=== PATIENT | female | born 1940 | race Caucasian/White ===

== ENCOUNTER → 2016-04-27 | Outpatient (CLI) | payer MEDICARE, OTHER | LOC: GMAL 17:11 | PROVIDERS: ATTEND Family Medicine | DX: T42.0X5A Adverse effect of hydantoin derivatives, initial encounter (principal); R56.9 Unspecified convulsions ==

== ENCOUNTER 2016-06-25 12:08 | Inpatient (IN) | payer MEDICARE, OTHER ==
[2016-06-25] MEDS ORDERED: IPRATROPIUM/ALBUTEROL 3 ML VIAL NEB ONE (12:24)
--- NOTE | 2016-06-25 13:17 | RAD ---
PROCEDURE: Chest,2 Views CLINICAL HISTORY: sob INDICATION: Same as above COMPARISON: 06/23/2016 and 04/23/2014 TECHNIQUE: PA and and lateral chest radiographs were obtained. FINDINGS: Note is again made of underlying changes of COPD and chronic blunting of the bilateral costophrenic angles due to underlying pleural thickening There are no discrete airspace infiltrates, pneumothoraces or pleural effusions. The pulmonary vascularity is normal The cardiomediastinal silhouette is unremarkable for patient's age and sex. IMPRESSION: There is no acute pleural-parenchymal process seen in the imaged lung damon. Underlying changes of COPD. Place of interpretation: [facility]. 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
[2016-06-25] MEDS ORDERED: cefTRIAXone SODIUM 1 GM in SODIUM CHL 0.9% 50ML MIN-BAG+ 50 ML IVPB ONE (14:05)
[2016-06-25] MEDS ORDERED: methylPREDNISolone SODIUM SUC 125 MG/2 ML VIAL IV ONE ×2 (14:05→20:11)
[2016-06-25] MEDS ORDERED: cefTRIAXone SODIUM 1 GM VIAL ONE (14:36)
[2016-06-25] MEDS ORDERED: SODIUM CHL 0.9% 50ML MIN-BAG+ 50 ML IVPB ONE (14:36)
--- NOTE | 2016-06-25 14:50 | ED.PDOC ---
History of Present Illness - General Chief Complaint: Respiratory Problem Stated Complaint: SHORTNESS OF BREATH Time Seen by Provider: 06/25/16 12:23 Source: patient Exam Limitations: no limitations - History of Present Illness Initial Comments: he patient is a 76-year-old female presented to the emergency room secondary to progressive shortness of breath last week. She does have known COPD and does still smoke. She went to the clinic earlier this week and received a shot of Rocephin and was put on oral azithromycin. She does do Xopenex nebulizer treatments and Spiriva treatments. No fevers. She has had an increase in clear sputum production. She is getting significantly short of breath with almost any activity. Oxygen saturations in clinic were in the high 70s by the time she arrived here they were in the low 80s with ambulation. With her sitting at rest oxygen saturations vary between 86 and 92%. She does have some mild nasal flaring or accessory muscle use. She does have moderate decreased air movement. There are mild scattered rhonchi. Minimal wheezes. Timing/Duration: 1 week Severity: moderate Improving Factors: rest Worsening Factors: movement Associated Symptoms: cough, malaise, shortness of breath Allergies/Adverse Reactions: Allergies Escitalopram [From Lexapro] Allergy (Verified 10/05/12 09:51) Metronidazole Allergy (Verified 10/05/12 09:51) Sulfa Antibiotics Allergy (Verified 07/18/15 17:50) Sulfonamide Deriv *RETIRED-02/15/13 [Sulfonamide Derivatives] Allergy (Verified 10/05/12 09:51) Venlafaxine [From Effexor] Allergy (Verified 10/05/12 09:51) Zonisamide [From Zonegran] Allergy (Verified 10/05/12 09:51) Home Medications: Ambulatory Orders Gabapentin 100 mg PO TID 07/15/13 Levothyroxine Sodium [Synthroid] 50 mcg PO DAILY 07/15/13 Phenytoin Sodium Extended [Dilantin] 100 mg PO DAILY 07/15/13 Nebivolol HCl [Bystolic] 2.5 mg PO DAILY 11/09/13 Paroxetine HCl [Paxil Cr] 37.5 mg PO BID 11/09/13 Oxcarbazepine [Trileptal] 150 mg PO DAILY 11/08/15 Phenytoin Sodium Cap [Dilantin Cap] 160 mg PO BEDTIME 11/08/15 Tiotropium [place] Monohydrate [Spiriva Handihaler] 1 puff IN BEDTIME 11/08/15 cloNAZepam [KlonoPIN] 0.5 mg PO QID 11/08/15 Review of Systems - Review of Systems Constitutional: States: malaise EENTM: States: nose congestion Respiratory: States: cough, short of breath, wheezing Cardiology: States: no symptoms reported Gastrointestinal/Abdominal: States: no symptoms reported Genitourinary: States: no symptoms reported Musculoskeletal: States: no symptoms reported Skin: States: no symptoms reported Neurological: States: no symptoms reported Endocrine: States: no symptoms reported All other Systems: No Change from Baseline Past Medical History (General) - Patient Medical History Hx Seizures: Yes Hx Stroke: No Hx Dementia: No Hx Asthma: No Hx of COPD: Yes - EMPHYSEMA Hx Cardiac Disorders: Yes Hx Congestive Heart Failure: No Hx Pacemaker: No Hx Hypertension: Yes Hx Thyroid Disease: Yes Hx Diabetes: No Hx Gastroesophageal Reflux: No Hx Renal Disease: No Hx Cancer: No Hx of HIV: No Hx Hepatitis C: No Hx MRSA: No Surgical History: Hysterectomy - Vaccination History Hx Influenza Vaccination: Yes Hx Pneumococcal Vaccination: Yes - Social History Hx Tobacco Use: Yes Hx Alcohol Use: No Hx Substance Use: No Hx Substance Use Treatment: No Hx Depression: Yes - Female History Patient : No Family Medical History - Family History Mother Family History: No Known Physical Exam - Physical Exam General Appearance: Alert, No apparent distress Eye Exam: bilateral normal Ears, Nose, Throat: hearing grossly normal, nasal congestion Neck: non-tender, full range of motion, supple Respiratory: chest non-tender, respiratory distress - mild, decreased breath sounds, accessory muscle use, rhonchi, wheezing Cardiovascular/Chest: normal peripheral pulses, regular rate, rhythm, no edema Peripheral Pulses: radial,right: 2+, radial,left: 2+, dorsalis pedis,right: 2+, dorsalis pedis,left: 2+ Gastrointestinal/Abdominal: non tender, soft Rectal Exam: deferred Back Exam: normal inspection, no CVA tenderness, no vertebral tenderness Extremity: normal range of motion, non-tender, normal inspection, no pedal edema , normal capillary refill Neurologic: alert, normal mood/affect, oriented x 3 Skin Exam: normal color Comments: Vital Signs - 24 hr 06/25/16 06/25/1606/25/17 12:42 12:54 13:00 Temperature 97.3 F L Pulse Rate 75 Pulse Rate [ 85 85 LEFT BRACHIAL] Respiratory 20 24 20 Rate Blood Pressure 155/91 160/74 [Left Arm] O2 Sat by Pulse 92 L 97 90 L Oximetry Progress - Progress Progress: 06/25/16 14:51 the patient is a 76-year-old female presenting with a COPD exacerbation and some significant symptomatic hypoxia. The patient will be admitted and placed on oxygen. She will need frequent breathing treatments. The DuoNeb treatment that she received here did help some. She has also agreed to low-dose steroids. The patient is given a dose of Rocephin and can continue her oral azithromycin. Anticipated to 3 day hospital stay. She may yet need home oxygen. This has yet to be determined. - Results/Orders Results/Orders: chest x-ray is consistent with COPD. Lab work is pending at this time. Departure - Departure Clinical Impression: Hypoxemia, Bronchitis, chronic obstructive, with exacerbation Disposition: Admit Patient Home Medications: Ambulatory Orders Gabapentin 100 mg PO TID 07/15/13 Levothyroxine Sodium [Synthroid] 50 mcg PO DAILY 07/15/13 Phenytoin Sodium Extended [Dilantin] 100 mg PO DAILY 07/15/13 Nebivolol HCl [Bystolic] 2.5 mg PO DAILY 11/09/13 Paroxetine HCl [Paxil Cr] 37.5 mg PO BID 11/09/13 Oxcarbazepine [Trileptal] 150 mg PO DAILY 11/08/15 Phenytoin Sodium Cap [Dilantin Cap] 160 mg PO BEDTIME 11/08/15 Tiotropium [place] Monohydrate [Spiriva Handihaler] 1 puff IN BEDTIME 11/08/15 cloNAZepam [KlonoPIN] 0.5 mg PO QID 11/08/15 Decision To Admit - Decistion To Admit Decision to Admit Reason: Medical Nature Decision to Admit Date: 06/25/16 Decision to Admit Time: 14:53
--- NOTE | 2016-06-25 14:55 | HP ---
SUPERVISING PHYSICIAN: Fritz Nicole M.D. CHIEF COMPLAINT: Shortness of breath. HISTORY OF PRESENT ILLNESS: This is a 76 year-old female who presented to the Emergency Room secondary to progressive shortness of breath that has been going on for over a week. She has chronic obstructive pulmonary disease and continues to smoke. She also has an extensive history of anxiety. She was at the [facility] earlier this weekend and received a Rocephin shot, and oral Azithromycin. She has Xopenex nebulizer treatments as well as Spiriva treatments. She has a dry cough and has been unable to cough up anything at this time. When she was in the clinic, her oxygen saturations were in the high 70s and upon admission to the Emergency Room they were in the low 80s. At rest , her saturations were between 86 and 92%, and her saturations stayed in the low 90s once she had oxygen. She was given a dose of steroids in the Emergency Room. Chest x-ray showed no acute pleural parenchymal process and underlying changes of chronic obstructive pulmonary disease. Laboratory: CBC was within normal limits. Chemistries showed carbon dioxide of 32, creatinine 0.56. I was called for admission for chronic obstructive pulmonary disease exacerbation failing outpatient therapy. PAST MEDICAL HISTORY: 1. Anxiety. 2. Seizure disorder. 3. Chronic obstructive pulmonary disease. 4. Hypertension. 5. Hypothyroidism. PAST SURGICAL HISTORY: 1. Right shoulder surgery. 2. Hysterectomy. 3. Appendectomy. 4. Gallbladder. 5. Thyroid surgery that involved a goiter. OUTPATIENT MEDICATIONS: Per the EMR and awaiting verification. ALLERGIES: METRONIDAZOLE, SULFA, ZONISAMIDE, CITALOPRAM AND VENLAFAXINE. SOCIAL HISTORY: She is a . She smokes approximately 1 pack of cigarettes per day. She denies any ETOH or illicit drug use. REVIEW OF SYSTEMS: GENERAL: She complains of fatigue but denies fever or chills. HEENT: Complains of nasal drainage and sinus symptoms but denies ear pain, sore throat or vision changes. RESPIRATORY: Complains of coughing, shortness of breath and wheezing. CARDIAC: Denies chest pain, palpitations or tachycardia. GASTROINTESTINAL: Denies constipation, diarrhea, nausea, vomiting or abdominal pain. NEUROLOGIC: Denies any recent seizures but complains of weakness. PSYCHIATRIC: She also states that she has very bad general anxiety disorder. PHYSICAL EXAMINATION: VITAL SIGNS: She is afebrile, pulse rate 75, blood pressure 166/89, respiratory rate is as high as 24 but is now in the 20s, O2 sat is in the low 90s, usually 90 to 92 but without oxygen she drops to the mid 80s. GENERAL: This is a 76 year-old thin female who is sitting up in her hospital bed. She is in mild respiratory distress. She can only speak in short phrases without taking a breath. HEENT: Normocephalic and atraumatic. Pupils are equal and reactive. Oropharynx is clear. Oral mucous membranes are moist. NECK: Supple without mass. There is no jugular venous distention. CHEST: Diminished breath sounds throughout. There are a few expiratory wheezes in the apices. She is slightly tachypneic at times. CARDIOVASCULAR: Regular rate and rhythm. ABDOMEN: Soft, nondistended, non-tender. Bowel sounds are positive. EXTREMITIES: No cyanosis, clubbing or edema. NEUROLOGIC: She is awake, alert and oriented times three. LABORATORY AND RADIOLOGY: As per the History of Present Illness. ASSESSMENT: 1. Exacerbation of chronic obstructive pulmonary disease, failed outpatient therapy. Was recently given Rocephin and Azithromycin in the outpatient setting. 2. Seizure disorder presently on Dilantin and Gabapentin. 3. Hypertension. 4. Hypothyroidism. 5. General anxiety disorder with panic attacks. PLAN: We will admit the patient to observation. I will do some blood cultures. I will also put her on some IV Levaquin. She will also be on the Xopenex breathing treatments both p.r.n. and scheduled. She does not like the shakiness that accompanies the administration of steroids. She received 60 mg in the E. R. and I will give her 60 mg right now. I have not started any routine steroids and I will see how she responds to the steroid treatment tonight, but given her respiratory status she most likely will at least need a taper. Will order incentive spirometry and pulmonary hygiene. Protonix for ulcer prophylaxis will be ordered as well as Lovenox for DVT prophylaxis. She gets scheduled Clonazepam and I have ordered that, but I will also give her an extra dose of p.r.n. Clonazepam. We had a lengthy discussion about smoking cessation and she realizes that she will probably have to do that. I am not quite sure she is ready for that, but we will continue to encourage her to stop smoking. Otherwise we will continue to monitor the patient closely and followup as needed. Dr. Nicole is the collaborating physician available for consultation. #[id number] [facility]ITALJazmyn
[2016-06-25] MEDS ORDERED: ALBUTEROL SULFATE 2.5 MG/3 ML VIAL NEB PRN (16:32)
[2016-06-25] MEDS ORDERED: IV SET AND CAP CHANGE INJ INJ SCH (17:00)
--- NOTE | 2016-06-25 18:50 | PCM.CORE ---
Physician DVT/VTE - Prophylaxis Currently: Patient already on anticoagulation therapy - Nurse DVT Assessment & Total Each Risk Factor Represents 3 Points: Age over 75 years Each Risk Factor is 1 Point: Serious Lung disease (pnemonia <1month, COPD, emphysema,etc) DVT Assessment Score: 4 - 3-4 High Risk Treatments: Early Ambulation *, Sequential Compression Device
[2016-06-25] MEDS ORDERED: ENOXAPARIN SODIUM 40 MG/0.4 ML SYG SUBCU SCH (19:00)
[2016-06-25] MEDS ORDERED: OXcarbazepine 300 MG TAB PO ONE (19:59)
[2016-06-25] MEDS ORDERED: IPRATROPIUM/ALBUTEROL 3 ML VIAL INH SCH (20:00)
[2016-06-25] MEDS ORDERED: GABAPENTIN 300 MG CAP ONE (20:00)
[2016-06-25] MEDS ORDERED: LEVALBUTEROL NEBS 1.25 MG/3 ML VIAL NEB PRN (20:10)
[2016-06-25] MEDS: SODIUM CHLORIDE 0.9% (FLUSH) 10 ML SYG IV PRN (20:23)
[2016-06-25] MEDS ORDERED: PANTOPRAZOLE SODIUM IV 40 MG VIAL IV SCH (20:30)
[2016-06-25] MEDS: TIOTROPIUM INHALER INH SCH (20:43)
[2016-06-25] MEDS: levoFLOXacin 500MG IV 500 MG in PREMIX BAG 1 BAG IVPB SCH (20:56)
[2016-06-25] MEDS ORDERED: levoFLOXacin 500MG IV 100 ML IVPB ONE (20:56)
[2016-06-25] MEDS ORDERED: SODIUM CHLORIDE 0.9% 10 ML VIAL ONE (20:57)
[2016-06-25] MEDS ORDERED: PAROXETINE HCL 37.5 MG PO SCH (21:00)
[2016-06-25] MEDS ORDERED: PHENYTOIN SODIUM 100 MG CAP PO SCH (21:00)
[2016-06-25] MEDS ORDERED: OXCARBAZEPINE 300 MG PO SCH (21:00)
[2016-06-25] MEDS: GABAPENTIN 100 MG CAP PO SCH (21:04)
[2016-06-25] MEDS: PAROXETINE HCL 37.5 MG PO SCH (21:51)
[2016-06-25] MEDS ORDERED: PHENYTOIN SODIUM PO SCH (22:00)
[2016-06-25] MEDS ORDERED: NICOTINE PATCH 14 MG TD SCH (22:30)
[2016-06-26] MEDS: LEVALBUTEROL NEBS 1.25 MG/3 ML VIAL NEB SCH ×3 (00:38→16:05)
[2016-06-26] MEDS ORDERED: SODIUM CHLORIDE 0.9% 10 ML VIAL IV PRN (08:18)
[2016-06-26] MEDS: LEVOTHYROXINE SODIUM 0.025 MG TAB PO SCH (08:51)
[2016-06-26] MEDS: PHENYTOIN SODIUM 100 MG CAP PO SCH (08:52)
[2016-06-26] MEDS: NON-FORMULARY MEDICATION 1 EA MIS PO SCH (08:52)
[2016-06-26] MEDS: NEBIVOLOL 2.5 MG TAB PO SCH (08:52)
[2016-06-26] MEDS: GABAPENTIN 100 MG CAP PO SCH ×2 (08:52→20:34)
[2016-06-26] MEDS: ENOXAPARIN SODIUM 40 MG/0.4 ML SYG SUBCU SCH (08:53)
[2016-06-26] MEDS: OXcarbazepine 300 MG TAB PO SCH ×2 (08:55→20:33)
[2016-06-26] MEDS: SODIUM CHLORIDE 0.9% (FLUSH) 10 ML SYG IV PRN ×2 (08:56→20:23)
[2016-06-26] MEDS ORDERED: PHENYTOIN SODIUM CAP (ER DISP) 100 MG CAP PO SCH (09:00)
[2016-06-26] MEDS ORDERED: predniSONE 10 MG TAB PO ONE (13:12)
--- NOTE | 2016-06-26 15:07 | PN ---
DATE: 06/26/16 SUBJECTIVE: The patient is sitting up having eaten a meal and generally is able to speak in full sentences and has less dyspnea. She is still requiring oxygen with final determination of the amount of oxygen to be made later today as Respiratory is able to provide an ambulation study today and again in the morning. Prescriptions for home oxygen have also been written to assist with the acquisition of home oxygen. OBJECTIVE: LUNGS: Have diminished breath sounds. HEART: Tones are somewhat distant yet fairly regular. ABDOMEN: Soft. Coloration is good. LABORATORY: White count 4,900, hemoglobin 13.3. Chemistry shows potassium 4.1 , CO2 of 33, BUN 17, creatinine 0.44, glucose 108. Albumin 3.1. Chest x-ray yesterday reveals no acute processes evident, yet underlying chronic obstructive pulmonary disease noted. ASSESSMENT: 1. Chronic obstructive pulmonary disease with an acute exacerbation having failed outpatient therapy and requiring institution of home oxygen. 2. Hypoxia with oxygen supplementation. 3. History of chronic seizure disorder currently on Dilantin and Gabapentin. 4. History of hypertension. 5. History of hypothyroidism. 6. History of general anxiety disorder with associate panic episodes. PLAN: Arrange for home oxygen with concentrator as well as portable for portable use. This will be arranged for in the morning. Adjust oxygen intake to maintain saturation 90 to 92% only. Will continue with general principles of health with good nutrition and adequate fluid intake. She will have close followup with Dr. Recio in the clinic after discharge. #[id number] PHILL
[2016-06-26] MEDS: PAROXETINE HCL 37.5 MG PO SCH ×2 (15:25→22:01)
[2016-06-26] MEDS ORDERED: NICOTINE PATCH 14 MG TD ONE (17:50)
[2016-06-26] MEDS ORDERED: levoFLOXacin 500MG IV 100 ML IVPB ONE (17:51)
[2016-06-26] MEDS ORDERED: PANTOPRAZOLE SODIUM IV 40 MG VIAL ONE (17:51)
[2016-06-26] MEDS: TIOTROPIUM INHALER INH SCH (19:56)
[2016-06-26] MEDS: levoFLOXacin 500MG IV 500 MG in PREMIX BAG 1 BAG IVPB SCH (20:24)
[2016-06-26] MEDS ORDERED: PANTOPRAZOLE SODIUM IV 40 MG VIAL IV SCH (21:00)
[2016-06-26] MEDS ORDERED: NICOTINE PATCH 14 MG TD SCH (21:00)
[2016-06-26] MEDS ORDERED: PHENYTOIN SODIUM 100 MG CAP PO SCH (21:00)
[2016-06-27] MEDS: LEVALBUTEROL NEBS 1.25 MG/3 ML VIAL NEB SCH ×2 (00:17→07:24)
[2016-06-27] MEDS: LEVOTHYROXINE SODIUM 0.025 MG TAB PO SCH (06:01)
[2016-06-27] MEDS ORDERED: predniSONE 20 MG TAB PO SCH (09:00)
[2016-06-27] MEDS: NEBIVOLOL 2.5 MG TAB PO SCH (09:02)
[2016-06-27] MEDS: ENOXAPARIN SODIUM 40 MG/0.4 ML SYG SUBCU SCH (09:02)
[2016-06-27] MEDS: GABAPENTIN 100 MG CAP PO SCH (09:03)
[2016-06-27] MEDS: PHENYTOIN SODIUM 100 MG CAP PO SCH (09:03)
[2016-06-27] MEDS: OXcarbazepine 300 MG TAB PO SCH (09:04)
[2016-06-27] MEDS: NON-FORMULARY MEDICATION 1 EA MIS PO SCH (09:10)
[2016-06-27 10:16] VITALS: BP 135/74; TEMP 98; O2SAT 91
--- NOTE | 2016-06-27 13:13 | DS ---
DISCHARGE DIAGNOSIS: 1. Chronic obstructive pulmonary disease with an acute exacerbation, having failed outpatient therapy and requiring continued pulmonary hygiene with bronchodilators an tapering corticosteroids as well as the acquisition of home oxygen, which she has not had before. 2. Chronic hypoxia, requiring oxygen supplementation with significant desaturation noted at rest and especially upon exertion. 3. History of chronic seizure disorder, currently on Dilantin and gabapentin, etc. 4. History of hypertension. 5. History of hypothyroidism. 6. History of general anxiety disorder with associated panic episodes. HISTORY OF PRESENT ILLNESS: This 76-year-old, white female was admitted to the hospital from the Emergency Room because of progressive worsening shortness of breath over the last week. She has had a history of chronic obstructive pulmonary disease in the past and has continued to smoke and encouraged to stop completely. She was earlier seen at [facility] and received Rocephin, azithromycin and corticosteroid as well as bronchodilators, but has failed to improve. She has had saturations in the high 70s and in the Emergency Room it was in the low 80s. When she ambulates, it is in the mid-70s with the patient noticing some mild dyspnea, but otherwise able to keep walking , which she has been doing, pushing her way through the hypoxic episodes for a long time. She was admitted to the hospital for initiation of bronchodilator therapy, pulmonary hygiene, corticosteroid and antibiotic use and treatment course as well as acquisition of oxygen for home use. LABORATORY: White count 4,900, hemoglobin 13.3. Chemistries show potassium 4.1 , CO2 elevated at 33, BUN 17, creatinine 0.44, glucose 108, calcium 8.4. Liver enzymes normal. Albumin 3.1. Blood culture, influenza A/B negative. X-ray of the chest showed chronic obstructive pulmonary disease with no acute findings evident. HOSPITAL COURSE: The patient was feeling much improved and was a able to ambulate with oxygen. She did not want to use the oxygen, but she now realizes she needs to use the oxygen in order to help take a significant stress off of her body because of the low oxygen tissue levels from her significant lung disease process. She was ready for outpatient therapy on the day of discharge. PLAN: Close followup with Dr. Recio this next Monday and thereafter. She is to walk as well as even at rest utilize oxygen in order to maintain a pulse oximetry between 90% and 92% only to avoid pulse oximetry percentages higher than 93% in an effort to prevent CO2 retention. She must stop all smoking. She is to stay active. Utilize hobbies to keep her mind stimulated. She will be discharged home after home oxygen is available to use. Return if not improving. #[id number] PHILL
== END 2016-06-27 13:45 | disposition home or self-care (01) | DRG 192 ==
LOC: ER 12:08 → INTOOBSV 14:55 → OBSVTOIN 14:55 → MS 14:55 → OBSVTOIN 06-26 12:07 → UNDODISIN 06-27 13:45
PROVIDERS: ADMIT Family Medicine; ATTEND Emergency Medicine
DX: J44.1 Chronic obstructive pulmonary disease with (acute) exacerbation (principal); R09.02 Hypoxemia; G40.909 Epilepsy, unspecified, not intractable, without status epilepticus; I10 Essential (primary) hypertension; E03.9 Hypothyroidism, unspecified; F41.1 Generalized anxiety disorder; F41.0 Panic disorder [episodic paroxysmal anxiety]; F17.210 Nicotine dependence, cigarettes, uncomplicated; Z99.81 Dependence on supplemental oxygen; Z88.2 Allergy status to sulfonamides; Z88.8 Allergy status to other drugs, medicaments and biological substances; Z79.899 Other long term (current) drug therapy

== ENCOUNTER → 2016-07-18 | Outpatient (CLI) | payer MEDICARE, OTHER | END | disposition home or self-care (01) | LOC: GMAL 14:26 | PROVIDERS: ATTEND Family Medicine | DX: E55.9 Vitamin D deficiency, unspecified (principal); R56.9 Unspecified convulsions ==

== ENCOUNTER 2016-07-23 10:28 | Emergency (ER) | payer MEDICARE, OTHER ==
[2016-07-23 10:44] VITALS: TEMP 98.4
[2016-07-23] MEDS ORDERED: IPRATROPIUM/ALBUTEROL 3 ML VIAL NEB ONE ×2 (10:50→10:53)
--- NOTE | 2016-07-23 10:54 | ED.PDOC ---
History of Present Illness - General Chief Complaint: Respiratory Problem Stated Complaint: anxiety, cough, COPD Time Seen by Provider: 07/23/16 10:43 Source: patient, RN notes reviewed, Vital Signs reviewed Exam Limitations: no limitations - History of Present Illness Initial Comments: Patient reports that she has been having a cough and SOB. She has been checking her O2 at home and it has been 87-88% and she got scared. She reports her O2 without oxygen is normally 90%. She saw Dr. Recio 2 days ago and started some Prednisone yesterday and Mucinex today. Cough is productive but is clear. + chills but no fever. No chest pain/discomfort. Timing/Duration: days - 3 Severity: moderate Activities at Onset: none Possible Cause: chronic episodes Improving Factors: nothing Worsening Factors: nothing Associated Symptoms: anxiety, cough Respiratory Risk Factors: other - HX of COPD Allergies/Adverse Reactions: Allergies Metronidazole Allergy (Verified 07/23/16 10:49) Unknown Sulfa Antibiotics Allergy (Verified 07/23/16 10:49) Unknown Sulfonamide Deriv *RETIRED-02/15/13 [Sulfonamide Derivatives] Allergy (Verified 10/05/12 09:51) Zonisamide [From Zonegran] Allergy (Verified 07/23/16 10:49) Unknown Escitalopram [From Lexapro] Adverse Reaction (Verified 07/23/16 10:49) Unknown Venlafaxine [From Effexor] Adverse Reaction (Verified 07/23/16 10:49) Unknown Home Medications: Ambulatory Orders Gabapentin 100 mg PO DAILY 07/15/13 Levothyroxine Sodium [Synthroid] 50 mcg PO DAILY 07/15/13 Nebivolol HCl [Bystolic] 2.5 mg PO DAILY 11/09/13 Oxcarbazepine [Trileptal] 300 mg PO BID 11/08/15 Tiotropium [place] Monohydrate [Spiriva Handihaler] 1 puff IN BEDTIME 11/08/15 cloNAZepam [Klonopin] 1 - 1.5 each PO QID 11/08/15 Gabapentin 300 mg PO BEDTIME 06/25/16 Paroxetine HCl [Paxil Cr] 37.5 mg PO BID 06/25/16 Phenytoin Sodium Cap [Dilantin Cap] 100 mg PO DAILY 06/26/16 Phenytoin Sodium Cap [Dilantin Cap] 160 mg PO BEDTIME 06/26/16 predniSONE [Prednisone] 10 mg PO QAM #12 tab 06/27/16 Review of Systems - Review of Systems Constitutional: States: chills. Denies: diaphoresis, fever, malaise, weakness EENTM: States: no symptoms reported Respiratory: States: cough, short of breath. Denies: stridor, wheezing Cardiology: States: no symptoms reported. Denies: chest pain, edema Gastrointestinal/Abdominal: States: no symptoms reported Genitourinary: States: no symptoms reported Musculoskeletal: States: no symptoms reported Skin: States: no symptoms reported Neurological: States: anxiety. Denies: headache Endocrine: States: no symptoms reported Past Medical History (General) - Patient Medical History Hx Seizures: Yes Hx Stroke: No Hx Dementia: No Hx Asthma: No Hx of COPD: Yes Hx Cardiac Disorders: Yes Hx Congestive Heart Failure: No Hx Pacemaker: No Hx Hypertension: No Hx Thyroid Disease: Yes Hx Diabetes: No Hx Gastroesophageal Reflux: No Hx Renal Disease: No Hx Cancer: No Hx of HIV: No Hx Hepatitis C: No Hx MRSA: No - Vaccination History Hx Influenza Vaccination: Yes - 2015 Hx Pneumococcal Vaccination: Yes - 2013 - Social History Hx Tobacco Use: Yes Years Tobacco Use: 40 Cigarettes Packs Per Day: 2 - 2 PPD X years, currently down to 3 cig/day Hx Alcohol Use: No Hx Substance Use: No Hx Substance Use Treatment: No Hx Depression: Yes Hx Physical Abuse: No Hx Emotional Abuse: No - Activities of Daily Living Patient Lives Alone: Yes - recently Grooming Ability: Independent Eating (Feeding) Ability: Independent Toileting Ability: Independent - Female History Patient is a Female of Child Bearing Age (10 -59 yrs old): No Patient : No Family Medical History - Family History Mother Family History: No Known Living Status: Physical Exam - Physical Exam General Appearance: Alert, Comfortable, No apparent distress, Well Developed, Well Groomed, Well Hydrated, Well Nourished Neck: non-tender, full range of motion, supple, normal inspection Respiratory: chest non-tender, no respiratory distress, no accessory muscle use , decreased breath sounds - throughtout Cardiovascular/Chest: regular rate, rhythm, no edema, no gallop, no JVD, no murmur Extremity: normal range of motion, non-tender, normal inspection, no pedal edema Neurologic: no motor/sensory deficits, alert, normal mood/affect, oriented x 3 Skin Exam: normal color, warm/dry Comments: Vital Signs - 24 hr 07/23/16 10:43 Temperature 98.4 F Pulse Rate [ 78 Right Radial] Respiratory 20 Rate Blood Pressure 148/81 [Left Arm] O2 Sat by Pulse 90 L Oximetry Progress - Progress Progress: 07/23/16 11:32 Patient is feeling better after neb treatment. Advised of no pneumonia on X- ray. Having a COPD exacerbation. Advised to continue steroids and breathing treatments at home. Use oxygen if needed. Any new or worsening symptoms follow up with Dr. Recio. - EKG/XRAY/CT XRAY: chest - COPD, no pneumonia Departure - Departure Clinical Impression: COPD (chronic obstructive pulmonary disease) with acute bronchitis Time of Disposition: 11:34 Disposition: Discharge to Home or Self Care Condition: Good Departure Forms: ED Discharge - Pt. Copy, Patient Portal Self Enrollment Instructions: DI for Chronic Obstructive Pulmonary Disease Diet: resume usual diet Activity: ambulate only with walker Home Medications: Ambulatory Orders Gabapentin 100 mg PO DAILY 07/15/13 Levothyroxine Sodium [Synthroid] 50 mcg PO DAILY 07/15/13 Nebivolol HCl [Bystolic] 2.5 mg PO DAILY 11/09/13 Oxcarbazepine [Trileptal] 300 mg PO BID 11/08/15 Tiotropium [place] Monohydrate [Spiriva Handihaler] 1 puff IN BEDTIME 11/08/15 cloNAZepam [Klonopin] 1 - 1.5 each PO QID 11/08/15 Gabapentin 300 mg PO BEDTIME 06/25/16 Paroxetine HCl [Paxil Cr] 37.5 mg PO BID 06/25/16 Phenytoin Sodium Cap [Dilantin Cap] 100 mg PO DAILY 06/26/16 Phenytoin Sodium Cap [Dilantin Cap] 160 mg PO BEDTIME 06/26/16 predniSONE [Prednisone] 10 mg PO QAM #12 tab 06/27/16 Additional Instructions: Con't prednisone, neb treatments and oxygen.
--- NOTE | 2016-07-23 11:20 | RAD ---
PROCEDURE: Chest,2 Views CLINICAL HISTORY: cough/SOB INDICATION: Same as above COMPARISON: 06/25/2016 TECHNIQUE: PA and and lateral chest radiographs were obtained. FINDINGS: Note is again made of underlying changes of COPD and chronic blunting of the bilateral costophrenic angles due to pleural thickening There are no discrete airspace infiltrates, pneumothoraces or pleural effusions. The pulmonary vascularity is normal The cardiomediastinal silhouette is unremarkable for patient's age and sex. IMPRESSION: There is no acute pleural-parenchymal process seen in the imaged lung damon. Underlying changes of COPD. Electronically signed by: David Silveira MD 07/23/2016 11:19 AM CDT
[2016-07-23 11:42] VITALS: BP 144/78; O2SAT 92
== END 2016-07-23 11:40 | disposition home or self-care (01) ==
LOC: ER 10:28
DX: J44.0 Chronic obstructive pulmonary disease with (acute) lower respiratory infection (principal); J20.9 Acute bronchitis, unspecified; E07.9 Disorder of thyroid, unspecified; F17.210 Nicotine dependence, cigarettes, uncomplicated; Z88.2 Allergy status to sulfonamides; Z88.8 Allergy status to other drugs, medicaments and biological substances; Z79.899 Other long term (current) drug therapy
CPT/HCPCS: 71020; 94640; J7620

== ENCOUNTER 2016-08-10 09:10 | Emergency (ER) | payer MEDICARE, OTHER ==
--- NOTE | 2016-08-10 09:26 | ED.PDOC ---
History of Present Illness - General Chief Complaint: Respiratory Problem Stated Complaint: SOB Time Seen by Provider: 08/10/16 09:25 Source: patient, RN notes reviewed, Vital Signs reviewed Exam Limitations: no limitations - History of Present Illness Initial Comments: Ms. 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 Timing/Duration: other - 3 days ago Severity: moderate Activities at Onset: none Possible Cause: chronic episodes, smoke exposure Improving Factors: nothing Worsening Factors: nothing Associated Symptoms: anxiety Respiratory Risk Factors: other - copd Allergies/Adverse Reactions: Allergies Metronidazole Allergy (Verified 08/10/16 09:39) Unknown Sulfa Antibiotics Allergy (Verified 08/10/16 09:39) Unknown Sulfonamide Deriv *RETIRED-02/15/13 [Sulfonamide Derivatives] Allergy (Verified 08/10/16 09:39) Zonisamide [From Zonegran] Allergy (Verified 08/10/16 09:39) Unknown Escitalopram [From Lexapro] Adverse Reaction (Verified 08/10/16 09:39) Unknown Venlafaxine [From Effexor] Adverse Reaction (Verified 08/10/16 09:39) Unknown Home Medications: Ambulatory Orders Gabapentin 100 mg PO DAILY 07/15/13 Levothyroxine Sodium [Synthroid] 50 mcg PO DAILY 07/15/13 Nebivolol HCl [Bystolic] 2.5 mg PO DAILY 11/09/13 Oxcarbazepine [Trileptal] 300 mg PO BID 11/08/15 Tiotropium [place] Monohydrate [Spiriva Handihaler] 1 puff IN BEDTIME 11/08/15 cloNAZepam [Klonopin] 1 - 1.5 each PO QID 11/08/15 Gabapentin 300 mg PO BEDTIME 06/25/16 Paroxetine HCl [Paxil Cr] 37.5 mg PO BID 06/25/16 Phenytoin Sodium Cap [Dilantin Cap] 100 mg PO DAILY 06/26/16 Phenytoin Sodium Cap [Dilantin Cap] 160 mg PO BEDTIME 06/26/16 predniSONE [Prednisone] 10 mg PO QAM #12 tab 06/27/16 Review of Systems - Review of Systems Constitutional: States: no symptoms reported EENTM: States: no symptoms reported Respiratory: States: see HPI Cardiology: States: no symptoms reported Gastrointestinal/Abdominal: States: no symptoms reported Genitourinary: States: no symptoms reported Skin: States: no symptoms reported Neurological: States: no symptoms reported Endocrine: States: no symptoms reported Hematologic/Lymphatic: States: no symptoms reported Past Medical History (General) - Patient Medical History Hx Seizures: Yes Hx Stroke: No Hx Dementia: No Hx Asthma: No Hx of COPD: Yes Hx Cardiac Disorders: Yes Hx Congestive Heart Failure: No Hx Pacemaker: No Hx Hypertension: No Hx Thyroid Disease: Yes Hx Diabetes: No Hx Gastroesophageal Reflux: No Hx Renal Disease: No Hx Cancer: No Hx of HIV: No Hx Hepatitis C: No Hx MRSA: No - Vaccination History Hx Influenza Vaccination: Yes - 2015 Hx Pneumococcal Vaccination: Yes - 2013 - Social History Hx Tobacco Use: Yes Years Tobacco Use: 50 Cigarettes Packs Per Day: 20 Hx Alcohol Use: No Hx Substance Use: No Hx Substance Use Treatment: No Hx Depression: Yes Hx Physical Abuse: No Hx Emotional Abuse: No - Activities of Daily Living Patient Lives Alone: No Grooming Ability: Independent Eating (Feeding) Ability: Independent Toileting Ability: Independent - Female History Patient : No Family Medical History - Family History Mother Family History: No Known Living Status: Hx Family Asthma: Yes - copd-dad,sister Physical Exam - Physical Exam General Appearance: Alert, No apparent distress, Other - speaks in full sentences Eyes, Ears, Nose, Throat Exam: PERRL/EOMI, normal ENT inspection, TMs normal Neck: non-tender, full range of motion, supple, normal inspection Respiratory: chest non-tender, no respiratory distress, no accessory muscle use , decreased breath sounds Cardiovascular/Chest: normal peripheral pulses, regular rate, rhythm, no edema, no JVD, no murmur Peripheral Pulses: radial,right: 2+, radial,left: 2+ Gastrointestinal/Abdominal: normal bowel sounds, non tender, soft, no organomegaly, no pulsatile mass Extremity: normal range of motion, non-tender, normal inspection, no pedal edema , no calf tenderness Neurologic: no motor/sensory deficits, alert, normal mood/affect, oriented x 3 Skin Exam: normal color, warm/dry Lymphatic: no adenopathy Progress - Results/Orders Results/Orders: Laboratory Results WBC 4.1 K/mm3 (4.8-10.8) L 08/10/16 09:44 RBC 4.51 M/mm3 (4.20-5.40) 08/10/16 09:44 Hgb 13.8 gm/dL (12.0-16.0) 08/10/16 09:44 Hct 41.6 % (36.0-47.0) 08/10/16 09:44 MCV 92.1 fl (81.0-99.0) 08/10/16 09:44 MCH 30.6 pg (27.0-31.0) 08/10/16 09:44 MCHC 33.2 g/dL (33.0-37.0) 08/10/16 09:44 RDW 15.6 % (11.5-14.5) H 08/10/16 09:44 Plt Count 186 K/mm3 (130-400) 08/10/16 09:44 MPV 6.8 fl (7.40-10.4) L 08/10/16 09:44 Absolute Neuts (auto) 2.40 K/uL (1.8-6.8) 08/10/16 09:44 Absolute Lymphs (auto) 1.10 K/uL (1.0-3.4) 08/10/16 09:44 Absolute Monos (auto) 0.40 K/uL (0.2-0.8) 08/10/16 09:44 Absolute Eos (auto) 0.20 K/uL (0.0-0.4) 08/10/16 09:44 Absolute Basos (auto) 0.00 K/uL (0.0-0.1) 08/10/16 09:44 Neutrophils % 57.3 % (42.0-78.0) 08/10/16 09:44 Lymphocytes % 26.6 % (20.0-50.0) 08/10/16 09:44 Monocytes % 10.8 % (2.0-9.0) H 08/10/16 09:44 Eosinophils % 4.3 % (1.0-5.0) 08/10/16 09:44 Basophils % 1.0 % (0.0-2.0) 08/10/16 09:44 Vital Signs - 8 hr 08/10/16 08/10/16 09:23 09:36 Temperature 97.2 F L Pulse Rate [ 85 MONITOR] Respiratory 22 22 Rate Blood Pressure 148/80 [Left Arm] O2 Sat by Pulse 93 L Oximetry Departure - Departure Clinical Impression: COPD exacerbation Time of Disposition: 10:05 Disposition: Discharge to Home or Self Care Condition: Fair Departure Forms: ED Discharge - Pt. Copy, Patient Portal Self Enrollment Instructions: DI for Chronic Obstructive Pulmonary Disease, Chronic Obstructive Pulmonary Disease (Alternative Therapy), Smoking Cessation for Older Adults: It's Not Too Late!, Tips to Help You Stop Smoking, How to Quit Smoking Referrals: Matt Recio III, MD [Primary Care Provider] - 1-2 Weeks Home Medications: Ambulatory Orders Gabapentin 100 mg PO DAILY 07/15/13 Levothyroxine Sodium [Synthroid] 50 mcg PO DAILY 07/15/13 Nebivolol HCl [Bystolic] 2.5 mg PO DAILY 11/09/13 Oxcarbazepine [Trileptal] 300 mg PO BID 11/08/15 Tiotropium [place] Monohydrate [Spiriva Handihaler] 1 puff IN BEDTIME 11/08/15 cloNAZepam [Klonopin] 1 - 1.5 each PO QID 11/08/15 Gabapentin 300 mg PO BEDTIME 06/25/16 Paroxetine HCl [Paxil Cr] 37.5 mg PO BID 06/25/16 Phenytoin Sodium Cap [Dilantin Cap] 100 mg PO DAILY 06/26/16 Phenytoin Sodium Cap [Dilantin Cap] 160 mg PO BEDTIME 06/26/16 predniSONE [Prednisone] 10 mg PO QAM #12 tab 06/27/16 Additional Instructions: CONTINUE WITH ALL HOME MEDS and NEWLY PRESCRIBED MEDICATIONS
[2016-08-10 10:23] VITALS: BP 141/81; TEMP 97.1; O2SAT 90
== END 2016-08-10 10:21 | disposition home or self-care (01) ==
LOC: ER 09:10
DX: J44.1 Chronic obstructive pulmonary disease with (acute) exacerbation (principal); F17.210 Nicotine dependence, cigarettes, uncomplicated; E07.9 Disorder of thyroid, unspecified; F32.9 Major depressive disorder, single episode, unspecified; R56.9 Unspecified convulsions; Z79.899 Other long term (current) drug therapy; Z88.2 Allergy status to sulfonamides; Z88.8 Allergy status to other drugs, medicaments and biological substances

== ENCOUNTER → 2016-08-12 | Outpatient (CLI) | payer MEDICARE, OTHER ==
--- NOTE | 2016-08-12 10:58 | CT ---
EXAM DESCRIPTION: Chest w/Contrast CLINICAL HISTORY: LUNG NODULE COMPARISON: Chest x-ray July 23, 2016. CT abdomen pelvis July 18, 2015. The report is not available. TECHNIQUE: Postcontrast CT images of the chest are obtained. This exam was performed according to our departmental dose-optimization program, which includes automated exposure control, adjustment of the mA and/or kV according to patient size and/or use of iterative reconstruction technique . FINDINGS: Moderate to severe coronary artery calcifications are seen. The main pulmonary artery is borderline enlarged measuring 2.9 cm compared to the adjacent thoracic aorta measuring 3.2 cm. No pathologically enlarged mediastinal, hilar, or axillary lymphadenopathy seen. No significant pleural or pericardial effusion is seen. Visualized portion of the upper abdomen shows multiple hepatic cysts. There are probable hemangiomas in the medial left lobe liver and inferior right lobe liver. There are geographic areas of enhancement in the liver. Left adrenal gland mass measures 1.4 cm compared to 1.7 cm on previous exam. The lungs are hyperinflated. There are severe centrilobular emphysematous changes seen. There is an irregular oval solid pulmonary nodules in the medial right upper lobe measuring 10 mm with surrounding areas of interstitial thickening. There is an adjacent 5 mm nodular extension of this main pulmonary nodule best seen on sagittal image 67. No significant left upper lobe pulmonary nodule is seen. Osseous structures show no aggressive bony lesions. Mild curvature of the lower thoracic spine with convexity towards the right is seen. IMPRESSION: There is an irregular 10 mm noncalcified pulmonary nodule in the anterior right upper lobe concerning for neoplastic process. Recommend tissue sampling . Severe centrilobular emphysematous changes to the lungs are seen. Interstitial scarring or thickening in the medial inferior aspect of the right upper lobe is also noted. Left adrenal gland mass is seen. This was identified on a CT scan from July 18, 2015 of the abdomen and pelvis and appear stable. Multiple hepatic lesions are seen. Several these appear to represent cysts with at least 2 lesions probably representing hemangioma. Correlate with previous CT abdomen pelvis report and follow-up imaging as clinically indicated. Electronically signed by: Cesar Robin MD 08/12/2016 10:56 AM CDT
== END | disposition home or self-care (01) ==
LOC: CT 08:28
PROVIDERS: ATTEND Family Medicine
DX: J98.4 Other disorders of lung (principal)

== ENCOUNTER 2016-08-31 07:59 | Inpatient (IN) | payer MEDICARE, OTHER ==
--- NOTE | 2016-08-31 08:16 | ED.PDOC ---
History of Present Illness - General Chief Complaint: Respiratory Problem Stated Complaint: shortness of breath, nausea Time Seen by Provider: 08/31/16 08:15 Source: patient, RN notes reviewed, Vital Signs reviewed Exam Limitations: no limitations - History of Present Illness Initial Comments: Ximena Holland 76 y/o female with hx of copd stated that her sob not any better seen [facility] 3 days ago given breathing treatment and tapering dose of prednisone.She went to [place] week nd and on coming back here felt more sob denies chest pain ,fever.Stated continue to smoke less than 3 cigarettes /day. 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 Timing/Duration: getting worse, other - 3 days ago Improving Factors: nothing Associated Symptoms: denies symptoms Allergies/Adverse Reactions: Allergies Metronidazole Allergy (Verified 08/31/16 08:19) Unknown Sulfa Antibiotics Allergy (Verified 08/31/16 08:19) Unknown Sulfonamide Deriv *RETIRED-02/15/13 [Sulfonamide Derivatives] Allergy (Verified 08/31/16 08:19) Zonisamide [From Zonegran] Allergy (Verified 08/28/16 18:33) Unknown Escitalopram [From Lexapro] Adverse Reaction (Verified 08/31/16 08:19) Unknown Venlafaxine [From Effexor] Adverse Reaction (Verified 08/31/16 08:19) Unknown Home Medications: Ambulatory Orders Gabapentin 100 mg PO DAILY 07/15/13 Oxcarbazepine [Trileptal] 300 mg PO BID 11/08/15 Gabapentin 300 mg PO BEDTIME 06/25/16 Paroxetine HCl [Paxil Cr] 37.5 mg PO BID 06/25/16 Phenytoin Sodium Cap [Dilantin Cap] 160 mg PO BEDTIME 06/26/16 Klonopin 0.5 mg PO QID 08/28/16 Levothyroxine Sodium [Synthroid] 50 mcg PO DAILY 08/28/16 Nebivolol HCl [Bystolic] 2.5 mg PO DAILY 08/31/16 Phenytoin Sodium Cap [Dilantin Cap] 100 mg PO DAILY 08/31/16 Tiotropium [place] Monohydrate [Spiriva Handihaler] 1 puff IN DAILY 08/31/16 Xopenex NEBS 45 mcg INH Q4HR 08/31/16 predniSONE [Prednisone] See Taper PO DAILY PRN 08/31/16 Review of Systems - Review of Systems Constitutional: States: no symptoms reported EENTM: States: no symptoms reported Respiratory: States: see HPI Cardiology: States: no symptoms reported Gastrointestinal/Abdominal: States: no symptoms reported Genitourinary: States: no symptoms reported Musculoskeletal: States: no symptoms reported Skin: States: no symptoms reported Neurological: States: no symptoms reported Endocrine: States: no symptoms reported Hematologic/Lymphatic: States: no symptoms reported Past Medical History (General) - Patient Medical History Hx Seizures: Yes Hx Stroke: No Hx Dementia: No Hx Asthma: No Hx of COPD: Yes Hx Cardiac Disorders: Yes Hx Congestive Heart Failure: No Hx Pacemaker: No Hx Hypertension: No Hx Thyroid Disease: Yes Hx Diabetes: No Hx Gastroesophageal Reflux: No Hx Renal Disease: No Hx Cancer: No Hx of HIV: No Hx Hepatitis C: No Hx MRSA: No Surgical History: appendectomy, cholecystectomy, other - hysterectomy,right shoulder surgery - Vaccination History Hx Tetanus, Diphtheria Vaccination: No Hx Influenza Vaccination: Yes - 2015 Hx Pneumococcal Vaccination: Yes - 2013 - Social History Hx Tobacco Use: Yes Hx Alcohol Use: No Hx Substance Use: No Hx Substance Use Treatment: No Hx Depression: Yes Hx Physical Abuse: No Hx Emotional Abuse: No - Activities of Daily Living Patient Lives Alone: No - family Grooming Ability: Standby Assistance Toileting Ability: Independent - Female History Patient : No Family Medical History - Family History Mother Family History: No Known Living Status: Hx Family Asthma: Yes - copd dad,sister Physical Exam - Physical Exam General Appearance: Alert, Comfortable, No apparent distress Eye Exam: bilateral normal Ears, Nose, Throat: hearing grossly normal, normal ENT inspection, normal pharynx Neck: non-tender, full range of motion, supple Respiratory: chest non-tender, no respiratory distress, no accessory muscle use , decreased breath sounds Cardiovascular/Chest: normal peripheral pulses, regular rate, rhythm, no edema, no gallop, no JVD, no murmur Peripheral Pulses: radial,right: 2+, radial,left: 2+ Gastrointestinal/Abdominal: normal bowel sounds, non tender, soft, no organomegaly, no pulsatile mass Back Exam: no CVA tenderness, no vertebral tenderness Extremity: normal range of motion, non-tender, normal inspection, no pedal edema , no calf tenderness Neurologic: no motor/sensory deficits, alert, normal mood/affect, oriented x 3 Skin Exam: normal color, warm/dry Progress - Results/Orders Results/Orders: Vital Signs - 8 hr 08/31/16 08/31/16 08/31/16 08:04 08:23 08:29 Temperature 97.7 F Pulse Rate 76 Pulse Rate [ 101 H pulse ox] Respiratory 22 24 16 Rate Blood Pressure 187/86 [Left Arm] O2 Sat by Pulse 93 L 95 Oximetry 08/31/16 08:41 Temperature Pulse Rate 79 Pulse Rate [ pulse ox] Respiratory 16 Rate Blood Pressure [Left Arm] O2 Sat by Pulse 95 Oximetry 08/31/16 08:22 IV Care:Saline Lock per Protoc QSHIFT 08/31/16 09:25 URINE CULTURE W/COLONY COUNT Stat Laboratory Results WBC 4.4 K/mm3 (4.8-10.8) L 08/31/16 08:30 RBC 4.67 M/mm3 (4.20-5.40) 08/31/16 08:30 Hgb 14.5 gm/dL (12.0-16.0) 08/31/16 08:30 Hct 43.1 % (36.0-47.0) 08/31/16 08:30 MCV 92.3 fl (81.0-99.0) 08/31/16 08:30 MCH 31.0 pg (27.0-31.0) 08/31/16 08:30 MCHC 33.6 g/dL (33.0-37.0) 08/31/16 08:30 RDW 15.2 % (11.5-14.5) H 08/31/16 08:30 Plt Count 166 K/mm3 (130-400) 08/31/16 08:30 MPV 7.7 fl (7.40-10.4) 08/31/16 08:30 Absolute Neuts (auto) 2.30 K/uL (1.8-6.8) 08/31/16 08:30 Absolute Lymphs (auto) 1.30 K/uL (1.0-3.4) 08/31/16 08:30 Absolute Monos (auto) 0.40 K/uL (0.2-0.8) 08/31/16 08:30 Absolute Eos (auto) 0.30 K/uL (0.0-0.4) 08/31/16 08:30 Absolute Basos (auto) 0.00 K/uL (0.0-0.1) 08/31/16 08:30 Neutrophils % 52.3 % (42.0-78.0) 08/31/16 08:30 Lymphocytes % 29.9 % (20.0-50.0) 08/31/16 08:30 Monocytes % 10.1 % (2.0-9.0) H 08/31/16 08:30 Eosinophils % 7.0 % (1.0-5.0) H 08/31/16 08:30 Basophils % 0.7 % (0.0-2.0) 08/31/16 08:30 Differential Comment Cancelled 08/31/16 08:30 RBC Morphology Cancelled 08/31/16 08:30 PT 10.2 SECONDS (9.4-12.5) 08/31/16 08:30 INR 0.900 08/31/16 08:30 PTT (SP) 29.6 SECONDS (25.1-36.5) 08/31/16 08:30 D-Dimer, Quantitative < 230 ng/mL (0-230) 08/31/16 08:30 Sodium 144 mmol/L (135-145) 08/31/16 08:30 Potassium 3.7 mmol/L (3.6-5.0) 08/31/16 08:30 Chloride 107 mmol/L (101-111) 08/31/16 08:30 Carbon Dioxide 31 mmol/L (21-31) 08/31/16 08:30 Anion Gap 9.7 (12-18) L 08/31/16 08:30 BUN 11 mg/dL (7-18) 08/31/16 08:30 Creatinine 0.55 mg/dL (0.6-1.3) L 08/31/16 08:30 BUN/Creatinine Ratio 20.0 (10-20) 08/31/16 08:30 Random Glucose 97 mg/dL (70-105) 08/31/16 08:30 Serum Osmolality 286.2 mOsm/L (275-295) 08/31/16 08:30 Calcium 8.5 mg/dL (8.4-10.2) 08/31/16 08:30 Magnesium 2.0 mg/dL (1.8-2.5) 08/31/16 08:30 Total Bilirubin 0.6 mg/dL (0.2-1.0) 08/31/16 08:30 Direct Bilirubin < 0.1 mg/dL (0-0.2) 08/31/16 08:30 Indirect Bilirubin 0.5 mg/dL (0.2-0.8) 08/31/16 08:30 AST 18 IU/L (10-42) 08/31/16 08:30 ALT 25 IU/L (10-60) 08/31/16 08:30 Alkaline Phosphatase 49 IU/L (42-121) 08/31/16 08:30 Creatine Kinase 72 IU/L (26-140) 08/31/16 08:30 CK-MB (CK-2) 3.9 ng/mL (0.0-4.4) 08/31/16 08:30 CK-MB (CK-2) % Not Reportable 08/31/16 08: Troponin I < 0.02 ng/mL (0.01-0.05) 08/31/16 08:30 B-Natriuretic Peptide 75.1 pg/ml (0-100) 08/31/16 08:30 Serum Total Protein 6.5 gm/dL (6.4-8.2) 08/31/16 08:30 Albumin 3.9 g/dl (3.2-5.5) 08/31/16 08:30 Globulin Cancelled 08/31/16 08:30 Albumin/Globulin Ratio Cancelled 08/31/16 08:30 Urine Color Yellow (Yellow) 08/31/16 09:25 Urine Appearance Cloudy (Clear) 08/31/16 09:25 Urine pH 5.5 (4.5-7.8) 08/31/16 09:25 Ur Specific [place] 1.025 (1.005-1.030) 08/31/16 09:25 Urine Protein 100 mg/dL H 08/31/16 09:25 Urine Glucose (UA) Negative mg/dL (Negative) 08/31/16 09:25 Urine Ketones Negative mg/dL (NEGATIVE) 08/31/16 09:25 Urine Blood Negative (Negative) 08/31/16 09:25 Urine Nitrite Positive H 08/31/16 09:25 Urine Bilirubin Negative (NEGATIVE) 08/31/16 09:25 Urine Urobilinogen 0.2 mg/dL (0.2-1.0) 08/31/16 09:25 Ur Leukocyte Esterase Negative (Negative) 08/31/16 09:25 Urine RBC 0-1 /hpf 08/31/16 09:25 Urine WBC 3-5 /hpf H 08/31/16 09:25 Ur Epithelial Cells 0-1 /hpf 08/31/16 09:25 Amorphous Sediment 3+ 08/31/16 09:25 Urine Bacteria 4+ H 08/31/16 09:25 - EKG/XRAY/CT EKG: Sinus, no ST T wave changes Comments: HR-79;occ pvc XRAY: chest - copd changes as per radiologist Departure - Departure Clinical Impression: COPD exacerbation Time of Disposition: 10:40 - D/W Ivelisse [id number] for admit Disposition: Admit Patient Condition: Good Departure Forms: Patient Portal Self Enrollment Referrals: Matt Recio III, MD [Primary Care Provider] - 1-2 Weeks Home Medications: Ambulatory Orders Gabapentin 100 mg PO DAILY 07/15/13 Oxcarbazepine [Trileptal] 300 mg PO BID 11/08/15 Gabapentin 300 mg PO BEDTIME 06/25/16 Paroxetine HCl [Paxil Cr] 37.5 mg PO BID 06/25/16 Phenytoin Sodium Cap [Dilantin Cap] 160 mg PO BEDTIME 06/26/16 Klonopin 0.5 mg PO QID 08/28/16 Levothyroxine Sodium [Synthroid] 50 mcg PO DAILY 08/28/16 Nebivolol HCl [Bystolic] 2.5 mg PO DAILY 08/31/16 Phenytoin Sodium Cap [Dilantin Cap] 100 mg PO DAILY 08/31/16 Tiotropium [place] Monohydrate [Spiriva Handihaler] 1 puff IN DAILY 08/31/16 Xopenex NEBS 45 mcg INH Q4HR 08/31/16 predniSONE [Prednisone] See Taper PO DAILY PRN 08/31/16
[2016-08-31] MEDS ORDERED: IPRATROPIUM/ALBUTEROL 3 ML VIAL NEB ONE (08:22)
--- NOTE | 2016-08-31 08:50 | RAD ---
EXAM DESCRIPTION: Chest,1 View CLINICAL HISTORY: cough COMPARISON: August 28, 2016 FINDINGS: The cardiomediastinal silhouette is unremarkable. There is no airspace consolidation or pleural effusion. The lungs are hyperinflated. There is no pneumothorax or acute fracture. IMPRESSION: COPD but no acute intrathoracic abnormality. Electronically signed by: John Callahan MD 08/31/2016 8:50 AM CDT
[2016-08-31] MEDS ORDERED: methylPREDNISolone SODIUM SUC 125 MG/2 ML VIAL IV ONE (08:58)
[2016-08-31] MEDS ORDERED: PANTOPRAZOLE SODIUM IV 40 MG VIAL IV ONE (08:58)
--- NOTE | 2016-08-31 10:50 | HP ---
SUPERVISING PHYSICIAN:: KATYA MORELOS MD CHIEF COMPLAINT: Shortness of breath. HISTORY OF PRESENT ILLNESS: This is a 76 year-old female patient who has been to the Emergency Room several times over the last week. She was also seen in clinic last Monday and given a tapering dose of prednisolone as well as some amoxicillin. She went in to [facility] over the weekend and was seen in the Emergency Room on Monday night for shortness of breath and she came into the hospital again today because she has not gotten any better. She was in the Emergency Room, her WBC was 4.4, otherwise her CBC was basically within normal limits. Chemistry shows sodium 144, potassium 3.7, chloride 107, carbon dioxide 31, BUN 11 and creatinine 0.55. The remainder of her chemistries were within normal limits. Her chest x-ray shows chronic obstructive pulmonary disease but no acute intrathoracic abnormality. I was called to admit the patient for an exacerbation of her chronic obstructive pulmonary disease with failed outpatient therapy. PAST MEDICAL HISTORY: 1. Anxiety. 2. Seizure disorder. 3. Chronic obstructive pulmonary disease. 4. Hypertension. 5. Hypothyroidism. PAST SURGICAL HISTORY: 1. Right shoulder surgery. 2. Hysterectomy. 3. Appendectomy. 4. Gallbladder. 5. Thyroid surgery for goiter. CURRENT MEDICATIONS: Per EMR and awaiting verification. ALLERGIES: METRONIDAZOLE, SULFA, SULFONAMIDE, ZONISAMIDE, CITALOPRAM, VENLAFAXINE. SOCIAL HISTORY: She is . She smokes approximately 1 pack of cigarettes a day although has only smoked 2 to 3 per day in the past week or so. She denies any illicit drug use, she denies any alcohol use. REVIEW OF SYSTEMS: GENERAL: Complains of some fatigue but denies fever and chills. HEENT: Denies sinus symptoms, ear pain, vision changes, sinus symptoms or sore throat. RESPIRATORY: As per the history of present illness. CARDIAC: Denies chest pain, palpitations or tachycardia. GI: She complains of occasional midepigastric to right upper quadrant abdominal pain occasionally, although she presently does not have that. Otherwise, she denies diarrhea, nausea, vomiting , constipation. NEUROLOGICAL: Denies any recent seizure activity and denies dizziness or weakness. PSYCHIATRIC: She constipations of an anxiety disorder but at this point is not having any problems if she takes her medications. PHYSICAL EXAMINATION: VITAL SIGNS: She is afebrile. Pulse rate 76, blood pressure 99/62, respiratory rate 24. 02 saturation 90% on 2 liters nasal cannula. GENERAL: This is a 76 year-old thin female who is sitting in her hospital bed. She is in mild respiratory distress. HEENT: Normocephalic and atraumatic. Pupils are equal and reactive. Oropharynx is clear. NECK: Supple without mass. RESPIRATORY: Diminished breath sounds throughout. She does have some expiratory wheezes that are also noted in all lung damon and she becomes slightly tachypneic at time. CARDIAC: Regular rate and rhythm. ABDOMEN: Soft, nondistended, nontender. Bowel sounds are positive. There is no rebound tenderness, nor is there any tenderness in the right upper quadrant. EXTREMITIES: No cyanosis, clubbing or edema. NEUROLOGIC: Awake, alert and oriented times three. LABORATORY: Laboratory and radiology as per history of present illness. ASSESSMENT: 1. Acute exacerbation of chronic obstructive pulmonary disease that has failed outpatient therapy. She was recently given a steroid taper and amoxicillin in the clinic as well as multiple trips to the Emergency Room. 2. Seizure disorder, presently on Dilantin and gabapentin. 3. Right upper quadrant abdominal pain although she does not have any at this specific time. 4. Hypertension. 5. Hypothyroidism. 6. General anxiety disorder with panic attacks. PLAN: We will admit the patient to the hospital. I will order aggressive pulmonary hygiene. We will do her breathing treatments as well as giving her some IV steroids and start her on Rocephin and azithromycin. She will receive Protonix for ulcer prophylaxis as well as Lovenox for DVT prophylaxis. I have ordered routine labs for in the morning. We will follow her closely. Dr. Morelos is the collaborating physician and available for consultation. #[id number] [facility] + [id number]
[2016-08-31] MEDS ORDERED: LEVALBUTEROL NEBS 1.25 MG/3 ML VIAL NEB PRN (15:05)
[2016-08-31] MEDS: LEVALBUTEROL NEBS 1.25 MG/3 ML VIAL NEB SCH ×2 (16:39→20:20)
[2016-08-31] MEDS ORDERED: OXCARBAZEPINE 300 MG PO SCH (21:15)
[2016-08-31] MEDS ORDERED: PANTOPRAZOLE SODIUM IV 40 MG VIAL IV SCH (21:30)
[2016-08-31] MEDS ORDERED: SODIUM CHL 0.9% 50ML MIN-BAG+ 50 ML IVPB ONE (21:36)
[2016-08-31] MEDS ORDERED: OXcarbazepine 300 MG TAB PO ONE (21:36)
[2016-08-31] MEDS ORDERED: SODIUM CHLORIDE 0.9% 250ML 250 ML ONE (21:36)
[2016-08-31] MEDS ORDERED: cefTRIAXone SODIUM 1 GM VIAL ONE (21:37)
[2016-08-31] MEDS ORDERED: GABAPENTIN 300 MG CAP ONE (21:37)
[2016-08-31] MEDS ORDERED: AZITHROMYCIN IV 500 MG VIAL IVPB ONE (21:37)
[2016-08-31] MEDS: GABAPENTIN 100 MG CAP PO SCH (21:41)
[2016-08-31] MEDS: PAROXETINE HCL 37.5 MG PO SCH (21:44)
[2016-08-31] MEDS: ENOXAPARIN SODIUM 40 MG/0.4 ML SYG SUBCU SCH (21:44)
[2016-08-31] MEDS: cefTRIAXone SODIUM 1 GM in SODIUM CHL 0.9% 50ML MIN-BAG+ 50 ML IVPB SCH (21:46)
[2016-08-31] MEDS: methylPREDNISolone SODIUM SUC 125 MG/2 ML VIAL IV SCH (21:48)
[2016-08-31] MEDS: SODIUM CHLORIDE 0.9% (FLUSH) 10 ML SYG IV PRN (21:51)
[2016-08-31] MEDS: IV SET AND CAP CHANGE INJ INJ SCH (22:10)
[2016-08-31] MEDS: AZITHROMYCIN IV 500 MG in SODIUM CHLORIDE 0.9% 250ML 250 ML IVPB SCH (22:29)
[2016-09-01] MEDS: methylPREDNISolone SODIUM SUC 125 MG/2 ML VIAL IV SCH ×2 (05:40→13:18)
[2016-09-01] MEDS: SODIUM CHLORIDE 0.9% (FLUSH) 10 ML SYG IV PRN (05:40)
[2016-09-01] MEDS ORDERED: LEVOTHYROXINE SODIUM 0.025 MG TAB ONE (06:44)
[2016-09-01] MEDS ORDERED: LEVOTHYROXINE SODIUM 50 MCG PO SCH (07:00)
[2016-09-01] MEDS ORDERED: OXcarbazepine 300 MG TAB PO ONE (07:58)
[2016-09-01] MEDS: LEVALBUTEROL NEBS 1.25 MG/3 ML VIAL NEB SCH ×4 (08:13→19:40)
[2016-09-01] MEDS ORDERED: predniSONE 10 MG TAB PO SCH (09:00)
--- NOTE | 2016-09-01 09:05 | RAD ---
EXAM DESCRIPTION: Chest,2 Views CLINICAL HISTORY: 76 years, Female, copd COMPARISON: Yesterday FINDINGS: Hyperinflation slight streaky density at the lung bases) left is similar to prior probably chronic. No definite consolidation. Cardiac silhouette normal. Some stable pleural thickening at the bases. Degenerative changes thoracic spine. IMPRESSION: Hyperinflation with stable chronic lung change. No definite consolidation. Normal heart size Electronically signed by: Chaka Goodwin MD 09/01/2016 9:05 AM CDT
--- NOTE | 2016-09-01 09:07 | RAD ---
EXAM DESCRIPTION: Abdomen Flat Upright CLINICAL HISTORY: 76 years, Female, abd pain COMPARISON: None. FINDINGS: No free air in the right hemidiaphragm. Nonspecific bowel gas present probably central and lower abdomen without distention. Right lumbar curvature with degenerative change. Slight increased sclerosis right L5 vertebral bodies presumably degenerative but can be evaluate further if indicated IMPRESSION: Nonspecific bowel gas pattern without findings of obstruction or free air. Study technically slightly underpenetrated. Electronically signed by: Chaka Goodwin MD 09/01/2016 9:07 AM CDT
[2016-09-01] MEDS: PAROXETINE HCL 37.5 MG PO SCH ×2 (09:24→21:27)
[2016-09-01] MEDS: PHENYTOIN SODIUM 100 MG CAP PO SCH ×2 (09:25→21:26)
[2016-09-01] MEDS: OXcarbazepine 300 MG TAB PO SCH ×2 (09:25→21:28)
--- NOTE | 2016-09-01 11:15 | PN ---
SUPERVISING PHYSICIAN: Lul Brito MD DATE: 09/01/16 SUBJECTIVE: The patient is sitting up in her hospital bed. She has no complaints of chest pain or abdominal pain. We discussed her abdominal x-ray, but she has had no issues overnight. Her shortness of breath continues to be mostly exertional. She does say she feels better than she had yesterday, although she has awakened in the middle of the night due to shortness of breath and she has required an extra breathing treatment. She also has gotten anxious several times, but she believes that is mostly because her clonazepam has not been given the way she takes it at home. OBJECTIVE: VITAL SIGNS: Afebrile. Pulse 76. Blood pressure 154/83. Respiratory rate 18. O2 saturation 88% on 2 liters nasal cannula, but it come up to 92% after a breathing treatment and incentive spirometry. LUNGS: Diminished at the bases. She does have a few expiratory wheezes throughout, somewhat improved since yesterday. CARDIAC: Regular rate and rhythm. ABDOMEN: Soft, nontender, nondistended. Bowel sounds are positive. EXTREMITIES: No cyanosis, clubbing or edema. NEUROLOGIC: Awake, alert and oriented times three. LABORATORY: WBC improved to 5.3. Otherwise, CBC is basically within normal limits. Chemistries show carbon dioxide 32, creatinine 0.48. Chest x-ray shows hyper inflation with chronic stable lung change with no definite consolidation and normal heart size per radiologic interpretation. Abdominal x- ray shows nonspecific bowel gas pattern without findings of obstruction or free air per radiologic interpretation. All other labs and films have been reviewed via the EMR. ASSESSMENT: 1. Acute exacerbation of chronic obstructive pulmonary disease that has failed outpatient therapy. She was recently given a steroid taper and amoxicillin in the clinic as well as multiple trips to the Emergency Room. Presently on Rocephin, azithromycin and an IV steroid taper. 2. Seizure disorder, presently on Dilantin and gabapentin. 3. Right upper quadrant abdominal pain although she does not have any at this specific time. 4. Hypertension. 5. Hypothyroidism. 6. General anxiety disorder with panic attacks. PLAN: We will continue present supportive care. I am very slowly tapering down her Solu-Medrol as she has improved, but still gets quite short of breath with any exertion. I will order an ambulatory study tomorrow. We will continue on her present antibiotics. I have changed her clonazepam to scheduled dosing at the hours that she normally takes it. We will continue to monitor closely and followup as needed. Dr. Brito is the collaborating physician and available for consultation. #[id number] [facility]
[2016-09-01] MEDS: PANTOPRAZOLE SODIUM TAB 40 MG PO SCH (12:09)
[2016-09-01] MEDS: BIFIDOBACTERIUM INFANTIS 4 MG CAP PO SCH (15:12)
[2016-09-01] MEDS ORDERED: ALUMINUM & MAGNESIUM HYDROXIDE 30 ML UD PO PRN (18:31)
[2016-09-01] MEDS ORDERED: NYSTATIN SUSPENSION 5 ML UD MT PRN (18:32)
[2016-09-01] MEDS ORDERED: diphenhydrAMINE HCL 12.5 MG/5 ML UD PO PRN (18:32)
[2016-09-01] MEDS ORDERED: SODIUM CHLORIDE 0.9% 250ML 250 ML ONE (20:47)
[2016-09-01] MEDS ORDERED: cefTRIAXone SODIUM 1 GM VIAL ONE (20:48)
[2016-09-01] MEDS ORDERED: LEVOTHYROXINE SODIUM 0.075 MG TAB ONE (20:48)
[2016-09-01] MEDS ORDERED: SODIUM CHL 0.9% 50ML MIN-BAG+ 50 ML IVPB ONE (20:48)
[2016-09-01] MEDS ORDERED: AZITHROMYCIN IV 500 MG VIAL IVPB ONE (20:49)
[2016-09-01] MEDS: NEBIVOLOL 2.5 MG TAB PO SCH (21:25)
[2016-09-01] MEDS: GABAPENTIN 100 MG CAP PO SCH (21:26)
[2016-09-01] MEDS: PHENYTOIN 30 MG PO SCH (21:26)
[2016-09-01] MEDS: ENOXAPARIN SODIUM 40 MG/0.4 ML SYG SUBCU SCH (21:28)
[2016-09-01] MEDS: cefTRIAXone SODIUM 1 GM in SODIUM CHL 0.9% 50ML MIN-BAG+ 50 ML IVPB SCH (21:29)
[2016-09-01] MEDS: AZITHROMYCIN IV 500 MG in SODIUM CHLORIDE 0.9% 250ML 250 ML IVPB SCH (22:16)
[2016-09-01] MEDS: methylPREDNISolone SODIUM SUC 40 MG/ML VIAL IV SCH (22:19)
[2016-09-02] MEDS ORDERED: LEVOTHYROXINE SODIUM 0.025 MG TAB ONE (04:08)
[2016-09-02] MEDS: methylPREDNISolone SODIUM SUC 40 MG/ML VIAL IV SCH ×3 (06:28→22:09)
[2016-09-02] MEDS: PANTOPRAZOLE SODIUM TAB 40 MG PO SCH (06:28)
[2016-09-02] MEDS: LEVOTHYROXINE SODIUM 0.025 MG TAB PO SCH (06:28)
[2016-09-02] MEDS: LEVALBUTEROL NEBS 1.25 MG/3 ML VIAL NEB SCH ×4 (08:09→20:37)
[2016-09-02] MEDS: PAROXETINE HCL 37.5 MG PO SCH ×2 (09:04→21:03)
[2016-09-02] MEDS: BIFIDOBACTERIUM INFANTIS 4 MG CAP PO SCH (09:04)
[2016-09-02] MEDS: OXcarbazepine 300 MG TAB PO SCH ×2 (09:05→21:03)
[2016-09-02] MEDS: PHENYTOIN SODIUM 100 MG CAP PO SCH ×2 (09:05→21:02)
[2016-09-02] MEDS ORDERED: MAGNESIUM HYDROXIDE PO PRN ×3 (09:25)
[2016-09-02] MEDS ORDERED: [UNRECOGNIZED DRUG - OTHER] PO PRN ×3 (09:25)
[2016-09-02] MEDS ORDERED: NYSTATIN PO PRN ×3 (09:25)
[2016-09-02] MEDS ORDERED: ALUMINUM PO PRN ×3 (09:25)
--- NOTE | 2016-09-02 16:48 | PN ---
DATE: 09/02/16 SUPERVISING PHYSICIAN: Acosta Brito M.D. SUBJECTIVE: The patient is sitting up in her hospital bed. She has no complaints of chest pain. She does complain that she continues to have shortness of breath when she moves around, but it has improved. She also continues to have complaints of wheezing, although she does say that is better since she has been in the hospital. OBJECTIVE: VITAL SIGNS: Temperature 98, pulse 80, blood pressure 139/74, respiratory rate 18, O2 sat is 93% on 2 liters nasal cannula. RESPIRATORY: Expiratory wheezing noted throughout. It is much more prominent on the left upper lobe. She does have a few scattered rhonchi. CARDIAC: Regular rate and rhythm. ABDOMEN: Soft, nondistended, non-tender. Bowel sounds are positive. NEUROLOGIC: She is awake, alert and oriented times three. LABORATORY: There are no labs and films to report today. I am awaiting an ambulation study as she becomes quite tachypneic with exertion, although her oxygen saturations are about 92 to 93% on oxygen, but that is in a resting position so we will await her ambulation study. ASSESSMENT: 1. Acute exacerbation of chronic obstructive pulmonary disease with failed outpatient therapy. She was given a steroid taper and Amoxicillin in the clinic. She has had multiple trips to the Emergency Room. Presently as an inpatient is on Rocephin and Azithromycin and an IV steroid taper. 2. Seizure disorder presently on Dilantin and Gabapentin. 3. Hypertension. 4. Hypothyroidism. 5. Generalized anxiety disorder with panic attacks. PLAN: We will continue present supportive care. I again tapered down her IV steroids. I am leaving her on IV steroids because she has a hard time taking oral steroid therapy. I have actually seen her in clinic where she has a difficult time with the oral steroids as they make her very anxious and she already has an underlying anxiety disorder. For some reason, she tends to do better on the IV steroids. She is down to 20 mg of Solu-Medrol and her last dose will be tomorrow at I believe 2:00 PM. She is clinically improved but continues to have quite a bit of wheezing. I encouraged her to ambulate in the hallways if at all possible and to continue good pulmonary hygiene. We will continue to monitor closely and follow as needed. Hopefully she can be discharged tomorrow. Dr. Brito is the collaborating physician available for consultation. #[id number] [facility]
[2016-09-02] MEDS ORDERED: SODIUM CHLORIDE 0.9% 250ML 250 ML ONE (20:36)
[2016-09-02] MEDS ORDERED: SODIUM CHL 0.9% 50ML MIN-BAG+ 50 ML IVPB ONE (20:36)
[2016-09-02] MEDS ORDERED: cefTRIAXone SODIUM 1 GM VIAL ONE (20:36)
[2016-09-02] MEDS ORDERED: methylPREDNISolone SODIUM SUC 40 MG/ML VIAL ONE (20:37)
[2016-09-02] MEDS ORDERED: AZITHROMYCIN IV 500 MG VIAL IVPB ONE (20:38)
[2016-09-02] MEDS: NEBIVOLOL 2.5 MG TAB PO SCH (21:02)
[2016-09-02] MEDS: GABAPENTIN 100 MG CAP PO SCH (21:02)
[2016-09-02] MEDS: PHENYTOIN 30 MG PO SCH (21:03)
[2016-09-02] MEDS: SODIUM CHLORIDE 0.9% (FLUSH) 10 ML SYG IV PRN ×2 (21:04→22:12)
[2016-09-02] MEDS: ENOXAPARIN SODIUM 40 MG/0.4 ML SYG SUBCU SCH (21:05)
[2016-09-02] MEDS: cefTRIAXone SODIUM 1 GM in SODIUM CHL 0.9% 50ML MIN-BAG+ 50 ML IVPB SCH (21:05)
[2016-09-02] MEDS: AZITHROMYCIN IV 500 MG in SODIUM CHLORIDE 0.9% 250ML 250 ML IVPB SCH (22:10)
[2016-09-03] MEDS: methylPREDNISolone SODIUM SUC 40 MG/ML VIAL IV SCH ×2 (06:07→14:12)
[2016-09-03] MEDS: SODIUM CHLORIDE 0.9% (FLUSH) 10 ML SYG IV PRN ×2 (06:07→21:59)
[2016-09-03] MEDS: LEVOTHYROXINE SODIUM 0.025 MG TAB PO SCH (06:08)
[2016-09-03] MEDS: PANTOPRAZOLE SODIUM TAB 40 MG PO SCH (06:08)
--- NOTE | 2016-09-03 07:36 | RAD ---
Clinical History : copd , MAIN Exam : PA and lateral views of the chest 09/03/2016 5:00 AM CDT Comparisons : PA and lateral views of the chest September 01, 2016 Findings : Severe emphysematous changes are noted throughout the lungs bilaterally. There is flattening of the diaphragms and increased retrosternal clear space.. The heart is normal in size. The mediastinal contours are normal in appearance. The thoracic spine is age appropriate. The shoulders are unremarkable. Limited evaluation of the upper abdomen demonstrates no gross abnormalities. Impression: 1. No acute cardiopulmonary disease 2. Stable severe emphysema. Electronically signed by: Eve Diane MD 09/03/2016 7:35 AM CDT
[2016-09-03] MEDS: OXcarbazepine 300 MG TAB PO SCH ×2 (08:32→22:07)
[2016-09-03] MEDS: BIFIDOBACTERIUM INFANTIS 4 MG CAP PO SCH (08:32)
[2016-09-03] MEDS: PAROXETINE HCL 37.5 MG PO SCH ×2 (08:33→22:08)
[2016-09-03] MEDS: PHENYTOIN SODIUM 100 MG CAP PO SCH ×2 (08:36→22:07)
[2016-09-03] MEDS: LEVALBUTEROL NEBS 1.25 MG/3 ML VIAL NEB SCH ×4 (08:59→20:20)
--- NOTE | 2016-09-03 14:20 | PN ---
DATE: 09/03/16 SUBJECTIVE: The patient is sitting up in the bed and in many ways appears a little better than she did as of 2 days ago. Still with some wheezing. Respiratory therapists feel that she would benefit by some positive pressure augmentation with her medication nebulizers to assist with improved aeration of the lungs which is initiated and will be observed. Ambulation today did show desaturation to 82% on room air from 93%. She is completing her last dose of Solu-Medrol later this afternoon. No seizure activity. OBJECTIVE: Afebrile, pulse 82, blood pressure 152/73, pulse oximetry 93% on room air. Weight stable with fairly good intake and output noted. No lab today. LUNGS: Have diminished breath sounds with some rhonchi, especially in the left upper lobe and laterally. HEART: Tones are regular. ABDOMEN: Soft. Chest x-ray today revealed no acute findings with emphysema noted. ASSESSMENT: 1. Chronic obstructive pulmonary disease with an acute exacerbation requiring corticosteroids with eventual prednisone taper at home. Continue Rocephin and Azithromycin, and reevaluate. 2. Seizure disorder presently on Dilantin and Gabapentin. 3. History of hypertension. 4. Hypothyroidism. 5. Generalized anxiety disorder with panic attacks on Benzodiazepines. PLAN: Will continue current treatment course and add pressure to the medication nebulizers. Increase activity level. Recheck ambulation in the morning on room air as well as low flow oxygen for comparison. Anticipate reevaluation in the morning and if stable be able to continue with outpatient therapy with Dr. Hemal mo. #[id number] [facility]
[2016-09-03] MEDS: IV SET AND CAP CHANGE INJ INJ SCH (16:58)
[2016-09-03] MEDS ORDERED: SODIUM CHL 0.9% 50ML MIN-BAG+ 50 ML IVPB ONE (19:43)
[2016-09-03] MEDS ORDERED: SODIUM CHLORIDE 0.9% 250ML 250 ML ONE (19:43)
[2016-09-03] MEDS ORDERED: cefTRIAXone SODIUM 1 GM VIAL ONE (19:44)
[2016-09-03] MEDS ORDERED: AZITHROMYCIN IV 500 MG VIAL IVPB ONE (19:45)
[2016-09-03] MEDS: ENOXAPARIN SODIUM 40 MG/0.4 ML SYG SUBCU SCH (22:00)
[2016-09-03] MEDS: cefTRIAXone SODIUM 1 GM in SODIUM CHL 0.9% 50ML MIN-BAG+ 50 ML IVPB SCH (22:00)
[2016-09-03] MEDS: GABAPENTIN 100 MG CAP PO SCH (22:07)
[2016-09-03] MEDS: NEBIVOLOL 2.5 MG TAB PO SCH (22:07)
[2016-09-03] MEDS: PHENYTOIN 30 MG PO SCH (22:08)
[2016-09-03] MEDS: AZITHROMYCIN IV 500 MG in SODIUM CHLORIDE 0.9% 250ML 250 ML IVPB SCH (22:30)
[2016-09-04] MEDS: LEVOTHYROXINE SODIUM 0.025 MG TAB PO SCH (06:21)
[2016-09-04] MEDS: PANTOPRAZOLE SODIUM TAB 40 MG PO SCH (06:21)
[2016-09-04] MEDS ORDERED: predniSONE 10 MG TAB ONE (07:10)
[2016-09-04] MEDS: LEVALBUTEROL NEBS 1.25 MG/3 ML VIAL NEB SCH (08:43)
[2016-09-04] MEDS: BIFIDOBACTERIUM INFANTIS 4 MG CAP PO SCH (09:00)
[2016-09-04] MEDS ORDERED: predniSONE 10 MG TAB PO SCH (09:00)
[2016-09-04] MEDS: OXcarbazepine 300 MG TAB PO SCH (09:00)
[2016-09-04] MEDS: PAROXETINE HCL 37.5 MG PO SCH (09:00)
[2016-09-04] MEDS: PHENYTOIN SODIUM 100 MG CAP PO SCH (09:00)
[2016-09-04 10:45] VITALS: BP 134/76; TEMP 98.6; O2SAT 96
--- NOTE | 2016-09-04 14:50 | DS ---
DISCHARGE DIAGNOSIS: 1. Chronic obstructive pulmonary disease with an acute exacerbation requiring parenteral corticosteroid administration, pulmonary hygiene, bronchodilator therapy and continued education. Also started on Rocephin and Azithromycin for an underlying bronchitis showing some clinical improvement. 2. Seizure disorder presently on Dilantin, Gabapentin and Trileptal. 3. Acute bronchitis superimposed on chronic obstructive pulmonary disease showing clinical improvement. 4. History of hypertension. 5. Hypothyroidism on supplementation. 6. Generalized anxiety disorder with panic attacks on Benzodiazepines as well as clinical depression, especially after the loss of her recently. HISTORY OF PRESENT ILLNESS: This 76 year-old white female was admitted to the hospital from the Emergency Room because of worsening shortness of breath. She had failed several outpatient visits as well as Emergency Room visits with prednisone and antibiotic utilization. She presents with worsening shortness of breath with wheezing and marked anxiety. She was admitted to the hospital for specific and more vigorous treatment for the exacerbation of the chronic obstructive pulmonary disease that had failed outpatient therapy. She is followed closely by Dr. Recio in the outpatient clinic. She has had symptoms like this in the past. She is on oxygen usually at nighttime and tries to avoid it during the day, but has become somewhat hypoxic and will require it even during the day as much as possible in an effort to prevent clinical hypoxic episodes. LABORATORY: White count was 5,600, hemoglobin 12.6, normocytic normochromic. D -dimer was under 230. Chemistries showed potassium 3.9, CO2 was elevated at 34 , BUN was 14, creatinine 0.47, calcium 8.4. Troponin zero. Beta natriuretic peptide 75, albumin 3.5. Urinalysis generally clean. Urine culture was cancelled. X-RAYS: X-rays showed chronic obstructive pulmonary disease with no acute findings noted. HOSPITAL COURSE: The patient required ongoing pulmonary rehabilitation and was specifically treated as well as educated by out Respiratory Therapist. She eventually was able to ambulate room air with desaturation from 89% at rest down to 82% on the day of discharge. When ambulated the same distance with 1 liter of oxygen, she failed to go below 89% and she felt less dyspneic at the end of her exertion. PLAN: The patient was ready for ongoing outpatient management and followup on the day of discharge. She will have followup with Dr. Recio at an appointment that she can make with him by tomorrow as of the middle of this week. She is to continue her home medications to which are added Azithromycin 250 mg a day for 5 days and prednisone 10 mg a day for 7 days and then 5 mg a day for another couple of weeks, and to eventually be tapered off under Dr. Recio' supervision. She is to use oxygen to maintain a pulse oximetry between 89 and 91% especially while exerting herself. Dr. Recio' office may assist in acquiring a physician president weight portable oxygen system. Followup with Dr. Parker in [facility]. Return if not improving. #[id number] [facility]
== END 2016-09-04 11:30 | disposition home or self-care (01) | DRG 192 ==
LOC: ER 07:59 → OBSVTOIN 10:50 → MS 10:50
PROVIDERS: ADMIT Nurse Practitioner Acute Care; ATTEND Emergency Medicine
DX: J44.0 Chronic obstructive pulmonary disease with (acute) lower respiratory infection (principal); J20.9 Acute bronchitis, unspecified; J44.1 Chronic obstructive pulmonary disease with (acute) exacerbation; R09.02 Hypoxemia; G40.909 Epilepsy, unspecified, not intractable, without status epilepticus; I10 Essential (primary) hypertension; E03.9 Hypothyroidism, unspecified; F41.0 Panic disorder [episodic paroxysmal anxiety]; F32.9 Major depressive disorder, single episode, unspecified; F41.1 Generalized anxiety disorder; F17.210 Nicotine dependence, cigarettes, uncomplicated; Z99.81 Dependence on supplemental oxygen; Z88.3 Allergy status to other anti-infective agents; Z88.2 Allergy status to sulfonamides; Z88.8 Allergy status to other drugs, medicaments and biological substances; Z79.52 Long term (current) use of systemic steroids; Z79.899 Other long term (current) drug therapy

== ENCOUNTER 2016-09-20 15:38 | Inpatient (IN) | payer MEDICARE, OTHER ==
[2016-09-20] MEDS ORDERED: IPRATROPIUM/ALBUTEROL 3 ML VIAL NEB ONE (15:50)
[2016-09-20] MEDS ORDERED: methylPREDNISolone SODIUM SUC 125 MG/2 ML VIAL IV ONE (15:50)
--- NOTE | 2016-09-20 16:53 | RAD ---
EXAM DESCRIPTION: Chest,2 Views CLINICAL HISTORY: 76 years Female sob COMPARISON: 09/01/2016 FINDINGS: Cardiac size is within normal limits. Pulmonary hyperinflation consistent with emphysematous change. Increased markings in the right lung base which appears stable as compared to the previous study. Blunted costophrenic angles likely related to scarring. This appears stable. IMPRESSION: Stable appearance of the chest as compared to the prior Electronically signed by: Katty Abdalla 09/20/2016 4:53 PM CDT
--- NOTE | 2016-09-20 17:05 | ED.PDOC ---
History of Present Illness - General Chief Complaint: Respiratory Problem Stated Complaint: shortness of breath Time Seen by Provider: 09/20/16 15:43 Source: patient Exam Limitations: no limitations - History of Present Illness Initial Comments: The patient is a 76-year-old female presenting to the emergency room secondary to respiratory distress. The patient is well known to staff here due to her frequent COPD exacerbations. The patient also apparently still smokes. The patient just came off of a steroid taper about a week ago. She does have a history of seizure disorder. She was seen here yesterday as well for shortness of breath and a headache. Her headache has resolved. She was written for a cephalosporin antibiotic which she did not get filled and start. The patient apparently became worse overnight as far as the respiratory standpoint was concerned. By the time of her arrival here she was 66% on room air correlated by 2 different pulse oximetries. The patient did improve with a nonrebreather which was later able to be titrated down. She has had a productive sputum. No definite definite fevers. No syncope. She reports that this last exacerbation started about 3 days ago. the patient is in obvious respiratory distress upon arrival. She is significantly tachypneic and is using accessory muscles. She has a very prolonged expiratory phase. The patient does look pale. She is only getting about 1 or 2 words with each breath. She has tripod positioning. Severity: severe Improving Factors: nothing Worsening Factors: movement Associated Symptoms: cough, malaise, shortness of breath, weakness Allergies/Adverse Reactions: Allergies Metronidazole Allergy (Verified 09/20/16 16:00) Unknown Sulfa Antibiotics Allergy (Verified 09/20/16 16:00) Unknown Sulfonamide Deriv *RETIRED-02/15/13 [Sulfonamide Derivatives] Allergy (Verified 09/20/16 16:00) Zonisamide [From Zonegran] Allergy (Verified 09/20/16 16:00) Unknown Escitalopram [From Lexapro] Adverse Reaction (Verified 09/20/16 16:00) Unknown Venlafaxine [From Effexor] Adverse Reaction (Verified 09/20/16 16:00) Unknown Home Medications: Ambulatory Orders Gabapentin 300 mg PO BEDTIME 07/15/13 Oxcarbazepine [Trileptal] 300 mg PO BID 11/08/15 Paroxetine HCl [Paxil Cr] 37.5 mg PO BID 06/25/16 Klonopin 0.5 - 0.75 mg PO QID 08/28/16 Levothyroxine Sodium [Synthroid] 50 mcg PO DAILY@0700 08/31/16 Nebivolol HCl [Bystolic] 5 mg PO BEDTIME 08/31/16 Phenytoin Sodium Cap [Dilantin Cap] 60 mg PO BEDTIME 08/31/16 Phenytoin Sodium Cap [Dilantin Cap] 100 mg PO BID 08/31/16 Tiotropium Mitchell Monohydrate [Spiriva Respimat] 1.25 mcg INH RTDAILY@02/07 Azithromycin Tab [Zithromax] 250 mg PO QD #5 tab 09/04/16 predniSONE 10 mg PO DAILY #20 09/04/16 Cefuroxime Axetil [Ceftin] 500 mg PO BID #20 tab 09/19/16 Ipratropium Brom 0.03% Nasal [Atrovent Nasal [place] 0.03%] 30 ml KOKO BID #1 bttl 09/19/16 Review of Systems - Review of Systems Constitutional: States: malaise EENTM: States: no symptoms reported Respiratory: States: cough, short of breath, wheezing Cardiology: States: no symptoms reported Gastrointestinal/Abdominal: States: no symptoms reported Genitourinary: States: no symptoms reported Musculoskeletal: States: no symptoms reported Skin: States: no symptoms reported Neurological: States: see HPI Endocrine: States: no symptoms reported All other Systems: No Change from Baseline Past Medical History (General) - Patient Medical History Hx Seizures: Yes Hx Stroke: No Hx Dementia: No Hx Asthma: No Hx of COPD: Yes Hx Cardiac Disorders: Yes Hx Congestive Heart Failure: No Hx Pacemaker: No Hx Hypertension: Yes Hx Thyroid Disease: Yes Hx Diabetes: No Hx Gastroesophageal Reflux: No Hx Renal Disease: No Hx Cancer: No Hx of HIV: No Hx Hepatitis C: No Hx MRSA: No - Vaccination History Hx Tetanus, Diphtheria Vaccination: No Hx Influenza Vaccination: Yes - 2015 Hx Pneumococcal Vaccination: Yes - 2013 - Social History Hx Tobacco Use: Yes Hx Alcohol Use: No Hx Substance Use: No Hx Substance Use Treatment: No Hx Depression: Yes Hx Physical Abuse: No Hx Emotional Abuse: No - Activities of Daily Living Hospice Agency (if applicable):: None - Female History Patient is a Female of Child Bearing Age (10 -59 yrs old): No Patient : No Family Medical History - Family History Mother Family History: No Known Living Status: Hx Family Asthma: Yes - copd dad,sister Hx Family Congestive Heart Failure: Yes Hx Family Hypertension: Yes Hx Family Stroke: No Hx Cardiac Disease: No Hx Family Diabetes: No Hx Family Cancer: No Physical Exam - Physical Exam General Appearance: Alert, Obvious distress, Ill Appearing Eye Exam: bilateral normal Ears, Nose, Throat: other - nasal flaring is present. Oropharynx is clear. Hearing is grossly normal. Neck: non-tender, other - she does have significant JVD Respiratory: chest non-tender, respiratory distress, decreased breath sounds, accessory muscle use, rales, rhonchi, wheezing Cardiovascular/Chest: normal peripheral pulses, no edema, tachycardia Peripheral Pulses: radial,right: 2+, radial,left: 2+, dorsalis pedis,right: 2+, dorsalis pedis,left: 2+, posterior tibialis,right: 2+, posterior tibialis,left: 2+ Gastrointestinal/Abdominal: non tender, soft Rectal Exam: deferred Back Exam: normal inspection, no CVA tenderness, no vertebral tenderness Extremity: normal range of motion, non-tender, normal inspection, no pedal edema , normal capillary refill Neurologic: optical fabricator II-XII nml as tested - she is anxious, alert, oriented x 3 Skin Exam: normal color Comments: Vital Signs - 24 hr 09/20/16 09/20/16 09/20/16 15:38 15:40 15:55 Temperature 98.3 F Pulse Rate Pulse Rate [ 103 H 91 H pulse ox] Respiratory 32 H 32 H 24 Rate Blood Pressure 201/113 163/109 [Right Arm] O2 Sat by Pulse 64 L 98 Oximetry 09/20/16 09/20/16 16:52 17:00 Temperature Pulse Rate 105 H Pulse Rate [ 93 H pulse ox] Respiratory 22 20 Rate Blood Pressure 126/76 [Right Arm] O2 Sat by Pulse 99 93 L Oximetry Progress - Progress Progress: 09/20/16 17:09 the patient is a 76-year-old female brought in in severe respiratory distress with severe hypoxia. The patient has responded well to oxygen therapy and nebulizer treatments. Her significant hypertension is also responded to relaxation of her lungs. The patient will be receiving steroids and antibiotics. She will continue oxygen. She will need frequent nebulizer treatments. She is of course to stop smoking. Admit for further care. 09/20/16 17:09 critical care 20 minutes - Results/Orders Results/Orders: Laboratory Last Values WBC 4.4 K/mm3 (4.8-10.8) L 09/20/16 16:05 RBC 4.31 M/mm3 (4.20-5.40) 09/20/16 16:05 Hgb 13.6 gm/dL (12.0-16.0) 09/20/16 16:05 Hct 40.3 % (36.0-47.0) 09/20/16 16:05 MCV 93.4 fl (81.0-99.0) 09/20/16 16:05 MCH 31.6 pg (27.0-31.0) H 09/20/16 16:05 MCHC 33.8 g/dL (33.0-37.0) 09/20/16 16:05 RDW 14.7 % (11.5-14.5) H 09/20/16 16:05 Plt Count 156 K/mm3 (130-400) 09/20/16 16:05 MPV 7.2 fl (7.40-10.4) L 09/20/16 16:05 Absolute Neuts (auto) 2.50 K/uL (1.8-6.8) 09/20/16 16:05 Absolute Lymphs (auto) 1.10 K/uL (1.0-3.4) 09/20/16 16:05 Absolute Monos (auto) 0.50 K/uL (0.2-0.8) 09/20/16 16:05 Absolute Eos (auto) 0.30 K/uL (0.0-0.4) 09/20/16 16:05 Absolute Basos (auto) 0.00 K/uL (0.0-0.1) 09/20/16 16:05 Neutrophils % 57.0 % (42.0-78.0) 09/20/16 16:05 Lymphocytes % 24.6 % (20.0-50.0) 09/20/16 16:05 Monocytes % 10.5 % (2.0-9.0) H 09/20/16 16:05 Eosinophils % 7.2 % (1.0-5.0) H 09/20/16 16:05 Basophils % 0.7 % (0.0-2.0) 09/20/16 16:05 Sodium 142 mmol/L (135-145) 09/20/16 16:05 Potassium 3.8 mmol/L (3.6-5.0) 09/20/16 16:05 Chloride 103 mmol/L (101-111) 09/20/16 16:05 Carbon Dioxide 33 mmol/L (21-31) H 09/20/16 16:05 Anion Gap 9.8 (12-18) L 09/20/16 16:05 BUN 13 mg/dL (7-18) 09/20/16 16:05 Creatinine 0.78 mg/dL (0.6-1.3) 09/20/16 16:05 BUN/Creatinine Ratio 16.7 (10-20) 09/20/16 16:05 Random Glucose 98 mg/dL (70-105) 09/20/16 16:05 Serum Osmolality 283.2 mOsm/L (275-295) 09/20/16 16:05 Calcium 8.7 mg/dL (8.4-10.2) 09/20/16 16:05 Total Bilirubin < 0.2 mg/dL (0.2-1.0) L 09/20/16 16:05 AST 16 IU/L (10-42) 09/20/16 16:05 ALT 18 IU/L (10-60) 09/20/16 16:05 Alkaline Phosphatase 47 IU/L (42-121) 09/20/16 16:05 Creatine Kinase 59 IU/L (26-140) 09/20/16 16:05 CK-MB (CK-2) 3.6 ng/mL (0.0-4.4) 09/20/16 16:05 CK-MB (CK-2) % Not Reportable 09/20/16 16:05 Troponin I < 0.02 ng/mL (0.01-0.05) 09/20/16 16:05 B-Natriuretic Peptide 53.6 pg/ml (0-100) 09/20/16 16:05 Serum Total Protein 6.3 gm/dL (6.4-8.2) L 09/20/16 16:05 Albumin 3.7 g/dl (3.2-5.5) 09/20/16 16:05 Globulin 2.6 gm/dL (2.3-3.5) 09/20/16 16:05 Albumin/Globulin Ratio 1.4 (1.1-1.9) 09/20/16 16:05 hest x-ray is consistent with COPD. Departure - Departure Clinical Impression: COPD mixed type, Respiratory distress Disposition: Admit Patient Referrals: Matt Recio III, MD [Primary Care Provider] - 1-2 Weeks Home Medications: Ambulatory Orders Gabapentin 300 mg PO BEDTIME 07/15/13 Oxcarbazepine [Trileptal] 300 mg PO BID 11/08/15 Paroxetine HCl [Paxil Cr] 37.5 mg PO BID 06/25/16 Klonopin 0.5 - 0.75 mg PO QID 08/28/16 Levothyroxine Sodium [Synthroid] 50 mcg PO DAILY@0700 08/31/16 Nebivolol HCl [Bystolic] 5 mg PO BEDTIME 08/31/16 Phenytoin Sodium Cap [Dilantin Cap] 60 mg PO BEDTIME 08/31/16 Phenytoin Sodium Cap [Dilantin Cap] 100 mg PO BID 08/31/16 Tiotropium Mitchell Monohydrate [Spiriva Respimat] 1.25 mcg INH RTDAILY@02/07 Azithromycin Tab [Zithromax] 250 mg PO QD #5 tab 09/04/16 predniSONE 10 mg PO DAILY #20 09/04/16 Cefuroxime Axetil [Ceftin] 500 mg PO BID #20 tab 09/19/16 Ipratropium Brom 0.03% Nasal [Atrovent Nasal [place] 0.03%] 30 ml KOKO BID #1 bttl 09/19/16 Decision To Admit - Decistion To Admit Decision to Admit Reason: Medical Nature Decision to Admit Date: 09/20/16 Decision to Admit Time: 17:10
[2016-09-20] MEDS ORDERED: cefTRIAXone SODIUM 1 GM in SODIUM CHL 0.9% 50ML MIN-BAG+ 50 ML IVPB ONE (17:11)
[2016-09-20] MEDS ORDERED: cefTRIAXone SODIUM 1 GM VIAL ONE (17:40)
[2016-09-20] MEDS ORDERED: SODIUM CHL 0.9% 50ML MIN-BAG+ 50 ML IVPB ONE (17:41)
--- NOTE | 2016-09-20 17:58 | HP ---
SUPERVISING PHYSICIAN: Acosta Brito M.D. CHIEF COMPLAINT: Shortness of breath. HISTORY OF PRESENT ILLNESS: This is a 76 year-old female patient who has had an approximately 1 week history of shortness of breath. Over the last several days she has had to increase her nebulizer treatments. She was actually in the Emergency Room yesterday for a headache and was found to have sinusitis, but this morning about 4:00 AM she woke up and she was extremely short of breath with wheezing, and she also had coughing. She has a fairly extensive history of chronic obstructive pulmonary disease and was actually in the hospital on 02/07 for an exacerbation of her COPD. She had just gotten off of her oral prednisone about a week ago. This shortness of breath and increased need for nebulizer treatments started shortly after the completion of her oral prednisone. Her O2 sats initially in the Emergency Room were 64% and she received a breathing treatment. Her O2 sats came up to 93 then they went down to 79%. She was given some Solu-Medrol and another breathing treatment, and it is now up to between 88 to 92% on 2 liters nasal cannula. I was called for admission to the hospital. PAST MEDICAL HISTORY: 1. Anxiety. 2. Seizure disorder. 3. Chronic obstructive pulmonary disease. 4. Hypertension. 5. Hypothyroidism. PAST SURGICAL HISTORY: 1. Right shoulder surgery. 2. Hysterectomy. 3. Appendectomy. 4. Gallbladder. 5. Thyroid surgery for a goiter. CURRENT MEDICATIONS: Per the EMR and awaiting verification. ALLERGIES: METRONIDAZOLE, SULFA SULFONAMIDE, ZONISAMIDE, CITALOPRAM AND VENLAFAXINE. SOCIAL HISTORY: She is . She smokes approximately 5 cigarettes per day , but has been a heavy smoker, until recently, for many years. She denies any ETOH or illicit drug use. REVIEW OF SYSTEMS: GENERAL: Denies fatigue, fever or chills. HEENT: Complains of sinus symptoms but denies ear pain, vision changes or sore throat. RESPIRATORY: As per History of Present Illness. CARDIAC: Denies chest pain, palpitations or tachycardia. GASTROINTESTINAL: Denies abdominal pain, nausea, vomiting, diarrhea or constipation. NEUROLOGIC: Denies any recent seizure activity as well as dizziness or weakness. PSYCHIATRIC: She complains of increased anxiety but feels mostly due to her recent use of steroids. PHYSICAL EXAMINATION: VITAL SIGNS: She is afebrile, heart rate 93 to 105, blood pressure 126/76, respiratory rate 24 but it was as high as 32 in the Emergency Room. O2 sats have ranged between 64% and 93% since admission to the Emergency Room as well as to the hospital. GENERAL: This is a 76 year-old thin female who is sitting up in her hospital bed. She is in moderate respiratory distress. HEENT: Normocephalic and atraumatic. Pupils are equal and reactive. Oropharynx is clear. NECK: Supple without mass. CHEST: She has diminished breath sounds at the bases. She does have expiratory wheezes throughout. She is tachypneic with her respiratory rate between 22 to 26 breaths per minute. ABDOMEN: Soft, nondistended, non-tender. Bowel sounds are positive. EXTREMITIES: No cyanosis, clubbing or edema. NEUROLOGIC: She is awake, alert and oriented times three. LABORATORY: WBCs are 4.4, MCH 31.6. Sodium 142, potassium 3.8, chloride 103, carbon dioxide 33, anion gap 9.8, BUN 13, creatinine 0.78. Chest x-ray per radiology interpretation shows stable appearance of the chest as compared to prior. All other labs and films have been reviewed via the EMR. ASSESSMENT: 1. Acute exacerbation of chronic obstructive pulmonary disease. 2. Seizure disorder presently on Dilantin and Gabapentin. 3. Hypertension. 4. Hypothyroidism. 5. Generalized anxiety disorder with panic attacks. PLAN: We will place the patient in Observation. I will give her aggressive pulmonary hygiene as well as every 4 hours Xopenex treatments. Will restart her home medications. I will start her on Doxycycline as well as Protonix for ulcer prophylaxis and Lovenox for DVT prophylaxis. I have also given her a nicotine patch. I have placed her on Mucinex. AM labs have been ordered. We will continue to follow the patient closely and followup as needed. Dr. Brito is the collaborating physician available for consultation. #[id number] [facility]
[2016-09-20] MEDS ORDERED: LEVALBUTEROL NEBS 1.25 MG/3 ML VIAL INH PRN (18:53)
[2016-09-20] MEDS ORDERED: PANTOPRAZOLE SODIUM IV 40 MG VIAL IV SCH (19:00)
[2016-09-20] MEDS ORDERED: ENOXAPARIN SODIUM 40 MG/0.4 ML SYG SUBCU SCH (19:00)
[2016-09-20] MEDS: IV SET AND CAP CHANGE INJ INJ SCH (19:19)
[2016-09-20] MEDS: SODIUM CHLORIDE 0.9% (FLUSH) 10 ML SYG IV PRN (19:37)
[2016-09-20] MEDS ORDERED: GABAPENTIN 300 MG CAP ONE (20:26)
[2016-09-20] MEDS ORDERED: OXcarbazepine 300 MG TAB PO ONE (20:26)
[2016-09-20] MEDS ORDERED: NEBIVOLOL 2.5 MG TAB ONE (20:26)
[2016-09-20] MEDS ORDERED: PHENYTOIN SODIUM PO SCH (21:00)
[2016-09-20] MEDS ORDERED: NON-FORMULARY MEDICATION 1 EA MIS (Nebivolol Hcl [Bystolic] 5 MG) PO SCH (21:00)
[2016-09-20] MEDS ORDERED: OXCARBAZEPINE 300 MG PO SCH (21:00)
[2016-09-20] MEDS: GABAPENTIN 100 MG CAP PO SCH (21:10)
[2016-09-20] MEDS: guaiFENesin ER TAB 600 MG TAB PO SCH (21:10)
[2016-09-20] MEDS: LEVALBUTEROL NEBS 1.25 MG/3 ML VIAL INH SCH ×2 (21:20→23:44)
[2016-09-20] MEDS ORDERED: NICOTINE PATCH 14 MG TD SCH (22:30)
[2016-09-20] MEDS: methylPREDNISolone SODIUM SUC 40 MG/ML VIAL IV SCH (22:30)
[2016-09-20] MEDS: PAROXETINE HCL 37.5 MG PO SCH (22:31)
[2016-09-20] MEDS ORDERED: CYCLOBENZAPRINE HCL 10 MG TAB PO ONE (23:48)
[2016-09-20] MEDS: DOXYCYCLINE HYCLATE CAP 100 MG CAP PO SCH (23:52)
[2016-09-21] MEDS: LEVALBUTEROL NEBS 1.25 MG/3 ML VIAL INH SCH ×5 (04:48→20:35)
[2016-09-21] MEDS ORDERED: LEVOTHYROXINE SODIUM 0.025 MG TAB ONE (05:27)
[2016-09-21] MEDS: methylPREDNISolone SODIUM SUC 40 MG/ML VIAL IV SCH ×3 (05:32→21:11)
[2016-09-21] MEDS: SODIUM CHLORIDE 0.9% (FLUSH) 10 ML SYG IV PRN ×2 (05:32→21:11)
[2016-09-21] MEDS ORDERED: LEVOTHYROXINE SODIUM 50 MCG PO SCH (07:00)
[2016-09-21] MEDS ORDERED: OXcarbazepine 300 MG TAB PO ONE (07:22)
[2016-09-21] MEDS ORDERED: PANTOPRAZOLE SODIUM IV 40 MG VIAL ONE (07:22)
[2016-09-21] MEDS: GABAPENTIN 100 MG CAP PO SCH ×2 (09:09→21:05)
[2016-09-21] MEDS: OXcarbazepine 300 MG TAB PO SCH ×2 (09:09→21:05)
[2016-09-21] MEDS: DOXYCYCLINE HYCLATE CAP 100 MG CAP PO SCH ×2 (09:09→21:05)
[2016-09-21] MEDS: guaiFENesin ER TAB 600 MG TAB PO SCH ×2 (09:09→21:05)
[2016-09-21] MEDS: PAROXETINE HCL 37.5 MG PO SCH ×2 (09:10→21:04)
[2016-09-21] MEDS: PHENYTOIN SODIUM 100 MG CAP PO SCH ×2 (09:12→21:04)
[2016-09-21] MEDS: BIFIDOBACTERIUM INFANTIS 4 MG CAP PO SCH (09:13)
[2016-09-21] MEDS: PANTOPRAZOLE SODIUM TAB 40 MG PO SCH (11:54)
--- NOTE | 2016-09-21 17:18 | PN ---
DATE: 09/21/16 SUPERVISING PHYSICIAN: Acosta Brito M.D. SUBJECTIVE: The patient is sitting up in her hospital bed. She continues complaint of coughing and shortness of breath, especially with any exertion, but says she feels somewhat better than yesterday. She is also very "jittery" and continues to be very tired and weak. Denies any chest pain, abdominal pain , nausea or vomiting. OBJECTIVE: VITAL SIGNS: She is afebrile, pulse rate 99, blood pressure 107/68, respiratory rate 20, O2 sat 91% on 2 liters nasal cannula. RESPIRATORY: Essentially clear to auscultation bilaterally, but diminished throughout. CARDIAC: Regular rate and rhythm. ABDOMEN: Soft, nondistended, non-tender. Bowel sounds are positive. EXTREMITIES: No cyanosis, clubbing or edema. NEUROLOGIC: She is awake, alert and oriented times three. LABORATORY: WBCs are 5.4, hemoglobin 13.1, hematocrit 39, platelets 131. Creatinine 0.51, glucose 129, alkaline phosphatase 41. Serum total protein 6.2. Preliminary sputum culture needs further incubation. Preliminary blood cultures show no growth after 24 hours. All other labs and films have been reviewed via the EMR. ASSESSMENT: 1. Acute exacerbation of chronic obstructive pulmonary disease. 2. Seizure disorder presently on Dilantin and Gabapentin. 3. Hypertension. 4. Hypothyroidism. 5. Generalized anxiety disorder with panic attacks. PLAN: We will continue present supportive care. I have changed her from an Observation to a full admission. I have slowly decreased her IV steroids. I have also added a combination long-acting beta agonist with inhaled steroid which is Advair. I will also recheck her lab in the morning. I have encouraged good pulmonary hygiene and have ordered bronchial hygiene. She has an appointment with Dr. Ferguson the first part of October so we may need to get that appointment moved up. She also is going to need some pulmonary rehab. I have encouraged her to stop smoking and she is agreeable to that. We have added a nicotine patch. Otherwise will continue to monitor closely and followup as needed. Dr. Brito is the collaborating physician and available for consultation. #[id number] [facility]
[2016-09-21] MEDS: FLUTICASONE/SALMETEROL 250/50 14 PUFF/17 GM INH INH SCH (20:35)
[2016-09-21] MEDS: TIOTROPIUM INHALER INH SCH (20:35)
[2016-09-21] MEDS: ENOXAPARIN SODIUM 40 MG/0.4 ML SYG SUBCU SCH (21:04)
[2016-09-21] MEDS: PHENYTOIN SODIUM PO SCH (21:04)
[2016-09-21] MEDS: NICOTINE PATCH 14 MG TD SCH (21:04)
[2016-09-21] MEDS: NEBIVOLOL 2.5 MG TAB PO SCH (21:05)
[2016-09-21] MEDS: CYCLOBENZAPRINE HCL 10 MG TAB PO SCH (22:15)
[2016-09-22] MEDS: LEVALBUTEROL NEBS 1.25 MG/3 ML VIAL INH SCH ×6 (00:40→19:40)
[2016-09-22] MEDS: PANTOPRAZOLE SODIUM TAB 40 MG PO SCH (06:08)
[2016-09-22] MEDS: LEVOTHYROXINE SODIUM 0.025 MG TAB PO SCH (06:08)
[2016-09-22] MEDS: PHENYTOIN SODIUM 100 MG CAP PO SCH ×2 (09:03→20:45)
[2016-09-22] MEDS: BIFIDOBACTERIUM INFANTIS 4 MG CAP PO SCH (09:03)
[2016-09-22] MEDS: FLUTICASONE/SALMETEROL 250/50 14 PUFF/17 GM INH INH SCH ×2 (09:03→19:40)
[2016-09-22] MEDS: guaiFENesin ER TAB 600 MG TAB PO SCH ×2 (09:04→20:46)
[2016-09-22] MEDS: GABAPENTIN 100 MG CAP PO SCH ×2 (09:04→20:44)
[2016-09-22] MEDS: DOXYCYCLINE HYCLATE CAP 100 MG CAP PO SCH ×2 (09:04→20:48)
[2016-09-22] MEDS: OXcarbazepine 300 MG TAB PO SCH ×2 (09:04→20:45)
[2016-09-22] MEDS: methylPREDNISolone SODIUM SUC 40 MG/ML VIAL IV SCH ×2 (09:16→20:48)
--- NOTE | 2016-09-22 09:26 | PCM.CORE ---
Physician DVT/VTE - Prophylaxis Currently: Patient already on anticoagulation therapy - Nurse DVT Assessment & Total Each Risk Factor Represents 3 Points: Age over 75 years DVT Assessment Score: 3 - 3-4 High Risk Treatments: Early Ambulation *, Sequential Compression Device
[2016-09-22] MEDS: PAROXETINE HCL 37.5 MG PO SCH ×2 (10:39→20:46)
[2016-09-22] MEDS ORDERED: MAGNESIUM HYDROXIDE 30 ML UD PO ONE (11:53)
[2016-09-22] MEDS: TIOTROPIUM INHALER INH SCH (19:40)
[2016-09-22] MEDS: CYCLOBENZAPRINE HCL 10 MG TAB PO SCH (20:43)
[2016-09-22] MEDS: NEBIVOLOL 2.5 MG TAB PO SCH (20:45)
[2016-09-22] MEDS: ENOXAPARIN SODIUM 40 MG/0.4 ML SYG SUBCU SCH (20:46)
[2016-09-22] MEDS: PHENYTOIN SODIUM PO SCH (20:47)
[2016-09-22] MEDS: NICOTINE PATCH 14 MG TD SCH (20:48)
--- NOTE | 2016-09-22 21:57 | PN ---
DATE: 09/22/16 SUPERVISING PHYSICIAN: Fritz Nicole M.D. SUBJECTIVE: The patient is sitting up eating her meal in her hospital room. States she feels much better today but continues to have shortness of breath. She really wants to stop smoking, but she is concerned that her anxiety is going to keep her from doing that. She denies any chest pain, abdominal pain, nausea or vomiting. She did complain of some constipation. OBJECTIVE: VITAL SIGNS: She is afebrile, heart rate 87, blood pressure 114/69, respiratory rate 20, O2 sat 93% on 2 liters nasal cannula. RESPIRATORY: Diminished breath sounds throughout. CARDIAC: Regular rate and rhythm. ABDOMEN : Soft, nondistended, non-tender. Bowel sounds are positive. EXTREMITIES: No cyanosis, clubbing or edema. NEUROLOGIC: She is awake, alert and oriented times three. LABORATORY: Metabolic panel is basically within normal limits. WBCs are 4.5, hemoglobin 12.9, hematocrit 38.7. Preliminary sputum culture shows gram- negative rods. Preliminary blood cultures show no growth. All other labs and films have been reviewed via the EMR. ASSESSMENT: 1. Acute exacerbation of chronic obstructive pulmonary disease. 2. Seizure disorder presently on Dilantin and Gabapentin. 3. Tobacco abuse. 4. Hypertension. 5. Hypothyroidism. 6. Generalized anxiety disorder with panic attacks. PLAN: We will continue present supportive care. Her ambulatory study is not up and I will try to get Respiratory Therapy to do that tomorrow. I have given her some Milk of Magnesia for her constipation. I will hold off on her labs and chest x-ray for tomorrow as those are fairly stable. She is still quite short of breath with any exertion, so I have encouraged good pulmonary hygiene. I will slowly taper off her Solu-Medrol and when we switch her to p.o., I am going to try her on some oral Methylprednisolone instead of some Prednisone. She seems to tolerate her IV Solu-Medrol without any issues, but she gets very shaky and jittery when she switches to the oral Prednisone. She will need to stay on a low dose of Methylprednisolone with her routine medications until she sees Dr. Ferguson, her it consultant, in October. She will also need some pulmonary rehab. I have also encouraged her to stop smoking. Otherwise we will continue to monitor the patient closely and followup as needed. Dr. Nicole is the collaborating physician and available for consultation. #[id number] [facility]
[2016-09-23] MEDS: LEVALBUTEROL NEBS 1.25 MG/3 ML VIAL INH SCH ×6 (00:05→20:31)
[2016-09-23] MEDS: LEVOTHYROXINE SODIUM 0.025 MG TAB PO SCH (06:18)
[2016-09-23] MEDS: PANTOPRAZOLE SODIUM TAB 40 MG PO SCH (06:18)
[2016-09-23] MEDS: FLUTICASONE/SALMETEROL 250/50 14 PUFF/17 GM INH INH SCH ×2 (08:21→20:31)
[2016-09-23] MEDS: OXcarbazepine 300 MG TAB PO SCH ×2 (08:59→20:41)
[2016-09-23] MEDS: PHENYTOIN SODIUM 100 MG CAP PO SCH ×2 (08:59→20:39)
[2016-09-23] MEDS: GABAPENTIN 100 MG CAP PO SCH ×2 (08:59→20:40)
[2016-09-23] MEDS: BIFIDOBACTERIUM INFANTIS 4 MG CAP PO SCH (08:59)
[2016-09-23] MEDS: guaiFENesin ER TAB 600 MG TAB PO SCH ×2 (08:59→20:40)
[2016-09-23] MEDS: PAROXETINE HCL 37.5 MG PO SCH ×2 (09:00→20:40)
[2016-09-23] MEDS: methylPREDNISolone SODIUM SUC 40 MG/ML VIAL IV SCH (09:02)
[2016-09-23] MEDS: DOXYCYCLINE HYCLATE CAP 100 MG CAP PO SCH ×2 (09:56→20:42)
--- NOTE | 2016-09-23 18:47 | PN ---
DATE: 09/23/16 SUPERVISING PHYSICIAN: Fritz Nicole M.D. SUBJECTIVE: The patient is walking in her room. She is slightly tachypneic but has no complaints of shortness of breath, chest pain, nausea or vomiting. Her respiratory rate is around 26. OBJECTIVE: VITAL SIGNS: She is afebrile, heart rate 80, blood pressure 129/77, respiratory rate 95, O2 sat 95%. RESPIRATORY: Diminished breath sounds throughout. No wheezing noted at this time. CARDIAC: Regular rate and rhythm. ABDOMEN: Soft, nondistended, non-tender. Bowel sounds are positive. EXTREMITIES: No cyanosis, clubbing or edema. NEUROLOGIC: She is awake, alert and oriented times three. LABORATORY: Sputum culture is positive for Serratia marcescens. It is pansensitive with the exception of Augmentin and Cefazolin. There are no other labs and films to report. ASSESSMENT: 1. Acute exacerbation of chronic obstructive pulmonary disease. 2. Positive sputum culture of Serratia marcescens. 3. Seizure disorder presently on Dilantin and Gabapentin. 4. Tobacco abuse. 5. Hypertension. 6. Hypothyroidism. 7. Generalized anxiety disorder with panic attacks. PLAN: We will continue present supportive care. Her ambulatory study on oxygen dropped down to 87%. She gets quite tachypneic at times as well as shows increased work of breathing with some accessory muscle use. I am very slowly tapering down her steroids. Tomorrow morning I will start her on oral steroid therapy. For some reason, she tolerates Solu-Medrol IV in the hospital and when we change her to prednisone she gets very jittery. I am going to try her on oral Methylprednisolone. She will get 24 mg tomorrow with an additional 4 mg daily. She will need to go home on the 4 mg daily. She may have to stay on chronic steroid therapy until she sees Dr. Ferguson in October. I will also continue her Advair. Will need to discontinue her Flovent on discharge. She is on doxycycline which has appropriate sensitivities on her sputum C and S. I have encouraged her to quit smoking as well as continue good pulmonary hygiene. We will continue to monitor the patient closely as follow as needed. Dr. Nicole is the collaborating physician available for consultation. #[id number] [facility]
[2016-09-23] MEDS: TIOTROPIUM INHALER INH SCH (20:31)
[2016-09-23] MEDS: NEBIVOLOL 2.5 MG TAB PO SCH (20:38)
[2016-09-23] MEDS: NICOTINE PATCH 14 MG TD SCH (20:39)
[2016-09-23] MEDS: CYCLOBENZAPRINE HCL 10 MG TAB PO SCH (20:39)
[2016-09-23] MEDS: ENOXAPARIN SODIUM 40 MG/0.4 ML SYG SUBCU SCH (20:39)
[2016-09-23] MEDS: PHENYTOIN SODIUM PO SCH (20:41)
[2016-09-23] MEDS: IV SET AND CAP CHANGE INJ INJ SCH (20:49)
[2016-09-24] MEDS: LEVALBUTEROL NEBS 1.25 MG/3 ML VIAL INH SCH ×8 (00:21→23:49)
--- NOTE | 2016-09-24 06:23 | RAD ---
Clinical History : copd , MAIN Exam : PA and lateral views of the chest 09/24/2016 5:00 AM CDT Comparisons : PA and lateral views of the chest September 20, 2016 CT chest without contrast August 12, 2016 Findings : Stable emphysematous changes are noted throughout the lungs bilaterally. There is flattening of the diaphragms and increased retrosternal clear space. The lungs are clear without focal consolidation or pleural effusion. There is stable bronchovascular crowding throughout the lung bases with blunting of costophrenic angle. The heart is normal in size. The mediastinal contours are normal in appearance. The thoracic spine is age appropriate. The shoulders are unremarkable. Limited evaluation of the upper abdomen demonstrates no gross abnormalities. Impression: 1. No acute cardiopulmonary disease (stable appearing chest). 2. Stable severe emphysema with bronchovascular crowding of the lung bases. Electronically signed by: Eve Diane MD 09/24/2016 6:22 AM CDT
[2016-09-24] MEDS: LEVOTHYROXINE SODIUM 0.025 MG TAB PO SCH (06:34)
[2016-09-24] MEDS: PANTOPRAZOLE SODIUM TAB 40 MG PO SCH (06:35)
[2016-09-24] MEDS: FLUTICASONE/SALMETEROL 250/50 14 PUFF/17 GM INH INH SCH ×2 (08:11→19:54)
[2016-09-24] MEDS: PHENYTOIN SODIUM 100 MG CAP PO SCH ×2 (08:29→20:45)
[2016-09-24] MEDS: BIFIDOBACTERIUM INFANTIS 4 MG CAP PO SCH (08:30)
[2016-09-24] MEDS: guaiFENesin ER TAB 600 MG TAB PO SCH ×2 (08:30→20:45)
[2016-09-24] MEDS: GABAPENTIN 100 MG CAP PO SCH ×2 (08:30→20:45)
[2016-09-24] MEDS: OXcarbazepine 300 MG TAB PO SCH ×2 (08:30→20:46)
[2016-09-24] MEDS: PAROXETINE HCL 37.5 MG PO SCH ×2 (08:31→20:44)
[2016-09-24] MEDS: methylPREDNISolone TAB 4 MG TAB PO SCH (08:57)
[2016-09-24] MEDS: DOXYCYCLINE HYCLATE CAP 100 MG CAP PO SCH ×2 (09:00→20:45)
[2016-09-24] MEDS ORDERED: methylPREDNISolone TAB 4 MG TAB PO ONE (09:00)
[2016-09-24] MEDS: methylPREDNISolone SODIUM SUC 40 MG/ML VIAL IV SCH (09:00)
--- NOTE | 2016-09-24 18:52 | PN ---
DATE: 09/24/16 SUPERVISING PHYSICIAN: Fritz Nicole M.D. SUBJECTIVE: The patient is showing some improvement. She continues to show desaturations during ambulatory studies, but remains afebrile. OBJECTIVE: VITAL SIGNS: T max 99, pulse 97, blood pressure 113/68, respirations 16 to 22, satting 94% on nasal cannula at rest on 2 liters. I's and O's show a negative balance of 950 with 700 in, 1650 out. She has had 1 bowel movement. Weight is 46.7 kg. CHEST: Lung sounds are diminished towards the bases but equal bilaterally with no notable rhonchi, wheezing or rales. HEART: Regular rate and rhythm. ABDOMEN: Soft, non-tender. Positive bowel sounds. EXTREMITIES: No clubbing, cyanosis or edema. NEUROLOGIC: She is alert and oriented times three. LABORATORY: White count shows to be 3.9, hemoglobin 13.0, hematocrit 38.9, platelet count 163,000. Differential shows to be without a left shift. Chemistries show normal electrolytes with a slightly elevated carbon dioxide at 35 with BUN 26, creatinine 0.54 with glucose of 80 and calcium of 8.2. MICROBIOLOGY: Final culture results of sputum shows Serratia marcescens with sensitivity pattern showing sensitive to all but Augmentin and Cefazolin. The patient remains on doxycycline as the sensitivity pattern shows sensitive to tetracyclines. RADIOLOGY: Two view chest x-ray per radiology interpretation shows no acute cardiopulmonary disease, stable-appearing chest with stable severe emphysema with bronchovascular crowding in the lung bases. ASSESSMENT: 1. Acute exacerbation of chronic obstructive pulmonary disease. 2. Positive sputum culture for Serratia marcescens with no obvious evidence of pneumonia on current radiographic studies. 3. Seizure disorder presently on Dilantin and Gabapentin. 4. Tobacco abuse. 5. Hypertension. 6. Hypothyroidism. 7. General anxiety disorder with panic attacks on Klonopin. PLAN: Will continue to monitor the patient closely. Anticipate hopefully discharging tomorrow. She will remain on doxycycline. She has been started on p.o. Methylprednisolone at 4 mg after receiving a 24 mg dose initially. Ambulatory studies show that she did have some dizziness and did desaturate down to mid 80s once again. Will continue with bronchial hygiene and smoking cessation encouraged. Will anticipate discharge tomorrow. Until then, continue to monitor the patient closely and treat appropriately. #[id number] [facility]
[2016-09-24] MEDS: TIOTROPIUM INHALER INH SCH (19:54)
[2016-09-24] MEDS: CYCLOBENZAPRINE HCL 10 MG TAB PO SCH (20:45)
[2016-09-24] MEDS: NEBIVOLOL 2.5 MG TAB PO SCH (20:45)
[2016-09-24] MEDS: ENOXAPARIN SODIUM 40 MG/0.4 ML SYG SUBCU SCH (20:48)
[2016-09-24] MEDS: PHENYTOIN SODIUM PO SCH (20:49)
[2016-09-24] MEDS: NICOTINE PATCH 14 MG TD SCH (20:55)
[2016-09-24] MEDS: SODIUM CHLORIDE 0.9% (FLUSH) 10 ML SYG IV PRN (20:56)
[2016-09-25] MEDS: LEVALBUTEROL NEBS 1.25 MG/3 ML VIAL INH SCH ×2 (04:40→08:21)
[2016-09-25] MEDS: LEVOTHYROXINE SODIUM 0.025 MG TAB PO SCH (06:35)
[2016-09-25] MEDS: PANTOPRAZOLE SODIUM TAB 40 MG PO SCH (06:35)
[2016-09-25] MEDS: SODIUM CHLORIDE 0.9% (FLUSH) 10 ML SYG IV PRN (07:00)
[2016-09-25] MEDS: FLUTICASONE/SALMETEROL 250/50 14 PUFF/17 GM INH INH SCH (08:21)
[2016-09-25] MEDS: guaiFENesin ER TAB 600 MG TAB PO SCH (09:00)
[2016-09-25] MEDS: DOXYCYCLINE HYCLATE CAP 100 MG CAP PO SCH (09:03)
[2016-09-25] MEDS: PHENYTOIN SODIUM 100 MG CAP PO SCH (09:04)
[2016-09-25] MEDS: methylPREDNISolone TAB 4 MG TAB PO SCH (09:04)
[2016-09-25] MEDS: BIFIDOBACTERIUM INFANTIS 4 MG CAP PO SCH (09:04)
[2016-09-25] MEDS: GABAPENTIN 100 MG CAP PO SCH (09:04)
[2016-09-25] MEDS: OXcarbazepine 300 MG TAB PO SCH (09:05)
[2016-09-25] MEDS: PAROXETINE HCL 37.5 MG PO SCH (09:07)
[2016-09-25 17:31] VITALS: BP 130/77; TEMP 97.1; O2SAT 96
--- NOTE | 2016-10-01 20:30 | DS ---
SUPERVISING PHYSICIAN: Fritz Nicole M.D. DISCHARGE DIAGNOSIS: 1. Acute exacerbation of chronic obstructive pulmonary disease secondary to likely community-acquired pneumonia with positive cultures for Serratia marcescens. 2. Positive sputum culture for Serratia marcescens although no evidence of pneumonia on current radiographic studies. 3. Seizure disorder on Dilantin and Gabapentin. 4. Tobacco abuse. 5. Hypertension. 6. Hypothyroidism. 7. General anxiety disorder with panic attacks on Klonopin. HISTORY OF PRESENT ILLNESS: Ms. Holland is a 76 year-old female patient who has had an approximately 1 week history of shortness of breath. Over the last several days prior to admission she had been increasing her nebulizer treatments. She was actually in the Emergency Room the day before admission for a headache and was found to have sinusitis, but in the morning about 4:00 AM of admission, she woke up and she was extremely short of breath with wheezing, and she was also coughing. She has a fairly extensive history of chronic obstructive pulmonary disease and was actually in the hospital on 02/07 for an exacerbation of her COPD. She had just gotten off of her oral prednisone about a week previous to admission. The shortness of breath had increased her need for nebulizer treatments that started shortly after the completion of her oral prednisone. Her O2 saturations initially in the Emergency Room were 64% and she received a breathing treatment. Her O2 sats then came up to 93, then went down to 79%. She was given some Solu-Medrol and again another breathing treatment, and at admission her O2 sat showed between 88 to 92% with 2 liters nasal cannula at rest. She was then admitted to the Medical/Surgical floor for continuation of treatment and further evaluation. LABORATORY: Initial white count on admission was 4.4, at discharge was 4.1. Hemoglobin and hematocrit were stable and at discharge were 12.5 and 37.6. Platelet count was 156,000 on admission and at discharge 166,000. Her differential never showed a left shift and was within normal limits at discharge. Chemistries showed normal electrolytes, just with a slightly elevated CO2 at admission with 33, at discharge electrolytes were normal. Carbon dioxide was 31, BUN 26, creatinine 0.42, calcium 7.9. Liver functions showed to be within normal limits. She had 1 set of cardiac enzymes that were within normal limits. MICROBIOLOGY: She had a sputum culture that showed final results to show Serratia marcescens sensitive to all but Augmentin and Cefazolin. She had 2 sets of blood cultures that remained negative after 5 days. RADIOLOGY: Chest x-ray on admission through the Emergency Department showed stable appearance of the chest compared to previous exams on 09/01/16. She had an additional chest x-ray on 09/24/16, the day before discharge, and per radiology interpretation showed no acute cardiopulmonary disease, stable- appearing chest with stable severe emphysema with bronchovascular crowding of the lung bases. HOSPITAL COURSE: Ms. Holland was admitted as noted above for exacerbation of chronic obstructive pulmonary disease and concerns for pneumonia. She did grow a sputum culture as noted with Serratia and was initiated on antibiotic therapy on admission that included Rocephin. She was started on Solu-Medrol and slowly tapered to p.o. medicines at discharge. She was also put on aggressive pulmonary hygiene and showed good clinical improvement prior to discharge. She was also initiated on doxycycline and clinically improved well enough to be discharged to continue with outpatient treatment plan. PLAN: Ms. Holland was discharged on 09/25/16 with instructions to have close clinical followup with Dr. Recio in 7 days. She is to resume her home medications as previous and instructed to start new medications as directed. She was encouraged to return to the hospital should she have any concerning symptoms or any worsening of her condition. At discharge, new prescriptions included: 1. Align 4 mg tablet, #9. 2. Doxycycline 100 mg twice daily, #10. 3. Advair 250/50 Diskus 1 twice daily inhaled, 1 inhaler. 4. Guaifenesin 1200 mg twice daily. 5. Prednisone 4 mg tablet daily, #5. Diet at discharge is regular diet as tolerated. Activity is increase as tolerated. Condition at discharge was stable and improved. #[id number] [facility]
== END 2016-09-25 10:59 | disposition home or self-care (01) | DRG 190 ==
LOC: ER 15:38 → MS 17:57 → INTOOBSV 17:57 → OBSVTOIN 09-21 11:39
PROVIDERS: ADMIT Nurse Practitioner Acute Care; ATTEND Nurse Practitioner Family
DX: J44.1 Chronic obstructive pulmonary disease with (acute) exacerbation (principal); J15.6 Pneumonia due to other Gram-negative bacteria; B95.2 Enterococcus as the cause of diseases classified elsewhere; G40.909 Epilepsy, unspecified, not intractable, without status epilepticus; I10 Essential (primary) hypertension; E03.9 Hypothyroidism, unspecified; F41.0 Panic disorder [episodic paroxysmal anxiety]; F41.1 Generalized anxiety disorder; F17.210 Nicotine dependence, cigarettes, uncomplicated; Z88.3 Allergy status to other anti-infective agents; Z88.2 Allergy status to sulfonamides; Z88.8 Allergy status to other drugs, medicaments and biological substances; Z16.11 Resistance to penicillins; Z16.19 Resistance to other specified beta lactam antibiotics; Z79.52 Long term (current) use of systemic steroids; Z79.899 Other long term (current) drug therapy

== ENCOUNTER 2016-10-11 18:29 | Emergency (ER) | payer MEDICARE, OTHER ==
--- NOTE | 2016-10-11 19:32 | RAD ---
PROCEDURE: XR CHEST 1 VIEW HISTORY: dyspnea COMPARISON: 09/24/2016 TECHNIQUE: Single projection of the chest was done. FINDINGS: There are underlying changes of COPD . There are no discrete airspace infiltrates, pneumothoraces or pleural effusions. The pulmonary vascularity is normal. The cardiomediastinal silhouette is unremarkable for patient's age and sex. IMPRESSION: There is no acute pleural-parenchymal process seen in the imaged lung damon. Changes of COPD Electronically signed by: David Silveira MD 10/11/2016 7:32 PM CDT Workstation: [id number]
--- NOTE | 2016-10-11 20:44 | ED.PDOC ---
History of Present Illness - General Chief Complaint: General Stated Complaint: weakness, headache, nausea Time Seen by Provider: 10/11/16 19:11 Source: patient Exam Limitations: no limitations - History of Present Illness Initial Comments: Patient presents with JANE, nausea, and dyspnea for one day. She says it feels like it does when her Dilantin levels are off and also a little like a COPD exacerbation. No vomiting. No chest pain. No seizures today or recently. She says that she has not struck her head. No other complaints. Uses oxygen at home usually at night and certain times during the day. Timing/Duration: other - 12 hours Severity: mild Improving Factors: nothing Worsening Factors: nothing Associated Symptoms: shortness of breath Allergies/Adverse Reactions: Allergies Metronidazole Allergy (Verified 10/11/16 18:41) Unknown Sulfa Antibiotics Allergy (Verified 10/11/16 18:41) Unknown Sulfonamide Deriv *RETIRED-02/15/13 [Sulfonamide Derivatives] Allergy (Verified 10/11/16 18:41) Zonisamide [From Zonegran] Allergy (Verified 10/11/16 18:41) Unknown Escitalopram [From Lexapro] Adverse Reaction (Verified 10/11/16 18:41) Unknown Venlafaxine [From Effexor] Adverse Reaction (Verified 10/11/16 18:41) Unknown Home Medications: Ambulatory Orders Gabapentin 300 mg PO BEDTIME 07/15/13 Oxcarbazepine [Trileptal] 300 mg PO BID 11/08/15 Paroxetine HCl [Paxil Cr] 37.5 mg PO BID 06/25/16 Klonopin 0.5 - 0.75 mg PO QID 08/28/16 Levothyroxine Sodium [Synthroid] 50 mcg PO DAILY@0700 08/31/16 Nebivolol HCl [Bystolic] 5 mg PO BEDTIME 08/31/16 Phenytoin Sodium Cap [Dilantin Cap] 100 mg PO DAILY 08/31/16 Phenytoin Sodium Cap [Dilantin Cap] 160 mg PO BEDTIME 08/31/16 Gabapentin [Neurontin] 100 mg PO DAILY 09/20/16 Levalbuterol Tartrate [Xopenex Hfa] 45 mcg IN DAILY 09/20/16 Bifidobacterium Infantis [Align] 4 mg PO DAILY 09/25/16 Doxycycline Hyclate [Vibramycin] 100 mg PO BID #10 09/25/16 Fluticasone/Salmeterol 250/50 [Advair 250/50 Diskus] 1 puff INH RTBID #1 puff guaiFENesin ER TAB [Mucinex Tab] 1,200 mg PO BID 09/25/16 methylPREDNISolone TAB [Medrol Tab] 4 mg PO DAILY #5 09/25/16 Doxycycline (Monohydrate) [Doxycycline Monohydrate] 100 mg PO DAILY #7 cap 10/11 predniSONE 10 mg PO Q24HR #4 tab 10/11/16 Review of Systems - Review of Systems Constitutional: States: no symptoms reported EENTM: States: no symptoms reported Respiratory: States: see HPI Cardiology: States: no symptoms reported Gastrointestinal/Abdominal: States: see HPI Genitourinary: States: no symptoms reported Musculoskeletal: States: no symptoms reported Skin: States: no symptoms reported Neurological: States: no symptoms reported Endocrine: States: no symptoms reported Hematologic/Lymphatic: States: no symptoms reported Past Medical History (General) - Patient Medical History Hx Seizures: Yes Hx Stroke: No Hx Dementia: No Hx Asthma: No Hx of COPD: Yes Hx Cardiac Disorders: Yes Hx Congestive Heart Failure: No Hx Pacemaker: No Hx Hypertension: Yes Hx Thyroid Disease: Yes Hx Diabetes: No Hx Gastroesophageal Reflux: No Hx Renal Disease: No Hx Cancer: No Hx of HIV: No Hx Hepatitis C: No Hx MRSA: No - Vaccination History Hx Tetanus, Diphtheria Vaccination: No Hx Influenza Vaccination: Yes - 2015 Hx Pneumococcal Vaccination: Yes - 2013 - Social History Hx Tobacco Use: Yes Hx Alcohol Use: No Hx Substance Use: No Hx Substance Use Treatment: No Hx Depression: Yes Hx Physical Abuse: No Hx Emotional Abuse: No - Activities of Daily Living Hospice Agency (if applicable):: None - Female History Patient is a Female of Child Bearing Age (10 -59 yrs old): No Patient : No Family Medical History - Family History Mother Family History: No Known Living Status: Hx Family Asthma: Yes - copd dad,sister Hx Family Congestive Heart Failure: Yes Hx Family Hypertension: Yes Hx Family Stroke: No Hx Cardiac Disease: No Hx Family Diabetes: No Hx Family Cancer: No Physical Exam - Physical Exam General Appearance: Alert Eye Exam: bilateral normal Ears, Nose, Throat: normal ENT inspection Neck: non-tender, full range of motion, supple Respiratory: chest non-tender, lungs clear Cardiovascular/Chest: normal peripheral pulses, regular rate, rhythm Gastrointestinal/Abdominal: normal bowel sounds, non tender, soft Extremity: normal inspection 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 Patient reported that her symptoms had cleared up. She did repeat that this feels a little like a COPD exacerbation. I was going to give her prednisone 20 mg po qd but she said that was too much. She said that 10 mg was the most that she could take. She has an appointment with her regular doctor in the morning. Laboratory Tests 10/11/16 10/11/16 10/11/16 19:25 19:25 19:25 WBC 4.3 L RBC 4.06 L Hgb 12.8 Hct 37.9 MCV 93.4 MCH 31.5 H MCHC 33.7 RDW 14.7 H Plt Count 163 MPV 7.2 L Absolute Neuts (auto) 2.60 Absolute Lymphs (auto) 1.20 Absolute Monos (auto) 0.40 Absolute Eos (auto) 0.10 Absolute Basos (auto) 0.00 Neutrophils % 59.8 Lymphocytes % 27.1 Monocytes % 9.3 H Eosinophils % 3.1 Basophils % 0.7 PT 10.5 INR 0.930 PTT (SP) Sodium 143 Potassium 4.2 Chloride 108 Carbon Dioxide 29 Anion Gap 10.2 L BUN 14 Creatinine 0.47 L BUN/Creatinine Ratio 29.8 H Random Glucose 123 H Serum Osmolality 286.8 Calcium 8.4 Total Bilirubin 0.4 AST 16 ALT 23 Alkaline Phosphatase 46 Creatine Kinase 61 CK-MB (CK-2) 2.9 CK-MB (CK-2) % Not Reportable Troponin I < 0.02 B-Natriuretic Peptide 46.4 Serum Total Protein 6.1 L Albumin 3.6 Globulin 2.5 Albumin/Globulin Ratio 1.4 Phenytoin 10/11/16 10/11/16 19:25 19:25 WBC RBC Hgb Hct MCV MCH MCHC RDW Plt Count MPV Absolute Neuts (auto) Absolute Lymphs (auto) Absolute Monos (auto) Absolute Eos (auto) Absolute Basos (auto) Neutrophils % Lymphocytes % Monocytes % Eosinophils % Basophils % PT INR PTT (SP) 30.5 Sodium Potassium Chloride Carbon Dioxide Anion Gap BUN Creatinine BUN/Creatinine Ratio Random Glucose Serum Osmolality Calcium Total Bilirubin AST ALT Alkaline Phosphatase Creatine Kinase CK-MB (CK-2) CK-MB (CK-2) % Troponin I B-Natriuretic Peptide Serum Total Protein Albumin Globulin Albumin/Globulin Ratio Phenytoin 8.3 L Departure - Departure Clinical Impression: COPD (chronic obstructive pulmonary disease) Disposition: Discharge to Home or Self Care Condition: Good Departure Forms: ED Discharge - Pt. Copy, Patient Portal Self Enrollment Diet: resume usual diet Activity: increase activity as tolerated Referrals: Matt Recio III, MD [Primary Care Provider] - 1-2 Weeks Prescriptions: predniSONE 10 mg PO Q24HR #4 tab Doxycycline (Monohydrate) [Doxycycline Monohydrate] 100 mg PO DAILY #7 cap Home Medications: Ambulatory Orders Gabapentin 300 mg PO BEDTIME 07/15/13 Oxcarbazepine [Trileptal] 300 mg PO BID 11/08/15 Paroxetine HCl [Paxil Cr] 37.5 mg PO BID 06/25/16 Klonopin 0.5 - 0.75 mg PO QID 08/28/16 Levothyroxine Sodium [Synthroid] 50 mcg PO DAILY@0700 08/31/16 Nebivolol HCl [Bystolic] 5 mg PO BEDTIME 08/31/16 Phenytoin Sodium Cap [Dilantin Cap] 100 mg PO DAILY 08/31/16 Phenytoin Sodium Cap [Dilantin Cap] 160 mg PO BEDTIME 08/31/16 Gabapentin [Neurontin] 100 mg PO DAILY 09/20/16 Levalbuterol Tartrate [Xopenex Hfa] 45 mcg IN DAILY 09/20/16 Bifidobacterium Infantis [Align] 4 mg PO DAILY 09/25/16 Doxycycline Hyclate [Vibramycin] 100 mg PO BID #10 09/25/16 Fluticasone/Salmeterol 250/50 [Advair 250/50 Diskus] 1 puff INH RTBID #1 puff guaiFENesin ER TAB [Mucinex Tab] 1,200 mg PO BID 09/25/16 methylPREDNISolone TAB [Medrol Tab] 4 mg PO DAILY #5 09/25/16 Doxycycline (Monohydrate) [Doxycycline Monohydrate] 100 mg PO DAILY #7 cap 10/11 predniSONE 10 mg PO Q24HR #4 tab 10/11/16 Additional Instructions: Follow up with your regular doctor as scheduled in the morning.
[2016-10-11 20:50] VITALS: BP 164/90; TEMP 98.6; O2SAT 95
[2016-10-11] MEDS ORDERED: predniSONE 10 MG TAB PO ONE (20:59)
[2016-10-11] MEDS ORDERED: DOXYCYCLINE HYCLATE CAP 100 MG CAP PO ONE (20:59)
== END 2016-10-11 21:12 | disposition home or self-care (01) ==
LOC: ER 18:29
DX: J44.9 Chronic obstructive pulmonary disease, unspecified (principal); R51 Headache; I11.9 Hypertensive heart disease without heart failure; I51.9 Heart disease, unspecified; F32.9 Major depressive disorder, single episode, unspecified; E07.9 Disorder of thyroid, unspecified; R56.9 Unspecified convulsions; Z87.891 Personal history of nicotine dependence; Z79.899 Other long term (current) drug therapy
CPT/HCPCS: 36415; 71010; 80053; 80185; 82550; 82553; 83880; 84484; 85025; 85610; 85730; 99283; J7512

== ENCOUNTER 2016-10-15 09:34 | Emergency (ER) | payer MEDICARE, OTHER ==
--- NOTE | 2016-10-15 09:42 | ED.PDOC ---
History of Present Illness - General Chief Complaint: General Stated Complaint: elevated blood pressure,nausea,headache Time Seen by Provider: 10/15/16 09:38 Source: patient Exam Limitations: no limitations - History of Present Illness Initial Comments: Ximena Holland 76 y/o female stated that her blood pressure was elevated the last 4 days and had seen his md 3 days ago and increase her Bystolic to 5 mg. but she takes her blood pressure 3 x a day and is elevated mostly in am. stated has occasional nausea and pressure on her head.No blurry vision Timing/Duration: other - 4 days ago Severity: moderate Improving Factors: nothing Associated Symptoms: headaches, nausea/vomiting Allergies/Adverse Reactions: Allergies Metronidazole Allergy (Verified 10/11/16 18:41) Unknown Sulfa Antibiotics Allergy (Verified 10/11/16 18:41) Unknown Sulfonamide Deriv *RETIRED-02/15/13 [Sulfonamide Derivatives] Allergy (Verified 10/11/16 18:41) Zonisamide [From Zonegran] Allergy (Verified 10/11/16 18:41) Unknown Escitalopram [From Lexapro] Adverse Reaction (Verified 10/11/16 18:41) Unknown Venlafaxine [From Effexor] Adverse Reaction (Verified 10/11/16 18:41) Unknown Home Medications: Ambulatory Orders Gabapentin 300 mg PO BEDTIME 07/15/13 Oxcarbazepine [Trileptal] 300 mg PO BID 11/08/15 Paroxetine HCl [Paxil Cr] 37.5 mg PO BID 06/25/16 Klonopin 0.5 - 0.75 mg PO QID 08/28/16 Levothyroxine Sodium [Synthroid] 50 mcg PO DAILY@0700 08/31/16 Nebivolol HCl [Bystolic] 5 mg PO BEDTIME 08/31/16 Phenytoin Sodium Cap [Dilantin Cap] 100 mg PO DAILY 08/31/16 Phenytoin Sodium Cap [Dilantin Cap] 160 mg PO BEDTIME 08/31/16 Gabapentin [Neurontin] 100 mg PO DAILY 09/20/16 Levalbuterol Tartrate [Xopenex Hfa] 45 mcg IN DAILY 09/20/16 Bifidobacterium Infantis [Align] 4 mg PO DAILY 09/25/16 Doxycycline Hyclate [Vibramycin] 100 mg PO BID #10 09/25/16 Fluticasone/Salmeterol 250/50 [Advair 250/50 Diskus] 1 puff INH RTBID #1 puff guaiFENesin ER TAB [Mucinex Tab] 1,200 mg PO BID 09/25/16 methylPREDNISolone TAB [Medrol Tab] 4 mg PO DAILY #5 09/25/16 Doxycycline (Monohydrate) [Doxycycline Monohydrate] 100 mg PO DAILY #7 cap 10/11 predniSONE 10 mg PO Q24HR #4 tab 10/11/16 Review of Systems - Review of Systems Constitutional: States: no symptoms reported EENTM: States: no symptoms reported Respiratory: States: no symptoms reported Cardiology: States: no symptoms reported Gastrointestinal/Abdominal: States: see HPI Musculoskeletal: States: no symptoms reported Skin: States: no symptoms reported Neurological: States: see HPI Endocrine: States: no symptoms reported Past Medical History (General) - Patient Medical History Hx Seizures: Yes Hx Stroke: No Hx Dementia: No Hx Asthma: No Hx of COPD: Yes Hx Cardiac Disorders: Yes Hx Congestive Heart Failure: No Hx Pacemaker: No Hx Hypertension: Yes Hx Thyroid Disease: Yes Hx Diabetes: No Hx Gastroesophageal Reflux: No Hx Renal Disease: No Hx Cancer: No Hx of HIV: No Hx Hepatitis C: No Hx MRSA: No Surgical History: appendectomy - right shoulder,hysterectomy, cholecystectomy, other - Vaccination History Hx Tetanus, Diphtheria Vaccination: No Hx Influenza Vaccination: Yes - 2015 Hx Pneumococcal Vaccination: Yes - 2013 - Social History Hx Tobacco Use: Yes Hx Alcohol Use: No Hx Substance Use: No Hx Substance Use Treatment: No Hx Depression: Yes Hx Physical Abuse: No Hx Emotional Abuse: No - Activities of Daily Living Patient Lives Alone: Yes Grooming Ability: Independent Eating (Feeding) Ability: Standby Assistance - Female History Patient : No Family Medical History - Family History Mother Family History: No Known Living Status: Hx Family Asthma: Yes - copd dad,sister Hx Family Congestive Heart Failure: Yes Hx Family Hypertension: Yes Hx Family Stroke: No Hx Cardiac Disease: No Hx Family Diabetes: No Hx Family Cancer: No Physical Exam - Physical Exam General Appearance: Alert, Comfortable, No apparent distress Eye Exam: bilateral normal Ears, Nose, Throat: hearing grossly normal, normal ENT inspection, normal pharynx Neck: non-tender, full range of motion, supple, normal inspection Respiratory: chest non-tender, lungs clear, normal breath sounds, no respiratory distress Cardiovascular/Chest: normal peripheral pulses, regular rate, rhythm, no edema, no gallop, no murmur Gastrointestinal/Abdominal: normal bowel sounds, non tender, soft, no organomegaly, no pulsatile mass Back Exam: normal inspection, no CVA tenderness, no vertebral tenderness Extremity: normal range of motion, non-tender, normal inspection Neurologic: no motor/sensory deficits, alert, normal mood/affect, oriented x 3 Skin Exam: normal color, warm/dry, cyanosis Lymphatic: no adenopathy Progress - Progress Progress: 10/15/16 09:59 Vital Signs - 8 hr 10/15/16 09:40 Temperature 98.2 F Pulse Rate [ 81 LEFT BRACHIAL] Respiratory 20 Rate Blood Pressure 196/91 [LEFT BRACHIAL] O2 Sat by Pulse 93 L Oximetry 10/15/16 12:01 10/15/16 10:00 EKG STAT 10/15/16 10:05 SVN/Updraft Therapy .ONCE 10/15/16 11:02 EKG Assessment ONCE 10/15/16 11:15 EKG STAT 10/15/16 11:59 TROPONIN-I Stat 10/16/16 09:00 [facility] Daily Laboratory Results - last 24 hr 10/15/16 10/15/16 10/15/16 10:02 10:02 10:02 WBC 4.2 L RBC 4.50 Hgb 14.1 Hct 42.2 MCV 93.9 MCH 31.3 H MCHC 33.3 RDW 14.4 Plt Count 201 MPV 6.9 L Absolute Neuts (auto) 2.30 Absolute Lymphs (auto) 1.10 Absolute Monos (auto) 0.40 Absolute Eos (auto) 0.30 Absolute Basos (auto) 0.00 Neutrophils % 55.6 Lymphocytes % 26.7 Monocytes % 10.4 H Eosinophils % 6.7 H Basophils % 0.6 Sodium 141 Potassium 4.2 Chloride 105 Carbon Dioxide 28 Anion Gap 12.2 BUN 20 H Creatinine 0.62 BUN/Creatinine Ratio 32.3 H Random Glucose 101 Serum Osmolality 284.0 Calcium 8.8 Creatine Kinase CK-MB (CK-2) CK-MB (CK-2) % Troponin I Urine Color Urine Appearance Urine pH Ur Specific Brady Urine Protein Urine Glucose (UA) Urine Ketones Urine Blood Urine Nitrite Urine Bilirubin Urine Urobilinogen Ur Leukocyte Esterase Urine RBC Urine WBC Ur Epithelial Cells Urine Bacteria Phenytoin 11.3 10/15/16 10/15/16 10:30 10:46 WBC RBC Hgb Hct MCV MCH MCHC RDW Plt Count MPV Absolute Neuts (auto) Absolute Lymphs (auto) Absolute Monos (auto) Absolute Eos (auto) Absolute Basos (auto) Neutrophils % Lymphocytes % Monocytes % Eosinophils % Basophils % Sodium Potassium Chloride Carbon Dioxide Anion Gap BUN Creatinine BUN/Creatinine Ratio Random Glucose Serum Osmolality Calcium Creatine Kinase 48 CK-MB (CK-2) 3.4 CK-MB (CK-2) % Not Reportable Troponin I < 0.02 Urine Color Yellow Urine Appearance Clear Urine pH 6.0 Ur Specific Brady 1.010 Urine Protein Negative Urine Glucose (UA) Negative Urine Ketones Negative Urine Blood Negative Urine Nitrite Negative Urine Bilirubin Negative Urine Urobilinogen 0.2 Ur Leukocyte Esterase Negative Urine RBC 0 Urine WBC 0-1 Ur Epithelial Cells 0-1 Urine Bacteria 0 Phenytoin Vital Signs - 8 hr 10/15/16 10/15/16 10/15/16 09:36 09:45 10:10 Temperature 98.2 F Pulse Rate 74 Pulse Rate [ 81 74 LEFT BRACHIAL] Respiratory 20 20 Rate Blood Pressure 196/91 170/66 [LEFT BRACHIAL] O2 Sat by Pulse 93 L 92 L Oximetry 10/15/16 10/15/16 10/15/16 10:25 10:35 11:30 Temperature Pulse Rate 74 74 74 Pulse Rate [ 77 73 LEFT BRACHIAL] Respiratory 16 16 16 Rate Blood Pressure 138/76 110/61 [LEFT BRACHIAL] O2 Sat by Pulse 94 L 92 L 90 L Oximetry - EKG/XRAY/CT EKG: Sinus, ST depression - st depression-anterior leads Comments: Heart rate-72 - Additional EKG/XRAY/Consults EKG #2: Sinus, ST depression Comments: heart rate -70 Departure - Departure Clinical Impression: Ischemic heart disease, acute, COPD mixed type HBP (high blood pressure) Qualifiers: Hypertension type: unspecified secondary hypertension Qualified Code(s): I15.9 - Secondary hypertension, unspecified Nicotine dependence Qualifiers: Nicotine product type: cigarettes Substance use status: uncomplicated Qualified Code(s): F17.210 - Nicotine dependence, cigarettes, uncomplicated Time of Disposition: 12:07 - D/W -admitting md [facility] Disposition: Transfer to Hospital Condition: Fair Referrals: Matt Recio III, MD [Primary Care Provider] - 1-2 Weeks Home Medications: Ambulatory Orders Gabapentin 300 mg PO BEDTIME 07/15/13 Oxcarbazepine [Trileptal] 300 mg PO BID 11/08/15 Paroxetine HCl [Paxil Cr] 37.5 mg PO BID 06/25/16 Klonopin 0.5 - 0.75 mg PO QID 08/28/16 Levothyroxine Sodium [Synthroid] 50 mcg PO DAILY@0700 08/31/16 Nebivolol HCl [Bystolic] 5 mg PO BEDTIME 08/31/16 Phenytoin Sodium Cap [Dilantin Cap] 100 mg PO DAILY 08/31/16 Phenytoin Sodium Cap [Dilantin Cap] 160 mg PO BEDTIME 08/31/16 Gabapentin [Neurontin] 100 mg PO DAILY 09/20/16 Levalbuterol Tartrate [Xopenex Hfa] 45 mcg IN DAILY 09/20/16 Bifidobacterium Infantis [Align] 4 mg PO DAILY 09/25/16 Doxycycline Hyclate [Vibramycin] 100 mg PO BID #10 09/25/16 Fluticasone/Salmeterol 250/50 [Advair 250/50 Diskus] 1 puff INH RTBID #1 puff guaiFENesin ER TAB [Mucinex Tab] 1,200 mg PO BID 09/25/16 methylPREDNISolone TAB [Medrol Tab] 4 mg PO DAILY #5 09/25/16 Doxycycline (Monohydrate) [Doxycycline Monohydrate] 100 mg PO DAILY #7 cap 10/11 predniSONE 10 mg PO Q24HR #4 tab 10/11/16
[2016-10-15] MEDS ORDERED: cloNIDine HCL 0.1 MG TAB PO ONE (09:45)
[2016-10-15] MEDS ORDERED: amLODIPine BESYLATE 5 MG TAB PO ONE (09:50)
[2016-10-15] MEDS ORDERED: IPRATROPIUM/ALBUTEROL 3 ML VIAL NEB ONE (10:05)
[2016-10-15] MEDS ORDERED: ASPIRIN TABLET 325 MG TAB PO ONE (10:50)
[2016-10-15 14:35] VITALS: BP 108/59; TEMP 99; O2SAT 90
== END 2016-10-15 14:40 | disposition short-term general hospital (02) ==
LOC: ER 09:34
DX: I15.9 Secondary hypertension, unspecified (principal); I24.9 Acute ischemic heart disease, unspecified; J44.1 Chronic obstructive pulmonary disease with (acute) exacerbation; E07.9 Disorder of thyroid, unspecified; F32.9 Major depressive disorder, single episode, unspecified; R56.9 Unspecified convulsions; F17.210 Nicotine dependence, cigarettes, uncomplicated; Z79.899 Other long term (current) drug therapy; Z88.8 Allergy status to other drugs, medicaments and biological substances; Z88.2 Allergy status to sulfonamides
CPT/HCPCS: 36415; 80048; 80185; 81001; 82550; 82553; 84484; 85025; 93005; 94640; J7620

== ENCOUNTER → 2016-12-27 | Outpatient (CLI) | payer MEDICARE, OTHER | LOC: GMA 16:31 | PROVIDERS: ATTEND Nurse Practitioner Family | DX: R31.0 Gross hematuria (principal); R53.82 Chronic fatigue, unspecified ==

== ENCOUNTER → 2017-03-22 | Outpatient (CLI) | payer MEDICARE, OTHER | END | disposition home or self-care (01) | LOC: GMAL 14:36 | PROVIDERS: ATTEND Family Medicine | DX: M79.7 Fibromyalgia (principal) ==

== ENCOUNTER → 2017-06-12 | Outpatient (CLI) | payer MEDICARE, OTHER | LOC: BFHH 16:31 | PROVIDERS: ATTEND Family Medicine | DX: R35.0 Frequency of micturition (principal) ==

== ENCOUNTER → 2017-07-17 | Outpatient (CLI) | payer MEDICARE, OTHER | LOC: BFHH 15:36 | PROVIDERS: ATTEND Family Medicine | DX: I10 Essential (primary) hypertension (principal); J44.9 Chronic obstructive pulmonary disease, unspecified ==

== ENCOUNTER → 2017-09-01 | Outpatient (CLI) | payer MEDICARE, OTHER | LOC: BFHH 11:06 | PROVIDERS: ATTEND Family Medicine | DX: J44.9 Chronic obstructive pulmonary disease, unspecified (principal); M79.7 Fibromyalgia; G25.81 Restless legs syndrome; C34.91 Malignant neoplasm of unspecified part of right bronchus or lung ==

== ENCOUNTER 2017-11-27 10:37 | Emergency (ER) | payer MEDICARE, OTHER ==
[2017-11-27] MEDS ORDERED: IPRATROPIUM/ALBUTEROL 3 ML VIAL NEB ONE ×2 (10:48→11:05)
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
[2017-11-27] MEDS ORDERED: methylPREDNISolone SODIUM SUC 125 MG/2 ML VIAL IV ONE (11:05)
--- NOTE | 2017-11-27 11:32 | RAD ---
EXAM DESCRIPTION: Chest,1 View CLINICAL HISTORY: 77 years Female, COPD COMPARISON: Previous study October 11, 2016 TECHNIQUE: AP portable chest. FINDINGS: Heart size is prominent with centrally prominent pulmonary vascularity. No consolidating infiltrate. Upper lobes appear emphysematous and hyperlucent. Crowded vascular markings in the perihilar and lower lobe regions. Findings appear similar to previous study. No pulmonary mass or worrisome nodule. No pneumothorax or pleural effusion. Bones are unremarkable. IMPRESSION: Prominent heart without congestive failure. Electronically signed by: Gilbert Goff MD 11/27/2017 11:31 AM CDT
[2017-11-27] MEDS ORDERED: SODIUM CHLORIDE 0.9% 1000ML 1,000 ML IVS ONE (11:51)
[2017-11-27 13:43] VITALS: BP 145/82; TEMP 98; O2SAT 95
== END 2017-11-27 13:15 | disposition home or self-care (01) ==
LOC: ER 10:37
DX: J44.0 Chronic obstructive pulmonary disease with (acute) lower respiratory infection (principal); J20.9 Acute bronchitis, unspecified; F41.0 Panic disorder [episodic paroxysmal anxiety]; I10 Essential (primary) hypertension; E07.9 Disorder of thyroid, unspecified; F32.9 Major depressive disorder, single episode, unspecified; Z87.891 Personal history of nicotine dependence; Z79.899 Other long term (current) drug therapy; Z85.118 Personal history of other malignant neoplasm of bronchus and lung; Z88.2 Allergy status to sulfonamides; Z88.8 Allergy status to other drugs, medicaments and biological substances
CPT/HCPCS: 36415; 36600; 71045; 80053; 82803; 82805; 85025; 94640; J2930; J7620

== ENCOUNTER → 2018-01-18 | Outpatient (CLI) | payer MEDICARE, OTHER | LOC: GMAL 17:28 | PROVIDERS: ATTEND Family Medicine | DX: R25.8 Other abnormal involuntary movements (principal) ==

== ENCOUNTER → 2018-01-25 | Outpatient (CLI) | payer MEDICARE, OTHER ==
[~2018-01-25] MED LIST: LEVALBUTEROL NEBS 1.25 MG/3 ML VIAL NEB ONE
== END ==
LOC: RESP 13:50
PROVIDERS: ATTEND Family Medicine
DX: J44.1 Chronic obstructive pulmonary disease with (acute) exacerbation (principal)

== ENCOUNTER 2018-02-20 12:35 | Emergency (ER) | payer MEDICARE, OTHER ==
[2018-02-20 12:52] VITALS: O2SAT 98
[2018-02-20] MEDS ORDERED: ACETAMINOPHEN W/COD #3 TAB 1 EA TAB PO ONE (12:58)
--- NOTE | 2018-02-20 13:46 | RAD ---
EXAM DESCRIPTION: Right foot, 3 radiographs CLINICAL HISTORY: Direct trauma. Crush injury with pain and swelling FINDINGS/ IMPRESSION: Mildly comminuted oblique fracture across the mid proximal phalanx of the great toe. No intra-articular extension metacarpal phalangeal or interphalangeal. Greatest degree of displacement/cortical offset approximately 4 mm No other fracture. Mild hallux valgus Multifocal interphalangeal joint space narrowing on a degenerative basis Electronically signed by: Acosta Mathur MD 02/20/2018 1:45 PM CDT
--- NOTE | 2018-02-20 14:28 | ED.PDOC ---
History of Present Illness - General Chief Complaint: Lower Extremity Injury Time Seen by Provider: 02/20/18 12:48 Source: patient, family Exam Limitations: no limitations - History of Present Illness Initial Comments: Patient presents with right great toe pain after someone dropped a metal angelo on it just [employer]. Pain is over the proximal phalange, throbbing in nature, non- radiating, worse with movement, better with rest, no previous injuries to the area. No other injuries nor complaints. Patient was able to walk in it as long as she put weight on her heel. Timing/Duration: 1/2 hour Severity: moderate Improving Factors: rest Worsening Factors: movement Associated Symptoms: denies symptoms Allergies/Adverse Reactions: Allergies Sulfa Antibiotics Allergy (Verified 12/01/17 12:52) Unknown Sulfonamide Deriv *RETIRED-02/15/13 [Sulfonamide Derivatives] Allergy (Verified 12/01/17 12:52) Zonisamide [From Zonegran] Allergy (Verified 12/01/17 12:52) Unknown Metronidazole Adverse Reaction (Intermediate, Verified 12/02/17 10:24) SOMNOLENCE Calcitonin [From Miacalcin] Adverse Reaction (Verified 12/02/17 10:26) CI Pigment Blue 63 [From Cymbalta] Adverse Reaction (Verified 12/02/17 10:23) Duloxetine [From Cymbalta] Adverse Reaction (Verified 12/02/17 10:23) Escitalopram [From Lexapro] Adverse Reaction (Verified 12/01/17 12:52) Unknown Fluconazole [From Diflucan] Adverse Reaction (Verified 12/02/17 10:24) Levofloxacin [From Levaquin] Adverse Reaction (Verified 12/02/17 10:25) Nicotine [From Nicoderm] Adverse Reaction (Verified 12/02/17 10:26) Ropinirole Adverse Reaction (Verified 12/02/17 10:26) Venlafaxine [From Effexor] Adverse Reaction (Verified 12/02/17 10:22) SYNCOPE Home Medications: Ambulatory Orders Gabapentin 300 mg PO BEDTIME 07/15/13 Oxcarbazepine [Trileptal] 150 mg PO BID 11/08/15 Paroxetine HCl [Paxil Cr] 37.5 mg PO BID 06/25/16 Levothyroxine Sodium [Synthroid] 50 mcg PO DAILY@0700 08/31/16 Nebivolol HCl [Bystolic] 5 mg PO DAILY 08/31/16 Phenytoin Sodium Cap Extended [Dilantin Cap] 100 mg PO BID 08/31/16 Levalbuterol Tartrate [Xopenex Hfa] 45 mcg IN DAILY 09/20/16 Bifidobacterium Infantis [Align] 4 mg PO DAILY 09/25/16 Prednisone 5 mg PO DAILY 12/01/17 Umeclidinium-Vilanterol [Anoro Ellipta 62.5-25 Mcg/INH] 1 aer IN RTDAILY cloNAZepam [Klonopin] 0.5 mg PO QID 12/01/17 Baclofen 10 mg PO PRN 12/02/17 Budesonide (Inhalation) [Budesonide] 0.5 mg IN BID 12/02/17 Phenytoin Sodium Extended [Dilantin] 60 mg PO BEDTIME 12/02/17 Azithromycin Tab [Zithromax Tab] 250 mg PO Q24H #3 tab 12/05/17 Prednisone See Taper PO DAILY #30 azeb 12/05/17 Acetaminophen W/ Codeine [Tylenol W/ CODEINE #3] 1 ea PO Q6HR PRN #20 02/20/18 Review of Systems - Review of Systems Constitutional: States: no symptoms reported EENTM: States: no symptoms reported Respiratory: States: no symptoms reported Cardiology: States: no symptoms reported Gastrointestinal/Abdominal: States: no symptoms reported Genitourinary: States: no symptoms reported Musculoskeletal: States: see HPI Skin: States: no symptoms reported Neurological: States: no symptoms reported Endocrine: States: no symptoms reported Hematologic/Lymphatic: States: no symptoms reported Past Medical History (General) - Patient Medical History Hx Seizures: Yes Hx Stroke: No Hx Dementia: No Hx Asthma: No Hx of COPD: Yes Hx Cardiac Disorders: Yes Hx Congestive Heart Failure: No Hx Pacemaker: No Hx Hypertension: Yes Hx Thyroid Disease: Yes Hx Diabetes: No Hx Gastroesophageal Reflux: No Hx Renal Disease: No Hx Cancer: No Hx of HIV: No Hx Hepatitis C: No Hx MRSA: No - Vaccination History Hx Tetanus, Diphtheria Vaccination: No Hx Influenza Vaccination: Yes Hx Pneumococcal Vaccination: Yes Immunizations Up to Date: Yes - Social History Hx Tobacco Use: No Hx Chewing Tobacco Use: No Hx Alcohol Use: No Hx Substance Use: No Hx Substance Use Treatment: No Hx Depression: No Feels Threatened In Home Enviroment: No Feels Threatened In a Relationship: No Hx Physical Abuse: No Hx Emotional Abuse: No Hx Suspected Abuse: No - Female History Patient is a Female of Child Bearing Age (10 -59 yrs old): No Patient : No Family Medical History - Family History Mother Family History: No Known Living Status: Hx Family Asthma: Yes - copd dad,sister Hx Family Congestive Heart Failure: Yes Hx Family Hypertension: Yes Hx Family Stroke: No Hx Cardiac Disease: No Hx Family Diabetes: No Hx Family Cancer: No Physical Exam - Physical Exam General Appearance: Alert Respiratory: decreased breath sounds Cardiovascular/Chest: normal peripheral pulses, regular rate, rhythm, no edema Gastrointestinal/Abdominal: normal bowel sounds, non tender, soft Extremity: other - TTP over PIP joint of right first toe. Patient can flex and extend it slightly but it is painful. Capillar refill is less than 2 seconds. There is 5/5 strength to inversion/eversion/dorsiflexion/plantar flexion of the right foot. Neurologic: no motor/sensory deficits, alert, normal mood/affect, oriented x 3 Skin Exam: normal color Progress - Progress Progress: 02/20/18 14:33 Patient fitted with a post-surgical shoe because it provided good stability but wasn't as heavy as the walking boots. 1st and 2nd right toes were alvaro taped together. Pain medications provided. RX for a walker given. Patient instructed to follow up with Dr. Link in three days. Care instructions given. E.R. warnings given. Questions were elicited and answered. The patient voiced understanding and agreement with the plan. - EKG/XRAY/CT CT Ordered: No CT Interpretation Call Back: No Departure - Departure Clinical Impression: Fracture of right great toe Disposition: Discharge to Home or Self Care Condition: Good Departure Forms: ED Discharge - Pt. Copy, Patient Portal Self Enrollment Diet: resume usual diet Activity: ambulate only with walker Referrals: Matt Recio III, MD [Primary Care Provider] - 1-2 Weeks Prescriptions: Acetaminophen W/ Codeine [Tylenol W/ CODEINE #3] 1 ea PO Q6HR PRN #20 PRN Reason: Pain -- Moderate To Severe Home Medications: Ambulatory Orders Gabapentin 300 mg PO BEDTIME 07/15/13 Oxcarbazepine [Trileptal] 150 mg PO BID 11/08/15 Paroxetine HCl [Paxil Cr] 37.5 mg PO BID 06/25/16 Levothyroxine Sodium [Synthroid] 50 mcg PO DAILY@0700 08/31/16 Nebivolol HCl [Bystolic] 5 mg PO DAILY 08/31/16 Phenytoin Sodium Cap Extended [Dilantin Cap] 100 mg PO BID 08/31/16 Levalbuterol Tartrate [Xopenex Hfa] 45 mcg IN DAILY 09/20/16 Bifidobacterium Infantis [Align] 4 mg PO DAILY 09/25/16 Prednisone 5 mg PO DAILY 12/01/17 Umeclidinium-Vilanterol [Anoro Ellipta 62.5-25 Mcg/INH] 1 aer IN RTDAILY cloNAZepam [Klonopin] 0.5 mg PO QID 12/01/17 Baclofen 10 mg PO PRN 12/02/17 Budesonide (Inhalation) [Budesonide] 0.5 mg IN BID 12/02/17 Phenytoin Sodium Extended [Dilantin] 60 mg PO BEDTIME 12/02/17 Azithromycin Tab [Zithromax Tab] 250 mg PO Q24H #3 tab 12/05/17 Prednisone See Taper PO DAILY #30 azeb 12/05/17 Acetaminophen W/ Codeine [Tylenol W/ CODEINE #3] 1 ea PO Q6HR PRN #20 02/20/18 Additional Instructions: Ambulate only with help or with a walker. See Dr. Link this Monday for further instructions. You may use use or Tylenol for pain relief. Use the walking she that you were provided with her anytime that you try to walk.
[2018-02-20 15:19] VITALS: BP 141/73; TEMP 98.6
[2018-02-20] MEDS ORDERED: TETANUS,DIPHTHERIA,PERTUSSIS 1 EA SYG IM ONE (15:20)
== END 2018-02-20 15:00 | disposition home or self-care (01) ==
LOC: ER 12:35
DX: S92.411A Displaced fracture of proximal phalanx of right great toe, initial encounter for closed fracture (principal); J44.9 Chronic obstructive pulmonary disease, unspecified; I10 Essential (primary) hypertension; E07.9 Disorder of thyroid, unspecified; Z79.899 Other long term (current) drug therapy; W22.8XXA Striking against or struck by other objects, initial encounter; Y92.9 Unspecified place or not applicable; Z23 Encounter for immunization

== ENCOUNTER → 2018-02-26 | Outpatient (CLI) | payer MEDICARE, OTHER ==
--- NOTE | 2018-02-26 10:14 | RAD ---
EXAM DESCRIPTION: Toes,Right CLINICAL HISTORY: 77 years Female, PAIN IN RIGHT GREAT TOE COMPARISON: None. FINDINGS: Three views of the right-sided toes were obtained. There is an obliquely oriented fracture involving the proximal phalanx of the great toe with slight medial displacement of the distal fracture fragment. No intra-articular extension. No additional fracture or malalignment is seen. IMPRESSION: Slightly displaced fracture involving the proximal phalanx of the great toe without intra-articular extension. Electronically signed by: John Callahan MD 02/26/2018 10:12 AM [facility]
--- NOTE | 2018-02-26 10:16 | RAD ---
EXAM DESCRIPTION: Foot,Right 3 Views CLINICAL HISTORY: 77 years Female, PAIN IN RIGHT FOOT COMPARISON: None. FINDINGS: Three views of the right foot show an obliquely oriented slightly displaced fracture involving the proximal phalanx of the great toe without intra-articular extension. No additional right foot fracture or malalignment is seen. There is a tiny plantar calcaneal enthesophyte. No radiopaque foreign body or soft tissue gas. IMPRESSION: Slightly displaced fracture involving the proximal phalanx of the great toe. No additional acute right foot abnormality. Mild plantar calcaneal spurring. Electronically signed by: John Callahan MD 02/26/2018 10:15 AM [facility]
== END ==
LOC: RAD 08:37
PROVIDERS: ATTEND Orthopaedic Surgery
DX: M77.31 Calcaneal spur, right foot (principal); S92.401A Displaced unspecified fracture of right great toe, initial encounter for closed fracture; M79.671 Pain in right foot

== ENCOUNTER → 2018-03-19 | Outpatient (CLI) | payer MEDICARE, OTHER ==
--- NOTE | 2018-03-19 09:58 | RAD ---
EXAM DESCRIPTION: Foot,Right 3 Views (accession [id number]), Toes,Right (accession [id number]) CLINICAL HISTORY: 77 years, Female, CLOSED FX OF GREAT TOE COMPARISON: None TECHNIQUE: Three views of the right foot with three views of the right great toe FINDINGS: Right foot is intact except for an oblique fracture of the proximal phalanx of the right great toe. Mild degenerative changes are present. Overall alignment of the proximal phalanx of the great toe is essentially anatomic with mild comminution present and very slight medial displacement of the distal fragments. Distal articular surface appears intact. The distal phalanx of the great toe appears intact. IMPRESSION: Mildly comminuted fracture of the proximal phalanx of the right great toe in near-anatomic alignment with mild medial displacement of the distal fragments. Right foot is otherwise intact. Electronically signed by: Acosta Rodriguez MD 03/19/2018 9:[address] [facility]
--- NOTE | 2018-03-19 09:58 | RAD ---
EXAM DESCRIPTION: Foot,Right 3 Views (accession [id number]), Toes,Right (accession [id number]) CLINICAL HISTORY: 77 years, Female, CLOSED FX OF GREAT TOE COMPARISON: None TECHNIQUE: Three views of the right foot with three views of the right great toe FINDINGS: Right foot is intact except for an oblique fracture of the proximal phalanx of the right great toe. Mild degenerative changes are present. Overall alignment of the proximal phalanx of the great toe is essentially anatomic with mild comminution present and very slight medial displacement of the distal fragments. Distal articular surface appears intact. The distal phalanx of the great toe appears intact. IMPRESSION: Mildly comminuted fracture of the proximal phalanx of the right great toe in near-anatomic alignment with mild medial displacement of the distal fragments. Right foot is otherwise intact. Electronically signed by: Acosta Rodriguez MD 03/19/2018 9:57 AM [facility]
== END ==
LOC: RAD 08:17
PROVIDERS: ATTEND Orthopaedic Surgery
DX: S92.401D Displaced unspecified fracture of right great toe, subsequent encounter for fracture with routine healing (principal)

== ENCOUNTER 2018-05-14 11:46 | Emergency (ER) | payer MEDICARE, OTHER ==
[2018-05-14] MEDS ORDERED: IPRATROPIUM/ALBUTEROL 3 ML VIAL NEB ONE (12:29)
--- NOTE | 2018-05-14 12:46 | ED.PDOC ---
History of Present Illness - General Chief Complaint: Respiratory Problem Stated Complaint: SOB, WHEEZING Time Seen by Provider: 05/14/18 12:18 Source: patient, family Exam Limitations: no limitations - History of Present Illness Initial Comments: Patient presents with increasing dyspnea for 4 days. She also has had a cough productive of white sputum. She has a history of COPD, uses 2L oxygen by [place] continuously except at night when she changes to BIPAP. She is on 5 mg of prednisone daily, chronically. She was on a steroid taper that began 22 days ago and ended about a week ago. She was on doxycycline as well. These were for COPD exacerbation. She denies chest pain or fever. No other complaints. Timing/Duration: other - 4 days Severity: moderate Improving Factors: rest Worsening Factors: movement Associated Symptoms: other - as in HPI Allergies/Adverse Reactions: Allergies Sulfa Antibiotics Allergy (Verified 05/14/18 11:55) Unknown Sulfonamide Deriv *RETIRED-02/15/13 [Sulfonamide Derivatives] Allergy (Verified 05/14/18 11:55) Zonisamide [From Zonegran] Allergy (Verified 05/14/18 11:55) Unknown Metronidazole Adverse Reaction (Intermediate, Verified 05/14/18 11:55) SOMNOLENCE Calcitonin [From Miacalcin] Adverse Reaction (Verified 05/14/18 11:55) CI Pigment Blue 63 [From Cymbalta] Adverse Reaction (Verified 05/14/18 11:55) Duloxetine [From Cymbalta] Adverse Reaction (Verified 05/14/18 11:55) Escitalopram [From Lexapro] Adverse Reaction (Verified 05/14/18 11:55) Unknown Fluconazole [From Diflucan] Adverse Reaction (Verified 05/14/18 11:55) Levofloxacin [From Levaquin] Adverse Reaction (Verified 05/14/18 11:55) Nicotine [From Nicoderm] Adverse Reaction (Verified 05/14/18 11:55) Ropinirole Adverse Reaction (Verified 05/14/18 11:55) Venlafaxine [From Effexor] Adverse Reaction (Verified 05/14/18 11:55) SYNCOPE Home Medications: Ambulatory Orders Gabapentin 300 mg PO BEDTIME 07/15/13 Oxcarbazepine [Trileptal] 150 mg PO BID 11/08/15 Paroxetine HCl [Paxil Cr] 37.5 mg PO BID 06/25/16 Levothyroxine Sodium [Synthroid] 50 mcg PO DAILY@0700 08/31/16 Nebivolol HCl [Bystolic] 5 mg PO DAILY 08/31/16 Phenytoin Sodium Cap Extended [Dilantin Cap] 100 mg PO BID 08/31/16 Levalbuterol Tartrate [Xopenex Hfa] 45 mcg IN DAILY 09/20/16 Bifidobacterium Infantis [Align] 4 mg PO DAILY 09/25/16 Prednisone 5 mg PO DAILY 12/01/17 Umeclidinium-Vilanterol [Anoro Ellipta 62.5-25 Mcg/INH] 1 aer IN RTDAILY 12/01/17 cloNAZepam [Klonopin] 0.5 mg PO QID 12/01/17 Baclofen 10 mg PO PRN PRN 12/02/17 Budesonide (Inhalation) [Budesonide] 0.5 mg IN BID 12/02/17 Phenytoin Sodium Extended [Dilantin] 60 mg PO BEDTIME 12/02/17 Prednisone [Deltasone] 20 mg PO DAILY #4 tab 05/14/18 Review of Systems - Review of Systems Constitutional: States: no symptoms reported EENTM: States: no symptoms reported Respiratory: States: see HPI Cardiology: States: no symptoms reported Gastrointestinal/Abdominal: States: no symptoms reported Genitourinary: States: no symptoms reported Musculoskeletal: States: no symptoms reported Skin: States: no symptoms reported Neurological: States: no symptoms reported Endocrine: States: no symptoms reported Hematologic/Lymphatic: States: no symptoms reported Past Medical History (General) - Patient Medical History Hx Seizures: Yes Hx Stroke: No Hx Dementia: No Hx Asthma: No Hx of COPD: Yes Hx Cardiac Disorders: Yes Hx Congestive Heart Failure: No Hx Pacemaker: No Hx Hypertension: Yes Hx Thyroid Disease: Yes Hx Diabetes: No Hx Gastroesophageal Reflux: No Hx Renal Disease: No Hx Cancer: No Hx of HIV: No Hx Hepatitis C: No Hx MRSA: No Surgical History: cholecystectomy, Hysterectomy - Vaccination History Hx Tetanus, Diphtheria Vaccination: No Hx Influenza Vaccination: Yes Hx Pneumococcal Vaccination: Yes Immunizations Up to Date: Yes - Social History Hx Tobacco Use: No Hx Chewing Tobacco Use: No Hx Alcohol Use: No Hx Substance Use: No Hx Substance Use Treatment: No Hx Depression: No Hx Physical Abuse: No Hx Emotional Abuse: No Hx Suspected Abuse: No - Female History Patient is a Female of Child Bearing Age (10 -59 yrs old): No Patient : No Family Medical History - Family History Mother Family History: No Known Living Status: Hx Family Asthma: Yes - copd dad,sister Hx Family Congestive Heart Failure: Yes Hx Family Hypertension: Yes Hx Family Stroke: No Hx Cardiac Disease: No Hx Family Diabetes: No Hx Family Cancer: No Physical Exam - Physical Exam General Appearance: Alert Eye Exam: bilateral normal Ears, Nose, Throat: normal ENT inspection Neck: non-tender, full range of motion, supple Respiratory: wheezing - mild expiratory wheezing in all lung damon Cardiovascular/Chest: regular rate, rhythm, no edema Gastrointestinal/Abdominal: normal bowel sounds, non tender, soft Progress - Progress Progress: 05/14/18 13:41 Laboratory Tests 05/14/18 05/14/18 05/14/18 12:30 12:32 12:32 WBC 4.4 L RBC 4.26 Hgb 13.3 Hct 39.4 MCV 92.6 MCH 31.2 H MCHC 33.7 RDW 14.7 H Plt Count 233 MPV 6.6 L Absolute Neuts (auto) 3.50 Absolute Lymphs (auto) 0.50 L Absolute Monos (auto) 0.30 Absolute Eos (auto) 0.10 Absolute Basos (auto) 0.00 Neutrophils % 80.1 H Lymphocytes % 10.4 L Monocytes % 7.7 Eosinophils % 1.2 Basophils % 0.6 Sodium 140 Potassium 4.5 Chloride 102 Carbon Dioxide 31 Anion Gap 11.5 L BUN 17 Creatinine 0.59 L BUN/Creatinine Ratio 28.8 H Random Glucose 94 Serum Osmolality 280.7 Calcium 9.0 Total Bilirubin 0.3 AST 23 ALT 37 Alkaline Phosphatase 56 Creatine Kinase 113 CK-MB (CK-2) 3.8 CK-MB (CK-2) % Not Reportable Troponin I < 0.02 B-Natriuretic Peptide Serum Total Protein 7.3 Albumin 4.0 Globulin 3.3 Albumin/Globulin Ratio 1.2 Group A Strep Rapid Negative 05/14/18 12:32 WBC RBC Hgb Hct MCV MCH MCHC RDW Plt Count MPV Absolute Neuts (auto) Absolute Lymphs (auto) Absolute Monos (auto) Absolute Eos (auto) Absolute Basos (auto) Neutrophils % Lymphocytes % Monocytes % Eosinophils % Basophils % Sodium Potassium Chloride Carbon Dioxide Anion Gap BUN Creatinine BUN/Creatinine Ratio Random Glucose Serum Osmolality Calcium Total Bilirubin AST ALT Alkaline Phosphatase Creatine Kinase CK-MB (CK-2) CK-MB (CK-2) % Troponin I B-Natriuretic Peptide 20.4 Serum Total Protein Albumin Globulin Albumin/Globulin Ratio Group A Strep Rapid Chest x-ray showed hyperinflation but no acute findings. Patient was given a duonebs and prednisone 20 mg po in the E.R. and felt better. Because of her recent use of antibiotics and no increase in sputum nor sign of infection, antibiotics were withheld and prednisone 20 mg po x o4 more days prescribed. E.R. warnings given. Care instructions given. Questions were elicited and answered. The patient voiced understanding and agreement with the plan. Departure - Departure Clinical Impression: COPD (chronic obstructive pulmonary disease) Disposition: Discharge to Home or Self Care Condition: Good Departure Forms: ED Discharge - Pt. Copy, Patient Portal Self Enrollment Diet: resume usual diet Activity: increase activity as tolerated Referrals: Matt Recio III, MD [Primary Care Provider] - 1-2 Weeks Prescriptions: Prednisone [Deltasone] 20 mg PO DAILY #4 tab Home Medications: Ambulatory Orders Gabapentin 300 mg PO BEDTIME 07/15/13 Oxcarbazepine [Trileptal] 150 mg PO BID 11/08/15 Paroxetine HCl [Paxil Cr] 37.5 mg PO BID 06/25/16 Levothyroxine Sodium [Synthroid] 50 mcg PO DAILY@0700 08/31/16 Nebivolol HCl [Bystolic] 5 mg PO DAILY 08/31/16 Phenytoin Sodium Cap Extended [Dilantin Cap] 100 mg PO BID 08/31/16 Levalbuterol Tartrate [Xopenex Hfa] 45 mcg IN DAILY 09/20/16 Bifidobacterium Infantis [Align] 4 mg PO DAILY 09/25/16 Prednisone 5 mg PO DAILY 12/01/17 Umeclidinium-Vilanterol [Anoro Ellipta 62.5-25 Mcg/INH] 1 aer IN RTDAILY 12/01/17 cloNAZepam [Klonopin] 0.5 mg PO QID 12/01/17 Baclofen 10 mg PO PRN PRN 12/02/17 Budesonide (Inhalation) [Budesonide] 0.5 mg IN BID 12/02/17 Phenytoin Sodium Extended [Dilantin] 60 mg PO BEDTIME 12/02/17 Prednisone [Deltasone] 20 mg PO DAILY #4 tab 05/14/18 Additional Instructions: Take the prednisone as prescribed. If you develop worsening shortness of breath or you start to cough up moderate to large amounts of green sputum, return to the E.R. or your regular doctor for possible antibiotics. You had no signs of infection today.
[2018-05-14] MEDS ORDERED: methylPREDNISolone SODIUM SUC 125 MG/2 ML VIAL IM ONE (12:54)
[2018-05-14 13:06] VITALS: TEMP 97.6; O2SAT 100
--- NOTE | 2018-05-14 13:19 | RAD ---
EXAM DESCRIPTION: Chest,1 View CLINICAL HISTORY: shortness of breath FINDINGS/ IMPRESSION: Comparison 12/02/2017 Normal cardiomediastinal silhouette. Hyperinflated lungs related to COPD/emphysema primarily affecting the lung apices No pulmonary edema, alveolar consolidation or effusion. No pneumothorax Electronically signed by: Acosta Mathur MD 05/14/2018 1:18 PM [employer]
[2018-05-14] MEDS ORDERED: predniSONE 20 MG TAB PO ONE (13:20)
[2018-05-14 14:39] VITALS: BP 155/81
== END 2018-05-14 14:39 | disposition home or self-care (01) ==
LOC: ER 11:46
DX: J44.9 Chronic obstructive pulmonary disease, unspecified (principal); I51.9 Heart disease, unspecified; I10 Essential (primary) hypertension; E07.9 Disorder of thyroid, unspecified; Z99.81 Dependence on supplemental oxygen; Z79.899 Other long term (current) drug therapy; Z88.8 Allergy status to other drugs, medicaments and biological substances; Z88.1 Allergy status to other antibiotic agents; Z88.2 Allergy status to sulfonamides
CPT/HCPCS: 36415; 71045; 80053; 82550; 82553; 83880; 84484; 85025; 87070; 87502; 87880; 93005; 94640; J7512; J7620

== ENCOUNTER 2018-05-17 12:19 | Inpatient (IN) | payer MEDICARE, OTHER ==
--- NOTE | 2018-05-17 13:11 | ED.PDOC ---
History of Present Illness - General Chief Complaint: Respiratory Problem Time Seen by Provider: 05/17/18 12:58 Source: patient, family Exam Limitations: no limitations - History of Present Illness Initial Comments: Patient presents with continuing dyspnea. She was here four days ago for the same and given a five day RX for prednisone She thinks her breathing bot better 3 days ago but then went back to what it was 4 days ago. Has COPD with continuous oxygen by [place] at 2 L. She has not had to make any changes in her oxygen. Occasional cough productive of white sputum. Denies chest pain. He daughter says that the patient has a history of hypercarbia with ICU admits for that. No other complaints. Timing/Duration: other - 4 days since treatment started Improving Factors: rest Worsening Factors: movement Associated Symptoms: headaches, other - Patient has a constant occipital headache that is aching in nature. No exacerbating nor alleviating factors. Has tried tylenol for it but that hasn't worked. Allergies/Adverse Reactions: Allergies Sulfa Antibiotics Allergy (Verified 05/14/18 11:55) Unknown Sulfonamide Deriv *RETIRED-02/15/13 [Sulfonamide Derivatives] Allergy (Verified 05/14/18 11:55) Zonisamide [From Zonegran] Allergy (Verified 05/14/18 11:55) Unknown Metronidazole Adverse Reaction (Intermediate, Verified 05/14/18 11:55) SOMNOLENCE Calcitonin [From Miacalcin] Adverse Reaction (Verified 05/14/18 11:55) CI Pigment Blue 63 [From Cymbalta] Adverse Reaction (Verified 05/14/18 11:55) Duloxetine [From Cymbalta] Adverse Reaction (Verified 05/14/18 11:55) Escitalopram [From Lexapro] Adverse Reaction (Verified 05/14/18 11:55) Unknown Fluconazole [From Diflucan] Adverse Reaction (Verified 05/14/18 11:55) Levofloxacin [From Levaquin] Adverse Reaction (Verified 05/14/18 11:55) Nicotine [From Nicoderm] Adverse Reaction (Verified 05/14/18 11:55) Ropinirole Adverse Reaction (Verified 05/14/18 11:55) Venlafaxine [From Effexor] Adverse Reaction (Verified 05/14/18 11:55) SYNCOPE Home Medications: Ambulatory Orders Gabapentin 300 mg PO BEDTIME 07/15/13 Oxcarbazepine [Trileptal] 150 mg PO BID 11/08/15 Paroxetine HCl [Paxil Cr] 37.5 mg PO BID 06/25/16 Levothyroxine Sodium [Synthroid] 50 mcg PO DAILY@0700 08/31/16 Nebivolol HCl [Bystolic] 5 mg PO DAILY 08/31/16 Phenytoin Sodium Cap Extended [Dilantin Cap] 100 mg PO BID 08/31/16 Levalbuterol Tartrate [Xopenex Hfa] 45 mcg IN DAILY 09/20/16 Bifidobacterium Infantis [Align] 4 mg PO DAILY 09/25/16 Prednisone 5 mg PO DAILY 12/01/17 Umeclidinium-Vilanterol [Anoro Ellipta 62.5-25 Mcg/INH] 1 aer IN RTDAILY 12/01/17 cloNAZepam [Klonopin] 0.5 mg PO QID 12/01/17 Baclofen 10 mg PO PRN PRN 12/02/17 Budesonide (Inhalation) [Budesonide] 0.5 mg IN BID 12/02/17 Phenytoin Sodium Extended [Dilantin] 60 mg PO BEDTIME 12/02/17 Prednisone [Deltasone] 20 mg PO DAILY #4 tab 05/14/18 Review of Systems - Review of Systems Constitutional: States: no symptoms reported EENTM: States: no symptoms reported Respiratory: States: see HPI Cardiology: States: no symptoms reported Gastrointestinal/Abdominal: States: no symptoms reported Genitourinary: States: no symptoms reported Musculoskeletal: States: no symptoms reported Skin: States: no symptoms reported Neurological: States: see HPI Endocrine: States: no symptoms reported Hematologic/Lymphatic: States: no symptoms reported Past Medical History (General) - Patient Medical History Hx Seizures: Yes Hx Stroke: No Hx Dementia: No Hx Asthma: No Hx of COPD: Yes Hx Cardiac Disorders: Yes Hx Congestive Heart Failure: No Hx Pacemaker: No Hx Hypertension: Yes Hx Thyroid Disease: Yes Hx Diabetes: No Hx Gastroesophageal Reflux: No Hx Renal Disease: No Hx Cancer: No Hx of HIV: No Hx Hepatitis C: No Hx MRSA: No - Vaccination History Hx Tetanus, Diphtheria Vaccination: No Hx Influenza Vaccination: Yes Hx Pneumococcal Vaccination: Yes - Social History Hx Tobacco Use: No Hx Chewing Tobacco Use: No Hx Alcohol Use: No Hx Substance Use: No Hx Substance Use Treatment: No Hx Depression: No Hx Physical Abuse: No Hx Emotional Abuse: No Hx Suspected Abuse: No - Female History Patient : No Family Medical History - Family History Mother Family History: No Known Living Status: Hx Family Asthma: Yes - copd dad,sister Hx Family Congestive Heart Failure: Yes Hx Family Hypertension: Yes Hx Family Stroke: No Hx Cardiac Disease: No Hx Family Diabetes: No Hx Family Cancer: No Physical Exam - Physical Exam General Appearance: Alert Eye Exam: bilateral normal Ears, Nose, Throat: normal ENT inspection Neck: non-tender, full range of motion, supple Respiratory: other - expiratory wheezing in all lung damon Cardiovascular/Chest: normal peripheral pulses, regular rate, rhythm, no edema Gastrointestinal/Abdominal: normal bowel sounds, non tender, soft Back Exam: normal inspection, no CVA tenderness Extremity: normal range of motion, non-tender, normal inspection 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, no motor/sensory deficits, alert, normal mood/affect, oriented x 3 Skin Exam: normal color Lymphatic: no adenopathy Progress - Progress Progress: 05/17/18 15:31 Laboratory Tests 05/17/18 05/17/18 05/17/18 13:07 13:20 13:20 WBC 5.0 RBC 4.20 Hgb 13.1 Hct 39.0 MCV 92.9 MCH 31.2 H MCHC 33.6 RDW 14.6 H Plt Count 245 MPV 6.5 L Absolute Neuts (auto) 4.30 Absolute Lymphs (auto) 0.40 L Absolute Monos (auto) 0.30 Absolute Eos (auto) 0.00 Absolute Basos (auto) 0.00 Neutrophils % 85.5 H Lymphocytes % 8.5 L Monocytes % 5.1 Eosinophils % 0.5 L Basophils % 0.4 PT INR PTT (SP) D-Dimer, Quantitative pCO2 50 H pO2 81 L HCO3 26.7 ABG pH 7.350 ABG O2 Saturation 97.7 ABG Base Excess 1.1 ABG Deoxyhemoglobin 2.2 Oxyhemoglobin % 95.7 Carboxyhemoglobin % 0.7 Methemoglobin % Sat 1.4 Calc Total Hemoglobin 12.2 Sodium 137 Potassium 4.6 Chloride 103 Carbon Dioxide 29 Anion Gap 9.6 L BUN 15 Creatinine 0.73 BUN/Creatinine Ratio 20.5 H Random Glucose 107 H Serum Osmolality 275.1 Calcium 8.5 Total Bilirubin 0.3 AST 22 ALT 35 Alkaline Phosphatase 50 Creatine Kinase CK-MB (CK-2) CK-MB (CK-2) % Troponin I B-Natriuretic Peptide Serum Total Protein 6.7 Albumin 3.8 Globulin 2.9 Albumin/Globulin Ratio 1.3 05/17/18 05/17/18 05/17/18 13:20 13:20 13:20 WBC RBC Hgb Hct MCV MCH MCHC RDW Plt Count MPV Absolute Neuts (auto) Absolute Lymphs (auto) Absolute Monos (auto) Absolute Eos (auto) Absolute Basos (auto) Neutrophils % Lymphocytes % Monocytes % Eosinophils % Basophils % PT 9.8 INR 0.98 PTT (SP) 23.2 D-Dimer, Quantitative 0.44 pCO2 pO2 HCO3 ABG pH ABG O2 Saturation ABG Base Excess ABG Deoxyhemoglobin Oxyhemoglobin % Carboxyhemoglobin % Methemoglobin % Sat Calc Total Hemoglobin Sodium Potassium Chloride Carbon Dioxide Anion Gap BUN Creatinine BUN/Creatinine Ratio Random Glucose Serum Osmolality Calcium Total Bilirubin AST ALT Alkaline Phosphatase Creatine Kinase 107 CK-MB (CK-2) 3.6 CK-MB (CK-2) % Not Reportable Troponin I < 0.02 B-Natriuretic Peptide 27.4 Serum Total Protein Albumin Globulin Albumin/Globulin Ratio EKG read by me showed normal sinus rhythm with no ST changes nor T wave inversions. No LBBB. Troponin negative. CXR showed no acute disease. wbc wnl. D-dimer wnl. After speaking with the patient and daughter, it was decided to admit the patient for COPD exacerbation. Departure - Departure Clinical Impression: COPD exacerbation Disposition: Admit Patient Condition: Good Departure Forms: ED Discharge - Pt. Copy, Patient Portal Self Enrollment Diet: other - as per hospitalist Activity: other - as per hospitalist Referrals: Matt Recio III, MD [Primary Care Provider] - 1-2 Weeks Home Medications: Ambulatory Orders Gabapentin 300 mg PO BEDTIME 07/15/13 Oxcarbazepine [Trileptal] 150 mg PO BID 11/08/15 Paroxetine HCl [Paxil Cr] 37.5 mg PO BID 06/25/16 Levothyroxine Sodium [Synthroid] 50 mcg PO DAILY@0700 08/31/16 Nebivolol HCl [Bystolic] 5 mg PO DAILY 08/31/16 Phenytoin Sodium Cap Extended [Dilantin Cap] 100 mg PO BID 08/31/16 Levalbuterol Tartrate [Xopenex Hfa] 45 mcg IN DAILY 09/20/16 Bifidobacterium Infantis [Align] 4 mg PO DAILY 09/25/16 Prednisone 5 mg PO DAILY 12/01/17 Umeclidinium-Vilanterol [Anoro Ellipta 62.5-25 Mcg/INH] 1 aer IN RTDAILY 12/01/17 cloNAZepam [Klonopin] 0.5 mg PO QID 12/01/17 Baclofen 10 mg PO PRN PRN 12/02/17 Budesonide (Inhalation) [Budesonide] 0.5 mg IN BID 12/02/17 Phenytoin Sodium Extended [Dilantin] 60 mg PO BEDTIME 12/02/17 Prednisone [Deltasone] 20 mg PO DAILY #4 tab 05/14/18
--- NOTE | 2018-05-17 13:42 | RAD ---
EXAM DESCRIPTION: Chest,1 View CLINICAL HISTORY: dyspnea COMPARISON: May 14, 2018 IMPRESSION: Single AP portable upright view of the chest shows cardiac silhouette and pulmonary vasculature to be within normal limits. Lungs are normally aerated without acute appearing infiltrate or consolidation. Mild emphysematous changes to the chest are noted. No obvious pleural effusion or pneumothorax is seen. Electronically signed by: Cesar Robin MD 05/17/2018 1:40 PM [employer]
[2018-05-17] MEDS ORDERED: IPRATROPIUM/ALBUTEROL 3 ML VIAL NEB ONE (15:35)
--- NOTE | 2018-05-17 16:47 | HP ---
SUPERVISING PHYSICIAN: Elvira Olivares MD CHIEF COMPLAINT: Shortness of breath. HISTORY OF PRESENT ILLNESS: This is a 78-year-old female patient who presented to the Emergency Room for shortness of breath. She has a longstanding history of chronic obstructive pulmonary disease with multiple hospital admissions for exacerbation. She said it has been going on for well over a week, but over the last week, she has become much worse. She had coughing as well as her shortness of breath and wheezing. She had multiple breathing treatments at home increased over her normal breathing treatments that she takes on a daily basis. She has a dry, hacking cough with occasional productive white sputum. She called her home health nurse and she recommended she go to the Emergency Room. She had actually been to the Emergency Room for shortness of breath, wheezing and coughing on Monday. At that time, she received DuoNeb treatments as well as some Solu- Medrol and a prednisone prescription. Her shortness of breath worsened since her ER visit and she came today. Her oxygen saturations on 2 liters nasal cannula in the Emergency Room were 88%. She was given several DuoNeb breathing treatments. She was also given a small amount of fluids. Her vital signs showed she was afebrile with temperature 97.4, heart rate 74, blood pressure 118/97, respiratory rate 20. Her laboratory studies showed a WBC of 5 with hemoglobin 13.1, hematocrit 39. She had a left shift on her differential. D- dimer was negative at 0.44 with PT and PTT within normal limits. Blood gas showed hypoxia with pO2 81 and hypercapnia with pCO2 of 50. Her chemistries showed normal electrolytes with a slightly elevated glucose at 107. Cardiac enzymes were within normal limits. Liver enzymes were within normal limits. Urinalysis was basically negative except for 3 to 5 urine WBCs and her phenytoin level was 8.3. Urine culture was ordered. Chest x-ray showed single portable AP portable upright view of the chest with cardiac silhouette and pulmonary vascular within normal limits. Lungs are normally aerated without acute appearing infiltrate or consolidation. Mild emphysematous changes to the chest are noted. No obvious pleural effusion or pneumothorax. I was called for hospital admission. PAST MEDICAL HISTORY: 1. Chronic obstructive pulmonary disease with multiple hospitalizations for acute exacerbations. 2. Seizure disorder with her last seizure approximately 5 years ago. 3. Generalized anxiety disorder. 4. Hypertension. 5. Hypothyroidism. 6. Pulmonary nodule that was treated with radiation treatment x5 in September of 2016. PAST SURGICAL HISTORY: 1. Right shoulder surgery. 2. Hysterectomy. 3. Appendectomy. 4. Cholecystectomy. 5. Thyroid surgery. OUTPATIENT MEDICATIONS: Per the EMR and awaiting verification. ALLERGIES: FLAGYL, SULFA, LEXAPRO, EFFEXOR. FAMILY HISTORY: Noncontributory. SOCIAL HISTORY: The patient is . She was a heavy smoker for well over 20 years and quit 4 years ago. She denies any alcohol or illicit drug use. REVIEW OF SYSTEMS: GENERAL: Positive for chills and fever. Negative for weight changes. HEENT: Negative for sinus symptoms, ear pain, vision changes or sore throat. RESPIRATORY: As noted in history of present illness. CARDIAC: Negative for chest pain, palpitations or tachycardia. GASTROINTESTINAL: Negative for nausea, vomiting, diarrhea, constipation. GENITOURINARY: Negative for hematuria, dysuria or polyuria although she said she has been treated for hematuria in the past by Dr. Recio, her primary care physician. NEUROLOGIC: Positive for seizure disorder although she has not had a seizure in close to 5 years and is on medication. Negative for headache, dizziness. PSYCHIATRIC: She does have chronic anxiety. PHYSICAL EXAMINATION: VITAL SIGNS: Temperature 9.67. Heart rate 73. Blood pressure 143/65. Respiratory rate 20. O2 saturation 96% on 3 liters nasal cannula. GENERAL: This is a 78-year-old female patient lying in her hospital bed. She is in mild respiratory distress. HEENT: Normocephalic, atraumatic. Pupils are equal and reactive. Oropharynx is clear. NECK: Supple without mass. RESPIRATORY: Diminished breath sounds throughout with some very faint wheezing in the upper airways. She is slightly tachypneic and speaks in short phrases. CHEST: There is equal rise and fall of the chest with inspiration and expiration. CARDIOVASCULAR: Regular rate and rhythm. GASTROINTESTINAL: Abdomen is soft, nondistended, nontender. Bowel sounds are positive. EXTREMITIES: No cyanosis, clubbing or edema. NEUROLOGIC: Awake, alert and oriented times three. Cranial nerves II-XII are grossly intact. LABORATORY: Labs and films are as per history of present illness. IMPRESSION: 1. Chronic obstructive pulmonary disease with acute exacerbation and concerns for developing community acquired pneumonia. She has also failed outpatient treatment as she was in the Emergency Room 3 nights ago. 2. Seizure disorder. Her last seizure was about 5 years ago. She does have a subtherapeutic phenytoin level. 3. Hypothyroidism. 4. Generalized anxiety disorder. 5. Hypertension, stable on medication. PLAN: We will admit the patient to the hospital. She will have aggressive pulmonary hygiene as well as we will start her on Rocephin and azithromycin. We will also do a steroid taper. We will restart her home medications. She will have breathing treatments, both scheduled and p.r.n. We will monitor her urine culture. I have ordered a sputum culture. We will have routine labs and chest x-ray in the morning. Hopefully she can be discharged in 2 to 3 days with close followup with her primary care physician, Dr. Recio. We will continue to monitor the patient closely and follow as needed. #[id number] [facility]
[2018-05-17] MEDS ORDERED: ONDANSETRON INJ 4 MG/2 ML VIAL IV PRN (18:12)
[2018-05-17] MEDS ORDERED: ALBUTEROL SULFATE 2.5 MG/3 ML VIAL NEB PRN (18:12)
[2018-05-17] MEDS ORDERED: ACETAMINOPHEN 325 MG TAB PO PRN (18:12)
[2018-05-17] MEDS ORDERED: methylPREDNISolone SODIUM SUC 125 MG/2 ML VIAL IV ONE (18:27)
[2018-05-17] MEDS: IV SET AND CAP CHANGE INJ INJ SCH (19:07)
[2018-05-17] MEDS ORDERED: AZITHROMYCIN IV 500 MG VIAL IVPB ONE (19:26)
[2018-05-17] MEDS ORDERED: cefTRIAXone SODIUM 1 GM VIAL ONE (19:26)
[2018-05-17] MEDS ORDERED: SODIUM CHLORIDE 0.9% 250ML 250 ML ONE (19:26)
[2018-05-17] MEDS ORDERED: SODIUM CHL 0.9% 50ML MIN-BAG+ 50 ML IVPB ONE (19:26)
[2018-05-17] MEDS: cefTRIAXone SODIUM 1 GM in SODIUM CHL 0.9% 50ML MIN-BAG+ 50 ML IVPB SCH (19:30)
[2018-05-17] MEDS: IPRATROPIUM/ALBUTEROL 3 ML VIAL INH SCH (20:12)
[2018-05-17] MEDS: AZITHROMYCIN IV 500 MG in SODIUM CHLORIDE 0.9% 250ML 250 ML IVPB SCH (20:43)
[2018-05-17] MEDS: ENOXAPARIN SODIUM 40 MG/0.4 ML SYG SUBCU SCH (20:43)
[2018-05-17] MEDS: SODIUM CHLORIDE 0.9% (FLUSH) 10 ML SYG IV SCH (20:43)
[2018-05-17] MEDS ORDERED: GABAPENTIN 100 MG CAP PO SCH (21:49)
[2018-05-17] MEDS ORDERED: BACLOFEN 10 MG TAB PO PRN (21:49)
[2018-05-17] MEDS ORDERED: NON-FORMULARY MEDICATION 1 EA MIS (Oxcarbazepine [Trileptal] 150 MG) PO SCH (22:00)
[2018-05-17] MEDS ORDERED: GABAPENTIN 300 MG CAP ONE (22:26)
[2018-05-17] MEDS: PAROXETINE HCL 37.5 MG PO SCH (22:30)
[2018-05-18] MEDS: TEMAZEPAM 15 MG CAP PO PRN ×2 (00:41→23:58)
[2018-05-18] MEDS ORDERED: LEVOTHYROXINE SODIUM 0.025 MG TAB ONE (06:03)
[2018-05-18] MEDS: PANTOPRAZOLE SODIUM IV 40 MG VIAL IV SCH (06:15)
[2018-05-18] MEDS ORDERED: LEVOTHYROXINE SODIUM 50 MCG PO SCH (07:00)
[2018-05-18] MEDS: UMECLIDINIUM VILANTEROL IN SCH (08:00)
[2018-05-18] MEDS: IPRATROPIUM/ALBUTEROL 3 ML VIAL INH SCH ×4 (08:10→21:03)
[2018-05-18] MEDS: BUDESONIDE NEBS 0.5 MG/2 ML VIAL NEB SCH ×2 (08:10→21:03)
--- NOTE | 2018-05-18 08:50 | RAD ---
EXAM DESCRIPTION: Chest,2 Views CLINICAL HISTORY: copd COMPARISON: May 17, 2018 TECHNIQUE: PA/lateral FINDINGS: Two views of the chest demonstrates slight flattening of the diaphragms and well-expanded lung suggesting an element of air trapping and/or COPD. 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 No segmental or lobar consolidation or significant pleural effusion is seen. The patient is rotated slightly towards the right. Heart size is normal with tortuous aorta. No increased vascularity is seen. IMPRESSION: Mildly hyperexpanded lungs and a suggestion of mild basilar fibrosis with no acute or dense infiltrate. Electronically signed by: Acosta Rodriguez MD 05/18/2018 8:49 AM [employer]
[2018-05-18] MEDS ORDERED: OXcarbazepine 300 MG TAB PO SCH (09:00)
[2018-05-18] MEDS ORDERED: methylPREDNISolone SODIUM SUC 125 MG/2 ML VIAL IV ONE (09:02)
[2018-05-18] MEDS: BIFIDOBACTERIUM INFANTIS 4 MG CAP PO SCH (09:39)
[2018-05-18] MEDS: OXCARBAZEPINE 150 MG PO SCH ×2 (09:41→20:43)
[2018-05-18] MEDS: PHENYTOIN SODIUM 100 MG PO SCH ×2 (09:41→20:43)
[2018-05-18] MEDS: NEBIVOLOL HCL 5 MG PO SCH (09:42)
[2018-05-18] MEDS: PAROXETINE HCL 37.5 MG PO SCH ×2 (09:43→20:43)
[2018-05-18] MEDS: predniSONE 5 MG TAB PO SCH ×2 (09:51→20:43)
[2018-05-18] MEDS: SODIUM CHLORIDE 0.9% (FLUSH) 10 ML SYG IV SCH ×2 (09:52→20:42)
[2018-05-18] MEDS ORDERED: methylPREDNISolone SODIUM SUC 125 MG/2 ML VIAL IV SCH (14:00)
[2018-05-18] MEDS: methylPREDNISolone SODIUM SUC 40 MG/ML VIAL IV SCH ×2 (14:58→21:46)
--- NOTE | 2018-05-18 16:26 | PN ---
DATE: 05/18/18 SUPERVISING PHYSICIAN: Federico Olivares M.D. SUBJECTIVE: The patient is lying in her hospital bed. She is watching television. She said she still remains quite short of breath with any exertion, but does feel some better than yesterday. She denies any nausea, vomiting or chest pain. She would like to go to pulmonary rehab but she did not think that was available as she had home health. She also said she was willing to change home health if someone else had cardiopulmonary rehab. OBJECTIVE: VITAL SIGNS: Temperature 97.9, heart rate 89, blood pressure 104/65, respiratory rate 18, O2 sat 96% on 2 liters nasal cannula. RESPIRATORY: Diminished breath sounds throughout. The patient is slightly tachypneic and she does have to speak in short phrases due to her shortness of breath. CARDIAC: Regular rate and rhythm. GASTROINTESTINAL: Abdomen is soft, nondistended, non- tender. bowel sounds are positive. NEUROLOGIC: She is awake, alert and oriented times three. LABORATORY: WBCs are 4.8 with hemoglobin 12.7, hematocrit 38.2. She does have a left shift on differential. Electrolytes are basically within normal limits with the exception of her calcium is slightly low at 8.1. Urine culture is pending. Chest x-ray shows mildly hyperexpanded lungs and suggestion of mild basilar fibrosis with no acute dense infiltrate. All other labs and films have been reviewed via the EMR. ASSESSMENT: 1. Chronic obstructive pulmonary disease with acute exacerbation and concerns for developing community acquired pneumonia. She has also failed outpatient treatment as she was in the Emergency Room 3 nights prior to her admission. Her blood gases also showed that she was hypercarbic and hypoxic. 2. Seizure disorder. Her last seizure was about 5 years ago. 3. Hypothyroidism. 4. Generalized anxiety disorder. 5. Hypertension, stable on medication. PLAN: We will continue present care, including aggressive pulmonary hygiene and continuing on her Rocephin and azithromycin. We will also need to do a very slow steroid taper as she still is not moving much air in her lung damon. She expressed desire to go to cardiopulmonary rehab, but she also has home health. I am not sure if one of our local home health companies have cardiopulmonary rehab, but she would be willing to change to that home health. She also said that she would be willing to give up home health for some time if she could get into our rehab here at the hospital. I have ordered some routine lab for in the morning. I have tapered her steroid very slowly. Will continue to monitor her clinical progress and hope for discharge in the next 1 to 2 days. We will continue to monitor closely and follow as needed. [facility][id number] [facility]
[2018-05-18] MEDS ORDERED: cefTRIAXone SODIUM 1 GM VIAL ONE (19:47)
[2018-05-18] MEDS ORDERED: SODIUM CHLORIDE 0.9% 250ML 250 ML ONE (19:47)
[2018-05-18] MEDS ORDERED: SODIUM CHL 0.9% 50ML MIN-BAG+ 50 ML IVPB ONE (19:47)
[2018-05-18] MEDS ORDERED: AZITHROMYCIN IV 500 MG VIAL IVPB ONE (19:48)
[2018-05-18] MEDS: cefTRIAXone SODIUM 1 GM in SODIUM CHL 0.9% 50ML MIN-BAG+ 50 ML IVPB SCH (19:57)
[2018-05-18] MEDS: AZITHROMYCIN IV 500 MG in SODIUM CHLORIDE 0.9% 250ML 250 ML IVPB SCH (20:42)
[2018-05-18] MEDS: GABAPENTIN 300 MG CAP PO SCH (20:43)
[2018-05-18] MEDS: PHENYTOIN SODIUM 30 MG PO SCH (20:43)
[2018-05-18] MEDS: ENOXAPARIN SODIUM 40 MG/0.4 ML SYG SUBCU SCH (20:44)
[2018-05-19] MEDS: methylPREDNISolone SODIUM SUC 40 MG/ML VIAL IV SCH ×3 (06:00→21:56)
[2018-05-19] MEDS: LEVOTHYROXINE 50 MCG PO SCH (06:06)
[2018-05-19] MEDS: PANTOPRAZOLE SODIUM IV 40 MG VIAL IV SCH (06:06)
[2018-05-19] MEDS: predniSONE 5 MG TAB PO SCH ×2 (08:46→20:38)
[2018-05-19] MEDS: BIFIDOBACTERIUM INFANTIS 4 MG CAP PO SCH (08:46)
[2018-05-19] MEDS: OXCARBAZEPINE 150 MG PO SCH ×2 (08:47→20:38)
[2018-05-19] MEDS: NEBIVOLOL HCL 5 MG PO SCH (08:47)
[2018-05-19] MEDS: PAROXETINE HCL 37.5 MG PO SCH ×2 (08:47→20:38)
[2018-05-19] MEDS: PHENYTOIN SODIUM 100 MG PO SCH ×2 (08:48→20:38)
[2018-05-19] MEDS: SODIUM CHLORIDE 0.9% (FLUSH) 10 ML SYG IV SCH ×2 (08:49→20:38)
[2018-05-19] MEDS: UMECLIDINIUM VILANTEROL IN SCH (09:08)
[2018-05-19] MEDS: IPRATROPIUM/ALBUTEROL 3 ML VIAL INH SCH ×4 (09:13→20:34)
[2018-05-19] MEDS: BUDESONIDE NEBS 0.5 MG/2 ML VIAL NEB SCH ×2 (09:14→20:34)
[2018-05-19] MEDS: SODIUM CHLORIDE 0.9% (FLUSH) 10 ML SYG IV PRN (13:55)
[2018-05-19] MEDS ORDERED: SODIUM CHL 0.9% 50ML MIN-BAG+ 50 ML IVPB ONE (19:16)
[2018-05-19] MEDS ORDERED: SODIUM CHLORIDE 0.9% 250ML 250 ML ONE (19:16)
[2018-05-19] MEDS ORDERED: cefTRIAXone SODIUM 1 GM VIAL ONE (19:16)
[2018-05-19] MEDS ORDERED: AZITHROMYCIN IV 500 MG VIAL IVPB ONE (19:17)
[2018-05-19] MEDS: cefTRIAXone SODIUM 1 GM in SODIUM CHL 0.9% 50ML MIN-BAG+ 50 ML IVPB SCH (19:50)
[2018-05-19] MEDS: GABAPENTIN 300 MG CAP PO SCH (20:37)
[2018-05-19] MEDS: ENOXAPARIN SODIUM 40 MG/0.4 ML SYG SUBCU SCH (20:38)
[2018-05-19] MEDS: AZITHROMYCIN IV 500 MG in SODIUM CHLORIDE 0.9% 250ML 250 ML IVPB SCH (20:38)
[2018-05-19] MEDS: PHENYTOIN SODIUM 30 MG PO SCH (20:38)
--- NOTE | 2018-05-19 21:59 | PN ---
DATE: 05/19/18 SUPERVISING PHYSICIAN: Federico Olivares M.D. SUBJECTIVE: The patient is sitting up on the side of her bed. She said she feels better today, although continues to have shortness of breath. As long as she is lying in bed she does not have any dyspnea, but when she gets up to go to the bathroom or to wash her hands she gets quite weak and short of breath. We discussed that it would be a very slow methodical taper of her steroids and we would continue with her antibiotics. OBJECTIVE: VITAL SIGNS: Temperature 98.8, heart rate 87, blood pressure 107/66, respiratory rate 20, O2 sat 94% on 2 liters nasal cannula. RESPIRATORY: Diminished breath sounds throughout with a few expiratory wheezes in the left lower lung area. CARDIAC: Regular rate and rhythm. GASTROINTESTINAL: Abdomen was soft, nondistended, non-tender. NEUROLOGIC: She is awake, alert and oriented times three. LABORATORY: WBC of 6,000 with a left shift on differential. Hemoglobin and hematocrit are normal at 12.4 and 37.0. Electrolytes are within normal limits. Urine culture is pending. All other labs and films have been reviewed via the EMR. ASSESSMENT: 1. Chronic obstructive pulmonary disease with acute exacerbation and concerns for developing community acquired pneumonia. She has also failed outpatient treatment as she was in the Emergency Room 3 nights prior to her admission. Her blood gases also showed that she was hypercarbic and hypoxic. 2. Seizure disorder. Her last seizure was about 5 years ago. 3. Hypothyroidism. 4. Generalized anxiety disorder. 5. Hypertension, stable on medication. PLAN: We will continue present care, including aggressive pulmonary hygiene. Again, I have very slowly tapered down her steroid and hopefully she can go to p.o. steroids tomorrow. Again, we need to see if she can get into cardiopulmonary rehab on discharge as I believe that it might be quite helpful. Will hold on her labs tomorrow. Will continue to monitor closely and follow as needed. [facility][id number] [facility]
[2018-05-20] MEDS: methylPREDNISolone SODIUM SUC 40 MG/ML VIAL IV SCH ×2 (06:09→12:22)
[2018-05-20] MEDS: LEVOTHYROXINE 50 MCG PO SCH (06:28)
[2018-05-20] MEDS: PANTOPRAZOLE SODIUM IV 40 MG VIAL IV SCH (06:28)
[2018-05-20] MEDS: UMECLIDINIUM VILANTEROL IN SCH (07:40)
[2018-05-20] MEDS: BUDESONIDE NEBS 0.5 MG/2 ML VIAL NEB SCH ×2 (07:40→20:40)
[2018-05-20] MEDS: IPRATROPIUM/ALBUTEROL 3 ML VIAL INH SCH ×3 (07:40→16:10)
[2018-05-20] MEDS: NEBIVOLOL HCL 5 MG PO SCH (08:42)
[2018-05-20] MEDS: OXCARBAZEPINE 150 MG PO SCH ×2 (08:42→21:25)
[2018-05-20] MEDS: BIFIDOBACTERIUM INFANTIS 4 MG CAP PO SCH (08:43)
[2018-05-20] MEDS: predniSONE 5 MG TAB PO SCH ×2 (08:43→21:28)
[2018-05-20] MEDS: PAROXETINE HCL 37.5 MG PO SCH ×2 (08:43→21:26)
[2018-05-20] MEDS: PHENYTOIN SODIUM 100 MG PO SCH ×2 (08:44→21:26)
[2018-05-20] MEDS: SODIUM CHLORIDE 0.9% (FLUSH) 10 ML SYG IV SCH ×2 (08:44→21:28)
[2018-05-20] MEDS: SODIUM CHLORIDE 0.9% (FLUSH) 10 ML SYG IV PRN (12:23)
[2018-05-20] MEDS ORDERED: LEVALBUTEROL NEBS 1.25 MG/3 ML VIAL NEB ONE (16:15)
[2018-05-20] MEDS ORDERED: LEVALBUTEROL NEBS 1.25 MG/3 ML VIAL NEB PRN (16:21)
[2018-05-20] MEDS: LEVALBUTEROL NEBS 1.25 MG/3 ML VIAL NEB SCH ×3 (16:40→20:40)
[2018-05-20] MEDS ORDERED: NYSTATIN SUSPENSION 5 ML UD ONE (16:43)
[2018-05-20] MEDS: NYSTATIN SUSPENSION 5 ML UD MT SCH ×2 (16:49→21:25)
--- NOTE | 2018-05-20 16:55 | PN ---
DATE: 05/20/18 SUPERVISING PHYSICIAN: Federico Olivares M.D. SUBJECTIVE: The patient is sitting up on the side of her bed. She says her shortness of breath is improved but she continues to have at least mild shortness of breath with any exertion. She also has had a couple of panic attacks overnight and is not quite sure why she is doing that other than she is afraid to go home because of her shortness of breath. She denies chest pain, nausea, vomiting, diarrhea or constipation. OBJECTIVE: VITAL SIGNS: Temperature 98, heart rate 107, blood pressure 171/76, respiratory rate 20, O2 sat 95% on 2 liters nasal cannula. RESPIRATORY: A few scattered expiratory wheezes in the apices, diminished at the bases. She is slightly tachypneic at times. CARDIAC: Regular rate and rhythm. GASTROINTESTINAL: Abdomen is soft, nondistended, non-tender. Bowel sounds are positive. NEUROLOGIC: She is awake, alert and oriented times three. LABORATORY: Urine culture is pending. Otherwise there are no labs or films to report at this time. ASSESSMENT: 1. Chronic obstructive pulmonary disease with acute exacerbation and concerns for developing community acquired pneumonia. She has also failed outpatient treatment as she was in the Emergency Room 3 nights prior to her admission. Her blood gases also showed that she was hypercarbic and hypoxic. 2. Seizure disorder. Her last seizure was about 5 years ago. 3. Hypothyroidism. 4. Generalized anxiety disorder. 5. Hypertension, stable on medication. PLAN: We will continue present supportive care. Again, I am decreasing her IV steroids very slowly and carefully. I have ordered p.o. prednisone to be given tomorrow morning and will discontinue her IV steroids tonight. She will need Physical Therapy to assess for safety in going home. She goes to see a migratory game bird biologist in the [facility], but she has voiced concerns about seeing a migratory game bird biologist here in town if possible. I have told her that I would talk to Dr. Recio to see if she can get in to see Dr. Ferguson. She will need to go home on her antibiotics as well as a steroid taper. Her labs are fairly stable and will hold on checking those tomorrow. Will continue to monitor closely and follow as needed. [facility][id number] [facility]
[2018-05-20] MEDS: IV SET AND CAP CHANGE INJ INJ SCH (17:00)
[2018-05-20] MEDS ORDERED: SODIUM CHL 0.9% 50ML MIN-BAG+ 50 ML IVPB ONE (19:29)
[2018-05-20] MEDS ORDERED: SODIUM CHLORIDE 0.9% 250ML 250 ML ONE (19:29)
[2018-05-20] MEDS ORDERED: cefTRIAXone SODIUM 1 GM VIAL ONE (19:30)
[2018-05-20] MEDS ORDERED: AZITHROMYCIN IV 500 MG VIAL IVPB ONE (19:31)
[2018-05-20] MEDS: cefTRIAXone SODIUM 1 GM in SODIUM CHL 0.9% 50ML MIN-BAG+ 50 ML IVPB SCH (20:02)
[2018-05-20] MEDS: ENOXAPARIN SODIUM 40 MG/0.4 ML SYG SUBCU SCH (21:24)
[2018-05-20] MEDS: GABAPENTIN 300 MG CAP PO SCH (21:25)
[2018-05-20] MEDS: PHENYTOIN SODIUM 30 MG PO SCH (21:27)
[2018-05-20] MEDS: AZITHROMYCIN IV 500 MG in SODIUM CHLORIDE 0.9% 250ML 250 ML IVPB SCH (21:31)
[2018-05-21] MEDS: methylPREDNISolone SODIUM SUC 40 MG/ML VIAL IV SCH (00:23)
[2018-05-21] MEDS: PANTOPRAZOLE SODIUM IV 40 MG VIAL IV SCH (06:08)
[2018-05-21] MEDS: LEVOTHYROXINE 50 MCG PO SCH (06:09)
[2018-05-21] MEDS: BUDESONIDE NEBS 0.5 MG/2 ML VIAL NEB SCH ×2 (09:20→21:12)
[2018-05-21] MEDS: UMECLIDINIUM VILANTEROL IN SCH (09:20)
[2018-05-21] MEDS: LEVALBUTEROL NEBS 1.25 MG/3 ML VIAL NEB SCH ×4 (09:20→21:12)
[2018-05-21] MEDS: PAROXETINE HCL 37.5 MG PO SCH ×2 (09:35→21:09)
[2018-05-21] MEDS: OXCARBAZEPINE 150 MG PO SCH ×2 (09:35→21:09)
[2018-05-21] MEDS: NEBIVOLOL HCL 5 MG PO SCH (09:35)
[2018-05-21] MEDS: PHENYTOIN SODIUM 100 MG PO SCH ×2 (09:36→21:09)
[2018-05-21] MEDS: NYSTATIN SUSPENSION 5 ML UD MT SCH ×4 (09:36→21:05)
[2018-05-21] MEDS: BIFIDOBACTERIUM INFANTIS 4 MG CAP PO SCH (09:36)
[2018-05-21] MEDS: SODIUM CHLORIDE 0.9% (FLUSH) 10 ML SYG IV SCH ×2 (09:36→21:11)
[2018-05-21] MEDS: predniSONE 20 MG TAB PO SCH (09:36)
[2018-05-21] MEDS: predniSONE 5 MG TAB PO SCH ×2 (09:44→21:06)
--- NOTE | 2018-05-21 14:13 | PN ---
SUPERVISING PHYSICIAN: Fritz Nicole MD DATE: 05/21/18 SUBJECTIVE: The patient states she feels better than she did when she came in although not back to her baseline. She continues to have shortness of breath with exertion. OBJECTIVE: VITAL SIGNS: Blood pressure 146/76. Heart rate 72. Respiratory rate 18. Temperature 98.0. Oxygen saturation 98%. GENERAL: Ms. Holland is a 78-year-old female who is in a little bit of mild respiratory distress even at rest on the side of the bed. NEUROLOGIC: Alert and oriented. LUNGS: Very diminished, but no active wheezing and no rhonchi at this time. CARDIOVASCULAR: Regular rate and rhythm. Normal S1, S2. ABDOMEN: Soft. Positive bowel sounds. GENITOURINARY: Deferred. EXTREMITIES: Lower extremities with no edema. ASSESSMENT: 1. Chronic obstructive pulmonary disease exacerbation. 2. Seizure disorder. 3. Hypothyroidism. 4. Generalized anxiety disorder. 5. Hypertension. PLAN: At this time, she has been placed on p.o. prednisone. I will continue to monitor her tonight after she has gotten the p.o. steroids as opposed to the IV steroids to ensure that she can tolerate this. We will continue all other medications at this time. #[id number] [facility]
[2018-05-21] MEDS ORDERED: IBUPROFEN 400 MG TAB PO PRN (16:33)
[2018-05-21] MEDS ORDERED: SODIUM CHLORIDE 0.9% 250ML 250 ML ONE (19:23)
[2018-05-21] MEDS ORDERED: SODIUM CHL 0.9% 50ML MIN-BAG+ 50 ML IVPB ONE (19:24)
[2018-05-21] MEDS ORDERED: AZITHROMYCIN IV 500 MG VIAL IVPB ONE (19:25)
[2018-05-21] MEDS ORDERED: cefTRIAXone SODIUM 1 GM VIAL ONE (19:25)
[2018-05-21] MEDS: cefTRIAXone SODIUM 1 GM in SODIUM CHL 0.9% 50ML MIN-BAG+ 50 ML IVPB SCH (19:42)
[2018-05-21] MEDS: AZITHROMYCIN IV 500 MG in SODIUM CHLORIDE 0.9% 250ML 250 ML IVPB SCH (21:05)
[2018-05-21] MEDS: ENOXAPARIN SODIUM 40 MG/0.4 ML SYG SUBCU SCH (21:06)
[2018-05-21] MEDS: GABAPENTIN 300 MG CAP PO SCH (21:06)
[2018-05-21] MEDS: PHENYTOIN SODIUM 30 MG PO SCH (21:10)
[2018-05-22] MEDS: PANTOPRAZOLE SODIUM IV 40 MG VIAL IV SCH (06:14)
[2018-05-22] MEDS: LEVOTHYROXINE 50 MCG PO SCH (06:14)
[2018-05-22] MEDS: BIFIDOBACTERIUM INFANTIS 4 MG CAP PO SCH (08:29)
[2018-05-22] MEDS: predniSONE 20 MG TAB PO SCH (08:30)
[2018-05-22] MEDS: predniSONE 5 MG TAB PO SCH ×2 (08:30→21:24)
[2018-05-22] MEDS: PAROXETINE HCL 37.5 MG PO SCH ×2 (08:31→21:23)
[2018-05-22] MEDS: PHENYTOIN SODIUM 100 MG PO SCH ×2 (08:31→21:25)
[2018-05-22] MEDS: NYSTATIN SUSPENSION 5 ML UD MT SCH ×4 (08:31→21:26)
[2018-05-22] MEDS: OXCARBAZEPINE 150 MG PO SCH ×2 (08:32→21:24)
[2018-05-22] MEDS: NEBIVOLOL HCL 5 MG PO SCH (08:32)
[2018-05-22] MEDS: SODIUM CHLORIDE 0.9% (FLUSH) 10 ML SYG IV SCH ×2 (08:34→21:26)
[2018-05-22] MEDS: BUDESONIDE NEBS 0.5 MG/2 ML VIAL NEB SCH ×2 (08:50→20:12)
[2018-05-22] MEDS: UMECLIDINIUM VILANTEROL IN SCH (08:50)
[2018-05-22] MEDS: LEVALBUTEROL NEBS 1.25 MG/3 ML VIAL NEB SCH ×4 (08:50→20:12)
--- NOTE | 2018-05-22 17:15 | PN ---
DATE: 05/22/18 SUPERVISING PHYSICIAN: Fritz Nicole M.D. SUBJECTIVE: The patient states she feels a little bit better. She has been able to walk around but she still is quite shaky and having panic attacks. She says that the Clonazepam is working pretty well for this. OBJECTIVE: Blood pressure 123/75, heart rate 80, respiratory rate 18, Temperature 98.0, oxygen saturation 97%. GENERAL: Ms. Holland is a 78 year-old female who is in no distress. NEUROLOGIC: The patient is alert and oriented. LUNGS: Diminished but otherwise clear to auscultation bilaterally. CARDIOVASCULAR: The patient has a regular rate and rhythm. Normal S1 and S2. ABDOMEN: Soft. Positive bowel sounds. No tenderness to palpation. GENITOURINARY: Exam is deferred. EXTREMITIES: Lower extremities with no edema. ASSESSMENT: 1. Chronic obstructive pulmonary disease exacerbation. 2. Seizure disorder. 3. Hypothyroidism. 4. Generalized anxiety disorder. 5. Hypertension. PLAN: She seems to have tolerated the reduction in steroids to 40 mg p.o. However, she is still kind of shaky and a little bit on the anxious side. I'm not really sure if this is due to the steroids or just her natural state. The Clonazepam seems to be helping quite a bit. I did discuss with her discharge planning and she asked to stay tonight and that she would go home tomorrow with the p.o. steroids. I told her this was reasonable and we could plan on discharging her tomorrow on a titrating dose of p.o. steroids. #[id number] MTDD
[2018-05-22] MEDS: CEFUROXIME AXETIL TAB 250 MG TAB PO SCH (17:36)
[2018-05-22] MEDS: GABAPENTIN 300 MG CAP PO SCH (21:22)
[2018-05-22] MEDS: ENOXAPARIN SODIUM 40 MG/0.4 ML SYG SUBCU SCH (21:25)
[2018-05-22] MEDS: PHENYTOIN SODIUM 30 MG PO SCH (21:25)
[2018-05-23] MEDS: CEFUROXIME AXETIL TAB 250 MG TAB PO SCH (02:16)
[2018-05-23] MEDS: LEVOTHYROXINE 50 MCG PO SCH (06:02)
[2018-05-23] MEDS: UMECLIDINIUM VILANTEROL IN SCH (08:41)
[2018-05-23] MEDS: BUDESONIDE NEBS 0.5 MG/2 ML VIAL NEB SCH (08:41)
[2018-05-23] MEDS: LEVALBUTEROL NEBS 1.25 MG/3 ML VIAL NEB SCH (08:41)
[2018-05-23] MEDS: PAROXETINE HCL 37.5 MG PO SCH (09:21)
[2018-05-23] MEDS: NEBIVOLOL HCL 5 MG PO SCH (09:21)
[2018-05-23] MEDS: OXCARBAZEPINE 150 MG PO SCH (09:21)
[2018-05-23] MEDS: predniSONE 20 MG TAB PO SCH (09:22)
[2018-05-23] MEDS: BIFIDOBACTERIUM INFANTIS 4 MG CAP PO SCH (09:22)
[2018-05-23] MEDS: NYSTATIN SUSPENSION 5 ML UD MT SCH (09:23)
[2018-05-23] MEDS: PHENYTOIN SODIUM 100 MG PO SCH (09:23)
[2018-05-23] MEDS: predniSONE 5 MG TAB PO SCH (09:23)
[2018-05-23] MEDS: SODIUM CHLORIDE 0.9% (FLUSH) 10 ML SYG IV SCH (09:23)
[2018-05-23 10:40] VITALS: BP 137/81; TEMP 98.4; O2SAT 97
--- NOTE | 2018-05-23 18:59 | DS ---
SUPERVISING PHYSICIAN: Fritz Nicole M.D. DISCHARGE DIAGNOSIS: 1. Chronic obstructive pulmonary disease exacerbation. 2. Seizure disorder. 3. Hypothyroidism. 4. Generalized anxiety disorder. 5. Hypertension. HISTORY OF PRESENT ILLNESS: This is a 78-year-old female patient who presented to the Emergency Room for shortness of breath. She has a longstanding history of chronic obstructive pulmonary disease with multiple hospital admissions for exacerbation. She said it had been going on for well over a week, but over the last week she has become much worse. She had coughing as well as shortness of breath and wheezing. She had multiple breathing treatments at home that were increased over her normal breathing treatments that she takes on a daily basis. She had a dry, hacking cough with occasional productive white sputum. She called her home health nurse and she recommended she go to the Emergency Room. She had actually been to the Emergency Room for shortness of breath, wheezing and coughing on the previous Monday. She received a DuoNeb treatment as well as some Solu-Medrol and a prednisone prescription. Her shortness of breath had worsened since that ER visit and when she presented on this admission. Her oxygen saturations on 2 liters were 88%. She is on chronic home O2. She was again given some DuoNeb treatments and her vital signs showed she was afebrile with temperature 97.4, heart rate 74, blood pressure 118/97, respiratory rate 20. Her laboratory studies showed a WBC of 5 with hemoglobin 13.1, hematocrit 39. She had a left shift on her differential. D-dimer was 0.44 with PT and PTT within normal limits. Blood gas showed hypoxia with pO2 of 81 and hypercapnia with pCO2 of 50. Her chemistries showed normal electrolytes with a slightly elevated glucose at 107. Cardiac enzymes were within normal limits. Liver enzymes were within normal limits. Urinalysis was basically negative except for 3 to 5 urine WBCs and her phenytoin level was 8.3. Urine culture was ordered. Chest x-ray single portable upright view of the chest with cardiac silhouette and pulmonary vascular within normal limits. Lungs are normally aerated without acute appearing infiltrate or consolidation. Mild emphysematous changes to the chest were noted. No obvious pleural effusion or pneumothorax. I was called for hospital admission. HOSPITAL COURSE: She was admitted to the hospital for exacerbation of COPD with concerns for developing community acquired pneumonia and failing her outpatient treatment. Aggressive pulmonary hygiene was ordered as well as Rocephin and azithromycin. She was placed on IV steroids and her home medications were resumed. Because of her extensive history of COPD with multiple exacerbations she was put on a very slow IV steroid taper. She was continued with aggressive pulmonary hygiene as well as Rocephin and azithromycin. She did express an interest in pulmonary rehab. Initially we thought she would have to be discharged from her home health services, but because none of her home health services have pulmonary rehab, she will be able to participate in the rehab at the hospital. I have ordered that and scheduling is supposed to call her to be started on 05/29/18. Over the next few days her steroids have gradually tapered until she was placed on oral prednisone. She completed her azithromycin. Today, she will be discharged home in stable condition. LABORATORY: White count remained stable. It started at 5,000 and was then 6,000. Hemoglobin and hematocrit are stable at 12.4 and 37. Electrolytes again are basically within normal limits, except glucose remains slightly on the high side at 109. She is on a steroid taper. RADIOLOGY: Final chest x-ray for this admission shoed mildly hyperexpanded lungs suggested of mild basilar fibrosis with no acute or dense infiltrate. DISCHARGE PLAN: The patient will be discharged home in stable condition. She will continue with her [facility] as well as pulmonary rehab at [facility]. It was okayed to do at the Pulmonary Rehab and keep home health because none of her home health services offer pulmonary rehab. She is also to be discharged on her previous home medications and I have added Ceftin and Nystatin suspension as well as a prednisone taper. She has a followup with her primary care physician, Dr. Matt Recio, on 05/29/18 at 2:15 PM. She is to resume her previous diet, increase her activity as tolerated. We have also consulted Physical Therapy from [facility]. She is to return to the hospital or call Dr. Recio' office for any problems or complications. DISCHARGE MEDICATIONS: 1. Gabapentin. 2. Trileptal. 3. Paxil. 4. Phenytoin. 5. Levothyroxine. 6. Bystolic. 7. Xopenex. 8. Align. 9. Prednisone 5 mg daily. 10. Klonopin. 11. Anoro ellipta 12. Baclofen. 13. Budesonide inhalation. 14. Prednisone 2.5 mg at h.s. 15. Ceftin. 16. Nystatin suspension. 17. Prednisone taper. #[id number] [facility]
== END 2018-05-23 12:50 | disposition home health service (06) | DRG 192 ==
LOC: ER 12:19 → MS 16:46 → OBSVTOIN 16:46
PROVIDERS: ADMIT Nurse Practitioner Acute Care; ATTEND Nurse Practitioner Acute Care
DX: J44.1 Chronic obstructive pulmonary disease with (acute) exacerbation (principal); G40.909 Epilepsy, unspecified, not intractable, without status epilepticus; F41.1 Generalized anxiety disorder; I10 Essential (primary) hypertension; E03.9 Hypothyroidism, unspecified; Z88.2 Allergy status to sulfonamides; Z88.1 Allergy status to other antibiotic agents; Z88.8 Allergy status to other drugs, medicaments and biological substances; Z87.891 Personal history of nicotine dependence; Z99.81 Dependence on supplemental oxygen

== ENCOUNTER 2018-05-28 19:04 | Emergency (ER) | payer MEDICARE, OTHER ==
[2018-05-28 19:37] VITALS: TEMP 97.6
--- NOTE | 2018-05-28 20:37 | ED.PDOC ---
History of Present Illness - General Chief Complaint: General Stated Complaint: feeling sleepy and dizzy all day Time Seen by Provider: 05/28/18 19:09 Source: patient Exam Limitations: no limitations - History of Present Illness Initial Comments: the patient is 78-year-old female presenting to the emergency room secondary to a feeling of fatigue and drowsiness. The patient has long-standing COPD and was recently in the hospital for it. She is coming down off of a high- dose steroid taper as well. She was hospitalized for a period of 5 days up until 3 days ago. The patient lives by herself and did not get up and do very much today. She is not really feeling bad. She is breathing very well for her. No nausea or vomiting. No fever. She is due to start pulmonary rehabilitation tomorrow. Flu is rampant in the community. Timing/Duration: 24 hours Severity: mild Improving Factors: nothing Worsening Factors: nothing Associated Symptoms: malaise Allergies/Adverse Reactions: Allergies Sulfa Antibiotics Allergy (Verified 05/17/18 17:21) Unknown Sulfonamide Deriv *RETIRED-02/15/13 [Sulfonamide Derivatives] Allergy (Verified 05/17/18 17:21) Zonisamide [From Zonegran] Allergy (Verified 05/17/18 17:21) Unknown Metronidazole Adverse Reaction (Intermediate, Verified 05/17/18 17:21) SOMNOLENCE Calcitonin [From Miacalcin] Adverse Reaction (Verified 05/17/18 17:21) CI Pigment Blue 63 [From Cymbalta] Adverse Reaction (Verified 05/17/18 17:21) Duloxetine [From Cymbalta] Adverse Reaction (Verified 05/17/18 17:21) Escitalopram [From Lexapro] Adverse Reaction (Verified 05/17/18 17:21) Unknown Fluconazole [From Diflucan] Adverse Reaction (Verified 05/17/18 17:21) Levofloxacin [From Levaquin] Adverse Reaction (Verified 05/17/18 17:21) Nicotine [From Nicoderm] Adverse Reaction (Verified 05/17/18 17:21) Ropinirole Adverse Reaction (Verified 05/17/18 17:21) Venlafaxine [From Effexor] Adverse Reaction (Verified 05/17/18 17:21) SYNCOPE Home Medications: Ambulatory Orders Gabapentin 300 mg PO BEDTIME 07/15/13 Oxcarbazepine [Trileptal] 150 mg PO BID 11/08/15 Paroxetine HCl [Paxil Cr] 37.5 mg PO BID 06/25/16 Levothyroxine Sodium [Synthroid] 50 mcg PO DAILY@0700 08/31/16 Nebivolol HCl [Bystolic] 5 mg PO DAILY 08/31/16 Phenytoin Sodium Cap Extended [Dilantin Cap] 100 mg PO DAILY 08/31/16 Levalbuterol Tartrate [Xopenex Hfa] 45 mcg IN QID 09/20/16 Bifidobacterium Infantis [Align] 4 mg PO DAILY 09/25/16 Prednisone 5 mg PO DAILY 12/01/17 Umeclidinium-Vilanterol [Anoro Ellipta 62.5-25 Mcg/INH] 1 aer IN RTDAILY 12/01/17 cloNAZepam [Klonopin] 0.5 mg PO QID 12/01/17 Baclofen 10 mg PO BID PRN 12/02/17 Budesonide (Inhalation) [Budesonide] 0.5 mg IN BID 12/02/17 Phenytoin Sodium Extended [Dilantin] 160 mg PO BEDTIME 12/02/17 Prednisone 2.5 mg PO BEDTIME 05/17/18 Cefuroxime Axetil [Ceftin] 500 mg PO Q12H #10 tablet 05/23/18 Nystatin Suspension 5 ml MT QID #20 ud 05/23/18 Prednisone See Taper PO DAILY #30 tab 05/23/18 Review of Systems - Review of Systems Constitutional: States: malaise EENTM: States: no symptoms reported Respiratory: States: no symptoms reported Cardiology: States: no symptoms reported Gastrointestinal/Abdominal: States: no symptoms reported Genitourinary: States: no symptoms reported Musculoskeletal: States: no symptoms reported Skin: States: no symptoms reported Neurological: States: no symptoms reported Endocrine: States: no symptoms reported All other Systems: No Change from Baseline Past Medical History (General) - Patient Medical History Hx Seizures: Yes Hx Stroke: No Hx Dementia: No Hx Asthma: No Hx of COPD: Yes Hx Cardiac Disorders: No Hx Congestive Heart Failure: No Hx Pacemaker: No Hx Hypertension: Yes Hx Thyroid Disease: Yes Hx Diabetes: No Hx Gastroesophageal Reflux: No Hx Renal Disease: No Hx Cancer: No Hx of HIV: No Hx Hepatitis C: No Hx MRSA: No Surgical History: cholecystectomy, Hysterectomy - Vaccination History Hx Tetanus, Diphtheria Vaccination: No Hx Influenza Vaccination: Yes Hx Pneumococcal Vaccination: Yes - Social History Hx Tobacco Use: Yes - quit 2 years ago Hx Chewing Tobacco Use: No Hx Alcohol Use: No Hx Substance Use: No Hx Substance Use Treatment: No Hx Depression: No Hx Physical Abuse: No Hx Emotional Abuse: No Hx Suspected Abuse: No - Female History Patient : No Family Medical History - Family History Mother Family History: No Known Living Status: Hx Family Asthma: Yes - copd dad,sister Hx Family Congestive Heart Failure: Yes Hx Family Hypertension: Yes Hx Family Stroke: No Hx Cardiac Disease: No Hx Family Diabetes: No Hx Family Cancer: No Physical Exam - Physical Exam General Appearance: Alert, Comfortable, No apparent distress Eye Exam: bilateral normal Ears, Nose, Throat: hearing grossly normal, normal ENT inspection, normal pharynx Neck: full range of motion Respiratory: lungs clear, normal breath sounds, no respiratory distress, no accessory muscle use Cardiovascular/Chest: normal peripheral pulses, regular rate, rhythm, no edema Peripheral Pulses: radial,right: 2+, radial,left: 2+ Gastrointestinal/Abdominal: non tender, soft Rectal Exam: deferred Back Exam: no CVA tenderness, no vertebral tenderness Extremity: normal range of motion, non-tender, normal inspection, no pedal edema, normal capillary refill Neurologic: traffic inspector II-XII nml as tested, alert, normal mood/affect, oriented x 3 Skin Exam: normal color Comments: Vital Signs - 24 hr 05/28/18 19:10 Temperature 97.6 F Pulse Rate [ 85 monitor] Respiratory 16 Rate Blood Pressure 157/77 [Left Arm] O2 Sat by Pulse 98 Oximetry Progress - Progress Progress: 05/28/18 20:36 the patient's a 78-year-old female presenting to the emergency room secondary to a feeling of fatigue and malaise. This is likely multifactorial. The patient is likely significantly deconditioned from her hospital stay and in fact still recovering from her acute illness, and on top of that she is coming down off of a steroid taper. Additionally she does take several sedating-type medications that may be stacking up on her a little bit. I would recommend poss ibly minimizing the baclofen and clonazepam over the next couple of days. I do recommend that she go to her pulmonary rehabilitation tomorrow, this should only help. She tested negative for flu here tonight. Keep routine follow-up with primary care doctor otherwise. Departure - Departure Clinical Impression: Fatigue due to treatment, Physical deconditioning Disposition: Discharge to Home or Self Care Condition: Fair Departure Forms: ED Discharge - Pt. Copy, Patient Portal Self Enrollment Instructions: Fatigue (DC), Generalized Weakness Diet: regular diet Activity: increase activity as tolerated Referrals: Matt Recio III, MD [Primary Care Provider] - 1-2 Weeks Home Medications: Ambulatory Orders Gabapentin 300 mg PO BEDTIME 07/15/13 Oxcarbazepine [Trileptal] 150 mg PO BID 11/08/15 Paroxetine HCl [Paxil Cr] 37.5 mg PO BID 06/25/16 Levothyroxine Sodium [Synthroid] 50 mcg PO DAILY@0700 08/31/16 Nebivolol HCl [Bystolic] 5 mg PO DAILY 08/31/16 Phenytoin Sodium Cap Extended [Dilantin Cap] 100 mg PO DAILY 08/31/16 Levalbuterol Tartrate [Xopenex Hfa] 45 mcg IN QID 09/20/16 Bifidobacterium Infantis [Align] 4 mg PO DAILY 09/25/16 Prednisone 5 mg PO DAILY 12/01/17 Umeclidinium-Vilanterol [Anoro Ellipta 62.5-25 Mcg/INH] 1 aer IN RTDAILY 12/01/17 cloNAZepam [Klonopin] 0.5 mg PO QID 12/01/17 Baclofen 10 mg PO BID PRN 12/02/17 Budesonide (Inhalation) [Budesonide] 0.5 mg IN BID 12/02/17 Phenytoin Sodium Extended [Dilantin] 160 mg PO BEDTIME 12/02/17 Prednisone 2.5 mg PO BEDTIME 05/17/18 Cefuroxime Axetil [Ceftin] 500 mg PO Q12H #10 tablet 05/23/18 Nystatin Suspension 5 ml MT QID #20 ud 05/23/18 Prednisone See Taper PO DAILY #30 tab 05/23/18 Additional Instructions: the patient's a 78-year-old female presenting to the emergency room secondary to a feeling of fatigue and malaise. This is likely multifactorial. The patient is likely significantly deconditioned from her hospital stay and in fact still recovering from her acute illness, and on top of that she is coming down off of a steroid taper. Additionally she does take several sedating-type medications that may be stacking up on her a little bit. I would recommend possibly minimizing the baclofen and clonazepam over the next couple of days. I do recommend that she go to her pulmonary rehabilitation tomorrow, this should only help. She tested negative for flu here tonight. Keep routine follow-up with primary care doctor otherwise.
[2018-05-28 20:54] VITALS: BP 175/83; O2SAT 99
== END 2018-05-28 20:56 | disposition home or self-care (01) ==
LOC: ER 19:04
DX: R53.83 Other fatigue (principal); J44.9 Chronic obstructive pulmonary disease, unspecified; I10 Essential (primary) hypertension; E07.9 Disorder of thyroid, unspecified; Z79.899 Other long term (current) drug therapy; Z88.8 Allergy status to other drugs, medicaments and biological substances; Z88.2 Allergy status to sulfonamides; Z87.891 Personal history of nicotine dependence

== ENCOUNTER 2018-06-21 09:13 | Emergency (ER) | payer MEDICARE, OTHER ==
[2018-06-21 09:27] VITALS: TEMP 96.4
--- NOTE | 2018-06-21 10:05 | RAD ---
EXAM DESCRIPTION: Abdomen Series CLINICAL HISTORY: lower abd pain COMPARISON: None. TECHNIQUE: Upright PA chest with supine and upright views of the abdomen FINDINGS: The lungs are clear of consolidation. Hyperinflation and hyperlucency of the lungs is present. Bowel gas pattern is unremarkable. No mass or calculus observed. Clips are present from prior cholecystectomy. IMPRESSION: 1. COPD 2. Normal two-view abdomen Electronically signed by: Ceasar Teran MD 06/21/2018 10:02 AM [employer]
[2018-06-21] MEDS ORDERED: MAGNESIUM HYDROXIDE 30 ML UD PO ONE (11:53)
--- NOTE | 2018-06-21 11:56 | ED.PDOC ---
History of Present Illness - General Chief Complaint: Problem Stated Complaint: pressure,burning lower abdomen Time Seen by Provider: 06/21/18 09:31 Source: patient Exam Limitations: no limitations - History of Present Illness Initial Comments: the patient is a 78-year-old female presenting to the emergency room secondary to some suprapubic discomfort for the last 24 hours with some mild cramping. She states that sometimes she feels like her bladder doesn't empty all the way. No fevers. She has had frequent urinary tract infections. She has also had a history of C. difficile colitis in the past. She has a very long-term history of some mild diarrhea but is not having any unusual diarrhea at this time. No vomiting though she did have one episode of nausea this morning. No syncope. No back pain. No fever. Timing/Duration: 24 hours Severity: mild Improving Factors: nothing Worsening Factors: nothing Associated Symptoms: denies symptoms Allergies/Adverse Reactions: Allergies Sulfa Antibiotics Allergy (Verified 05/17/18 17:21) Unknown Sulfonamide Deriv *RETIRED-02/15/13 [Sulfonamide Derivatives] Allergy (Verified 05/17/18 17:21) Zonisamide [From Zonegran] Allergy (Verified 05/17/18 17:21) Unknown Metronidazole Adverse Reaction (Intermediate, Verified 05/17/18 17:21) SOMNOLENCE Calcitonin [From Miacalcin] Adverse Reaction (Verified 05/17/18 17:21) CI Pigment Blue 63 [From Cymbalta] Adverse Reaction (Verified 05/17/18 17:21) Duloxetine [From Cymbalta] Adverse Reaction (Verified 05/17/18 17:21) Escitalopram [From Lexapro] Adverse Reaction (Verified 05/17/18 17:21) Unknown Fluconazole [From Diflucan] Adverse Reaction (Verified 05/17/18 17:21) Levofloxacin [From Levaquin] Adverse Reaction (Verified 05/17/18 17:21) Nicotine [From Nicoderm] Adverse Reaction (Verified 05/17/18 17:21) Ropinirole Adverse Reaction (Verified 05/17/18 17:21) Venlafaxine [From Effexor] Adverse Reaction (Verified 05/17/18 17:21) SYNCOPE Home Medications: Ambulatory Orders Gabapentin 300 mg PO BEDTIME 07/15/13 Oxcarbazepine [Trileptal] 150 mg PO BID 11/08/15 Paroxetine HCl [Paxil Cr] 37.5 mg PO BID 06/25/16 Levothyroxine Sodium [Synthroid] 50 mcg PO DAILY@0700 08/31/16 Nebivolol HCl [Bystolic] 5 mg PO DAILY 08/31/16 Phenytoin Sodium Cap Extended [Dilantin Cap] 100 mg PO DAILY 08/31/16 Levalbuterol Tartrate [Xopenex Hfa] 45 mcg IN QID 09/20/16 Bifidobacterium Infantis [Align] 4 mg PO DAILY 09/25/16 Prednisone 5 mg PO DAILY 12/01/17 Umeclidinium-Vilanterol [Anoro Ellipta 62.5-25 Mcg/INH] 1 aer IN RTDAILY 12/01/17 cloNAZepam [Klonopin] 0.5 mg PO QID 12/01/17 Baclofen 10 mg PO BID PRN 12/02/17 Budesonide (Inhalation) [Budesonide] 0.5 mg IN BID 12/02/17 Phenytoin Sodium Extended [Dilantin] 160 mg PO BEDTIME 12/02/17 Prednisone 2.5 mg PO BEDTIME 05/17/18 Review of Systems - Review of Systems Constitutional: States: no symptoms reported EENTM: States: no symptoms reported Respiratory: States: no symptoms reported Cardiology: States: no symptoms reported Gastrointestinal/Abdominal: States: see HPI Genitourinary: States: no symptoms reported Musculoskeletal: States: no symptoms reported Skin: States: no symptoms reported Neurological: States: no symptoms reported Endocrine: States: no symptoms reported All other Systems: No Change from Baseline Past Medical History (General) - Patient Medical History Hx Seizures: Yes Hx Stroke: No Hx Dementia: No Hx Asthma: No Hx of COPD: Yes Hx Cardiac Disorders: No Hx Congestive Heart Failure: No Hx Pacemaker: No Hx Hypertension: Yes Hx Thyroid Disease: Yes Hx Diabetes: No Hx Gastroesophageal Reflux: No Hx Renal Disease: No Hx Cancer: No Hx of HIV: No Hx Hepatitis C: No Hx MRSA: No Surgical History: cholecystectomy, Hysterectomy - Vaccination History Hx Tetanus, Diphtheria Vaccination: No Hx Influenza Vaccination: Yes Hx Pneumococcal Vaccination: Yes - Social History Hx Tobacco Use: Yes Hx Chewing Tobacco Use: No Hx Alcohol Use: No Hx Substance Use: No Hx Substance Use Treatment: No Hx Depression: No Hx Physical Abuse: No Hx Emotional Abuse: No Hx Suspected Abuse: No - Female History Patient : No Family Medical History - Family History Mother Family History: No Known Living Status: Hx Family Asthma: Yes - copd dad,sister Hx Family Congestive Heart Failure: Yes Hx Family Hypertension: Yes Hx Family Stroke: No Hx Cardiac Disease: No Hx Family Diabetes: No Hx Family Cancer: No Physical Exam - Physical Exam General Appearance: Alert, Comfortable, No apparent distress Eye Exam: bilateral normal Ears, Nose, Throat: hearing grossly normal, normal ENT inspection, normal pharynx Neck: full range of motion, supple Respiratory: lungs clear, normal breath sounds, no respiratory distress, no accessory muscle use Cardiovascular/Chest: normal peripheral pulses, regular rate, rhythm, no edema Peripheral Pulses: radial,right: 2+, radial,left: 2+ Gastrointestinal/Abdominal: soft, other - mild suprapubic discomfort palpation. No rebound or peritoneal signs. No palpable mass. Scar is noted on the abdomen from previous surgery. 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 Laboratory work is reassuring at this time. X-ray only shows some moderate constipation higher up in the colon. The patient is given a dose of milk of magnesia for this. The patient needs to increase her fluid intake. Bladder ultrasound performed here for postvoid residual shows only approximately 40 cc of postvoid residual. Source of the cramping may be the constipation. If the patient continues to have symptoms and has any worsening of her diarrhea after the magnesium is out of her system, then she may need to discuss doing stool samples with her primary care doctor to make sure she is not getting a slow recurrence of her C. difficile colitis. empiric antibiotics are contraindicated at this time given her history of C. difficile colitis. In the meantime she can continue her align probiotics and I would suggest alternating that with VSL3 probiotics. Increase fiber intake in the form of Metamucil or FiberCon. Follow-up with primary care doctor next week. ER warnings were given for any significant acute worsening. - Results/Orders Results/Orders: acute abdominal series appears benign. Laboratory Results - last 24 hr 06/21/18 06/21/18 06/21/18 10:40 11:14 11:14 WBC 5.3 RBC 4.15 L Hgb 12.8 Hct 38.2 MCV 92.0 MCH 30.9 MCHC 33.6 RDW 14.3 Plt Count 184 MPV 6.9 L Absolute Neuts (auto) 4.30 Absolute Lymphs (auto) 0.50 L Absolute Monos (auto) 0.40 Absolute Eos (auto) 0.00 Absolute Basos (auto) 0.00 Neutrophils % 80.6 H Lymphocytes % 10.1 L Monocytes % 8.1 Eosinophils % 0.8 L Basophils % 0.4 Sodium 137 Potassium 4.1 Chloride 103 Carbon Dioxide 26 Anion Gap 12.1 BUN 12 Creatinine 0.55 L BUN/Creatinine Ratio 21.8 H Random Glucose 99 Serum Osmolality 273.6 L Calcium 8.3 L Magnesium Total Bilirubin 0.4 AST 16 ALT 18 Alkaline Phosphatase 42 Creatine Kinase 79 CK-MB (CK-2) 2.9 CK-MB (CK-2) % Not Reportable Troponin I < 0.02 Serum Total Protein 6.2 L Albumin 3.7 Globulin 2.5 Albumin/Globulin Ratio 1.5 Amylase 21 L Lipase Urine Color Yellow Urine Appearance Clear Urine pH 5.5 Ur Specific Purle[place] 1.010 Urine Protein Negative Urine Glucose (UA) Negative Urine Ketones Negative Urine Blood Negative Urine Nitrite Negative Urine Bilirubin Negative Urine Urobilinogen 0.2 Ur Leukocyte Esterase Negative Urine RBC 0 Urine WBC 0 Ur Epithelial Cells 3-5 Urine Bacteria 0 Phenytoin 06/21/18 11:14 WBC RBC Hgb Hct MCV MCH MCHC RDW Plt Count MPV Absolute Neuts (auto) Absolute Lymphs (auto) Absolute Monos (auto) Absolute Eos (auto) Absolute Basos (auto) Neutrophils % Lymphocytes % Monocytes % Eosinophils % Basophils % Sodium Potassium Chloride Carbon Dioxide Anion Gap BUN Creatinine BUN/Creatinine Ratio Random Glucose Serum Osmolality Calcium Magnesium 2.0 Total Bilirubin AST ALT Alkaline Phosphatase Creatine Kinase CK-MB (CK-2) CK-MB (CK-2) % Troponin I Serum Total Protein Albumin Globulin Albumin/Globulin Ratio Amylase Lipase 31 Urine Color Urine Appearance Urine pH Ur Specific Purlear Urine Protein Urine Glucose (UA) Urine Ketones Urine Blood Urine Nitrite Urine Bilirubin Urine Urobilinogen Ur Leukocyte Esterase Urine RBC Urine WBC Ur Epithelial Cells Urine Bacteria Phenytoin 9.6 L Departure - Departure Clinical Impression: Lower abdominal pain Constipation Qualifiers: Constipation type: unspecified constipation type Qualified Code(s): K59.00 - Constipation, unspecified Disposition: Discharge to Home or Self Care Condition: Fair Departure Forms: ED Discharge - Pt. Copy, Patient Portal Self Enrollment Instructions: Constipation, Adult (DC) Diet: regular diet - high-fiber Activity: increase activity as tolerated Referrals: Matt Recio III, MD [Primary Care Provider] - 1-2 Weeks Home Medications: Ambulatory Orders Gabapentin 300 mg PO BEDTIME 07/15/13 Oxcarbazepine [Trileptal] 150 mg PO BID 11/08/15 Paroxetine HCl [Paxil Cr] 37.5 mg PO BID 06/25/16 Levothyroxine Sodium [Synthroid] 50 mcg PO DAILY@0700 08/31/16 Nebivolol HCl [Bystolic] 5 mg PO DAILY 08/31/16 Phenytoin Sodium Cap Extended [Dilantin Cap] 100 mg PO DAILY 08/31/16 Levalbuterol Tartrate [Xopenex Hfa] 45 mcg IN QID 09/20/16 Bifidobacterium Infantis [Align] 4 mg PO DAILY 09/25/16 Prednisone 5 mg PO DAILY 12/01/17 Umeclidinium-Vilanterol [Anoro Ellipta 62.5-25 Mcg/INH] 1 aer IN RTDAILY 12/01/17 cloNAZepam [Klonopin] 0.5 mg PO QID 12/01/17 Baclofen 10 mg PO BID PRN 12/02/17 Budesonide (Inhalation) [Budesonide] 0.5 mg IN BID 12/02/17 Phenytoin Sodium Extended [Dilantin] 160 mg PO BEDTIME 12/02/17 Prednisone 2.5 mg PO BEDTIME 05/17/18 Additional Instructions: the patient is a 78-year-old female presenting to emergency room mariposa orozco to lower abdominal cramping. Laboratory work is reassuring at this time. X-ray only shows some moderate constipation higher up in the colon. The patient is given a dose of milk of magnesia for this. The patient needs to increase her fluid intake. Bladder ultrasound performed here for postvoid residual shows only approximately 40 cc of postvoid residual. Source of the cramping may be the constipation. If the patient continues to have symptoms and has any worsening of her diarrhea after the magnesium is out of her system, then she may need to discuss doing stool samples with her primary care doctor to make sure she is not getting a slow recurrence of her C. difficile colitis. empiric antibiotics are contraindicated at this time given her history of C. difficile colitis. In the meantime she can continue her align probiotics and I would suggest alternating that with VSL3 probiotics. Increase fiber intake in the form of Metamucil or FiberCon. Follow-up with primary care doctor next week. ER warnings were given for any significant acute worsening.
[2018-06-21 12:21] VITALS: BP 148/89; O2SAT 99
== END 2018-06-21 12:21 | disposition home or self-care (01) ==
LOC: ER 09:13
DX: K59.00 Constipation, unspecified (principal); R10.30 Lower abdominal pain, unspecified; R11.0 Nausea; J44.9 Chronic obstructive pulmonary disease, unspecified; I10 Essential (primary) hypertension; E07.9 Disorder of thyroid, unspecified; R56.9 Unspecified convulsions; Z90.49 Acquired absence of other specified parts of digestive tract; Z87.891 Personal history of nicotine dependence; Z88.8 Allergy status to other drugs, medicaments and biological substances; Z88.2 Allergy status to sulfonamides; Z79.899 Other long term (current) drug therapy

== ENCOUNTER 2018-11-26 10:35 | Emergency (ER) | payer MEDICARE, OTHER ==
[2018-11-26] MEDS ORDERED: SODIUM CHLORIDE 0.9% 1000ML 1,000 ML IVS ONE ×2 (11:20→12:56)
--- NOTE | 2018-11-26 11:24 | ED.PDOC ---
History of Present Illness - General Chief Complaint: GI Problem Time Seen by Provider: 11/26/18 11:05 Source: patient Exam Limitations: no limitations - History of Present Illness Initial Comments: Patient presents with 3 months of intermittent increasing diarrhea. She has IBS, COPD on chronic 2L oxygen by [place], hypothyroidism. She says on a good day she will have only 5 loose bowel movements. On a bad day she has up to 10. Today she was feeling an overall sense of illness. She has had 10 loose bowel movements in the past day with a whitish appearance. Denies every having had blood in her bowel movements. Denies abdominal pain. No N/V. Has been eating well. She started Bentyl about 5 weeks ago. No other complaints. Timing/Duration: changing over time, intermittent, other - 3 months Severity: moderate Improving Factors: nothing Worsening Factors: nothing Associated Symptoms: denies symptoms Allergies/Adverse Reactions: Allergies Sulfa Antibiotics Allergy (Verified 05/17/18 17:21) Unknown Sulfonamide Deriv *RETIRED-02/15/13 [Sulfonamide Derivatives] Allergy (Verified 05/17/18 17:21) Zonisamide [From Zonegran] Allergy (Verified 05/17/18 17:21) Unknown Metronidazole Adverse Reaction (Intermediate, Verified 05/17/18 17:21) SOMNOLENCE Calcitonin [From Miacalcin] Adverse Reaction (Verified 05/17/18 17:21) CI Pigment Blue 63 [From Cymbalta] Adverse Reaction (Verified 05/17/18 17:21) Duloxetine [From Cymbalta] Adverse Reaction (Verified 05/17/18 17:21) Escitalopram [From Lexapro] Adverse Reaction (Verified 05/17/18 17:21) Unknown Fluconazole [From Diflucan] Adverse Reaction (Verified 05/17/18 17:21) Levofloxacin [From Levaquin] Adverse Reaction (Verified 05/17/18 17:21) Nicotine [From Nicoderm] Adverse Reaction (Verified 05/17/18 17:21) Ropinirole Adverse Reaction (Verified 05/17/18 17:21) Venlafaxine [From Effexor] Adverse Reaction (Verified 05/17/18 17:21) SYNCOPE Home Medications: Ambulatory Orders Gabapentin 300 mg PO BEDTIME 07/15/13 Oxcarbazepine [Trileptal] 150 mg PO BID 11/08/15 Paroxetine HCl [Paxil Cr] 37.5 mg PO BID 06/25/16 Levothyroxine Sodium [Synthroid] 50 mcg PO DAILY@0700 08/31/16 Nebivolol HCl [Bystolic] 5 mg PO DAILY 08/31/16 Phenytoin Sodium Cap Extended [Dilantin Cap] 100 mg PO DAILY 08/31/16 Levalbuterol Tartrate [Xopenex Hfa] 45 mcg IN QID 09/20/16 Prednisone 5 mg PO DAILY 12/01/17 Umeclidinium-Vilanterol [Anoro Ellipta 62.5-25 Mcg/INH] 1 aer IN RTDAILY 12/01/17 cloNAZepam [Klonopin] 0.5 mg PO QID 12/01/17 Budesonide (Inhalation) [Budesonide] 0.5 mg IN BID 12/02/17 Phenytoin Sodium Extended [Dilantin] 60 mg PO BEDTIME 12/02/17 Prednisone 2.5 mg PO BEDTIME 05/17/18 Dicyclomine HCl [Bentyl] 10 mg PO BID 11/26/18 Review of Systems - Review of Systems Constitutional: States: no symptoms reported EENTM: States: no symptoms reported Respiratory: States: no symptoms reported Cardiology: States: no symptoms reported Gastrointestinal/Abdominal: States: see HPI Genitourinary: States: no symptoms reported Musculoskeletal: States: no symptoms reported Skin: States: no symptoms reported Neurological: States: no symptoms reported Endocrine: States: no symptoms reported Hematologic/Lymphatic: States: no symptoms reported Past Medical History (General) - Patient Medical History Hx Seizures: Yes Hx Stroke: No Hx Dementia: No Hx Asthma: No Hx of COPD: Yes Hx Cardiac Disorders: No Hx Congestive Heart Failure: No Hx Pacemaker: No Hx Hypertension: Yes Hx Thyroid Disease: Yes Hx Diabetes: No Hx Gastroesophageal Reflux: No Hx Renal Disease: No Hx Cancer: No Hx of HIV: No Hx Hepatitis C: No Hx MRSA: No - Vaccination History Hx Tetanus, Diphtheria Vaccination: No Hx Influenza Vaccination: Yes Hx Pneumococcal Vaccination: Yes - Social History Hx Tobacco Use: Yes Hx Chewing Tobacco Use: No Hx Alcohol Use: No Hx Substance Use: No Hx Substance Use Treatment: No Hx Depression: No Hx Physical Abuse: No Hx Emotional Abuse: No Hx Suspected Abuse: No - Female History Patient : No Family Medical History - Family History Mother Family History: No Known Living Status: Hx Family Asthma: Yes - copd dad,sister Hx Family Congestive Heart Failure: Yes Hx Family Hypertension: Yes Hx Family Stroke: No Hx Cardiac Disease: No Hx Family Diabetes: No Hx Family Cancer: No Physical Exam - Physical Exam General Appearance: Alert Eye Exam: bilateral normal Ears, Nose, Throat: normal ENT inspection Neck: non-tender, full range of motion, supple Respiratory: lungs clear, normal breath sounds Cardiovascular/Chest: normal peripheral pulses, regular rate, rhythm Gastrointestinal/Abdominal: normal bowel sounds, non tender, soft Back Exam: normal inspection, no CVA tenderness Extremity: normal range of motion, non-tender, normal inspection Neurologic: no motor/sensory deficits, alert, normal mood/affect, oriented x 3 Skin Exam: normal color Lymphatic: no adenopathy Progress - Progress Progress: 11/26/18 14:52 Laboratory Tests 11/26/18 11/26/18 11/26/18 11:27 11:27 11:27 WBC 5.5 RBC 4.13 L Hgb 13.3 Hct 39.0 MCV 94.5 MCH 32.3 H MCHC 34.2 RDW 14.7 H Plt Count 201 MPV 6.6 L Absolute Neuts (auto) 4.40 Absolute Lymphs (auto) 0.50 L Absolute Monos (auto) 0.40 Absolute Eos (auto) 0.10 Absolute Basos (auto) 0.00 Neutrophils % 81.2 H Lymphocytes % 9.4 L Monocytes % 7.9 Eosinophils % 1.0 Basophils % 0.5 Sodium 143 Potassium 4.2 Chloride 108 Carbon Dioxide 26 Anion Gap 13.2 BUN 21 H Creatinine 0.84 BUN/Creatinine Ratio 25.0 H Random Glucose 97 Serum Osmolality 287.9 Calcium 8.8 Magnesium 2.0 Total Bilirubin 0.4 AST 15 ALT 20 Alkaline Phosphatase 60 Serum Total Protein 6.7 Albumin 3.9 Globulin 2.8 Albumin/Globulin Ratio 1.4 TSH 0.95 Thyroxine (T4) 5.96 L Urine Color Urine Appearance Urine pH Ur Specific Emerson Urine Protein Urine Glucose (UA) Urine Ketones Urine Blood Urine Nitrite Urine Bilirubin Urine Urobilinogen Ur Leukocyte Esterase Urine RBC Urine WBC Ur Epithelial Cells Amorphous Sediment Urine Bacteria 11/26/18 12:40 WBC RBC Hgb Hct MCV MCH MCHC RDW Plt Count MPV Absolute Neuts (auto) Absolute Lymphs (auto) Absolute Monos (auto) Absolute Eos (auto) Absolute Basos (auto) Neutrophils % Lymphocytes % Monocytes % Eosinophils % Basophils % Sodium Potassium Chloride Carbon Dioxide Anion Gap BUN Creatinine BUN/Creatinine Ratio Random Glucose Serum Osmolality Calcium Magnesium Total Bilirubin AST ALT Alkaline Phosphatase Serum Total Protein Albumin Globulin Albumin/Globulin Ratio TSH Thyroxine (T4) Urine Color Yellow Urine Appearance Clear Urine pH 5.5 Ur Specific Emerson 1.015 Urine Protein Negative Urine Glucose (UA) Negative Urine Ketones Negative Urine Blood Trace-lysed H Urine Nitrite Negative Urine Bilirubin Negative Urine Urobilinogen 0.2 Ur Leukocyte Esterase Negative Urine RBC 0-1 Urine WBC 0 Ur Epithelial Cells 0-1 Amorphous Sediment 1+ Urine Bacteria Rare Labs unremarkable. Patient was given 1.5 liters NS IV to rehydrate her. She urinated once after the first liter. She said she felt much better. She agreed to call Dr. Recio this week and get an appointment to have her IBS addressed. Care instructions given. E.R. warnings given. Questions were elicited and answered. Patient voiced understanding and agreement with the plan. Departure - Departure Clinical Impression: Diarrhea Disposition: Discharge to Home or Self Care Condition: Good Departure Forms: ED Discharge - Pt. Copy, Patient Portal Self Enrollment Instructions: Oral Rehydration Therapy Diet: other - as per your regular doctor Activity: increase activity as tolerated Referrals: Matt Recio III, MD [Primary Care Provider] - 1-2 Weeks Home Medications: Ambulatory Orders Gabapentin 300 mg PO BEDTIME 07/15/13 Oxcarbazepine [Trileptal] 150 mg PO BID 11/08/15 Paroxetine HCl [Paxil Cr] 37.5 mg PO BID 06/25/16 Levothyroxine Sodium [Synthroid] 50 mcg PO DAILY@0700 08/31/16 Nebivolol HCl [Bystolic] 5 mg PO DAILY 08/31/16 Phenytoin Sodium Cap Extended [Dilantin Cap] 100 mg PO DAILY 08/31/16 Levalbuterol Tartrate [Xopenex Hfa] 45 mcg IN QID 09/20/16 Prednisone 5 mg PO DAILY 12/01/17 Umeclidinium-Vilanterol [Anoro Ellipta 62.5-25 Mcg/INH] 1 aer IN RTDAILY 12/01/17 cloNAZepam [Klonopin] 0.5 mg PO QID 12/01/17 Budesonide (Inhalation) [Budesonide] 0.5 mg IN BID 12/02/17 Phenytoin Sodium Extended [Dilantin] 60 mg PO BEDTIME 12/02/17 Prednisone 2.5 mg PO BEDTIME 05/17/18 Dicyclomine HCl [Bentyl] 10 mg PO BID 11/26/18 Additional Instructions: Call Dr. Recio' office today and see about getting an appointment for management of your IBS.
[2018-11-26 11:56] VITALS: TEMP 97.5
[2018-11-26 15:03] VITALS: O2SAT 97
[2018-11-26 15:05] VITALS: BP 158/97
== END 2018-11-26 15:06 | disposition home or self-care (01) ==
LOC: ER 10:35
DX: R19.7 Diarrhea, unspecified (principal); E03.9 Hypothyroidism, unspecified; I10 Essential (primary) hypertension; J44.9 Chronic obstructive pulmonary disease, unspecified; R56.9 Unspecified convulsions; Z87.891 Personal history of nicotine dependence; Z79.899 Other long term (current) drug therapy; Z88.8 Allergy status to other drugs, medicaments and biological substances; Z88.1 Allergy status to other antibiotic agents; Z88.2 Allergy status to sulfonamides
CPT/HCPCS: 36415; 80053; 81001; 83735; 84436; 84443; 85025; J7030

== ENCOUNTER 2019-01-31 20:08 | Emergency (ER) | payer MEDICARE, OTHER ==
--- NOTE | 2019-01-31 20:22 | ED.PDOC ---
History of Present Illness - General Time Seen by Provider: 01/31/19 20:17 - History of Present Illness Initial Comments: 78 year old female that presents with right flank pain since this morning, patient was at [facility] yesterday and patient was seen by primary md. patient has no gallbladder, no appendix patient denies disuria, hematuria, and no previous hx of kidney stones patient has an hx of copd, former smoker and patient is oxygen dependant patient stated that the pain starts on her flank and migrates toward the epigastric area. 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 Allergies/Adverse Reactions: Allergies Sulfa Antibiotics Allergy (Verified 05/17/18 17:21) Unknown Sulfonamide Deriv *RETIRED-02/15/13 [Sulfonamide Derivatives] Allergy (Verified 05/17/18 17:21) Zonisamide [From Zonegran] Allergy (Verified 05/17/18 17:21) Unknown Metronidazole Adverse Reaction (Intermediate, Verified 05/17/18 17:21) SOMNOLENCE Calcitonin [From Miacalcin] Adverse Reaction (Verified 05/17/18 17:21) CI Pigment Blue 63 [From Cymbalta] Adverse Reaction (Verified 05/17/18 17:21) Duloxetine [From Cymbalta] Adverse Reaction (Verified 05/17/18 17:21) Escitalopram [From Lexapro] Adverse Reaction (Verified 05/17/18 17:21) Unknown Fluconazole [From Diflucan] Adverse Reaction (Verified 05/17/18 17:21) Levofloxacin [From Levaquin] Adverse Reaction (Verified 05/17/18 17:21) Nicotine [From Nicoderm] Adverse Reaction (Verified 05/17/18 17:21) Ropinirole Adverse Reaction (Verified 05/17/18 17:21) Venlafaxine [From Effexor] Adverse Reaction (Verified 05/17/18 17:21) SYNCOPE Home Medications: Ambulatory Orders Gabapentin 300 mg PO BEDTIME 07/15/13 Oxcarbazepine [Trileptal] 150 mg PO BID 11/08/15 Paroxetine HCl [Paxil Cr] 37.5 mg PO BID 06/25/16 Levothyroxine Sodium [Synthroid] 50 mcg PO DAILY@0700 08/31/16 Nebivolol HCl [Bystolic] 5 mg PO DAILY 08/31/16 Phenytoin Sodium Cap Extended [Dilantin Cap] 100 mg PO DAILY 08/31/16 Levalbuterol Tartrate [Xopenex Hfa] 45 mcg IN QID 09/20/16 Prednisone 5 mg PO DAILY 12/01/17 Umeclidinium-Vilanterol [Anoro Ellipta 62.5-25 Mcg/INH] 1 aer IN RTDAILY 12/01/17 cloNAZepam [Klonopin] 0.5 mg PO QID 12/01/17 Budesonide (Inhalation) [Budesonide] 0.5 mg IN BID 12/02/17 Phenytoin Sodium Extended [Dilantin] 60 mg PO BEDTIME 12/02/17 Prednisone 2.5 mg PO BEDTIME 05/17/18 Dicyclomine HCl [Bentyl] 10 mg PO BID 11/26/18 Review of Systems - Review of Systems Constitutional: Denies: chills, diaphoresis, fever, malaise, weakness EENTM: Denies: eye pain, blurred vision, tearing, double vision, ear pain, ear discharge, nose pain, nose congestion, throat pain, throat swelling, mouth pain, mouth swelling Respiratory: Denies: cough, orthopnea, short of breath, stridor, wheezing Cardiology: Denies: chest pain, edema, palpitations, syncope Gastrointestinal/Abdominal: States: abdominal pain, other - right flank pain . Denies: constipation, diarrhea, nausea, vomiting Genitourinary: Denies: see HPI, discharge, dysuria, frequency, hematuria, pain Musculoskeletal: Denies: back pain, gout, joint pain, joint swelling, muscle pain, muscle stiffness, neck pain Skin: Denies: change in color, change in hair/nails, dryness, lesions, lumps, rash, other Neurological: Denies: anxiety, depressed, emotional problems, headache, numbness, paresthesia, pre-existing deficit, tremors, weakness Endocrine: Denies: excessive sweating, increased hunger, increased thirst, increased urine Hematologic/Lymphatic: Denies: anemia, blood clots, easy bleeding, easy bruising, swollen glands Past Medical History (General) - Patient Medical History Hx Seizures: Yes Hx Stroke: No Hx Dementia: No Hx Asthma: No Hx of COPD: Yes Hx Cardiac Disorders: No Hx Congestive Heart Failure: No Hx Pacemaker: No Hx Hypertension: Yes Hx Thyroid Disease: Yes Hx Diabetes: No Hx Gastroesophageal Reflux: No Hx Renal Disease: No Hx Cancer: No Hx of HIV: No Hx Hepatitis C: No Hx MRSA: No - Vaccination History Hx Tetanus, Diphtheria Vaccination: No Hx Influenza Vaccination: Yes Hx Pneumococcal Vaccination: Yes - Social History Hx Tobacco Use: Yes Hx Chewing Tobacco Use: No Hx Alcohol Use: No Hx Substance Use: No Hx Substance Use Treatment: No Hx Depression: No Hx Physical Abuse: No Hx Emotional Abuse: No Hx Suspected Abuse: No - Female History Patient : No Family Medical History - Family History Mother Family History: No Known Living Status: Hx Family Asthma: Yes - copd dad,sister Hx Family Congestive Heart Failure: Yes Hx Family Hypertension: Yes Hx Family Stroke: No Hx Cardiac Disease: No Hx Family Diabetes: No Hx Family Cancer: No Physical Exam - Physical Exam General Appearance: Alert, Well Developed, Well Groomed, Well Hydrated, Well Nourished Eye Exam: bilateral normal Ears, Nose, Throat: hearing grossly normal Neck: non-tender Respiratory: chest non-tender, lungs clear, other - tachypenic but able to speak in long sentences Cardiovascular/Chest: normal peripheral pulses, regular rate, rhythm, no edema Gastrointestinal/Abdominal: normal bowel sounds, non tender, soft, no organomegaly, no pulsatile mass, other - right flank pain Back Exam: normal inspection, CVA tenderness (R) Extremity: non-tender, normal inspection, normal capillary refill, pelvis stable Neurologic: alert, normal mood/affect, oriented x 3 Progress - Progress Progress: 01/31/19 20:24 this is a 78 year presenting with right flank pain since 9am. patient doesnt appear in any distress, and does not appear toxic. i will get abdomino pelvic ct without contrast to rule out kidney stone, will get labs and urine this patient doesnt have an acute abdomen on physical exam 01/31/19 21:57 ct showed possible duodenitis which could explain epigastric pain, pancreas did not show any inflammation and no kidney stones were seen on ct. patient's daughter is here and she mentioned that patient does have an hx of ibs, and she does have a gastronterelogist patient will be discharge home with f/u with gi and primary md 01/31/19 22:13 patient has plenty of medications and she also has bentyl at home so daughter ask me not to give her any pain medications. Departure - Departure Clinical Impression: Duodenitis Abdominal pain Qualifiers: Abdominal location: epigastric Qualified Code(s): R10.13 - Epigastric pain Disposition: Discharge to Home or Self Care Condition: Fair Instructions: DI for Abdominal Pain-Adult, Duodenal Ulcer (DC), Peptic Ulcers, Peptic Ulcers (DC) Referrals: Matt Recio III, MD [Primary Care Provider] - 1-2 Weeks Home Medications: Ambulatory Orders Gabapentin 300 mg PO BEDTIME 07/15/13 Oxcarbazepine [Trileptal] 150 mg PO BID 11/08/15 Paroxetine HCl [Paxil Cr] 37.5 mg PO BID 06/25/16 Levothyroxine Sodium [Synthroid] 50 mcg PO DAILY@0700 08/31/16 Nebivolol HCl [Bystolic] 5 mg PO DAILY 08/31/16 Phenytoin Sodium Cap Extended [Dilantin Cap] 100 mg PO DAILY 08/31/16 Levalbuterol Tartrate [Xopenex Hfa] 45 mcg IN QID 09/20/16 Prednisone 5 mg PO DAILY 12/01/17 Umeclidinium-Vilanterol [Anoro Ellipta 62.5-25 Mcg/INH] 1 aer IN RTDAILY 12/01/17 cloNAZepam [Klonopin] 0.5 mg PO QID 12/01/17 Budesonide (Inhalation) [Budesonide] 0.5 mg IN BID 12/02/17 Phenytoin Sodium Extended [Dilantin] 60 mg PO BEDTIME 12/02/17 Prednisone 2.5 mg PO BEDTIME 05/17/18 Dicyclomine HCl [Bentyl] 10 mg PO BID 11/26/18 Additional Instructions: follow up with gastroenterology return to the er if fever, chills, abdominal pain, bloody stool, unable to hold any fluids down, altered mental status or any other concerns
[2019-01-31 20:26] VITALS: TEMP 98.5
--- NOTE | 2019-01-31 21:12 | CT ---
EXAM DESCRIPTION: Abdomen t/Pelvis w/o Contrast CLINICAL HISTORY: 78 years Female right flank pain TECHNIQUE: CT of the abdomen and pelvis without intravenous contrast. All CT scans at this facility use dose modulation, iterative reconstruction, and/or weight based dosing when appropriate to reduce radiation dose to as low as reasonably achievable. COMPARISON: April 11, 2012. FINDINGS: Lower chest: Lung bases are clear. Abdomen: Liver: Hypodensity in the right hepatic lobe measuring approximately 2.5 x 2.5 x 2.1 cm likely corresponding to previously seen hemangioma. Additional multiple hepatic cysts are again noted. Gallbladder: Status post cholecystectomy. Pancreas: Within normal limits Spleen: Within normal limits Right kidney: No hydronephrosis. No focal lesion. Left kidney: No hydronephrosis. No focal lesion. Adrenal glands: Left adrenal adenoma measuring approximately 1.6 x 1.4 cm. Vascular structures: Atherosclerotic calcification of the aorta and its major branches. Pelvis: Bowel: New bowel wall thickening of the second portion of the duodenum. Appendix: Within normal limits Peritoneum: No free fluid or free air. Lymph Nodes: No adenopathy. Reproductive: Status post hysterectomy. Urinary bladder: Unremarkable. Osseous structures: Multilevel degenerative changes, worse at L5-S1. Soft tissues: Unremarkable. IMPRESSION: 1. No renal, ureteral or urinary bladder stone. 2. New bowel wall thickening of the second portion of the duodenum suspicious for duodenitis in the appropriate clinical setting. Electronically signed by: Martin Childers MD 01/31/2019 9:11 PM CDT
[2019-01-31 22:05] VITALS: BP 133/83; O2SAT 97
== END 2019-01-31 22:18 | disposition home or self-care (01) ==
LOC: ER 20:08
DX: K29.80 Duodenitis without bleeding (principal); R56.9 Unspecified convulsions; J44.9 Chronic obstructive pulmonary disease, unspecified; I10 Essential (primary) hypertension; E07.9 Disorder of thyroid, unspecified; Z87.891 Personal history of nicotine dependence; Z79.899 Other long term (current) drug therapy; Z88.8 Allergy status to other drugs, medicaments and biological substances; Z88.1 Allergy status to other antibiotic agents; Z88.2 Allergy status to sulfonamides; Z99.81 Dependence on supplemental oxygen

== ENCOUNTER 2019-02-02 09:43 | Emergency (ER) | payer MEDICARE, OTHER ==
[2019-02-02 09:57] VITALS: TEMP 97.7; O2SAT 99
[2019-02-02] MEDS ORDERED: SODIUM CHLORIDE 0.9% (FLUSH) 10 ML SYG IV PRN (10:09)
[2019-02-02] MEDS ORDERED: SODIUM CHLORIDE 0.9% 1000ML 1,000 ML IVS ONE (10:10)
--- NOTE | 2019-02-02 10:15 | ED.PDOC ---
History of Present Illness - General Chief Complaint: GI Problem Time Seen by Provider: 02/02/19 10:09 Information Source: patient, RN notes reviewed, Vital Signs reviewed, family - daughter, old records Exam Limitations: no limitations - History of Present Illness Initial Comments: patient is a 78-year-old white female who presents with recurrent abdominal pain and ongoing diarrhea. Diarrhea for years after the removal of her gallbladder. She states it's been worse recently with this abdominal pain. Patient was here on night and was evaluated with laboratory work and a CT scan of her a bdomen. Lab work was unremarkable with no elevated white count and no LFT and did show the patient had duodenitis and patient was referred to a GI doctor for further care and follow-up. The patient has not been to see the GI doctor yet.patient denies any fever or chills. Eyes any blood in her diarrhea. Revision. She did become diaphoretic this morning. He has no chest pain. Patient is chronically short of breath due to her COPD. Currently is no different and is unchanged from her previous dyspnea. Patient denies any weakness, paresthesias or muscle cramping. Abdominal Pain Onset Location: RUQ Pain Radiation: no radiation Quality: moderate, sharpness, stabbing, waxing/waning Timing/Duration: 1-3 hours Improving Factors: eating - patient ate pimento cheese last night and the pain started getting worse soon thereafter Worsening Factors: nothing Associated Symptoms: diaphoresis, diarrhea, nausea/vomiting - nausea and no vomiting, shortness of breath - unchanged from her previous shortness of breath. Review of Systems - Review of Systems Constitutional: States: see HPI, diaphoresis EENTM: States: no symptoms reported Respiratory: States: see HPI, short of breath Cardiology: States: no symptoms reported Gastrointestinal/Abdominal: States: see HPI, abdominal pain, diarrhea, nausea Genitourinary: States: no symptoms reported Musculoskeletal: States: no symptoms reported Neurological: States: no symptoms reported All other Systems: Reviewed and Negative Past Medical History (General) - Patient Medical History Hx Seizures: Yes Hx Stroke: No Hx Dementia: No Hx Asthma: No Hx of COPD: Yes Hx Cardiac Disorders: No Hx Congestive Heart Failure: No Hx Pacemaker: No Hx Hypertension: Yes Hx Thyroid Disease: Yes - Thyroidectomy Hx Diabetes: No Hx Gastroesophageal Reflux: - IBS Hx Renal Disease: No Hx Cancer: Yes - Hx lung CA Hx of HIV: No Hx Hepatitis C: No Hx MRSA: No Surgical History: appendectomy, cholecystectomy, Hysterectomy, other - Vaccination History Hx Tetanus, Diphtheria Vaccination: No Hx Influenza Vaccination: Yes - 2019 Hx Pneumococcal Vaccination: Yes - Social History Hx Tobacco Use: Yes - Quit 2016 Hx Chewing Tobacco Use: No Hx Alcohol Use: No Hx Substance Use: No Hx Substance Use Treatment: No Hx Depression: No Hx Physical Abuse: No Hx Emotional Abuse: No Hx Suspected Abuse: No - Female History Patient : No Family Medical History - Family History Mother Family History: No Known Living Status: Hx Family Asthma: Yes - copd dad,sister Hx Family Congestive Heart Failure: Yes Hx Family Hypertension: Yes Hx Family Stroke: No Hx Cardiac Disease: No Hx Family Diabetes: No Hx Family Cancer: No Physical Exam - Physical Exam General Appearance: Alert, Anxious, Well Developed, Well Groomed, Well Hydrated, Well Nourished Eyes, Ears, Nose, Throat Exam: PERRL/EOMI, normal ENT inspection, TMs normal, pharynx normal, other - patient is partially blind. She has macular degeneration and therefore only as central. Neck: non-tender, full range of motion, supple, normal inspection Respiratory: chest non-tender, lungs clear, no respiratory distress, no accessory muscle use, rhonchi - throughout, expiration - extended expiratory phase consistent with COPD. Cardiovascular/Chest: normal peripheral pulses, regular rate, rhythm, no edema, no gallop, no JVD, no murmur, JVD Peripheral Pulses: No deficit Gastrointestinal/Abdominal: normal bowel sounds, soft, other - tender to palpation along the epigastrium and right upper quadrant. This is the same location as previous. 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 She is improved after the IV fluids. Review of the labs show her white count has improved. There is no left shift. Previous records and CT which shows the patient has a duodenitis. Patient has multiple antibiotic allergies. She is allergic to Flagyl which limits treatment to only Augmentin. As patient already has severe diarrhea, and in discussion with the patient's daughter and the patient, we have decided for conservative treatment of clear liquid diet 24 hours followed by a BRAT T diet and follow up with PCP for emergent referral for GI on Monday. Patient is already on a PPI. I believe this episode of abdominal pain was precipitated by her eating pimento cheese sandwich for breakfast this morning. Strong warnings to return for worsening pain, fever, bloody diarrhea, nausea and vomiting. They voice understanding and agreement with the plan of care. Additionally, we will not be prescribing any pain medication. Patient is not a candidate for Ultram as she has a seizure disorder. Limited vision, is on home O2 and easily gets tangled in her oxygen cord and she is already on Klonopin which would put her at exceedingly high risk for fall and a fractured hip. At her and she voices agreement with the plan of care. Bobby Frias M.D. - Results/Orders Results/Orders: 02/02/19 10:09 Sodium Chloride 0.9% (Flush) [Saline Flush Syringe] 10 ml IV PRN PRN Laboratory Results - last 24 hr 02/02/19 02/02/19 10:25 10:25 WBC 4.7 L RBC 4.21 Hgb 13.2 Hct 39.2 MCV 93.0 MCH 31.4 H MCHC 33.7 RDW 14.5 Plt Count 234 MPV 7.2 L Absolute Neuts (auto) 3.20 Absolute Lymphs (auto) 0.80 L Absolute Monos (auto) 0.50 Absolute Eos (auto) 0.10 Absolute Basos (auto) 0.10 Neutrophils % 67.8 Lymphocytes % 18.0 L Monocytes % 11.4 H Eosinophils % 1.7 Basophils % 1.1 Sodium 139 Potassium 4.3 Chloride 105 Carbon Dioxide 24 Anion Gap 14.3 BUN 14 Creatinine 0.77 BUN/Creatinine Ratio 18.2 Random Glucose 85 Serum Osmolality 277.3 Calcium 8.4 Total Bilirubin < 0.2 L D Direct Bilirubin < 0.1 Indirect Bilirubin 0.1 L AST 16 ALT 17 Alkaline Phosphatase 48 D Serum Total Protein 6.3 L Albumin 3.4 Lipase 31 Departure - Departure Clinical Impression: Duodenitis without bleeding Abdominal pain Qualifiers: Abdominal location: right upper quadrant Qualified Code(s): R10.11 - Right upper quadrant pain Disposition: Discharge to Home or Self Care Departure Forms: ED Discharge - Pt. Copy, Patient Portal Self Enrollment Instructions: DI for Abdominal Pain-Adult, Inflammatory Bowel Disease (DC) Diet: full liquid diet Referrals: Matt Recio III, MD [Primary Care Provider] - 1-2 Days Home Medications: Ambulatory Orders Gabapentin 300 mg PO BEDTIME 07/15/13 Oxcarbazepine [Trileptal] 150 mg PO BID 11/08/15 Paroxetine HCl [Paxil Cr] 37.5 mg PO BID 06/25/16 Levothyroxine Sodium [Synthroid] 50 mcg PO DAILY@0700 08/31/16 Nebivolol HCl [Bystolic] 5 mg PO DAILY 08/31/16 Phenytoin Sodium Cap Extended [Dilantin Cap] 100 mg PO DAILY 08/31/16 Levalbuterol Tartrate [Xopenex Hfa] 45 mcg IN QID 09/20/16 Prednisone 5 mg PO DAILY 12/01/17 Umeclidinium-Vilanterol [Anoro Ellipta 62.5-25 Mcg/INH] 1 aer IN RTDAILY 12/01/17 cloNAZepam [Klonopin] 0.5 mg PO QID 12/01/17 Budesonide (Inhalation) [Budesonide] 0.5 mg IN BID 12/02/17 Phenytoin Sodium Extended [Dilantin] 60 mg PO BEDTIME 12/02/17 Prednisone 2.5 mg PO BEDTIME 05/17/18 Dicyclomine HCl [Bentyl] 10 mg PO BID 11/26/18
[2019-02-02 11:24] VITALS: BP 146/63
== END 2019-02-02 11:32 | disposition home or self-care (01) ==
LOC: ER 09:43
DX: K29.80 Duodenitis without bleeding (principal); R19.7 Diarrhea, unspecified; G40.909 Epilepsy, unspecified, not intractable, without status epilepticus; J44.9 Chronic obstructive pulmonary disease, unspecified; I10 Essential (primary) hypertension; E89.0 Postprocedural hypothyroidism; K58.9 Irritable bowel syndrome, unspecified; Z99.81 Dependence on supplemental oxygen; Z85.118 Personal history of other malignant neoplasm of bronchus and lung; Z90.49 Acquired absence of other specified parts of digestive tract; Z87.891 Personal history of nicotine dependence
CPT/HCPCS: 36415; 80048; 80076; 83690; 85025; J7030

== ENCOUNTER 2019-04-06 18:37 | Inpatient (IN) | payer MEDICARE, OTHER ==
[2019-04-06] MEDS ORDERED: ALPRAZolam 0.25 MG TAB PO ONE (19:03)
--- NOTE | 2019-04-06 19:11 | ED.PDOC ---
History of Present Illness - General Chief Complaint: Respiratory Problem Stated Complaint: SOB, difficulty breathing Time Seen by Provider: 04/06/19 18:39 Source: patient Exam Limitations: no limitations - History of Present Illness Initial Comments: the patient is a 78-year-old female presenting to the emergency room secondary to a sensation of shortness of breath. The patient was seen earlier in the day. She does have significant COPD and is in a COPD exacerbation. She is actually moving air a little bit better than she was this morning but she is extremely anxious. She has been doing the nebulizer treatments as prescribed and her last one was approximately 20 minutes prior to arrival. She did additionally get a large dose of steroids this morning. She does have very significant baseline anxiety and the medications seem to be making that worse of course. No fever. She is oxygenating as well as she was this morning when she left. She is actually having a panic attack and hyperventilating however. No new symptoms otherwise. No syncope. No chest pain. Timing/Duration: unsure Severity: severe Improving Factors: nothing Worsening Factors: movement Associated Symptoms: shortness of breath Allergies/Adverse Reactions: Allergies Sulfa Antibiotics Allergy (Verified 05/17/18 17:21) Unknown Sulfonamide Deriv *RETIRED-02/15/13 [Sulfonamide Derivatives] Allergy (Verified 05/17/18 17:21) Zonisamide [From Zonegran] Allergy (Verified 05/17/18 17:21) Unknown Metronidazole Adverse Reaction (Intermediate, Verified 05/17/18 17:21) SOMNOLENCE Calcitonin [From Miacalcin] Adverse Reaction (Verified 05/17/18 17:21) CI Pigment Blue 63 [From Cymbalta] Adverse Reaction (Verified 05/17/18 17:21) Duloxetine [From Cymbalta] Adverse Reaction (Verified 05/17/18 17:21) Escitalopram [From Lexapro] Adverse Reaction (Verified 05/17/18 17:21) Unknown Fluconazole [From Diflucan] Adverse Reaction (Verified 05/17/18 17:21) Levofloxacin [From Levaquin] Adverse Reaction (Verified 05/17/18 17:21) Nicotine [From Nicoderm] Adverse Reaction (Verified 05/17/18 17:21) Ropinirole Adverse Reaction (Verified 05/17/18 17:21) Venlafaxine [From Effexor] Adverse Reaction (Verified 05/17/18 17:21) SYNCOPE Home Medications: Ambulatory Orders Gabapentin 300 mg PO BEDTIME 07/15/13 Oxcarbazepine [Trileptal] 150 mg PO BID 11/08/15 Paroxetine HCl [Paxil Cr] 37.5 mg PO BID 06/25/16 Levothyroxine Sodium [Synthroid] 50 mcg PO DAILY@0700 08/31/16 Nebivolol HCl [Bystolic] 5 mg PO DAILY 08/31/16 Phenytoin Sodium Cap Extended [Dilantin Cap] 100 mg PO DAILY 08/31/16 Levalbuterol Tartrate [Xopenex Hfa] 45 mcg IN QID 09/20/16 Umeclidinium-Vilanterol [Anoro Ellipta 62.5-25 Mcg/INH] 1 aer IN RTDAILY 12/01/17 cloNAZepam [Klonopin] 0.5 mg PO QID 12/01/17 Budesonide (Inhalation) [Budesonide] 0.5 mg IN BID 12/02/17 Phenytoin Sodium Extended [Dilantin] 60 mg PO BEDTIME 12/02/17 Dicyclomine HCl [Bentyl] 10 mg PO BID 11/26/18 predniSONE 40 mg PO DAILY 04/06/19 predniSONE [Prednisone] 40 mg PO DAILY #10 tab 04/06/19 Review of Systems - Review of Systems Constitutional: States: no symptoms reported EENTM: States: no symptoms reported Respiratory: States: cough, short of breath, wheezing Cardiology: States: no symptoms reported Gastrointestinal/Abdominal: States: no symptoms reported Genitourinary: States: no symptoms reported Musculoskeletal: States: no symptoms reported Skin: States: no symptoms reported Neurological: States: anxiety, tremors Endocrine: States: no symptoms reported All other Systems: No Change from Baseline Past Medical History (General) - Patient Medical History Hx Seizures: Yes Hx Stroke: No Hx Dementia: No Hx Asthma: No Hx of COPD: Yes Hx Cardiac Disorders: No Hx Congestive Heart Failure: No Hx Pacemaker: No Hx Hypertension: Yes Hx Thyroid Disease: Yes - Thyroidectomy Hx Diabetes: No Hx Gastroesophageal Reflux: - IBS Hx Renal Disease: No Hx Cancer: Yes - Hx lung CA Hx of HIV: No Hx Hepatitis C: No Hx MRSA: No - Vaccination History Hx Tetanus, Diphtheria Vaccination: No Hx Influenza Vaccination: Yes Hx Pneumococcal Vaccination: Yes - Social History Hx Tobacco Use: Yes Hx Chewing Tobacco Use: No Hx Alcohol Use: No Hx Substance Use: No Hx Substance Use Treatment: No Hx Depression: No Hx Physical Abuse: No Hx Emotional Abuse: No Hx Suspected Abuse: No - Female History Patient is a Female of Child Bearing Age (10 -59 yrs old): No Patient : No Family Medical History - Family History Mother Family History: No Known Living Status: Hx Family Asthma: Yes - copd dad,sister Hx Family Congestive Heart Failure: Yes Hx Family Hypertension: Yes Hx Family Stroke: No Hx Cardiac Disease: No Hx Family Diabetes: No Hx Family Cancer: No Physical Exam - Physical Exam General Appearance: Alert, Restless - very anxious Eye Exam: bilateral normal Ears, Nose, Throat: hearing grossly normal, normal pharynx Neck: full range of motion, supple Respiratory: decreased breath sounds, accessory muscle use - moderate, wheezing - mild, other - the patient is currently hyperventilating with her panic attack. Cardiovascular/Chest: normal peripheral pulses, no edema, other - the patient actually has normal sinus rhythm with frequent PACs. This was seen already this morning. The PACs do not provide a strong of a pulse as regular beats. 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 The patient is receiving a dose of Xanax. She just took a breathing treatment at home so we are going to give a little while before she has another period the patient is going to be admitted as her COPD is significant and her having panic attacks at home will likely only make that worse. The patient has already had steroids for today. I do not see any overt focal infection. We will plan on continuing her home medications largely has prior. Continue telemetry monitoring to make sure there is no other arrhythmia that may be transiently making the issue worse. Admit for continued care for COPD exacerbation and panic attacks. Departure - Departure Clinical Impression: Panic attacks, COPD exacerbation Disposition: Discharge to Home or Self Care Departure Forms: ED Discharge - Pt. Copy, Patient Portal Self Enrollment Referrals: Matt Recio III, MD [Primary Care Provider] - 1-2 Weeks Home Medications: Ambulatory Orders Gabapentin 300 mg PO BEDTIME 07/15/13 Oxcarbazepine [Trileptal] 150 mg PO BID 11/08/15 Paroxetine HCl [Paxil Cr] 37.5 mg PO BID 06/25/16 Levothyroxine Sodium [Synthroid] 50 mcg PO DAILY@0700 08/31/16 Nebivolol HCl [Bystolic] 5 mg PO DAILY 08/31/16 Phenytoin Sodium Cap Extended [Dilantin Cap] 100 mg PO DAILY 08/31/16 Levalbuterol Tartrate [Xopenex Hfa] 45 mcg IN QID 09/20/16 Umeclidinium-Vilanterol [Anoro Ellipta 62.5-25 Mcg/INH] 1 aer IN RTDAILY 12/01/17 cloNAZepam [Klonopin] 0.5 mg PO QID 12/01/17 Budesonide (Inhalation) [Budesonide] 0.5 mg IN BID 12/02/17 Phenytoin Sodium Extended [Dilantin] 60 mg PO BEDTIME 12/02/17 Dicyclomine HCl [Bentyl] 10 mg PO BID 11/26/18 predniSONE 40 mg PO DAILY 04/06/19 predniSONE [Prednisone] 40 mg PO DAILY #10 tab 04/06/19 Decision To Admit - Decistion To Admit Decision to Admit Reason: Medical Nature Decision to Admit Date: 04/06/19 Decision to Admit Time: 19:14
--- NOTE | 2019-04-06 19:55 | HP ---
SUPERVISING PHYSICIAN: Acosta Brito M.D. CHIEF COMPLAINT: Shortness of breath. HISTORY OF PRESENT ILLNESS: This is a 78 year-old female patient who had actually been seen in the Emergency Room earlier in the day. She has a significant history of chronic obstructive pulmonary disease and is actually oxygen dependent. She was treated earlier with some nebulizer treatments and received a steroid dose in the Emergency Room on her first visit. She returned home and came back later due to shortness of breath. She also has a significant history of panic attacks and anxiety disorder. She was actually having a panic attack and hyperventilating. She was given multiple breathing treatments. Her vital signs on he second admission showed a temperature of 98.2 with heart rate 92, blood pressure 127/80, respiratory rate 24, O2 saturation 87% on 2 liters nasal cannula. After putting her on oxygen, she came up to 96. Her respiratory rate remained in the mid 20s. She was given breathing treatments as well as some anti-anxiety medications. I was called for hospital admission. PAST MEDICAL HISTORY: 1. Chronic obstructive pulmonary disease with multiple hospitalizations for acute exacerbations. 2. Seizure disorder. Her last seizure was approximately 6 years ago. 3. Generalized anxiety disorder. 4. Hypertension. 5. Hypothyroidism. 6. Pulmonary nodule that was treated with radiation in September of 2016. PAST SURGICAL HISTORY: 1. Right shoulder surgery. 2. Hysterectomy. 3. Appendectomy. 4. Cholecystectomy. 5. Thyroid surgery. OUTPATIENT MEDICATIONS: Per the EMR and awaiting verification. ALLERGIES: FLAGYL, SULFA, LEXAPRO, EFFEXOR. FAMILY HISTORY: Noncontributory. SOCIAL HISTORY: She is . She was previously a heavy smoker for well over 20 years and quit 5 years ago. There is no ETOH or illicit drug use. REVIEW OF SYSTEMS: Positive for chills. Negative for fever or weight changes. HEENT: Negative for sinus symptoms, ear pain, vision changes or sore throat. RESPIRATORY: As per History of Present Illness. CARDIAC: Negative for chest pain, palpitations or tachycardia. GASTROINTESTINAL: Positive for diarrhea but it is chronic in nature. Negative for nausea, vomiting or constipation. GENITOURINARY: Negative for hematuria, dysuria or polyuria. NEUROLOGIC: Positive for seizure disorder although she has not had a seizure in 6 years and is on medications. Negative for headaches or dizziness. PSYCHIATRIC: Positive for panic attacks and anxiety. Negative for depression. PHYSICAL EXAMINATION: VITAL SIGNS: Temperature 97.9, heart rate 88, blood pressure 113/66, respiratory rate 22 to 24, O2 saturation 98% on 2 liters nasal cannula. GENERAL: This is a 78 year-old female patient who is sitting up in her hospital bed. She is in mild respiratory distress. HEENT: Normocephalic and atraumatic. Pupils are equal and reactive. Oropharynx is clear. NECK: Supple without mass. RESPIRATORY: Inspiratory and expiratory wheezing throughout all lung damon. She is tachypneic. She can only speak in short phrases. CHEST: There is equal rise and fall of the chest with inspiration and expiration. CARDIOVASCULAR: Regular rate and rhythm. At times she is slightly tachycardic. GASTROINTESTINAL: Abdomen is soft, nondistended, non-tender. Bowel sounds are positive. EXTREMITIES: No clubbing, cyanosis or edema. NEUROLOGIC: She is awake, alert and oriented times three. Cranial nerves II- XII are grossly intact as tested. PSYCHIATRIC: She is very anxious and fidgety but cooperative. LABORATORY: Labs were done on her earlier visit to the emergency room. WBCs are 6.2 with hemoglobin 12.8, hematocrit 38.1. She did have a left shift on her differential of 83.8. Electrolytes are basically within normal limits. BUN was slightly high at 19, creatinine kinase was 147, BNP was 525. Influenza A and B per PCR were both negative. Chest x-ray shows emphysema without acute intrathoracic abnormality. All other labs and films have been reviewed via the EMR. ASSESSMENT: 1. Acute exacerbation of chronic obstructive pulmonary disease with a significant history of chronic obstructive pulmonary disease and multiple hospitalizations in the past. 2. Panic attack. 3. Seizure disorder. She is on antiseizure medication. Her last seizure was about 6 years ago. 4. Hypothyroidism on supplementation. 5. Generalized anxiety disorder. 6. Hypertension on medication. PLAN: The patient has been placed in observation. She will have aggressive pulmonary hygiene. We will restart her home medications. I will hold off on putting her on any antibiotics at this time or giving her any additional steroids. She is on chronic steroids at home, and reevaluate her in the morning. Repeat her labs in the morning. Hopefully she can be discharged in the next 1 to 2 days with close followup with Dr. Recio. Will continue to monitor closely and follow as needed. #[id number] [facility]
[2019-04-06] MEDS ORDERED: IPRATROPIUM/ALBUTEROL 3 ML VIAL NEB PRN (20:55)
[2019-04-06] MEDS ORDERED: SODIUM CHLORIDE 0.9% (FLUSH) 10 ML SYG IV PRN (20:55)
[2019-04-06] MEDS ORDERED: IV SET AND CAP CHANGE INJ INJ SCH (21:00)
[2019-04-06] MEDS ORDERED: NON-FORMULARY MEDICATION 1 EA MIS (Oxcarbazepine [Trileptal] 150 MG) PO SCH (21:00)
[2019-04-06] MEDS ORDERED: OXcarbazepine 300 MG TAB PO ONE (21:25)
[2019-04-06] MEDS ORDERED: LEVOTHYROXINE SODIUM 0.025 MG TAB ONE (21:25)
[2019-04-06] MEDS: LEVALBUTEROL TARTRATE 45 MCG IN SCH (21:30)
[2019-04-06] MEDS: DICYCLOMINE HCL 20 MG TAB PO SCH (21:30)
[2019-04-06] MEDS: SODIUM CHLORIDE 0.9% (FLUSH) 10 ML SYG IV SCH (21:31)
[2019-04-06] MEDS: GABAPENTIN 100 MG CAP PO SCH (21:31)
[2019-04-06] MEDS: PAROXETINE HCL 37.5 MG PO SCH ×2 (21:34→21:39)
[2019-04-06] MEDS: PHENYTOIN SODIUM PO SCH ×2 (21:34→21:39)
[2019-04-07] MEDS ORDERED: LEVOTHYROXINE SODIUM 50 MCG PO SCH (07:00)
[2019-04-07] MEDS ORDERED: OXcarbazepine 300 MG TAB PO ONE (07:37)
[2019-04-07] MEDS ORDERED: IPRATROPIUM/ALBUTEROL 3 ML VIAL NEB SCH (08:00)
[2019-04-07] MEDS ORDERED: NON-FORMULARY MEDICATION 1 EA MIS (Umeclidinium-Vilanterol [Anoro Ellipta 62.5-25 Mcg/Inh] IN SCH (08:00)
[2019-04-07] MEDS: BUDESONIDE NEBS 0.5 MG/2 ML INH NEB SCH ×2 (09:00→20:28)
[2019-04-07] MEDS: LEVALBUTEROL TARTRATE 45 MCG IN SCH (09:00)
[2019-04-07] MEDS ORDERED: PHENYTOIN SODIUM CAP EXTENDED 100 MG CAP PO SCH (09:00)
[2019-04-07] MEDS: NEBIVOLOL 2.5 MG TAB PO SCH (09:35)
[2019-04-07] MEDS: PAROXETINE HCL 37.5 MG PO SCH ×2 (09:35→20:06)
[2019-04-07] MEDS: predniSONE 20 MG TAB PO SCH (09:36)
[2019-04-07] MEDS: OXcarbazepine 300 MG TAB PO SCH ×2 (09:36→20:03)
[2019-04-07] MEDS: DICYCLOMINE HCL 20 MG TAB PO SCH ×2 (09:36→20:05)
[2019-04-07] MEDS: SODIUM CHLORIDE 0.9% (FLUSH) 10 ML SYG IV SCH ×2 (09:37→20:06)
[2019-04-07] MEDS ORDERED: POTASSIUM CHLORIDE 20 MEQ TAB PO ONE (10:13)
[2019-04-07] MEDS ORDERED: LEVALBUTEROL NEBS 1.25 MG/3 ML VIAL NEB PRN (10:33)
[2019-04-07] MEDS: LEVALBUTEROL NEBS 1.25 MG/3 ML VIAL NEB SCH ×3 (12:16→20:28)
[2019-04-07] MEDS: LOPERAMIDE CAP 2 MG CAP PO PRN (12:53)
[2019-04-07] MEDS ORDERED: methylPREDNISolone SODIUM SUC 125 MG/2 ML VIAL IV ONE (13:41)
[2019-04-07] MEDS ORDERED: methylPREDNISolone SODIUM SUC 40 MG/ML VIAL ONE (13:51)
[2019-04-07] MEDS: NON-FORMULARY MEDICATION 1 EA MIS (Umeclidinium-Vilanterol [Anoro Ellipta 62.5-25 Mcg/Inh] INH SCH (15:50)
[2019-04-07] MEDS ORDERED: LEVOTHYROXINE SODIUM 0.025 MG TAB ONE (19:13)
[2019-04-07] MEDS: GABAPENTIN 100 MG CAP PO SCH (20:04)
[2019-04-07] MEDS: PHENYTOIN SODIUM CAP EXTENDED 100 MG CAP PO SCH (20:05)
[2019-04-07] MEDS: PHENYTOIN SODIUM 30 MG PO SCH (20:06)
[2019-04-08] MEDS: LEVOTHYROXINE SODIUM 0.025 MG TAB PO SCH (05:32)
[2019-04-08] MEDS: NON-FORMULARY MEDICATION 1 EA MIS (Umeclidinium-Vilanterol [Anoro Ellipta 62.5-25 Mcg/Inh] INH SCH (08:04)
[2019-04-08] MEDS: BUDESONIDE NEBS 0.5 MG/2 ML INH NEB SCH ×2 (08:04→20:32)
[2019-04-08] MEDS: LEVALBUTEROL NEBS 1.25 MG/3 ML VIAL NEB SCH ×4 (08:05→20:32)
--- NOTE | 2019-04-08 09:20 | PN ---
SUPERVISING PHYSICIAN: Acosta Brito MD DATE: 04/07/19 SUBJECTIVE: The patient is sitting up in her bed. She is still quite short of breath. Although her panic attacks have improved, she continues complaints of shortness of breath, but denies chest pain, nausea or vomiting. OBJECTIVE: VITAL SIGNS: Temperature 98.7. Heart rate 90. Blood pressure 129/79. Respiratory rate 18 to 24. O2 saturation 96% on 2 liters nasal cannula. RESPIRATORY: Wheezing throughout all lung damon. She is tachypneic and has to speak in short phrases. CARDIAC: Regular rate and rhythm. GASTROINTESTINAL: Abdomen is soft, nondistended, nontender. Bowel sounds are positive. NEUROLOGIC: Awake, alert and oriented times three. LABORATORY: CBC is unremarkable. Potassium slightly low at 3.4. All other labs and films have been reviewed via the EMR. ASSESSMENT: 1. Acute exacerbation of chronic obstructive pulmonary disease with a significant history of chronic obstructive pulmonary disease and multiple hospitalizations in the past. 2. Panic attack. 3. Seizure disorder. She is on antiseizure medication. Her last seizure was about 6 years ago. 4. Hypothyroidism on supplementation. 5. Generalized anxiety disorder. 6. Hypertension on medication. PLAN: She will continue in observation. Albuterol exacerbates her anxiety, so I have changed her from DuoNeb to Xopenex. I have given her some potassium replacement and I have also given her one dose of IV steroids. She is on p.o. steroids chronically. Hopefully, that will decrease her work of breathing and help with the wheezing. She may need to be put on a steroid taper, but I will try to hold off at this time. Hopefully she will improve overnight and can be discharged tomorrow. She has not been started on any antibiotics at this time. If she does not improve clinically, it may be beneficial to add some antibiotics. We will continue to monitor the patient closely and follow as needed. [id number]
[2019-04-08] MEDS: PAROXETINE HCL 37.5 MG PO SCH ×2 (09:32→20:13)
[2019-04-08] MEDS: NEBIVOLOL 2.5 MG TAB PO SCH (09:32)
[2019-04-08] MEDS: OXcarbazepine 300 MG TAB PO SCH ×2 (09:32→20:11)
[2019-04-08] MEDS: PHENYTOIN SODIUM CAP EXTENDED 100 MG CAP PO SCH ×2 (09:33→20:11)
[2019-04-08] MEDS: SODIUM CHLORIDE 0.9% (FLUSH) 10 ML SYG IV SCH ×2 (09:33→20:14)
[2019-04-08] MEDS: DICYCLOMINE HCL 20 MG TAB PO SCH ×2 (09:33→20:12)
[2019-04-08] MEDS: predniSONE 20 MG TAB PO SCH (09:33)
[2019-04-08] MEDS: LOPERAMIDE CAP 2 MG CAP PO PRN (13:38)
[2019-04-08] MEDS ORDERED: GABAPENTIN 300 MG CAP ONE (19:00)
--- NOTE | 2019-04-08 19:56 | PN ---
DATE: 04/08/19 SUPERVISING PHYSICIAN: Federico Olivares M.D. SUBJECTIVE: The patient is resting comfortably. She notes that she has had a little bit of shortness of breath but not any more panic attacks overnight. She denies any significant chest pains, nausea or vomiting. OBJECTIVE: VITAL SIGNS: Temperature 98.4, pulse 71, blood pressure 69201, respirations 18, satting 97% on 2 liters nasal cannula. GENERAL: The patient is resting comfortably. Appears to be in no acute distress. She is alert. CHEST: Lung sounds are diminished towards the bases. No obvious rhonchi. There is just a very faint wheezing heard in the bilateral upper apices. She does sound obviously short of breath on conversation. HEART: Regular rate and rhythm. ABDOMEN: Soft, non-tender. Positive bowel sounds. EXTREMITIES: Without any edema. NEUROLOGIC: She is alert and oriented times three. LABORATORY: No additional laboratory studies available. RADIOLOGY: No additional radiographic studies. ASSESSMENT: 1. Acute exacerbation of chronic obstructive pulmonary disease showing slight improvement with aggressive treatment. 2. Panic attack likely contributing to some exacerbation of #1. 3. Seizure disorder. She is on antiseizure medication. Her last seizure was about 6 years ago. 4. Hypothyroidism on supplementation. 5. Generalized anxiety disorder. 6. Hypertension on medication. PLAN: Continue treatment at this point with continued aggressive pulmonary hygiene. She does continue on steroids but has been started on p.o. dose today. I would anticipate if she continues to clinically improve as well as she is that she would discharge in the morning. Until then will continue to monitor and treat as needed. #[id number] [facility]
[2019-04-08] MEDS: PHENYTOIN SODIUM 30 MG PO SCH (20:13)
[2019-04-08] MEDS ORDERED: GABAPENTIN 300 MG CAP PO SCH (21:00)
[2019-04-09] MEDS: LEVOTHYROXINE SODIUM 0.025 MG TAB PO SCH (05:59)
[2019-04-09] MEDS: LEVALBUTEROL NEBS 1.25 MG/3 ML VIAL NEB SCH ×2 (08:56→12:48)
[2019-04-09] MEDS: BUDESONIDE NEBS 0.5 MG/2 ML INH NEB SCH (08:56)
[2019-04-09] MEDS: NON-FORMULARY MEDICATION 1 EA MIS (Umeclidinium-Vilanterol [Anoro Ellipta 62.5-25 Mcg/Inh] INH SCH (09:28)
[2019-04-09] MEDS: OXcarbazepine 300 MG TAB PO SCH (09:39)
[2019-04-09] MEDS: PAROXETINE HCL 37.5 MG PO SCH (09:39)
[2019-04-09] MEDS: NEBIVOLOL 2.5 MG TAB PO SCH (09:40)
[2019-04-09] MEDS: DICYCLOMINE HCL 20 MG TAB PO SCH (09:40)
[2019-04-09] MEDS: PHENYTOIN SODIUM CAP EXTENDED 100 MG CAP PO SCH (09:40)
[2019-04-09] MEDS: predniSONE 20 MG TAB PO SCH (09:40)
[2019-04-09] MEDS: SODIUM CHLORIDE 0.9% (FLUSH) 10 ML SYG IV SCH (09:41)
[2019-04-09 17:01] VITALS: BP 118/68; TEMP 97.6; O2SAT 95
--- NOTE | 2019-04-22 09:16 | DS ---
SUPERVISING PHYSICIAN: Elvira Olivares MD ADMISSION DIAGNOSIS: 1. Acute exacerbation of chronic obstructive pulmonary disease with a significant history of chronic obstructive pulmonary disease and multiple hospitalizations in the past. 2. Panic attack. 3. Seizure disorder. She is on antiseizure medication. Her last seizure was about 6 years ago. 4. Hypothyroidism on supplementation. 5. Generalized anxiety disorder. 6. Hypertension on medication. DISCHARGE DIAGNOSIS: 1. Acute exacerbation of chronic obstructive pulmonary disease showing improvement with aggressive treatment. 2. Panic attack likely contributing to some exacerbation of #1. 3. Seizure disorder. She is on antiseizure medication. Her last seizure was about 6 years ago with no seizure activity during hospitalization. 4. Hypothyroidism on supplementation. 5. Generalized anxiety disorder. 6. Hypertension on medication. REASON FOR HOSPITALIZATION: This is a 78 year-old female patient who had actually been seen in the Emergency Room earlier in the day. She has a significant history of chronic obstructive pulmonary disease and is actually oxygen dependent. She was treated earlier with some nebulizer treatments and received a steroid dose in the Emergency Room on her first visit. She returned home and came back later due to shortness of breath. She also has a significant history of panic attacks and anxiety disorder. She was actually having a panic attack and hyperventilating. She was given multiple breathing treatments. Her vital signs on he second admission showed a temperature of 98.2 with heart rate 92, blood pressure 127/80, respiratory rate 24, O2 saturation 87% on 2 liters nasal cannula. After putting her on oxygen, she came up to 96. Her respiratory rate remained in the mid 20s. She was given breathing treatments as well as some anti-anxiety medications. The patient was admitted in stable condition. LABORATORY: White count on admission 4,900, hemoglobin 11.6, hematocrit 34.6, platelet count 186,000. Differential did not show a left shift. Chemistries showed just a mildly low potassium of 3.4. All other indices were normal except for just a mildly low calcium of 8.3. HOSPITAL COURSE: Ms. Holland was admitted for COPD exacerbation. She was put on aggressive pulmonary hygiene, steroids, but not treated with any antibiotics. She did clinically well. On date of discharge, she had improved well enough to continue with outpatient management. PLAN: Ms. Holland was discharged on 04/09/19 with instructions to followup with Dr. Recio in 7 days or sooner. She was to take medications as instructed and given instructions to return to the hospital as needed. Diet at discharge was to resume usual diet. Activity to increase as tolerated. DISCHARGE MEDICATIONS: 1. Medrol Dosepak. All other medications prior to hospitalization were continued as is. CONDITION ON DISCHARGE: Stable and improved. DISPOSITION: The patient is discharged home. #[id number] [facility]
== END 2019-04-09 16:35 | disposition home or self-care (01) | DRG 192 ==
LOC: ER 18:37 → MS 19:54 → OBSVTOIN 04-07 20:55
PROVIDERS: ADMIT Nurse Practitioner Acute Care; ATTEND Nurse Practitioner Family
DX: J44.1 Chronic obstructive pulmonary disease with (acute) exacerbation (principal); F41.1 Generalized anxiety disorder; G40.909 Epilepsy, unspecified, not intractable, without status epilepticus; E03.9 Hypothyroidism, unspecified; I10 Essential (primary) hypertension; Z99.81 Dependence on supplemental oxygen; Z88.2 Allergy status to sulfonamides; Z88.8 Allergy status to other drugs, medicaments and biological substances; Z79.52 Long term (current) use of systemic steroids; Z79.899 Other long term (current) drug therapy; Z87.891 Personal history of nicotine dependence

== ENCOUNTER 2019-04-22 18:29 | Emergency (ER) | payer MEDICARE, OTHER ==
[2019-04-22 18:48] VITALS: TEMP 97.3
[2019-04-22] MEDS ORDERED: ALPRAZolam 0.25 MG TAB PO ONE (18:49)
[2019-04-22] MEDS ORDERED: predniSONE 20 MG TAB PO ONE (18:49)
[2019-04-22] MEDS ORDERED: IPRATROPIUM/ALBUTEROL 3 ML VIAL NEB ONE (18:50)
[2019-04-22] MEDS ORDERED: ALPRAZolam 0.5 MG TAB ONE (18:53)
--- NOTE | 2019-04-22 18:53 | ED.PDOC ---
History of Present Illness - General Time Seen by Provider: 04/22/19 18:47 Additional Information: Patient complains of shortness of breath, history of COPD with multiple admits. Also has panic disorder. Recently admitted for COPD exacerbation, discharged 13 days ago. Two days of worsening shortness of breath with exertional dyspnea. Mild associated midline chest pain. No nausea or vomiting. No fever or cough. - History of Present Illness Allergies/Adverse Reactions: Allergies Sulfa Antibiotics Allergy (Verified 05/17/18 17:21) Unknown Sulfonamide Deriv *RETIRED-02/15/13 [Sulfonamide Derivatives] Allergy (Verified 05/17/18 17:21) Zonisamide [From Zonegran] Allergy (Verified 05/17/18 17:21) Unknown Metronidazole Adverse Reaction (Intermediate, Verified 05/17/18 17:21) SOMNOLENCE Calcitonin [From Miacalcin] Adverse Reaction (Verified 05/17/18 17:21) CI Pigment Blue 63 [From Cymbalta] Adverse Reaction (Verified 05/17/18 17:21) Duloxetine [From Cymbalta] Adverse Reaction (Verified 05/17/18 17:21) Escitalopram [From Lexapro] Adverse Reaction (Verified 05/17/18 17:21) Unknown Fluconazole [From Diflucan] Adverse Reaction (Verified 05/17/18 17:21) Levofloxacin [From Levaquin] Adverse Reaction (Verified 05/17/18 17:21) Nicotine [From Nicoderm] Adverse Reaction (Verified 05/17/18 17:21) Ropinirole Adverse Reaction (Verified 05/17/18 17:21) Venlafaxine [From Effexor] Adverse Reaction (Verified 05/17/18 17:21) SYNCOPE Home Medications: Ambulatory Orders RX: Gabapentin 300 mg PO BEDTIME 07/15/13 RX: Paroxetine HCl [Paxil Cr] 37.5 mg PO BID 06/25/16 RX: Levothyroxine Sodium [Synthroid] 50 mcg PO DAILY@0700 08/31/16 RX: Nebivolol HCl [Bystolic] 5 mg PO DAILY 08/31/16 RX: Phenytoin Sodium Cap Extended [Dilantin Cap] 100 mg PO QAM 08/31/16 RX: Levalbuterol Tartrate [Xopenex Hfa] 45 mcg IN QID 05/30/17 RX: cloNAZepam [Klonopin] 0.5 mg PO QID 12/01/17 RX: Budesonide (Inhalation) [Budesonide] 0.5 mg IN BID 12/02/17 RX: Phenytoin Sodium Extended [Dilantin] 300 mg PO BEDTIME 12/02/17 Famotidine 20 mg PO DAILY 04/22/19 Prednisone 2.5 mg PO DAILY 04/22/19 RX: Glycopyrrolate 1 tablet PO DAILY 04/22/19 RX: Levalbuterol Inhaler [Xopenex Hfa 45 Mcg] 1 unit INH Q4HR 04/22/19 RX: Umeclidinium-Vilanterol [Anoro Ellipta 62.5-25 Mcg/INH] 1 unit INH DAILY 04/22/19 Umeclidinium-Vilanterol [Anoro Ellipta 62.5-25 Mcg/INH] 1 aer NEB DAILY 04/22/19 predniSONE [PredniSONE] 5 mg PO DAILY 04/22/19 Review of Systems - Review of Systems Constitutional: Denies: chills, fever EENTM: Denies: nose congestion Respiratory: States: cough, short of breath, wheezing Cardiology: Denies: chest pain, edema, palpitations Gastrointestinal/Abdominal: States: no symptoms reported Genitourinary: States: no symptoms reported Musculoskeletal: States: no symptoms reported Skin: States: no symptoms reported Neurological: States: no symptoms reported Endocrine: States: no symptoms reported Hematologic/Lymphatic: States: no symptoms reported All other Systems: Reviewed and Negative Past Medical History (General) - Patient Medical History Hx Seizures: Yes Hx Stroke: No Hx Dementia: No Hx Asthma: No Hx of COPD: Yes Hx Cardiac Disorders: No Hx Congestive Heart Failure: No Hx Pacemaker: No Hx Hypertension: Yes Hx Thyroid Disease: Yes - Thyroidectomy Hx Diabetes: No Hx Gastroesophageal Reflux: - IBS Hx Renal Disease: No Hx Cancer: Yes - Hx lung CA Hx of HIV: No Hx Hepatitis C: No Hx MRSA: No - Vaccination History Hx Tetanus, Diphtheria Vaccination: No Hx Influenza Vaccination: Yes Hx Pneumococcal Vaccination: Yes - Social History Hx Tobacco Use: Yes Hx Chewing Tobacco Use: No Hx Alcohol Use: No Hx Substance Use: No Hx Substance Use Treatment: No Hx Depression: No Hx Physical Abuse: No Hx Emotional Abuse: No Hx Suspected Abuse: No - Female History Patient : No Family Medical History - Family History Mother Family History: No Known Living Status: Hx Family Asthma: Yes - copd dad,sister Hx Family Congestive Heart Failure: Yes Hx Family Hypertension: Yes Hx Family Stroke: No Hx Cardiac Disease: No Hx Family Diabetes: No Hx Family Cancer: No Physical Exam - Physical Exam General Appearance: Comfortable, No apparent distress Eyes, Ears, Nose, Throat Exam: normal ENT inspection Neck: full range of motion, supple Respiratory: no accessory muscle use, decreased breath sounds, wheezing Cardiovascular/Chest: normal peripheral pulses, regular rate, rhythm, no edema Gastrointestinal/Abdominal: non tender, soft Neurologic: no motor/sensory deficits, alert, normal mood/affect, oriented x 3 Progress - Progress Progress: 04/22/19 20:25 Patient reassessed, she is feeling better and would like to go home. Reviewed labs and imaging, daughter at bedside. may be mild COPD vs anxiety or both. No further increased work of breathing, will continue home nebs and she will follow up with her PCP. Home care instructions and return indications reviewed. - EKG/XRAY/CT Comments: 1836 NSR at 78, occasional PAC, no STEMI Departure - Departure Clinical Impression: COPD (chronic obstructive pulmonary disease) Qualifiers: COPD type: COPD with acute exacerbation Qualified Code(s): J44.1 - Chronic obstructive pulmonary disease with (acute) exacerbation Time of Disposition: 20:27 Disposition: Discharge to Home or Self Care Condition: Fair Departure Forms: ED Discharge - Pt. Copy, Patient Portal Self Enrollment Instructions: COPD Including Emphysema (DC) Diet: resume usual diet Activity: increase activity as tolerated Referrals: Matt Recio III, MD [Primary Care Provider] - 1-2 Weeks Home Medications: Ambulatory Orders RX: Gabapentin 300 mg PO BEDTIME 07/15/13 RX: Paroxetine HCl [Paxil Cr] 37.5 mg PO BID 06/25/16 RX: Levothyroxine Sodium [Synthroid] 50 mcg PO DAILY@0700 08/31/16 RX: Nebivolol HCl [Bystolic] 5 mg PO DAILY 08/31/16 RX: Phenytoin Sodium Cap Extended [Dilantin Cap] 100 mg PO QAM 08/31/16 RX: Levalbuterol Tartrate [Xopenex Hfa] 45 mcg IN QID 09/20/16 RX: cloNAZepam [Klonopin] 0.5 mg PO QID 12/01/17 RX: Budesonide (Inhalation) [Budesonide] 0.5 mg IN BID 12/02/17 RX: Phenytoin Sodium Extended [Dilantin] 300 mg PO BEDTIME 12/02/17 Famotidine 20 mg PO DAILY 04/22/19 Prednisone 2.5 mg PO DAILY 04/22/19 RX: Glycopyrrolate 1 tablet PO DAILY 04/22/19 RX: Levalbuterol Inhaler [Xopenex Hfa 45 Mcg] 1 unit INH Q4HR 04/22/19 RX: Umeclidinium-Vilanterol [Anoro Ellipta 62.5-25 Mcg/INH] 1 unit INH DAILY 04/22/19 Umeclidinium-Vilanterol [Anoro Ellipta 62.5-25 Mcg/INH] 1 aer NEB DAILY 04/22/19 predniSONE [PredniSONE] 5 mg PO DAILY 04/22/19
[2019-04-22 19:35] VITALS: O2SAT 96
--- NOTE | 2019-04-22 19:59 | RAD ---
EXAM DESCRIPTION: Chest,1 View CLINICAL HISTORY: 78 years Female shortness of breath COMPARISON: April 06, 2019. TECHNIQUE: AP view of the chest was obtained. FINDINGS: Cardiac size is within normal limits. Central vessels are not increased. Parenchymal stranding infrahilar regions bilaterally unchanged. No effusions bilaterally. No pneumothorax. IMPRESSION: Chronic changes infrahilar regions bilaterally. No evidence for new infiltrate or congestive heart failure. Electronically signed by: Alea Cristina MD 04/22/2019 7:57 PM [facility]
[2019-04-22 20:08] VITALS: BP 117/54
== END 2019-04-22 20:42 | disposition home or self-care (01) ==
LOC: ER 18:29
DX: J44.1 Chronic obstructive pulmonary disease with (acute) exacerbation (principal); I49.1 Atrial premature depolarization; R56.9 Unspecified convulsions; I10 Essential (primary) hypertension; E89.0 Postprocedural hypothyroidism; Z87.891 Personal history of nicotine dependence; Z85.118 Personal history of other malignant neoplasm of bronchus and lung; Z79.899 Other long term (current) drug therapy; Z88.8 Allergy status to other drugs, medicaments and biological substances; Z88.2 Allergy status to sulfonamides; Z88.1 Allergy status to other antibiotic agents
CPT/HCPCS: 71045; 80048; 83880; 84484; 85025; 93005; 94640; J7512; J7620

== ENCOUNTER → 2019-04-29 | Outpatient (CLI) | payer MEDICARE, OTHER | LOC: GMAL 10:55 | PROVIDERS: ATTEND Family Medicine | DX: D51.3 Other dietary vitamin B12 deficiency anemia (principal); E03.9 Hypothyroidism, unspecified; E55.9 Vitamin D deficiency, unspecified; I10 Essential (primary) hypertension; E78.49 Other hyperlipidemia ==

== ENCOUNTER 2019-05-05 17:35 | Emergency (ER) | payer MEDICARE, OTHER ==
[2019-05-05] MEDS ORDERED: predniSONE 20 MG TAB PO ONE (17:53)
[2019-05-05] MEDS ORDERED: IBUPROFEN 200 MG TAB PO ONE (17:53)
[2019-05-05] MEDS ORDERED: LEVALBUTEROL NEBS 1.25 MG/3 ML VIAL NEB ONE (17:54)
[2019-05-05] MEDS ORDERED: HYDROcodone 5MG/APAP 325MG 1 EA TAB PO ONE (17:54)
--- NOTE | 2019-05-05 18:32 | RAD ---
EXAM DESCRIPTION: XR Chest, 2 Views CLINICAL HISTORY: 79 years Female sob, body aches, headache TECHNIQUE: Two views of the chest. COMPARISON: No prior exams provided for comparison. FINDINGS: Moderate chronic obstructive pulmonary disease with mild bibasilar scarring. No focal consolidation, effusion, or pneumothorax. The cardiomediastinal silhouette and central pulmonary vasculature are normal. No acute osseous abnormalities. IMPRESSION: No acute cardiopulmonary abnormalities. Chronic obstructive pulmonary disease. Electronically signed by: Daily Chong MD 05/05/2019 6:30 PM [facility]
[2019-05-05] MEDS ORDERED: AMOXICILLIN & POT CLAVULANATE 875 MG TAB PO ONE (18:43)
--- NOTE | 2019-05-05 18:52 | ED.PDOC ---
History of Present Illness - General Chief Complaint: Headache Stated Complaint: JANE,shortness of breath Time Seen by Provider: 05/05/19 17:48 Source: patient Exam Limitations: no limitations - History of Present Illness Initial Comments: he patient is a 79-year-old female presenting to the emergency room secondary to a low-grade fever with associated cardiac aches, mild increased shortness of breath and a mildly productive cough. No real sore throat. Minimal runny nose. No chest pain. No abdominal pain. No syncope or near syncope. She is holding her oxygen levels well on her normal 2 L. She is moving air well. Timing/Duration: 24 hours Severity: moderate Improving Factors: nothing Worsening Factors: nothing Associated Symptoms: cough, fever/chills Allergies/Adverse Reactions: Allergies Sulfa Antibiotics Allergy (Verified 05/17/18 17:21) Unknown Sulfonamide Deriv *RETIRED-02/15/13 [Sulfonamide Derivatives] Allergy (Verified 05/17/18 17:21) Zonisamide [From Zonegran] Allergy (Verified 05/17/18 17:21) Unknown Metronidazole Adverse Reaction (Intermediate, Verified 05/17/18 17:21) SOMNOLENCE Calcitonin [From Miacalcin] Adverse Reaction (Verified 05/17/18 17:21) CI Pigment Blue 63 [From Cymbalta] Adverse Reaction (Verified 05/17/18 17:21) Duloxetine [From Cymbalta] Adverse Reaction (Verified 05/17/18 17:21) Escitalopram [From Lexapro] Adverse Reaction (Verified 05/17/18 17:21) Unknown Fluconazole [From Diflucan] Adverse Reaction (Verified 05/17/18 17:21) Levofloxacin [From Levaquin] Adverse Reaction (Verified 05/17/18 17:21) Nicotine [From Nicoderm] Adverse Reaction (Verified 05/17/18 17:21) Ropinirole Adverse Reaction (Verified 05/17/18 17:21) Venlafaxine [From Effexor] Adverse Reaction (Verified 05/17/18 17:21) SYNCOPE Home Medications: Ambulatory Orders Gabapentin 300 mg PO BEDTIME 07/15/13 Paroxetine HCl [Paxil Cr] 37.5 mg PO BID 06/25/16 Levothyroxine Sodium [Synthroid] 50 mcg PO DAILY@0700 08/31/16 Nebivolol HCl [Bystolic] 5 mg PO DAILY 08/31/16 Phenytoin Sodium Cap Extended [Dilantin Cap] 100 mg PO QAM 08/31/16 Levalbuterol Tartrate [Xopenex Hfa] 45 mcg IN QID 09/20/16 cloNAZepam [Klonopin] 0.5 mg PO QID 12/01/17 Budesonide (Inhalation) [Budesonide] 0.5 mg IN BID 12/02/17 Phenytoin Sodium Extended [Dilantin] 300 mg PO BEDTIME 12/02/17 Famotidine 20 mg PO DAILY 04/22/19 Glycopyrrolate 1 tablet PO DAILY 04/22/19 Levalbuterol Inhaler [Xopenex Hfa 45 Mcg] 1 unit INH Q4HR 04/22/19 Prednisone 2.5 mg PO DAILY 04/22/19 Umeclidinium-Vilanterol [Anoro Ellipta 62.5-25 Mcg/INH] 1 aer NEB DAILY 04/22/19 Umeclidinium-Vilanterol [Anoro Ellipta 62.5-25 Mcg/INH] 1 unit INH DAILY 04/22/19 predniSONE [PredniSONE] 5 mg PO DAILY 04/22/19 Amoxicillin & Pot Clavulanate [Augmentin Tab] 875 mg PO BID #10 tab 05/05/19 Review of Systems - Review of Systems Constitutional: States: fever, malaise EENTM: States: nose congestion Respiratory: States: cough, short of breath Cardiology: States: no symptoms reported Gastrointestinal/Abdominal: States: no symptoms reported Genitourinary: States: no symptoms reported Musculoskeletal: States: no symptoms reported Skin: States: no symptoms reported Neurological: States: no symptoms reported Endocrine: States: no symptoms reported All other Systems: No Change from Baseline Past Medical History (General) - Patient Medical History Hx Seizures: Yes Hx Stroke: No Hx Dementia: No Hx Asthma: No Hx of COPD: Yes Hx Cardiac Disorders: No Hx Congestive Heart Failure: No Hx Pacemaker: No Hx Hypertension: Yes Hx Thyroid Disease: Yes - Thyroidectomy Hx Diabetes: No Hx Gastroesophageal Reflux: - IBS Hx Renal Disease: No Hx Cancer: Yes - Hx lung CA Hx of HIV: No Hx Hepatitis C: No Hx MRSA: No Surgical History: cholecystectomy, Hysterectomy - Vaccination History Hx Tetanus, Diphtheria Vaccination: No Hx Influenza Vaccination: Yes Hx Pneumococcal Vaccination: Yes - Social History Hx Tobacco Use: Yes Hx Chewing Tobacco Use: No Hx Alcohol Use: No Hx Substance Use: No Hx Substance Use Treatment: No Hx Depression: No Hx Physical Abuse: No Hx Emotional Abuse: No Hx Suspected Abuse: No - Female History Patient : No Family Medical History - Family History Mother Family History: No Known Living Status: Hx Family Asthma: Yes - copd dad,sister Hx Family Congestive Heart Failure: Yes Hx Family Hypertension: Yes Hx Family Stroke: No Hx Cardiac Disease: No Hx Family Diabetes: No Hx Family Cancer: No Physical Exam - Physical Exam General Appearance: Alert, Comfortable, No apparent distress Eye Exam: bilateral normal Ears, Nose, Throat: hearing grossly normal, normal ENT inspection, nasal congestion - mild Neck: full range of motion, supple Respiratory: no respiratory distress, no accessory muscle use, rhonchi - mild scattered Cardiovascular/Chest: normal peripheral pulses, no edema, other - regular rate Peripheral Pulses: radial,right: 2+, radial,left: 2+ Gastrointestinal/Abdominal: non tender, soft Rectal Exam: deferred Back Exam: no CVA tenderness, no vertebral tenderness Extremity: non-tender, normal inspection, no pedal edema, normal capillary refill Neurologic: rope cleaner II-XII nml as tested, alert, normal mood/affect, oriented x 3 Skin Exam: normal color Comments: Vital Signs - 24 hr 05/05/19 05/05/19 05/05/19 17:48 17:59 18:08 Temperature 100 F H Pulse Rate 89 Pulse Rate [ 89 Left Brachial] Respiratory 20 20 20 Rate Blood Pressure 142/72 [Left Arm] O2 Sat by Pulse 88 L 98 Oximetry 05/05/19 18:40 Temperature Pulse Rate Pulse Rate [ 88 Left Brachial] Respiratory 20 Rate Blood Pressure 108/82 [Left Arm] O2 Sat by Pulse 95 Oximetry Progress - Progress Progress: 05/05/19 18:52 the patient is an 79-year-old female with a history of long-standing COPD and oxygen dependence presenting to the emergency room secondary to low- grade fever, body aches and mild increased shortness of breath and mildly productive cough. She has tested negative for flu here today. Chest x-ray shows no consolidating infiltrate at this point. Given her history however the patient is going to be placed on Augmentin twice daily for the next 5 days in case this is the start of a pulmonary bacterial infection. The patient is to [facility] follow-up with her primary care doctor this coming week. She is also to double her prednisone each morning for the next 2 or 3 days, given her chronic steroid usage. She did receive a dose of prednisone here tonight along with a breathing treatment. She needs to keep herself well hydrated. ER warnings were given for any significant worsening. Continue her current oxygen use. Additionally she should continue her probiotic given her history of C. difficile. noe santana [id number] - Results/Orders Results/Orders: two-view chest x-ray shows chronic lung disease but no overt new infiltrate. Rapid flu is negative. Departure - Departure Clinical Impression: COPD with exacerbation Disposition: Discharge to Home or Self Care Condition: Fair Departure Forms: ED Discharge - Pt. Copy, Patient Portal Self Enrollment Instructions: Exacerbation of COPD (DC) Diet: regular diet Activity: increase activity as tolerated Referrals: Matt Recio III, MD [Primary Care Provider] - 1-2 Weeks Prescriptions: Amoxicillin & Pot Clavulanate [Augmentin Tab] 875 mg PO BID #10 tab Home Medications: Ambulatory Orders Gabapentin 300 mg PO BEDTIME 07/15/13 Paroxetine HCl [Paxil Cr] 37.5 mg PO BID 06/25/16 Levothyroxine Sodium [Synthroid] 50 mcg PO DAILY@0700 08/31/16 Nebivolol HCl [Bystolic] 5 mg PO DAILY 08/31/16 Phenytoin Sodium Cap Extended [Dilantin Cap] 100 mg PO QAM 08/31/16 Levalbuterol Tartrate [Xopenex Hfa] 45 mcg IN QID 09/20/16 cloNAZepam [Klonopin] 0.5 mg PO QID 12/01/17 Budesonide (Inhalation) [Budesonide] 0.5 mg IN BID 12/02/17 Phenytoin Sodium Extended [Dilantin] 300 mg PO BEDTIME 12/02/17 Famotidine 20 mg PO DAILY 04/22/19 Glycopyrrolate 1 tablet PO DAILY 04/22/19 Levalbuterol Inhaler [Xopenex Hfa 45 Mcg] 1 unit INH Q4HR 04/22/19 Prednisone 2.5 mg PO DAILY 04/22/19 Umeclidinium-Vilanterol [Anoro Ellipta 62.5-25 Mcg/INH] 1 aer NEB DAILY 04/22/19 Umeclidinium-Vilanterol [Anoro Ellipta 62.5-25 Mcg/INH] 1 unit INH DAILY 04/22/19 predniSONE [PredniSONE] 5 mg PO DAILY 04/22/19 Amoxicillin & Pot Clavulanate [Augmentin Tab] 875 mg PO BID #10 tab 05/05/19 Additional Instructions: the patient is an 79-year-old female with a history of long-standing COPD and oxygen dependence presenting to the emergency room secondary to low- grade fever, body aches and mild increased shortness of breath and mildly productive cough. She has tested negative for flu here today. Chest x-ray shows no consolidating infiltrate at this point. Given her history however the patient is going to be placed on Augmentin twice daily for the next 5 days in case this is the start of a pulmonary bacterial infection, however it is still more likely viral. The patient is to keep follow-up with her primary care doctor this coming week. She is also to double her prednisone each morning for the next 2 or 3 days, given her chronic steroid usage. She did receive a dose of prednisone here tonight along with a breathing treatment. She needs to keep herself well hydrated. ER warnings were given for any significant worsening. Continue her current oxygen use. Additionally she should continue her probiotic given her history of C. difficile.
[2019-05-05 19:07] VITALS: BP 123/52; TEMP 99; O2SAT 97
== END 2019-05-05 19:07 | disposition home or self-care (01) ==
LOC: ER 17:35
DX: J44.1 Chronic obstructive pulmonary disease with (acute) exacerbation (principal); R50.9 Fever, unspecified; R56.9 Unspecified convulsions; I10 Essential (primary) hypertension; E89.0 Postprocedural hypothyroidism; Z99.81 Dependence on supplemental oxygen; Z85.118 Personal history of other malignant neoplasm of bronchus and lung; Z79.899 Other long term (current) drug therapy; Z87.891 Personal history of nicotine dependence; Z88.2 Allergy status to sulfonamides; Z88.8 Allergy status to other drugs, medicaments and biological substances; Z88.1 Allergy status to other antibiotic agents
CPT/HCPCS: 71046; 87502; 94640; J7512; J7614

== ENCOUNTER 2019-05-06 14:20 | Inpatient (IN) | payer MEDICARE, OTHER ==
--- NOTE | 2019-05-06 14:57 | HP ---
SUPERVISING PHYSICIAN: Antonio Guzman MD CHIEF COMPLAINT: Worsening shortness of breath. HISTORY OF PRESENT ILLNESS: Ms. Holland is an 79-year-old female patient with a longstanding history of chronic obstructive pulmonary disease. She had recently been in the hospital for an exacerbation on 04/07/19 and discharged on 04/09/19. She has seen Dr. Recio two times since discharge. She had been doing fairly well until in the last week she started having a fairly productive cough with green sputum and increasing shortness of breath associated with anxiety. She was seen in the Emergency Room last night and diagnosed with chronic obstructive pulmonary disease exacerbation and started on some prednisone and antibiotics and discharged home. This morning, she was seen by Dr. Recio who did a BioFire exam on her for multiple upper respiratory viruses as well as mycoplasma, which were all negative including the flu. She was having significant difficulty with respirations, had very minimal air movement and Dr. Recio requested the patient be directly admitted for ongoing treatment and evaluation for COPD exacerbation. The patient was directly admitted from Dr. Recio' clinic in stable condition. PAST MEDICAL HISTORY: 1. Chronic obstructive pulmonary disease with multiple hospitalizations for acute exacerbations within the last year, the last admission being 04/07/19. 2. Seizure disorder with last reported seizure 6 years previously. 3. Generalized anxiety disorder. 4. Hypertension. 5. Hypothyroidism. 6. Pulmonary nodule that was treated with radiation in September of 2016. PAST SURGICAL HISTORY: 1. Right shoulder surgery. 2. Hysterectomy. 3. Appendectomy. 4. Cholecystectomy. 5. Thyroid surgery. HOME MEDICATIONS: 1. Prednisone 5 mg daily. 2. Clonazepam 0.5 mg q.i.d. 3. Anoro Ellipta 1 inhaled daily. 4. Prednisone 2.5 mg at bedtime. 5. Dilantin 100 mg q.a.m. 6. Dilantin 160 mg at bedtime. 7. Paxil 37.5 mg b.i.d. 8. Trileptal 150 mg b.i.d. 9. Bystolic 5 mg daily. 10. Synthroid 50 mcg daily. 11. Xopenex 745 mcg q.i.d. 12. Gabapentin 300 mg at bedtime. 13. Famotidine 20 mg b.i.d. 14. Budesonide inhaled 0.5 mg b.i.d. ALLERGIES: MULTIPLE ALLERGIES INCLUDING SULFA ANTIBIOTICS, METRONIDAZOLE, CALCITONIN, CI PIGMENT BLUE 63, DULOXETINE, LEXAPRO, DIFLUCAN, LEVAQUIN, NICOTINE, ROPINIROLE, EFFEXOR. FAMILY HISTORY: Noncontributory. SOCIAL HISTORY: The patient is . She was previously a heavy smoker for well over 20 years, quit 5 years previously. She does not use alcohol or illicit drugs. REVIEW OF SYSTEMS: CONSTITUTIONAL: Negative for any fevers, chills or unintentional weight loss, general malaise. HEENT: Negative for sore throats, earaches, nasal congestion, sinus pain. RESPIRATORY: As noted in history of present illness, increasing productive cough with green sputum. CARDIOVASCULAR: Negative for chest pain, palpitations, tachycardia or syncopal episodes. GASTROINTESTINAL: Negative for nausea, vomiting, diarrhea, constipation or abdominal pain. GENITOURINARY: Negative for dysuria, hematuria, polyuria. NEUROLOGIC: Positive for seizure disorder with last seizure reported 6 years previously, on medication. No ataxia, negative for headaches, dizziness or other neurologic deficits. PSYCHIATRIC: Positive for panic anxiety and anxiety. Negative for worsening depression. PHYSICAL EXAMINATION: VITAL SIGNS: Reviewed and noted- EHR down at time of Dictation GENERAL: The patient is a little anxious with increasing shortness of breath. She is alert. HEENT: Tympanic membranes clear bilaterally. Oropharynx is pink, moist without any lesions. NECK: Supple, nontender with full range of motion. No jugular venous distention noted. RESPIRATORY: Lungs significant diminished throughout all damon with inspiratory and expiratory wheezing with increased expiratory phase. No obvious rales or rhonchi. CARDIOVASCULAR: Regular rate and rhythm without any appreciable murmurs, gallops, or rubs. ABDOMEN: Soft, nontender. Positive bowel sounds. EXTREMITIES: There is no cyanosis, clubbing or edema. NEUROLOGIC: The patient is alert and oriented times three. Cranial nerves II- XII are grossly intact. Facial features are symmetrical. Extraocular movements are within normal limits. There is no nystagmus noted. SKIN: Warm, pink and dry. LABORATORY: White count 6,300, hemoglobin 13, hematocrit 38.6, platelet count 200,000. Differential does show a left shift. Her blood gas analysis showed pH 7.39, pCO2 45, pO2 88, bicarb 26, saturation 97% on 3 liters nasal cannula. Chemistries showed normal electrolytes with BUN 22, creatinine 0.79, glucose 84, lactic acid 1.4, calcium 9.0, magnesium 2.0, bilirubin within normal limits. BNP elevated at 207. RADIOLOGY: Chest x-ray per radiologic interpretation showed no radiographic evidence of acute cardiopulmonary disease within the emphysematous senescent chest. Please see that report for details. ASSESSMENT: 1. Acute exacerbation of chronic obstructive pulmonary disease having failed outpatient treatment plan. 2. Panic attacks exacerbated by #1. 3. Seizure disorder on Dilantin with last seizure reported 6 years previously. 4. Hypothyroidism on supplementation. 5. Generalized anxiety disorder on multiple medications. 6. Hypertension on medication. PLAN: The patient is going to be directly admitted for exacerbation of chronic obstructive pulmonary disease. We will start her on Solu-Medrol 125 mg initially and will follow this up with 80 mg q.6h. for at least 3 doses. She will be on Xopenex breathing treatments q.i.d. as well as aggressive pulmonary toilet. Given the fact that she has been in the hospital within the last two weeks on multiple rounds of steroids, has extensive chronic obstructive pulmonary disease and emphysema, risk factors significant for possible Pseudomonas and given that her BioFire exam was negative for all upper respiratory viruses tested, we will go ahead and start her on antibiotic coverage with cefepime and azithromycin both to cover for possible Pseudomonas, pneumococcal and atypical. We will go ahead provide her with Xanax as needed due to the fact that she has severe anxiety attacks when she is taking steroids. We will go ahead and start her on inhaled steroids in the form of Pulmicort at 1 mg b.i.d. I would anticipate her length of stay to be at least two to three days. If we cannot find her most recent echocardiogram either from previous visits or in the clinic, given that she did have an elevated BNP and no significant diagnosis of congestive heart failure and no findings on x-ray, we will address this with at least an echocardiogram to further rule out any complicating factors. She will be on DVT prophylaxis per protocol. We will plan to repeat labs and follow x-rays as necessary. Until the patient can transition to outpatient management, we will continue to monitor and treat as needed. #[id number] [facility]
[2019-05-06] MEDS ORDERED: SODIUM CHLORIDE 0.9% (FLUSH) 10 ML SYG IV PRN (15:00)
[2019-05-06] MEDS ORDERED: LEVALBUTEROL NEBS 1.25 MG/3 ML VIAL NEB ONE ×2 (15:06→15:11)
[2019-05-06] MEDS ORDERED: methylPREDNISolone SODIUM SUC 125 MG/2 ML VIAL IV ONE (15:06)
[2019-05-06] MEDS ORDERED: BUDESONIDE NEBS 0.5 MG/2 ML INH NEB ONE ×2 (15:06→15:11)
--- NOTE | 2019-05-06 15:34 | RAD ---
EXAM DESCRIPTION: Chest,2 Views CLINICAL HISTORY: TANK TESTER exacerbation COMPARISON: May 05, 2019 FINDINGS: Two-view chest x-ray shows cardiomediastinal silhouette and pulmonary vasculature to be within normal limits. The lungs are hyperinflated. Chronic appearing increased interstitial changes in the lungs are seen.. Costophrenic angles are sharp. Mild disc degenerative changes of the spine are seen. IMPRESSION: No radiographic evidence of acute cardiopulmonary disease in this emphysematous, senescent chest. Electronically signed by: Cesar Robin MD 05/06/2019 3:33 PM [facility]
[2019-05-06] MEDS: LEVALBUTEROL NEBS 1.25 MG/3 ML VIAL NEB SCH ×2 (15:45→19:54)
[2019-05-06] MEDS: IV SET AND CAP CHANGE INJ INJ SCH (16:18)
[2019-05-06] MEDS: ALPRAZolam 0.25 MG TAB PO PRN (16:18)
[2019-05-06] MEDS: ACETAMINOPHEN 325 MG TAB PO PRN (16:21)
[2019-05-06] MEDS ORDERED: CEFEPIME 2 GM VIAL ONE ×2 (17:31→20:34)
[2019-05-06] MEDS ORDERED: SODIUM CHLORIDE 0.9% 250ML 250 ML ONE (17:31)
[2019-05-06] MEDS ORDERED: SODIUM CHLORIDE 0.9% 50ML 50 ML ONE ×2 (17:32→20:35)
[2019-05-06] MEDS ORDERED: AZITHROMYCIN IV 500 MG VIAL IVPB ONE (17:32)
[2019-05-06] MEDS: CEFEPIME 1 GM in SODIUM CHLORIDE 0.9% 50ML 50 ML IVPB SCH (17:59)
[2019-05-06] MEDS: methylPREDNISolone SODIUM SUC 125 MG/2 ML VIAL IV SCH ×2 (18:00→23:55)
[2019-05-06] MEDS: AZITHROMYCIN IV 500 MG in SODIUM CHLORIDE 0.9% 250ML 250 ML IVPB SCH (18:23)
[2019-05-06] MEDS ORDERED: KETOROLAC TROMETHAMINE INJ 30 MG/ML VIAL IV ONE (18:33)
[2019-05-06] MEDS ORDERED: KCL 20 MEQ/NS 1,000 ML IVS PRN (18:33)
[2019-05-06] MEDS ORDERED: KCL 20 MEQ/NS 1,000 ML IVS ONE (19:15)
[2019-05-06] MEDS: BUDESONIDE NEBS 0.5 MG/2 ML INH NEB SCH (19:55)
[2019-05-06] MEDS ORDERED: GABAPENTIN 300 MG CAP ONE (20:25)
[2019-05-06] MEDS ORDERED: LEVOTHYROXINE SODIUM 0.025 MG TAB ONE (20:33)
[2019-05-06] MEDS ORDERED: PANTOPRAZOLE SODIUM IV 40 MG VIAL ONE (20:34)
[2019-05-06] MEDS: FAMOTIDINE 20 MG TAB PO SCH (20:40)
[2019-05-06] MEDS: ENOXAPARIN SODIUM 40 MG/0.4 ML SYG SUBCU SCH (20:40)
[2019-05-06] MEDS: PAROXETINE HCL 37.5 MG PO SCH (20:45)
[2019-05-06] MEDS: NON-FORMULARY MEDICATION 1 EA MIS (Oxcarbazepine [Trileptal] 150 MG) PO SCH (20:45)
[2019-05-06] MEDS ORDERED: GABAPENTIN 100 MG CAP PO SCH (21:00)
[2019-05-06] MEDS ORDERED: PHENYTOIN SODIUM PO SCH (21:00)
[2019-05-07] MEDS: CEFEPIME 1 GM in SODIUM CHLORIDE 0.9% 50ML 50 ML IVPB SCH ×2 (05:13→17:22)
[2019-05-07] MEDS: PANTOPRAZOLE SODIUM IV 40 MG VIAL IV SCH (06:02)
[2019-05-07] MEDS: methylPREDNISolone SODIUM SUC 125 MG/2 ML VIAL IV SCH ×3 (06:02→17:21)
[2019-05-07] MEDS ORDERED: LEVOTHYROXINE SODIUM 50 MCG PO SCH (07:00)
[2019-05-07] MEDS ORDERED: NEBIVOLOL 2.5 MG TAB ONE (07:05)
[2019-05-07] MEDS ORDERED: NITROGLYCERIN 0.4 MG 25 EA TAB SL ONE ×2 (07:29→07:30)
[2019-05-07] MEDS: BUDESONIDE NEBS 0.5 MG/2 ML INH NEB SCH ×3 (07:53→20:30)
[2019-05-07] MEDS: LEVALBUTEROL NEBS 1.25 MG/3 ML VIAL NEB SCH ×4 (07:53→20:06)
[2019-05-07] MEDS ORDERED: NITROGLYCERIN 0.2 MG/HR PATCH TD ONE (08:03)
[2019-05-07] MEDS ORDERED: SODIUM CHLORIDE 0.9% (FLUSH) 10 ML SYG IV ONE (08:26)
[2019-05-07] MEDS ORDERED: NON-FORMULARY MEDICATION 1 EA MIS (Nebivolol Hcl [Bystolic] 5 MG) PO SCH (09:00)
[2019-05-07] MEDS: SODIUM CHLORIDE 0.9% (FLUSH) 10 ML SYG IV SCH ×2 (09:08→20:08)
[2019-05-07] MEDS: NON-FORMULARY MEDICATION 1 EA MIS (Oxcarbazepine [Trileptal] 150 MG) PO SCH (09:09)
[2019-05-07] MEDS: PAROXETINE HCL 37.5 MG PO SCH ×2 (09:10→20:08)
[2019-05-07] MEDS: FAMOTIDINE 20 MG TAB PO SCH ×2 (09:11→20:08)
[2019-05-07] MEDS: PHENYTOIN SODIUM CAP EXTENDED 100 MG CAP PO SCH (09:11)
--- NOTE | 2019-05-07 14:18 | PN ---
DATE: 05/07/2019 SUPERVISING PHYSICIAN: Antonio Guzman MD SUBJECTIVE: The patient this morning was complaining of some chest pain that woke her up from sleep. She has been using her Trilogy BiPAP machine overnight. She notes her breathing is a little bit better but the chest pain she is rating 7/10, more in the epigastric region. She was given Nitro and a Xanax and noted the pain actually resolved before she even got the Nitro and she was able to pass some gas and belch. She has not had any nausea or vomiting, she does have a little bit of diarrhea which is chronic. OBJECTIVE: VITAL SIGNS: Temperature 97.6, pulse 86, blood pressure 132/82, respirations 16, oxygen saturation 92% on nasal cannula at 2 liters. GENERAL: The patient is resting comfortably with no complaints of any pain at time of exam. She is alert. CHEST: Lung sounds are a little improved from yesterday with no notable wheezing but continued to be diminished significantly throughout. HEART: Regular rate and rhythm. ABDOMEN: Soft, non-tender, positive bowel sounds. EXTREMITIES: Without edema. NEUROLOGIC: She is alert and oriented x 3. LABORATORY: White count 4,900, hemoglobin 11.5, hematocrit 34.2. Platelet count 166,000, differential shows a left shift. D-dimer was normal at 0.41. Chemistries showed normal electrolytes. BUN19, creatinine 0.73, troponin less than 0.02. CK was 81. Urinalysis showed a trace of leukoesterase and 0 RBCs, 3 to 5 WBCs with 3 epithelials, rare bacteria. MICROBIOLOGY: Sputum culture is pending. Blood cultures pending. RADIOLOGY: No additional radiographic studies. EKG shows a normal sinus rhythm with no ST or T-wave changes indicating acute ischemia or injury pattern. ASSESSMENT: 1. Chest pain requiring rule out 2. Coronary syndrome with initial troponin showing to be within normal limits with no acute changes on EKG. 3. Acute exacerbation of chronic obstructive pulmonary disease, having failed outpatient treatment plan requiring corticosteroids with concerns for early patient noted the gradual onset of without patient having a productive purulent sputum with cultures pending. 4. Frequent panic attacks possibly exacerbated by #1 as well as #2 responding to Xanax. 5. Seizure disorder on Dilantin with last seizure reported 6 years previously. 5. Hypothyroidism on supplementation. 6. Generalized anxiety disorder on multiple medications. 7. Hypertension on medication. PLAN: We will go ahead and repeat a troponin later today. I did go ahead and put her on a nitro patch at 0.2 and await an echocardiogram. She is on telemetry, Lovenox for DVT prophylaxis. We will go ahead and continue with steroids, will do a slow taper. Currently she is on 60 mg every 6 hours. We will go ahead and titrate her to 40 mg per night for an additional 3 doses. She is on antibiotic coverage with Cefepime and azithromycin given her significant history and recent hospitalizations and concern for possible gram negative being the source of possible infection with cultures pending. We will go ahead an for observation her labs as needed. We will repeat a chest x-ray in the morning. Until we can transition her to outpatient management and further rule out that she is not having an acute coronary event, will continue to monitor and treat as necessary. #[id number] MTDD
[2019-05-07] MEDS ORDERED: SODIUM CHLORIDE 0.9% 250ML 250 ML ONE (15:52)
[2019-05-07] MEDS ORDERED: AZITHROMYCIN IV 500 MG VIAL IVPB ONE (15:52)
[2019-05-07] MEDS: AZITHROMYCIN IV 500 MG in SODIUM CHLORIDE 0.9% 250ML 250 ML IVPB SCH (15:54)
[2019-05-07] MEDS ORDERED: CEFEPIME 2 GM VIAL ONE ×2 (16:54→19:23)
[2019-05-07] MEDS ORDERED: SODIUM CHLORIDE 0.9% 50ML 50 ML ONE ×2 (16:55→19:23)
[2019-05-07] MEDS ORDERED: LEVOTHYROXINE SODIUM 0.025 MG TAB ONE (19:22)
[2019-05-07] MEDS ORDERED: REMOVE OLD PATCH TOP ONE (20:00)
[2019-05-07] MEDS: GABAPENTIN 300 MG CAP PO SCH (20:08)
[2019-05-07] MEDS: ENOXAPARIN SODIUM 40 MG/0.4 ML SYG SUBCU SCH (20:08)
[2019-05-07] MEDS: OXcarbazepine 300 MG TAB PO SCH (20:09)
[2019-05-07] MEDS: methylPREDNISolone SODIUM SUC 40 MG/ML VIAL IV SCH ×2 (23:57→23:58)
[2019-05-08] MEDS: PROMETHAZINE W/CODEINE SYR 5 ML UD PO PRN ×2 (00:43→12:07)
[2019-05-08] MEDS: LEVOTHYROXINE SODIUM 0.025 MG TAB PO SCH (05:42)
[2019-05-08] MEDS: PANTOPRAZOLE SODIUM IV 40 MG VIAL IV SCH (05:42)
[2019-05-08] MEDS: CEFEPIME 1 GM in SODIUM CHLORIDE 0.9% 50ML 50 ML IVPB SCH (05:42)
[2019-05-08] MEDS: BUDESONIDE NEBS 0.5 MG/2 ML INH NEB SCH ×3 (08:34→20:02)
[2019-05-08] MEDS: LEVALBUTEROL NEBS 1.25 MG/3 ML VIAL NEB SCH ×4 (08:34→20:04)
[2019-05-08] MEDS ORDERED: PHENYTOIN SODIUM CAP EXTENDED 100 MG CAP PO SCH (09:00)
[2019-05-08] MEDS: OXcarbazepine 300 MG TAB PO SCH ×2 (09:03→20:51)
[2019-05-08] MEDS: NEBIVOLOL 2.5 MG TAB PO SCH (09:04)
[2019-05-08] MEDS: DILANTIN 30 MG PO SCH (09:04)
[2019-05-08] MEDS: FAMOTIDINE 20 MG TAB PO SCH ×2 (09:04→20:52)
[2019-05-08] MEDS: PHENYTOIN SODIUM CAP EXTENDED 100 MG CAP PO SCH (09:04)
[2019-05-08] MEDS: PAROXETINE HCL 37.5 MG PO SCH ×2 (09:06→20:53)
[2019-05-08] MEDS: SODIUM CHLORIDE 0.9% (FLUSH) 10 ML SYG IV SCH ×2 (09:06→20:55)
[2019-05-08] MEDS: ALPRAZolam 0.25 MG TAB PO PRN (12:03)
[2019-05-08] MEDS: methylPREDNISolone SODIUM SUC 40 MG/ML VIAL IV SCH ×3 (12:03→23:56)
--- NOTE | 2019-05-08 13:32 | CT ---
EXAM DESCRIPTION: Chest w/o Contrast CLINICAL HISTORY: 79 years Female, multiple exacerbation CODP TECHNIQUE: This exam was performed according to our departmental dose-optimization program, which includes automated exposure control, adjustment of the mA and/or kV according to patient size and/or use of iterative reconstruction technique. COMPARISON: None at time of initial interpretation. FINDINGS: The thyroid gland is unremarkable. No axillary adenopathy. Atherosclerotic plaque in the thoracic aorta. Coronary artery and aortic valvular calcifications. No pericardial effusion. No evidence of acute process in the visualized upper abdomen. Stable hepatic cysts and hypoattenuating hepatic lesions. Stable left adrenal adenoma. No mediastinal adenopathy. Small right pleural effusion. No pneumothorax. Centrilobular emphysema with preferential upper lobe involvement. Peripheral patchy/groundglass right upper lobe airspace disease. No focal consolidation. No suspicious pulmonary nodule identified. No acute or suspicious osseous abnormality. Scattered degenerative changes present. IMPRESSION: Multifocal right upper lobe pneumonia. Electronically signed by: Fabian Rivas MD 05/08/2019 1:30 PM [employer]
[2019-05-08] MEDS ORDERED: SODIUM CHL 0.9% 50ML MIN-BAG+ 50 ML IVPB ONE (14:15)
[2019-05-08] MEDS ORDERED: CEFEPIME 2 GM VIAL ONE (14:15)
[2019-05-08] MEDS: CEFEPIME 2 GM in SODIUM CHL 0.9% 50ML MIN-BAG+ 50 ML IVPB SCH (14:30)
--- NOTE | 2019-05-08 14:44 | PN ---
SUPERVISING PHYSICIAN: Antonio Guzman MD DATE: 05/08/19 SUBJECTIVE: The patient reports she is not feeling as well today as she did yesterday. She more congested and continues to have a quite productive cough with green sputum and has a little increased wheezing compared to the last 24 hours. She has not had any additional chest pains. She has had no nausea or vomiting. She does remain afebrile although her T-max was 99.9. The patient is utilizing BiPAP at night. OBJECTIVE: VITAL SIGNS: Temperature 99.9. Pulse 70. Blood pressure 128/68. Respirations 20 to 24. Saturation 98% on 2 liter nasal cannula and 98% on BiPAP on 2 liter flow. GENERAL: The patient appears tired, but in no obvious acute distress. She is alert. CHEST: Lung sounds are much more congested today with some notable rhonchi on the right compared to the left, more prominent on the posterolateral aspect. There is some faint inspiration and expiratory wheezing. No rales noted. HEART: Regular rate and rhythm. ABDOMEN: Soft, nontender, positive bowel sounds. EXTREMITIES: Without edema. NEUROLOGIC: She is alert and oriented x3. LABORATORY: No additional laboratory studies at the time of this note as her BMP and CBC were stable. We will plan to repeat labs in the morning. She did have a troponin that was less than 0.02. MICROBIOLOGY: Sputum culture is pending. Blood cultures remain negative at 24 [address]. RADIOLOGY: CT of the chest without contrast per radiologic interpretation shows a small right pleural effusion with central lobular emphysema with preferential upper lobe involvement with peripheral patchy ground glass right upper lobe airspace disease. No focal consolidations or suspicious pulmonary nodules identified. Impression was multifocal right upper lobe pneumonia. ASSESSMENT: 1. Chronic obstructive pulmonary disease exacerbation secondary to multifocal right upper lobe pneumonia with concerns for pseudomonas and other gram negatives plus pneumococcal infection. 2. Chest pains with no signs of acute coronary syndrome with workup negative and no recurrence of chest pains, etiology likely gastric. 3. Frequent panic attacks, exacerbated by #1. 4. Seizure disorder on Dilantin with last seizure reported 6 years previously. 5. Hypothyroidism on supplementation. 6. Generalized anxiety disorder on multiple medications. 7. Hypertension on medication. PLAN: Given her clinical condition today and concerns for pseudomonas, I did start her on cefepime initially on admission, but I will increase the dosage to 2 grams q.12h. based on her renal function. She will remain on azithromycin for atypical coverage. We will start her on chest percussive therapy as well as Mucinex and see if we can help mobilize some of her mucus and congestion. We will await final culture results to target antibiotic therapy. We will continue with steroids at 40 mg q.6h. given the fact that she continues to have a significant amount of wheezing and showing slow response to treatment. She also remains on inhaled steroids in the form of Pulmicort. She is on DVT prophylaxis per protocol. Her D-dimer was negative. Echocardiogram was completed yesterday and showed no evidence of any systolic dysfunction with ejection fraction 65 to 70%. She is having adequate oral intake. We will keep her saline locked at this point. She will utilize BiPAP at night in the form of Trilogy vent that she has been using in the past. I will plan to repeat labs in the morning. Until the patient can transition to outpatient management, we will continue to monitor and treat as needed. #[id number] [facility]
[2019-05-08] MEDS ORDERED: SODIUM CHLORIDE 0.9% 250ML 250 ML ONE (15:29)
[2019-05-08] MEDS ORDERED: AZITHROMYCIN IV 500 MG VIAL IVPB ONE (15:29)
[2019-05-08] MEDS: AZITHROMYCIN IV 500 MG in SODIUM CHLORIDE 0.9% 250ML 250 ML IVPB SCH (15:43)
[2019-05-08] MEDS: GABAPENTIN 300 MG CAP PO SCH (20:52)
[2019-05-08] MEDS: guaiFENesin ER TAB 600 MG TAB PO SCH (20:53)
[2019-05-08] MEDS: ENOXAPARIN SODIUM 40 MG/0.4 ML SYG SUBCU SCH (20:56)
[2019-05-08] MEDS ORDERED: ALBUTEROL SULFATE 2.5 MG/3 ML VIAL NEB PRN (21:23)
[2019-05-09] MEDS ORDERED: SODIUM CHL 0.9% 50ML MIN-BAG+ 50 ML IVPB ONE ×3 (02:27→19:02)
[2019-05-09] MEDS ORDERED: CEFEPIME 2 GM VIAL ONE ×3 (02:27→19:02)
[2019-05-09] MEDS: CEFEPIME 2 GM in SODIUM CHL 0.9% 50ML MIN-BAG+ 50 ML IVPB SCH ×2 (02:29→14:29)
[2019-05-09] MEDS: methylPREDNISolone SODIUM SUC 40 MG/ML VIAL IV SCH ×2 (05:53→11:29)
[2019-05-09] MEDS: LEVOTHYROXINE SODIUM 0.025 MG TAB PO SCH (06:30)
[2019-05-09] MEDS: PANTOPRAZOLE SODIUM IV 40 MG VIAL IV SCH (06:30)
[2019-05-09] MEDS: guaiFENesin ER TAB 600 MG TAB PO SCH ×2 (08:08→20:43)
[2019-05-09] MEDS: OXcarbazepine 300 MG TAB PO SCH ×2 (08:08→20:45)
[2019-05-09] MEDS: PAROXETINE HCL 37.5 MG PO SCH ×2 (08:09→20:44)
[2019-05-09] MEDS: FAMOTIDINE 20 MG TAB PO SCH ×2 (08:09→20:44)
[2019-05-09] MEDS: PHENYTOIN SODIUM CAP EXTENDED 100 MG CAP PO SCH ×2 (08:09→20:42)
[2019-05-09] MEDS: NEBIVOLOL 2.5 MG TAB PO SCH (08:10)
[2019-05-09] MEDS: SODIUM CHLORIDE 0.9% (FLUSH) 10 ML SYG IV SCH ×2 (08:10→20:45)
[2019-05-09] MEDS: BUDESONIDE NEBS 0.5 MG/2 ML INH NEB SCH ×2 (08:37→20:19)
[2019-05-09] MEDS: LEVALBUTEROL NEBS 1.25 MG/3 ML VIAL NEB SCH ×4 (08:37→20:19)
[2019-05-09] MEDS: NON-FORMULARY MEDICATION 1 EA MIS (Umeclidinium-Vilanterol [Anoro Ellipta 62.5-25 Mcg/Inh] INH SCH (08:45)
[2019-05-09] MEDS: DILANTIN 30 MG PO SCH (10:10)
--- NOTE | 2019-05-09 13:37 | PN ---
SUPERVISING PHYSICIAN: Antonio Guzmna MD DATE: 05/09/19 SUBJECTIVE: The patient notes that since we started using the BiPAP through the day yesterday, she is feeling better. She has been having CPT and has not yet produced any significant more sputum, but feels like she is able to breathe a little better. We discussed [facility] for pulmonary rehab. She is open to this. We are waiting for Arianna for consultation. She is not complaining of any chest pain, any worsening shortness of breath, nausea, vomiting or diarrhea. OBJECTIVE: VITAL SIGNS: Temperature 98.2. Pulse 87. Blood pressure 167/83. Respirations 18. Saturation 93% on 2 liter nasal cannula and 95 to 98% on BiPAP on 2 liter flow. GENERAL: The patient this morning appears to be in good spirits. She is not in any obvious acute distress. She is alert. CHEST: Lung sounds are slightly improved today. She just has a very faint expiratory wheeze, but it is more with forceful expiration. No obvious inspiratory wheezing is noted. She still has notable rhonchi heard on the right side, more on the lateral posterior aspect. Left lung is essentially clear, just diminished towards the bases. No rales are noted. HEART: Regular rate and rhythm. ABDOMEN: Soft, nontender, positive bowel sounds. EXTREMITIES: Without edema. NEUROLOGIC: She is alert and oriented x3. LABORATORY: CBC shows white count 4,600, hemoglobin stable at 11 and hematocrit 32.5, platelet count 165,000. Differential does continue to show a left shift. Chemistries show normal electrolytes today with BUN 14, creatinine 0.63, calcium 8.1. RADIOLOGY: No additional radiographic studies since she had a CT of the chest yesterday. Echocardiogram showed a normal systolic function of 60 to 65% with just a mild left ventricular hypertrophy. Please see that report for details. ASSESSMENT: 1. Chronic obstructive pulmonary disease with acute exacerbation due to multifocal right upper lobe pneumonia concerning for pseudomonas and other gram negatives plus pneumococcal infection with cultures pending. The patient is on parenteral antibiotics to include cefepime 2 grams q.12h. and azithromycin. 2. Chest pains with recurrence. Workup was negative with likely etiology being gastric. 3. Frequent panic attacks, exacerbating #1. 4. Seizure disorder on Dilantin with last seizure reported 6 years previously. 5. Hypothyroidism on supplementation. 6. Generalized anxiety disorder on multiple medications. 7. Hypertension on medication. PLAN: We will continue current plan at this point with cefepime and azithromycin. I did increase her dosage on 05/08/19 to cefepime 2 grams q.12h. with concerns for possible pseudomonas infection. She is on Mucinex as well as chest percussion therapy. Cultures are still pending. I tapered her steroids down to 40 mg q.12h. with last dose being at midnight on 05/08/19 with reassessment in the morning for consideration of possible transition to p.o. She has been a very slow taper since admission and was on chronic steroids prior to admission. She has been utilizing BiPAP with the same settings she has on her Trilogy vent at home through the day as needed and at night. She has noted this has been helping her along with getting nebulizer treatments through the BiPAP. She is on Pulmicort as well and DVT prophylaxis. D-dimer was negative. Echocardiogram was resulted out showing ejection fraction 65 to 70%. She is saline locked. We did discuss pulmonary rehab at [facility] and she will have a consultation with Arianna in the morning. We will anticipate if she can transition to oral steroids and x-ray is stable we can hopefully discharge her to [facility] if not possibly home to continue with outpatient management as well as cardiopulmonary rehab. I will hold off on any lab in the morning as those are stable. Until the patient can transition to outpatient management, we will continue to monitor and treat as needed. #[id number] MTDD
[2019-05-09] MEDS: IV SET AND CAP CHANGE INJ INJ SCH (14:29)
[2019-05-09] MEDS ORDERED: SODIUM CHLORIDE 0.9% 250ML 250 ML ONE (16:21)
[2019-05-09] MEDS ORDERED: AZITHROMYCIN IV 500 MG VIAL IVPB ONE (16:21)
[2019-05-09] MEDS: AZITHROMYCIN IV 500 MG in SODIUM CHLORIDE 0.9% 250ML 250 ML IVPB SCH (16:25)
[2019-05-09] MEDS ORDERED: PHENYTOIN SODIUM CAP EXTENDED 100 MG CAP PO ONE (19:01)
[2019-05-09] MEDS ORDERED: methylPREDNISolone SODIUM SUC 40 MG/ML VIAL ONE (19:03)
[2019-05-09] MEDS: ENOXAPARIN SODIUM 40 MG/0.4 ML SYG SUBCU SCH (20:42)
[2019-05-09] MEDS: GABAPENTIN 300 MG CAP PO SCH (20:43)
[2019-05-09] MEDS: PHENYTOIN 30 MG PO SCH (20:44)
[2019-05-09] MEDS ORDERED: [UNRECOGNIZED DRUG - OTHER] PO SCH (21:00)
[2019-05-09] MEDS ORDERED: methylPREDNISolone SODIUM SUC 40 MG/ML VIAL IV SCH (23:00)
[2019-05-10] MEDS: CEFEPIME 2 GM in SODIUM CHL 0.9% 50ML MIN-BAG+ 50 ML IVPB SCH ×2 (02:29→15:27)
[2019-05-10] MEDS: PANTOPRAZOLE SODIUM IV 40 MG VIAL IV SCH (06:10)
[2019-05-10] MEDS: LEVOTHYROXINE SODIUM 0.025 MG TAB PO SCH (06:10)
--- NOTE | 2019-05-10 07:33 | RAD ---
EXAM DESCRIPTION: Chest,2 Views CLINICAL HISTORY: rt upper lobe multifocal pneumonia COMPARISON: May 06, 2019 TECHNIQUE: PA/lateral FINDINGS: Left lung remains essentially clear with slightly coarsened interstitial markings consistent with mild fibrosis in this elderly patient. On the right there are more significantly coarsened markings in the peripheral right mid to upper lung field and in the medial right lung base consistent with bronchitis or early bronchopneumonia. Slight deterioration in the four-day interval since previous study is suggested. Tiny amount of pleural blunting laterally suggests minimal pleural fluid at the lateral right lung base. The heart is normal in size and shape with no evidence of vascular congestion. The cadence and mediastinum demonstrate normal contours. The bony spine and chest wall is normal for age in appearance. IMPRESSION: 1. Abnormal chest on the right with increased interstitial markings peripherally right upper lung field and medial right lung base consistent with areas of patchy bronchopneumonia. Slight deterioration from prior study with minimal pleural blunting at the lateral lung base evident. 2. Essentially clear left lung and normal sized heart and vascularity. Electronically signed by: Acosta Rodriguez MD 05/10/2019 7:31 AM [employer]ENIOR PROGRAMMER
[2019-05-10] MEDS: BUDESONIDE NEBS 0.5 MG/2 ML INH NEB SCH ×2 (08:30→20:29)
[2019-05-10] MEDS: NON-FORMULARY MEDICATION 1 EA MIS (Umeclidinium-Vilanterol [Anoro Ellipta 62.5-25 Mcg/Inh] INH SCH (08:30)
[2019-05-10] MEDS: LEVALBUTEROL NEBS 1.25 MG/3 ML VIAL NEB SCH ×4 (08:30→20:29)
[2019-05-10] MEDS ORDERED: SODIUM CHL 0.9% 50ML MIN-BAG+ 50 ML IVPB ONE ×2 (09:44→19:01)
[2019-05-10] MEDS ORDERED: CEFEPIME 2 GM VIAL ONE ×2 (09:45→19:02)
[2019-05-10] MEDS: OXcarbazepine 300 MG TAB PO SCH ×2 (10:03→20:39)
[2019-05-10] MEDS: guaiFENesin ER TAB 600 MG TAB PO SCH ×2 (10:03→20:34)
[2019-05-10] MEDS: predniSONE 20 MG TAB PO SCH (10:03)
[2019-05-10] MEDS: PHENYTOIN SODIUM CAP EXTENDED 100 MG CAP PO SCH ×2 (10:04→20:34)
[2019-05-10] MEDS: FAMOTIDINE 20 MG TAB PO SCH ×2 (10:04→20:38)
[2019-05-10] MEDS: NEBIVOLOL 2.5 MG TAB PO SCH (10:04)
[2019-05-10] MEDS: SODIUM CHLORIDE 0.9% (FLUSH) 10 ML SYG IV SCH ×2 (10:05→20:38)
[2019-05-10] MEDS: PAROXETINE HCL 37.5 MG PO SCH ×2 (10:20→20:37)
[2019-05-10] MEDS ORDERED: SODIUM CHLORIDE 0.9% 250ML 250 ML ONE (16:21)
[2019-05-10] MEDS ORDERED: AZITHROMYCIN IV 500 MG VIAL IVPB ONE (16:21)
[2019-05-10] MEDS: AZITHROMYCIN IV 500 MG in SODIUM CHLORIDE 0.9% 250ML 250 ML IVPB SCH (17:43)
--- NOTE | 2019-05-10 18:50 | PN ---
DATE: 05/10/19 SUPERVISING PHYSICIAN: Antonio Guzman M.D. SUBJECTIVE: The patient is sitting up in her bed. She has had some shortness of breath and weakness, but she does feel slightly improved from yesterday, although she felt like her morning was rather rough. He daughter is at the bedside and said she became quite anxious discussing discharge to pulmonary rehab as she felt that she was still too short of breath to leave. We discussed her condition and her plan of care that she would not be discharged before she was ready. We also discussed pulmonary rehab and the benefits of her being discharged to that facility. OBJECTIVE: VITAL SIGNS: Temperature 98.4, heart rate 74, blood pressure 164/88, respiratory rate 22. It has gone as high as 24. O2 saturation is 96%. She does require her BiPAP at night. RESPIRATORY: Diminished breath sounds throughout. CARDIAC: Regular rate and rhythm. GASTROINTESTINAL: Abdomen is soft, nondistended, non-tender. Bowel sounds are positive. NEUROLOGIC: She is awake, alert and oriented times three. LABORATORY: Preliminary blood cultures show no growth after 4 days. Sputum culture is still pending. Chest x-ray shows: 1. Abnormal chest on the right with increased interstitial markings peripherally right upper lung damon and medial right lung base consistent with areas of patchy bronchopneumonia. Slight deterioration from prior study with minimal pleural blunting at the lateral lung base is evident. 2. Essentially clear left lung and normal sized heart and vascularity. All other labs and films have been reviewed via the EMR. ASSESSMENT: 1. Chronic obstructive pulmonary disease with acute exacerbation due to multifocal right upper lobe pneumonia concerning for pseudomonas and other gram negatives plus pneumococcal infection with cultures pending. The patient is on parenteral antibiotics to include cefepime 2 grams q.12h. and azithromycin. 2. Chest pains with recurrence. Workup was negative with likely etiology being gastric. 3. Frequent panic attacks, exacerbating #1. 4. Seizure disorder on Dilantin with last seizure reported 6 years previously. 5. Hypothyroidism on supplementation. 6. Generalized anxiety disorder on multiple medications. 7. Hypertension on medication. PLAN: We will continue present supportive care. Her IV steroids were discontinued and she started on her oral dosing of prednisone this morning. Will watch closely as she has always needed a very slow taper. She is more short of breath clinically examining the patient than she has been in the past. She talked to Arianna from [facility] and she is in the process of being accepted to their [facility]. She has agreed to go. I told her we would not discharge her until she was ready. I will order some lab and an x-ray in the morning. Will reassess her transfer tomorrow. Will continue to monitor closely and follow as needed. #[id number] MTDD
[2019-05-10] MEDS: ENOXAPARIN SODIUM 40 MG/0.4 ML SYG SUBCU SCH (20:34)
[2019-05-10] MEDS: GABAPENTIN 300 MG CAP PO SCH (20:35)
[2019-05-10] MEDS: PHENYTOIN 30 MG PO SCH (20:36)
[2019-05-10] MEDS: ACETAMINOPHEN 325 MG TAB PO PRN (21:28)
[2019-05-11] MEDS: CEFEPIME 2 GM in SODIUM CHL 0.9% 50ML MIN-BAG+ 50 ML IVPB SCH ×2 (02:05→14:42)
[2019-05-11] MEDS: LEVOTHYROXINE SODIUM 0.025 MG TAB PO SCH (06:01)
[2019-05-11] MEDS: PANTOPRAZOLE SODIUM IV 40 MG VIAL IV SCH (06:01)
--- NOTE | 2019-05-11 07:50 | RAD ---
EXAM: XR Chest, 2 Views CLINICAL HISTORY: The patient is 79 years old and is Female; pna TECHNIQUE: Frontal and lateral views of the chest. COMPARISON: Chest radiograph from 05/10/2019 FINDINGS: LUNGS: Minimal patchy densities visualized primarily in the periphery of the right mid to lower lung. This is not significantly changed. The left lung is clear. The lungs remain hyperinflated. PLEURAL SPACE: Small right pleural effusion again noted. No pneumothorax. HEART: No significant enlargement of the cardiac silhouette. MEDIASTINUM: Unremarkable. BONES/JOINTS: No acute osseous findings. IMPRESSION: No significant interval change. Mild peripheral densities again noted on the right, which may represent mild residual infiltrate. No new opacities visualized. Electronically signed by: Jenn Sanchez MD 05/11/2019 7:48 AM [employer]
[2019-05-11] MEDS: NON-FORMULARY MEDICATION 1 EA MIS (Umeclidinium-Vilanterol [Anoro Ellipta 62.5-25 Mcg/Inh] INH SCH (09:29)
[2019-05-11] MEDS: BUDESONIDE NEBS 0.5 MG/2 ML INH NEB SCH ×2 (09:30→20:17)
[2019-05-11] MEDS: LEVALBUTEROL NEBS 1.25 MG/3 ML VIAL NEB SCH ×4 (09:30→20:17)
[2019-05-11] MEDS: NEBIVOLOL 2.5 MG TAB PO SCH (10:11)
[2019-05-11] MEDS: guaiFENesin ER TAB 600 MG TAB PO SCH ×2 (10:11→20:39)
[2019-05-11] MEDS: SODIUM CHLORIDE 0.9% (FLUSH) 10 ML SYG IV SCH ×2 (10:16→20:41)
[2019-05-11] MEDS: predniSONE 20 MG TAB PO SCH (10:16)
[2019-05-11] MEDS: OXcarbazepine 300 MG TAB PO SCH ×2 (10:16→20:41)
[2019-05-11] MEDS: PAROXETINE HCL 37.5 MG PO SCH ×2 (10:17→20:40)
[2019-05-11] MEDS: PHENYTOIN SODIUM CAP EXTENDED 100 MG CAP PO SCH ×2 (10:17→20:38)
[2019-05-11] MEDS: FAMOTIDINE 20 MG TAB PO SCH ×2 (10:17→20:40)
[2019-05-11] MEDS ORDERED: POTASSIUM CHLORIDE 20 MEQ TAB PO ONE (10:28)
[2019-05-11] MEDS: ACETAMINOPHEN 325 MG TAB PO PRN ×2 (10:33→16:21)
[2019-05-11] MEDS ORDERED: CEFEPIME 2 GM VIAL ONE ×2 (14:38→19:15)
[2019-05-11] MEDS ORDERED: SODIUM CHL 0.9% 50ML MIN-BAG+ 50 ML IVPB ONE ×2 (14:38→19:14)
[2019-05-11] MEDS ORDERED: SODIUM CHLORIDE 0.9% 250ML 250 ML ONE (16:27)
[2019-05-11] MEDS ORDERED: AZITHROMYCIN IV 500 MG VIAL IVPB ONE (16:28)
[2019-05-11] MEDS: AZITHROMYCIN IV 500 MG in SODIUM CHLORIDE 0.9% 250ML 250 ML IVPB SCH (16:38)
[2019-05-11] MEDS: ENOXAPARIN SODIUM 40 MG/0.4 ML SYG SUBCU SCH (20:38)
[2019-05-11] MEDS: PHENYTOIN 30 MG PO SCH (20:39)
[2019-05-11] MEDS: GABAPENTIN 300 MG CAP PO SCH (20:39)
--- NOTE | 2019-05-11 21:35 | PN ---
DATE: 05/11/19 SUPERVISING PHYSICIAN: Antonio Guzman M.D. SUBJECTIVE: The patient is lying in bed. She is asleep. She has no complaints of shortness of breath, nausea, vomiting or diarrhea. She continues to get quite anxious at times but that has improved and she is feeling better. [facility] has accepted the patient in transfer for pulmonary rehab and she will be discharged tomorrow to that facility. OBJECTIVE: VITAL SIGNS: Temperature 97.8, heart rate 68, blood pressure 174/79, respiratory rate 24, O2 saturation 98% on 2 liters nasal cannula. RESPIRATORY: Diminished throughout with a few scattered rhonchi. No wheezing noted. CARDIAC: Regular rate and rhythm. GASTROINTESTINAL: Abdomen is soft, nondistended, non-tender. Bowel sounds are positive. NEUROLOGIC: She is awake, alert and oriented times three. LABORATORY: WBCs are 4.2 with hemoglobin 11, hematocrit 32.5. Electrolytes are within normal limits with the exception of her potassium is slightly low at 3.3. Preliminary blood cultures show no growth after 4 days. Sputum culture is final and it shows moderate gram positive cocci, moderate gram negative coccobacilli, basically a moderate mixed normal respiratory lavell. Chest x-ray shows no significant interval change. All other labs and films have been reviewed via the EMR. ASSESSMENT: 1. Chronic obstructive pulmonary disease with acute exacerbation due to multifocal right upper lobe pneumonia concerning for pseudomonas and other gram negatives plus pneumococcal infection with cultures pending. The patient is on parenteral antibiotics to include cefepime 2 grams q.12h. and azithromycin. 2. Chest pains with recurrence. Workup was negative with likely etiology being gastric. 3. Frequent panic attacks, exacerbating #1. 4. Seizure disorder on Dilantin with last seizure reported 6 years previously. 5. Hypothyroidism on supplementation. 6. Generalized anxiety disorder on multiple medications. 7. Hypertension on medication. PLAN: We will continue present supportive care. She has not required any additional IV steroids and continues on oral steroid taper. The patient continues to improve clinically overnight. She will be discharged to [facility] for pulmonary rehabilitation at that facility. I will hold on any labs or films for in the morning. Will continue to monitor closely and follow as needed. #[id number] [facility]
[2019-05-12] MEDS: CEFEPIME 2 GM in SODIUM CHL 0.9% 50ML MIN-BAG+ 50 ML IVPB SCH ×2 (02:06→15:19)
[2019-05-12] MEDS: PANTOPRAZOLE SODIUM IV 40 MG VIAL IV SCH (06:14)
[2019-05-12] MEDS: LEVOTHYROXINE SODIUM 0.025 MG TAB PO SCH (06:14)
[2019-05-12 06:23] VITALS: BP 172/84; TEMP 98.2
[2019-05-12] MEDS: NON-FORMULARY MEDICATION 1 EA MIS (Umeclidinium-Vilanterol [Anoro Ellipta 62.5-25 Mcg/Inh] INH SCH (08:35)
[2019-05-12] MEDS: LEVALBUTEROL NEBS 1.25 MG/3 ML VIAL NEB SCH ×3 (08:35→17:26)
[2019-05-12] MEDS: BUDESONIDE NEBS 0.5 MG/2 ML INH NEB SCH (08:35)
[2019-05-12] MEDS: PHENYTOIN SODIUM CAP EXTENDED 100 MG CAP PO SCH (09:21)
[2019-05-12] MEDS: guaiFENesin ER TAB 600 MG TAB PO SCH (09:21)
[2019-05-12] MEDS: FAMOTIDINE 20 MG TAB PO SCH (09:22)
[2019-05-12] MEDS: OXcarbazepine 300 MG TAB PO SCH (09:23)
[2019-05-12] MEDS: NEBIVOLOL 2.5 MG TAB PO SCH (09:24)
[2019-05-12] MEDS: PAROXETINE HCL 37.5 MG PO SCH (09:24)
[2019-05-12] MEDS: predniSONE 20 MG TAB PO SCH (09:24)
[2019-05-12] MEDS: SODIUM CHLORIDE 0.9% (FLUSH) 10 ML SYG IV SCH (09:25)
--- NOTE | 2019-05-12 14:00 | CT ---
EXAM: NONCONTRAST BRAIN CT EXAMINATION. CLINICAL INDICATION: Headache. COMPARISON: Compared to the brain CT of September 19, 2016. TECHNIQUE: Using low dose helical CT technique, thin section axial images were performed through of the brain without the administration of intravenous or subarachnoid contrast material. FINDINGS: Low-dose CT technique causes single slice peripheral hyperdense artifact of the brain which could simulate subdural hematoma on automated review programs. Motion artifact degrades the examination. Brain volume is normal for age. No diffuse brain swelling or brain herniation. No hydrocephalus. No subdural or epidural hematomas. No large subacute brain infarction. No parenchymal brain hemorrhage or evidence of intracranial mass lesion. The brainstem and cerebellum are normal. Cerebral white matter is grossly normal. The caudate heads, lentiform nuclei, thalami and internal capsules are normal. Bones of the skull and skull base are normal. The middle ears and mastoid air cells are clear. The paranasal sinuses are clear. Globes and orbits are grossly normal. Mild atherosclerotic calcification in the cavernous internal carotid arteries. IMPRESSION: 1. Normal for age noncontrast brain CT examination. This exam was performed according to our departmental dose-optimization program, which includes automated exposure control, adjustment of the mA and/or kV according to patient size and/or use of iterative reconstruction technique. Electronically signed by: Bruce Barreto MD 05/12/2019 1:58 PM [facility]
[2019-05-12 14:01] VITALS: O2SAT 98
--- NOTE | 2019-05-12 14:08 | PN ---
SUPERVISING PHYSICIAN: Antonio Guzman MD DATE: 05/12/19 SUBJECTIVE: The patient is sitting up in bed asleep. She awakens easily. She has complaints of headache and has been unrelieved by Tylenol. She had one when she came in and this continued to be on and off during her stay, but is somewhat worsened over the last 24 hours. No nausea, vomiting, chest pain or shortness of breath. OBJECTIVE: VITAL SIGNS: Temperature 98.2. Heart rate 50. Blood pressure 172/84. Respiratory rate 20. O2 saturation 92% on 2 liters nasal cannula. Her baseline blood pressures have been about 122 to 138/70s. RESPIRATORY: Diminished breath sounds throughout. No expiratory wheezing noted. CARDIAC: Regular rate and rhythm. She is slightly bradycardic. GASTROINTESTINAL: Abdomen is soft, nondistended, nontender. Bowel sounds are positive. NEUROLOGIC: She is awake, alert and oriented times three. Cranial nerves II- XII are grossly intact. LABORATORY: Blood cultures show no growth after 5 days. All other labs and films have been reviewed via the EMR. ASSESSMENT: 1. Chronic obstructive pulmonary disease with acute exacerbation due to multifocal right upper lobe pneumonia concerning for pseudomonas and other gram negatives plus pneumococcal infection with cultures pending. The patient is on parenteral antibiotics to include cefepime 2 grams q.12h. and azithromycin. 2. Chest pains with recurrence. Workup was negative with likely etiology being gastric. 3. Frequent panic attacks, exacerbating #1. 4. Seizure disorder on Dilantin with last seizure reported 6 years previously. 5. Hypothyroidism on supplementation. 6. Generalized anxiety disorder on multiple medications. 7. Hypertension on medication. 8. Headache of unknown etiology that has persistently worsened in the last 24 hours. PLAN: We will continue present supportive care. I will hold on any lab or chest x-rays as those are stable and we are awaiting a bed at [facility] in [place] for pulmonary rehab. I am going to get a head CT to evaluate her headaches. I will have [facility] get in touch tomorrow if there is no bed available to see if she should be discharged home and then be admitted to [facility] when there is an available bed, but I will let them decide on that tomorrow. Otherwise, we will continue to monitor the patient closely and follow as needed. #[id number] [facility]
[2019-05-12] MEDS: ALPRAZolam 0.25 MG TAB PO PRN (15:53)
--- NOTE | 2019-06-04 15:28 | DS ---
SUPERVISING PHYSICIAN: Antonio Guzman MD DISCHARGE DIAGNOSIS: 1. Chronic obstructive pulmonary disease with acute exacerbation due to multifocal right upper lobe pneumonia concerning for pseudomonas and other gram negatives plus pneumococcal infection with cultures pending. The patient is on parenteral antibiotics to include cefepime 2 grams q.12h. and azithromycin. 2. Chest pains with recurrence. Workup was negative with likely etiology being gastric. 3. Frequent panic attacks, exacerbating #1. 4. Seizure disorder on Dilantin with last seizure reported 6 years previously. 5. Hypothyroidism on supplementation. 6. Generalized anxiety disorder on multiple medications. 7. Hypertension on medication. 8. Headache of unknown etiology that has persistently worsened in the last 24 hours. HISTORY OF PRESENT ILLNESS: This is an 79-year-old female patient with a longstanding history of chronic obstructive pulmonary disease. She had recently been in the hospital for an exacerbation of her COPD on 04/07/19 and discharged on 04/09/19. She had seen Dr. Recio two times since discharge. She started having a productive cough last week with green sputum and increasing shortness of breath associated with increasing anxiety. She does have a significant history of anxiety disorder. She had been seen in the Emergency Room the night prior to her admission and was diagnosed with chronic obstructive pulmonary disease exacerbation and started on some prednisone and antibiotics and then discharged. The morning of admission, she was seen by Dr. Recio who did a BioFire exam on her for multiple upper respiratory viruses as well as mycoplasma, which were all negative including the flu. She was sill having difficulty with respirations, had very minimal air movement and Dr. Recio requested the patient be directly admitted for ongoing treatment and evaluation for COPD. The patient was directly admitted to the hospital. HOSPITAL COURSE: The patient was admitted for exacerbation of chronic obstructive pulmonary disease. She was given IV Solu-Medrol with an IV taper. She was also given breathing treatments that were both scheduled and p.r.n. She was started on cefepime and azithromycin. Her home medications were restarted and she was given extra Xanax for her severe anxiety that is exacerbated when she takes steroids. She did have an elevated BNP. There were no signs or symptoms of congestive heart failure exacerbation and an echocardiogram was ordered. She was placed on DVT prophylaxis. She used her Trilogy BiPAP while she was in the hospital. During her hospital stay, she did complain of chest pain and her cardiac enzymes were done. She was also placed on a nitro patch. Her cardiac enzymes were negative. She slowly progressed. Her cefepime did have to be increased. Her pulmonary hygiene was continued. The steroids were slowly titrated to oral prednisone. Her echocardiogram did not show any evidence of any systolic dysfunction. She slowly but progressively improved. We felt she might benefit from pulmonary rehab at [facility]. She was accepted and transferred to [facility], but they initially had no beds. We just received a call that a bed had become available and she will be discharged to [facility] facility in [place] for pulmonary rehab. LABORATORY: WBCs started at 6.3 and today were 4.2. Hemoglobin and hematocrit were stable at 11 and 32.5. Initially, she had a left shift on her differential, but today is normalized. D-dimer was negative. Blood gas was within normal limits. Electrolytes were stable except she did have to have supplementation for 3.3 potassium, but other than that, her sodium was 143, chloride 105, carbon dioxide 30, BUN 10, creatinine 0.57, magnesium 1.9, calcium 8.5. Urinalysis was unremarkable. MICROBIOLOGY: Preliminary blood cultures showed no growth after 5 days. Sputum showed a moderate mixed normal respiratory lavell. RADIOLOGY: Echocardiogram showed 1) Normal left ventricular size and systolic function with an estimated ejection fraction of approximately 60-65%. Regional wall motion abnormalities cannot be excluded. 2) Normal right ventricular size and function. 3) Borderline left atrial enlargement. 4) Mild tricuspid and trace mitral valve regurgitation. 5) Small pericardial effusion with no obvious hemodynamic significance. Chest CT showed multifocal right upper lobe pneumonia. Head CT showed normal for age non-contrast brain CT exam. Her final chest x-ray showed no significant interval change, mild peripheral densities again noted to the right which may represent mild residual infiltrates, no new opacities visualized. DISCHARGE PLAN: The patient will be discharged to [facility] pulmonary rehab in [place] in good condition. She is to resume her previous diet and increase her activity as tolerated and as per physical therapy. In addition to her home medications, she is to continue with Omnicef for 7 days as well as a prednisone taper. After discharge from the rehab facility, she is to followup with Dr. Recio or return to the hospital for any problems or complications. DISCHARGE MEDICATIONS: 1. Gabapentin. 2. Paroxetine. 3. Dilantin. 4. Levothyroxine. 5. Bystolic. 6. Xopenex. 7. Clonazepam. 8. Budesonide. 9. Prednisone. 10. Anoro Ellipta. 11. Famotidine. 12. Trileptal. 13. Alprazolam. 14. Cefdinir. 15. Guaifenesin. 16. Prednisone taper. [facility][id number] [facility]
== END 2019-05-12 16:00 | DRG 190 ==
LOC: MS 14:20 → OBSVTOIN 14:20
PROVIDERS: ADMIT Nurse Practitioner Family; ATTEND Nurse Practitioner Acute Care
DX: J43.9 Emphysema, unspecified (principal); J15.6 Pneumonia due to other Gram-negative bacteria; J15.1 Pneumonia due to Pseudomonas; R51 Headache; R07.9 Chest pain, unspecified; F41.0 Panic disorder [episodic paroxysmal anxiety]; F41.1 Generalized anxiety disorder; G40.909 Epilepsy, unspecified, not intractable, without status epilepticus; E03.9 Hypothyroidism, unspecified; I10 Essential (primary) hypertension; Z79.52 Long term (current) use of systemic steroids; Z92.3 Personal history of irradiation; Z88.1 Allergy status to other antibiotic agents; Z88.2 Allergy status to sulfonamides; Z88.3 Allergy status to other anti-infective agents; Z88.8 Allergy status to other drugs, medicaments and biological substances; Z99.81 Dependence on supplemental oxygen; Z79.891 Long term (current) use of opiate analgesic; Z79.899 Other long term (current) drug therapy